=== PATIENT | female | born 1940 | race Caucasian/White ===

== ENCOUNTER → 2016-05-02 | Outpatient (CLI) | payer OTHER, BC ==
[~2016-05-02] MED LIST: ADVIN25050 INH; ALBINS INH; ALBU1AER9 INH; BUDE0.25 INH; CLC100 PO; CMD4 PO; CRDCD300 PO; DIGO0.122 PO; FLUO20CA35 PO; FRRS300 PO; INSDGIPEN SC; METO50TA16 PO; NITR0.2D TD; NVLGIPEN SC; NYSS5 PO; PRD20 PO; SPRIN INH; SYN25 PO
[2016-05-02 16:52] LABS: URINE APPEARANCE CLEAR (CLEAR); URINE BILIRUBIN NEG (NEG); URINE COLOR YELLOW; URINE EPITHELIAL CELL AUTO >30 /lpf (0-5); URINE NITRITE NEG (NEG); URINE SPECIFIC GRAVITY 1.018 (1.000-1.030); UROBILINOGEN NEG (NEG); ZZUR CULT IF INDIC CLEAN CATCH YES
[2016-05-02 16:59] LABS: MANUAL MICROSCOPIC REQUIRED? NO; REVIEW REQ? NO
[2016-05-02 17:24] LABS: URINE PROTIEN/CREAT RATIO 0.3 (0-0.2); URINE TOTAL PROTEIN 37.1 mg/dl (0-11.9)
== END | disposition home or self-care (01) ==
LOC: C.LAB1850 14:52
PROVIDERS: ATTEND Internal Medicine Nephrology
DX: N00.9 Acute nephritic syndrome with unspecified morphologic changes (principal)

== ENCOUNTER 2020-09-06 17:26 | Inpatient (IN) ==
[2020-09-06] MEDS ORDERED: methylPREDNISolone 125 MG/2 ML VIAL IV SCH (19:45)
--- NOTE | 2020-09-06 19:57 | History & Physical Report ---
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 BUN=63, Cr=4.18 from 50 and 2.2, respectively on . K is mildly elevated at 5.5, HCO3=24. UA with 4+ protein and 3+ blood. -Admit to medical -Check urine protein/Cr spot -Solumedrol 1000 mg IV daily x 3 days -Nephrology consultation appreciated -Avoid nephrotoxic agents -Renal dosing where needed -Gentle IVF - LR at 80mL/hr x 1 liter Present on Admission?: Yes (2) CAD (coronary artery disease): Chronic -Continue metoprolol 25mg po BID -Continue Simvastatin 10mg daily -Hold Losartan Present on Admission?: Yes (3) IgA nephropathy: As above -Solumedrol Present on Admission?: Yes (4) Hypertension: Blood pressure elevated -Continue Diltiazem -Continue Metoprolol -Monitor Present on Admission?: Yes (5) COPD (chronic obstructive pulmonary disease): Patient states she does not take any inhalers at home -Continue to monitor -Will resume Breo and Spiriva -Patient follows with Pulmonary Present on Admission?: Yes (6) H/O mechanical aortic valve replacement: Chronic -Continue Coumadin. Goal INR 2.5 - 3.5 F/E/N - LR at 80mL/hr x 1 liter, monitor electrolytes Ppx - On Coumadin Code - Full Dispo -Medical with telemetry Present on Admission?: Yes Admission and Anticipated Discharge Date Admission Date: September 06, 2020 History of Present Illness Chief Complaint: renal impairment, abnormal labs Primary Care Provider: DO Konrad Meansfidel Wells is a pleasant 79yo female with history of CAD s/p CABG x 3V, COPD, HTN, CHF as well as CKD. 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 Patient was referred to [facility] due to abnormal labs. She has no complaints at this time with exception of chronic, stable MATOS as well as right shoulder pain. She also complains of poor sleep, worsening anxiety and occasional nausea after eating. Otherwise, no additional complaints. She is urinating without difficulty- states that she urinates a lot at night, occasionally with difficulty starting urinary stream. She denies dysuria. Has foamy urine. No blood. She has received her Covid-19 vaccinations. Allergies Allergy/AdvReac Type Severity Reaction Status Date / Time Sulfa (Sulfonamide Allergy Unknown Unknown Verified 06/20/20 12:59 Antibiotics) rxn to Bactrim trimethoprim Allergy Unknown Unknown Verified 06/20/20 12:59 rxn to Bactrim Home Medications Medication Instructions Recorded Confirmed Type diltiazem HCl 360 mg 360 mg PO DAILY cap 11/27/18 09/06/20 History capsule,extended release 24 hr ferrous sulfate 325 mg (65 mg 325 mg PO TID tab 11/27/18 06/20/20 History iron) tablet fluticasone furoate 200 1 puffs INHALATION DAILY #1 ea 11/27/18 06/20/20 History mcg-vilanterol 25 mcg/dose inhalation powder levothyroxine 75 mcg tablet 75 mcg PO DAILY #90 tab 11/27/18 09/06/20 History metoprolol tartrate 50 mg tablet 25 mg PO BID tab 11/27/18 09/06/20 History nitroglycerin 0.4 mg sublingual 0.4 mg SL Q5M PRN tab 11/27/18 06/20/20 History tablet warfarin 4 mg tablet 5 mg PO DAILY tab 11/27/18 06/20/20 History furosemide 20 mg tablet 20 mg PO DAILY tab 04/12/19 09/06/20 History albuterol sulfate See Rx Instructions INHALATION Q4H 04/26/19 06/20/20 Rx PRN #360 vial albuterol sulfate 90 mcg/actuation 2 puff INH QID PRN #18 gm 04/26/19 06/20/20 Rx aerosol inhaler losartan 50 mg tablet 50 mg PO BID #180 tab 05/02/20 09/06/20 Rx simvastatin 20 mg tablet 10 mg PO DAILY tab 06/20/20 09/06/20 History warfarin 5 mg PO DAILY 09/06/20 09/06/20 History Past Med/Surg History Medical History (Updated 09/06/20 @ 22:59 by Jenise Duran DO) Acute on chronic clinical systolic heart failure Anemia Biventricular cardiac pacemaker in situ CAD (coronary artery disease) COPD (chronic obstructive pulmonary disease) Hypertension IgA nephropathy Ischemic cardiomyopathy Leukocytoclastic vasculitis Pulmonary hypertension Stage III chronic kidney disease Surgical History (Updated 09/06/20 @ 23:00 by Jenise Duran DO) History of aortic valve repair History of coronary artery bypass graft Family History (Updated 09/06/20 @ 22:46 by Jenise Duran DO) Other Heart disease Social History Smoking Status: Never smoker Hx Alcohol Use: No Hx Substance Use: No Preferred Language: [place] Communication Ability: Effective Beliefs That Will Affect Care: None Current Living Situation: Spouse current occupational status: retired Feels Safe at Home: Yes Safety Concerns: Feels Safe At This Time Assistive Devices: Denture - Upper and Glasses Review of Systems Review of Systems: All systems reviewed & are unremarkable except as noted in HPI & below Physical Exam Physical Exam: General: patient resting comfortably, NAD, non-toxic in appearance, AA&O x 4 Skin: warm, dry, intact, no rashes or lesions HEENT: NC/AT, PERRL, EOMI, anicteric sclera, conjunctiva without injection, external ear normal to inspection and nontender, nares patent, moist mucus membranes, dentition intact, no oropharyngeal lesions, neck supple, trachea midline, no LAD, no thyromegaly, no JVD Heart: +S1/S2, regular, mechanical click present, no m/r/g Lungs: equal air entry bilaterally, no rales/rhonchi/wheezes Abd: +BS, soft, NT/ND, no masses/organomegaly/ascites Ext: warm, 2+ pulses in UE/LE bilaterally, no clubbing/cyanosis or edema Neuro: nonfocal, patient AA&O x 4, speech intact, no facial droop, moving all extremities on command with equal strength 5/5 Results & Data Results & Data ([facility]) Vital Signs (Past 12 Hours) Vital Signs Height Weight Body Mass Index Blood Pressure Blood Pressure Position Temperature Temperature Source 5 ft 2 in 57.5 kg 23.1 177/59 H Sitting 36.5 C Oral 09/06/20 19:57 09/06/20 19:57 09/06/20 19:57 09/06/20 19:57 09/06/20 19:57 09/06/20 19:57 09/06/20 19:57 Respiratory Rate Pulse Oximetry 16 96 09/06/20 19:57 09/06/20 19:57 Laboratory Results Laboratory Results WBC 9.84 K/uL (4.8-10.8) 09/06/20 19:56 RBC 3.79 M/uL (4.2-5.4) L 09/06/20 19:56 Hgb 10.3 g/dL (12.0-16.0) L 09/06/20 19:56 Hct 32.2 % (37-47) L 09/06/20 19:56 MCV 85.0 fL (80-100) 09/06/20 19:56 MCH 27.2 pg (25-34) 09/06/20 19:56 MCHC 32.0 g/dL (32-36) 09/06/20 19:56 RDW Std Deviation 50.4 fL (36.4-46.3) H 09/06/20 19:56 RDW Coeff of Radha 16.1 % (11.5-14.5) H 09/06/20 19:56 Plt Count 313 K/uL (130-400) 09/06/20 19:56 MPV 11.0 fL (7.4-10.4) H 09/06/20 19:56 Immature Gran % (Auto) 0.2 % 09/06/20 19:56 Neut % (Auto) 65.7 % 09/06/20 19:56 Lymph % (Auto) 22.4 % 09/06/20 19:56 Allen % (Auto) 9.6 % 09/06/20 19:56 Eos % (Auto) 1.5 % 09/06/20 19:56 Baso % (Auto) 0.6 % 09/06/20 19:56 Neut # (Auto) 6.47 K/uL (1.4-6.5) 09/06/20 19:56 Lymph # (Auto) 2.20 K/uL (1.2-3.4) 09/06/20 19:56 Allen # (Auto) 0.94 K/uL (0.11-0.59) H 09/06/20 19:56 Eos # (Auto) 0.15 K/uL (0-0.5) 09/06/20 19:56 Baso # (Auto) 0.06 K/uL (0-0.2) 09/06/20 19:56 Immature Gran # (Auto) 0.02 K/uL (0.00-0.02) 09/06/20 19:56 PT 30.4 Seconds (9.0-12.0) H 09/06/20 19:56 INR 3.3 (0.9-1.1) H 09/06/20 19:56 Sodium 136 mmol/L (136-145) 09/06/20 19:56 Potassium 5.5 mmol/L (3.5-5.1) H 09/06/20 19:56 Chloride 106 mmol/L (98-107) 09/06/20 19:56 Carbon Dioxide 24 mmol/L (21-32) 09/06/20 19:56 Anion Gap 6.0 (3-11) 09/06/20 19:56 BUN 63 mg/dl (7-18) H 09/06/20 19:56 Creatinine 4.18 mg/dl (0.6-1.2) H 09/06/20 19:56 Est Cr Clr Drug Dosing 8.6 ml/min 09/06/20 19:56 Est GFR ( Amer) 11.0 ml/min 09/06/20 19:56 Est GFR (Non-Af Amer) 9.5 ml/min 09/06/20 19:56 BUN/Creatinine Ratio 15.0 (10-20) 09/06/20 19:56 Glucose 108 mg/dl (70-99) H 09/06/20 19:56 Calcium 8.5 mg/dl (8.5-10.1) 09/06/20 19:56 Phosphorus 5.4 mg/dl (2.5-4.9) H 09/06/20 19:56 Magnesium 2.3 mg/dl (1.8-2.4) 09/06/20 19:56 Total Bilirubin 0.2 mg/dl (0.2-1) 09/06/20 19:56 Direct Bilirubin < 0.1 mg/dl (0-0.2) 09/06/20 19:56 AST 18 U/L (15-37) 09/06/20 19:56 ALT 17 U/L (12-78) 09/06/20 19:56 Alkaline Phosphatase 89 U/L (45-117) 09/06/20 19:56 Total Creatine Kinase 50 U/L (26-192) 09/06/20 19:56 Total Protein 7.8 gm/dl (6.4-8.2) 09/06/20 19:56 Albumin 2.6 gm/dl (3.4-5.0) L 09/06/20 19:56 Urine Color Dark Yellow 09/06/20 Unknown Urine Appearance Clear (Clear) 09/06/20 Unknown Urine pH 7.0 (4.5-7.5) 09/06/20 Unknown Ur Specific [place] 1.017 (1.000-1.030) 09/06/20 Unknown Urine Protein 4+ (Negative) H 09/06/20 Unknown Urine Glucose (UA) Negative (Negative) 09/06/20 Unknown Urine Ketones Negative (Negative) 09/06/20 Unknown Urine Blood 3+ (Negative) H 09/06/20 Unknown Urine Nitrite Negative (Negative) 09/06/20 Unknown Urine Bilirubin Negative (Negative) 09/06/20 Unknown Urine Urobilinogen Negative (Negative) 09/06/20 Unknown Ur Leukocyte Esterase Trace (Negative) H 09/06/20 Unknown Urine WBC (Auto) 10-30 /hpf (0-5) H 09/06/20 Unknown Urine RBC (Auto) >30 /hpf (0-4) H 09/06/20 Unknown U Hyaline Cast (Auto) 1-5 /lpf (0-5) 09/06/20 Unknown U Epithel Cells (Auto) >30 /lpf (0-5) H 09/06/20 Unknown Urine Bacteria (Auto) Negative (Negative) 09/06/20 Unknown Ur Renal Epithelial Cell 0-5 /lpf (0-5) 09/06/20 Unknown COVID-19 Eval Order Covid19 IDNow On license of [facility] 09/06/20 20:00 SARS-CoV-2, RNA, NAAT NEGATIVE (NEGATIVE) 09/06/20 20:00 PG Care Time/CCT Total # of Minutes Spent Total Time Spent with Patient: Total time spent is greater than 50% in coordination of care (as documented) at patient's floor/unit and/or counseling patient: Coding Level of Care Code 82451 Initial Inpt Care Lvl 3 Diagnoses Stage III chronic kidney disease N18.30 Chronic kidney disease stage 3 subtype: unspecified whether 3a or 3b CAD (coronary artery disease) I25.10 Coronary Disease-Associated Artery/Lesion type: [place] artery [place] vs. transplanted heart: [place] heart Associated angina: without angina IgA nephropathy N02.8 Hypertension I10 Hypertension type: unspecified COPD (chronic obstructive pulmonary disease) J44.9 COPD type: unspecified COPD H/O mechanical aortic valve replacement Z95.2 (1) CAD (coronary artery disease) Coronary Disease-Associated Artery/Lesion type: [place] artery [place] vs. transplanted heart: [place] heart Associated angina: without angina Qualified Code(s): I25.10 - Atherosclerotic heart disease of [place] coronary artery without angina pectoris (2) Hypertension Hypertension type: unspecified Qualified Code(s): I10 - Essential (primary) hypertension (3) COPD (chronic obstructive pulmonary disease) COPD type: unspecified COPD Qualified Code(s): J44.9 - Chronic obstructive pulmonary disease, unspecified (4) Stage III chronic kidney disease Chronic kidney disease stage 3 subtype: unspecified whether 3a or 3b Qualified Code(s): N18.30 - Chronic kidney disease, stage 3 unspecified
[2020-09-06 20:15] LABS: Basophils # (auto) 0.06 K/uL (0-0.2); Basophils % (auto) 0.6 %; Eosinophils # (auto) 0.15 K/uL (0-0.5); Eosinophils % (auto) 1.5 %; Hematocrit (blood only) 32.2 % (37-47); Hemoglobin 10.3 g/dL (12.0-16.0); Immature Granulocytes # (auto) 0.02 K/uL (0.00-0.02); Immature Granulocytes % (auto) 0.2 %; Lymphocytes % (auto) 22.4 %; Mean Corpuscular Hemoglobin 27.2 pg (25-34); Monocytes # (auto) 0.94 K/uL (0.11-0.59); Monocytes % (auto) 9.6 %; Neutrophils # (auto) 6.47 K/uL (1.4-6.5); Neutrophils % (auto) 65.7 %; Platelet Count 313 K/uL (130-400); RDW Coefficient of Variation 16.1 % (11.5-14.5); RDW Standard Deviation 50.4 fL (36.4-46.3); Red Blood Count 3.79 M/uL (4.2-5.4); White Blood Count 9.84 K/uL (4.8-10.8)
[2020-09-06 20:29] LABS: INR 3.3 (0.9-1.1); Prothrombin Time 30.4 Seconds (9.0-12.0)
[2020-09-06 20:38] LABS: Appearance Urine Clear (Clear); Bacteria Urine Automated Negative (Negative); Bilirubin Urine Negative (Negative); Blood Urine 3+ (Negative); Color Urine Dark Yellow; Epithelial Cell Urine Auto >30 /lpf (0-5); Glucose Urine UA Negative (Negative); Ketones Urine Negative (Negative); Leukocyte Esterase Urine Trace (Negative); Nitrite Urine Negative (Negative); Protein Urine 4+ (Negative); RBC Urine Automated >30 /hpf (0-4); Specific Gravity Urine 1.017 (1.000-1.030); Urobilinogen Urine Negative (Negative)
[2020-09-06 20:38] LABS: Alanine Aminotransferase 17 U/L (12-78); Albumin Level 2.6 gm/dl (3.4-5.0); Aspartate Aminotransferase 18 U/L (15-37); Blood Urea Nitrogen 63 mg/dl (7-18); Calcium 8.5 mg/dl (8.5-10.1); Carbon Dioxide 24 mmol/L (21-32); Chloride 106 mmol/L (98-107); Creatinine Clr Calc Pharmacy 8.6 ml/min; Est GFR (Non-African American) 9.5 ml/min; Glucose 108 mg/dl (70-99); Magnesium 2.3 mg/dl (1.8-2.4); Potassium 5.5 mmol/L (3.5-5.1); Sodium 136 mmol/L (136-145)
[2020-09-06 20:42] LABS: Alkaline Phosphatase 89 U/L (45-117); Bilirubin Direct < 0.1 mg/dl (0-0.2); Bilirubin,Total 0.2 mg/dl (0.2-1); Creatine Kinase 50 U/L (26-192); Phosphorus 5.4 mg/dl (2.5-4.9); Total Protein 7.8 gm/dl (6.4-8.2)
[2020-09-06] MEDS ORDERED: LOSARTAN POTASSIUM 50 MG TAB PO SCH (21:00)
[2020-09-06] MEDS: METOPROLOL TARTRATE 25 MG TAB PO SCH (21:07)
[2020-09-06 21:19] LABS: Renal Epithelial Cells Urine 0-5 /lpf (0-5)
[2020-09-06] MEDS: methylPREDNISolone 1,000 MG in DEXTROSE 5% 250 ML IV SCH (22:39)
[2020-09-06] MEDS: hydrOXYzine HCl 25 MG TAB PO PRN (22:43)
[2020-09-06] MEDS ORDERED: LACTATED RINGER'S 1,000 ML IV SCH (23:00)
[2020-09-07 02:54] LABS: Creatinine Urine Random 22.7 mg/dl
[2020-09-07 02:55] LABS: Total Protein Urine Random 380.6 mg/dl (0-11.9)
[2020-09-07] MEDS: LEVOTHYROXINE SODIUM 75 MCG TABLET PO SCH (04:51)
--- NOTE | 2020-09-07 07:41 | Ultrasound Report ---
RENAL ULTRASOUND CLINICAL HISTORY: Glomerulonephritis. COMPARISON STUDY: Renal ultrasound March 22, 2015. TECHNIQUE: Sonography of the kidneys and the urinary bladder was performed. FINDINGS: Right kidney measures 9.7 cm in maximal dimension and the left measures 9.6 cm. There is no hydronephrosis. Both kidneys are echogenic. This was shown on prior ultrasound. There are multiple b ilateral renal cysts, largest is a 2.3 cm left renal cyst which contains a thin septation. No renal c alculi are identified by sonography. Bladder is suboptimally assessed given underdistention. Ureteral jets are not visualized. IMPRESSION: 1. No hydronephrosis. 2. Increased renal echogenicity, as shown on prior ultrasound. 2. Multiple renal cysts. ACT 112: Negative or not required by law. Electronically signed by: Lennox Moore M.D. 09/07/2020 7:40 AM
[2020-09-07 08:06] LABS: BUN Creatinine Ratio 14.3 (10-20); Calcium 8.6 mg/dl (8.5-10.1); Creatinine Clr Calc Pharmacy 9.1 ml/min; Est GFR (African American) 11.7 ml/min; Est GFR (Non-African American) 10.1 ml/min; Potassium 5.3 mmol/L (3.5-5.1)
[2020-09-07] MEDS ORDERED: GLUCOSE 40% GEL 15 GM TUBE PO PRN (08:18)
[2020-09-07] MEDS ORDERED: DEXTROSE 50% 50 ML SYRINGE IV PRN (08:18)
[2020-09-07] MEDS ORDERED: GLUCAGON FOR INJ 1 MG VIAL SQ PRN (08:18)
[2020-09-07] MEDS ORDERED: GLUCOSE 10 TABS/TUBE PO PRN (08:18)
[2020-09-07] MEDS ORDERED: CARBOHYDRATES FOR HYPOGLYCEMIA PO PRN (08:18)
[2020-09-07] MEDS ORDERED: cloNIDine HCL 0.1 MG TAB PO ONE (08:31)
[2020-09-07] MEDS: FERROUS GLUCONATE 324 MG TAB PO SCH (08:33)
[2020-09-07] MEDS: [UNRECOGNIZED DRUG - OTHER] PO SCH (08:33)
[2020-09-07] MEDS: SIMVASTATIN 10 MG TAB PO SCH (08:34)
[2020-09-07] MEDS: FLUTICASONE/VILANTEROL 200/25MCG 14 PUFFS/INHALER INH SCH (08:34)
[2020-09-07] MEDS: UMECLIDINIUM BROMIDE 62.5MCG/BLISTER 7 PUFFS/INHALER INH SCH (08:34)
[2020-09-07] MEDS: METOPROLOL TARTRATE 25 MG TAB PO SCH ×2 (08:34→20:45)
--- NOTE | 2020-09-07 08:52 | Electrocardiogram Report ---
Test Reason : Blood Pressure : / mmHG Vent. Rate : 071 BPM Atrial Rate : 284 BPM P-R Int : 000 ms QRS Dur : 178 ms QT Int : 502 ms P-R-T Axes : 000 248 061 degrees QTc Int : 545 ms Poor data quality, interpretation may be adversely affected Ventricular-paced rhythm Probable atrial flutter as underlying rhythm Abnormal ECG When compared with ECG of 21-MAR-2015 19:12, No significant change was found Confirmed by Hai Ramirez ([id number]) on 09/07/2020 8:52:06 AM Referred By: Russell Manzano Confirmed By:Hai Ramirez
--- NOTE | 2020-09-07 09:10 | Nephrology Consultation ---
Date of Consultation September 07, 2020 Assessment & Plan (1) Acute glomerulonephritis: Solu-medrol 1000 mg daily x 3 days. Monitor metabolic profile daily. Renal US does not demonstrate obstruction. Biopsy deferred at patient request. (2) Nephrotic range proteinuria: Continue losartan 50 mg twice daily. Encourage dietary protein intake. Supplements encouraged for hypoalbuminemia. (3) Stage III chronic kidney disease: Advanced BL CKD. No prior biopsy. CKD IIIb-IV A3. Goals of care reviewed. Mckenna completed TOPS predialysis education in the past. She would start in- centre HD, if needed. Renal diet. Aggressive management of CKD/MBD. Ergocalciferol 74771 units weekly started today. PTH from 09/05 pending. Serum PO4 acceptable. (4) Hypertension: Accelerated, relatively asymptomatic. Monitor orthostatic vitals. Volume status appears acceptable and I think it is reasonable to permit an even to slightly positive fluid balance at this time. PO clonidine provided this AM. Diuretic held. History of Present Illness Reason for Consultation: FAITH, acute GN Requesting Physician: Kassi Del Real MD Attending Physician: Kassi Del Real MD History of Present Illness Mrs. Mckenna Wells is a 79 year-old female with hypertension, COPD, hypothyroidism, coronary artery disease status post CABG with mechanical aortic valve and chronic kidney disease who was admitted to [facility] in March 2016 with rapidly progressive acute kidney injury with glomerulonephritis following treatment for cutaneous vasculitis (biopsy proven leukocytoclastic vasculitis). Direct admission requested yesterday after outpatient laboratory studies demonstrated notable FAITH with evidence of acute GN. 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 Renal ultrasound revealed normal kidneys with several bilateral simple cysts. Serologic workup negative for VERONIKA, ANCA, anti-BM ab, blood cultures and complement levels normal. Renal biopsy deferred at that time at patient's request and given cystic kidney disease. Clinical remission noted with steroid therapy. Creatinine stabilized at 1.5-1.8 mg/dL. Prior 24 hour urine collection yielded 500 mg protein per 24 hours. Microscopic hematuria had resolved. 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 Mckenna does have osteoporosis and had developed lumbar compression fractures in 2019. After discontinuation of steroids, tolerated MMF without evidence of recurrent vasculitis. In June 2018, MMF was weaned off. Mckenna then asked to avoid any additional immune modifying therapy. Mckenna returned for follow up in September and at that time UA was notable for 1-3 RBC and a random PCR of 813 mg/mg. The medication was again bridged while losartan was titrated. Unfortunately, PCR in February was increased at 3200 mg/mg. It is now 1350 mg/mg. Creatinine notably increased at 4.1+ mg/dL. Potassium slightly elevated at 5.2 mmol/L but overall stable. Albumin down to 2.6. Urine studies consistent with recurrent acute GN. No other systemic manifestations of vasculitis. Blood pressure notably accelerated. Mckenna reports some dyspnea with exertion and shortness of breath but otherwise denies any symptoms associated with accelerated hypertension. Volume status overall appears acceptable. Mckenna feels well but endorses notable anxiety. She is very concerned about the possibility of dialysis. I had a long conversation with Mckenna and her yesterday evening and I reviewed goals of care with Mckenna this AM. Mckenna was admitted to [facility] with a small subdural hematoma following a fall in February 2018. She is limited due to arthritis and chronic back pain. Mckenna has been using a wheelchair when out of the house. She lives at home with assistance from her . Allergies Allergy/AdvReac Type Severity Reaction Status Date / Time Sulfa (Sulfonamide Allergy Unknown Unknown Verified 06/20/20 12:59 Antibiotics) rxn to Bactrim trimethoprim Allergy Unknown Unknown Verified 06/20/20 12:59 rxn to Bactrim Home Medications Medication Instructions Recorded Confirmed Type diltiazem HCl 360 mg 360 mg PO DAILY cap 11/27/18 09/06/20 History capsule,extended release 24 hr ferrous sulfate 325 mg (65 mg 325 mg PO TID tab 11/27/18 06/20/20 History iron) tablet fluticasone furoate 200 1 puffs INHALATION DAILY #1 ea 11/27/18 06/20/20 History mcg-vilanterol 25 mcg/dose inhalation powder levothyroxine 75 mcg tablet 75 mcg PO DAILY #90 tab 11/27/18 09/06/20 History metoprolol tartrate 50 mg tablet 25 mg PO BID tab 11/27/18 09/06/20 History nitroglycerin 0.4 mg sublingual 0.4 mg SL Q5M PRN tab 11/27/18 06/20/20 History tablet warfarin 4 mg tablet 5 mg PO DAILY tab 11/27/18 06/20/20 History furosemide 20 mg tablet 20 mg PO DAILY tab 04/12/19 09/06/20 History albuterol sulfate See Rx Instructions INHALATION Q4H 04/26/19 06/20/20 Rx PRN #360 vial albuterol sulfate 90 mcg/actuation 2 puff INH QID PRN #18 gm 04/26/19 06/20/20 Rx aerosol inhaler losartan 50 mg tablet 50 mg PO BID #180 tab 05/02/20 09/06/20 Rx simvastatin 20 mg tablet 10 mg PO DAILY tab 06/20/20 09/06/20 History warfarin 5 mg PO DAILY 09/06/20 09/06/20 History Patient History Medical History Acute on chronic clinical systolic heart failure Anemia Biventricular cardiac pacemaker in situ CAD (coronary artery disease) COPD (chronic obstructive pulmonary disease) Hypertension IgA nephropathy Ischemic cardiomyopathy Leukocytoclastic vasculitis Pulmonary hypertension Stage III chronic kidney disease Surgical History History of aortic valve repair History of coronary artery bypass graft Family History Other Heart disease Social History Smoking Status: Never smoker Hx Alcohol Use: No Hx Substance Use: No Preferred Language: Iranian Communication Ability: Effective Beliefs That Will Affect Care: None Current Living Situation: Spouse current occupational status: retired Feels Safe at Home: Yes Safety Concerns: Feels Safe At This Time Assistive Devices: Denture - Upper and Glasses Review of Systems Review of Systems: All systems reviewed & are unremarkable except as noted in HPI & below Constitutional: + fatigue and + weakness; no weight loss and no weight gain Cardiovascular: + dyspnea on exertion Genitourinary: + urinary frequency Psychiatric: + anxiety Physical Exam Constitutional: well developed, + thin and + frail appearing; no acute distress Eyes: + anicteric sclerae; no corneal abnormality ENMT: Mouth: + dry oral mucous membranes; no oral mucosal abnormality Neck: normal visual inspection and trachea midline Respiratory: normal respiratory effort Auscultation: lungs clear to auscultation bilaterally Cardiovascular: Rate/Rhythm: regular rate Heart Sounds: normal S1, normal S2, + click and + murmur Vessels: no JVD and no renal bruit Extremities: normal capillary refill and + edema Musculoskeletal: Extremities: no cyanosis and no clubbing Skin: + turgor decreased; no lesions Neurologic: Motor/Sensory: no tremor and no asterixis Psychiatric: Orientation: alert and oriented x 3 Results & Data ([facility]) Vital Signs (Past 12 Hours) Vital Signs Temp Pulse Resp BP BP Pulse Ox 09/07/20 07:43 203/73 H 178/64 H 09/07/20 07:27 36.7 C 70 16 192/78 H 90 09/07/20 03:21 36.8 C 67 18 168/62 H 95 09/06/20 23:09 36.8 C 71 18 124/62 94 Laboratory Results Laboratory Results - last 24 hr 09/06/20 09/06/20 09/06/20 19:56 19:56 19:56 WBC 9.84 RBC 3.79 L Hgb 10.3 L Hct 32.2 L MCV 85.0 MCH 27.2 MCHC 32.0 RDW Std Deviation 50.4 H RDW Coeff of Radha 16.1 H Plt Count 313 MPV 11.0 H Immature Gran % (Auto) 0.2 Neut % (Auto) 65.7 Lymph % (Auto) 22.4 [place] % (Auto) 9.6 Eos % (Auto) 1.5 Baso % (Auto) 0.6 Neut # (Auto) 6.47 Lymph # (Auto) 2.20 [place] # (Auto) 0.94 H Eos # (Auto) 0.15 Baso # (Auto) 0.06 Immature Gran # (Auto) 0.02 PT 30.4 H INR 3.3 H Sodium 136 Potassium 5.5 H Chloride 106 Carbon Dioxide 24 Anion Gap 6.0 BUN 63 H Creatinine 4.18 H Est Cr Clr Drug Dosing 8.6 Est GFR ( Amer) 11.0 Est GFR (Non-Af Amer) 9.5 BUN/Creatinine Ratio 15.0 Glucose 108 H Calcium 8.5 Phosphorus 5.4 H Magnesium 2.3 Total Bilirubin 0.2 Direct Bilirubin < 0.1 AST 18 ALT 17 Alkaline Phosphatase 89 Total Creatine Kinase 50 Total Protein 7.8 Albumin 2.6 L Urine Color Urine Appearance Urine pH Ur Specific [place] Urine Protein Urine Glucose (UA) Urine Ketones Urine Blood Urine Nitrite Urine Bilirubin Urine Urobilinogen Ur Leukocyte Esterase Urine WBC (Auto) Urine RBC (Auto) U Hyaline Cast (Auto) U Epithel Cells (Auto) Urine Bacteria (Auto) Ur Renal Epithelial Cell Ur Random Creatinine U Random Total Protein COVID-19 Eval Order SARS-CoV-2, RNA, NAAT 09/06/20 09/06/20 09/06/20 20:00 20:00 Unknown WBC RBC Hgb Hct MCV MCH MCHC RDW Std Deviation RDW Coeff of Radha Plt Count MPV Immature Gran % (Auto) Neut % (Auto) Lymph % (Auto) [place] % (Auto) Eos % (Auto) Baso % (Auto) Neut # (Auto) Lymph # (Auto) [place] # (Auto) Eos # (Auto) Baso # (Auto) Immature Gran # (Auto) PT INR Sodium Potassium Chloride Carbon Dioxide Anion Gap BUN Creatinine Est Cr Clr Drug Dosing Est GFR ( Amer) Est GFR (Non-Af Amer) BUN/Creatinine Ratio Glucose Calcium Phosphorus Magnesium Total Bilirubin Direct Bilirubin AST ALT Alkaline Phosphatase Total Creatine Kinase Total Protein Albumin Urine Color Dark Yellow Urine Appearance Clear Urine pH 7.0 Ur Specific [place] 1.017 Urine Protein 4+ H Urine Glucose (UA) Negative Urine Ketones Negative Urine Blood 3+ H Urine Nitrite Negative Urine Bilirubin Negative Urine Urobilinogen Negative Ur Leukocyte Esterase Trace H Urine WBC (Auto) 10-30 H Urine RBC (Auto) >30 H U Hyaline Cast (Auto) 1-5 U Epithel Cells (Auto) >30 H Urine Bacteria (Auto) Negative Ur Renal Epithelial Cell 0-5 Ur Random Creatinine U Random Total Protein COVID-19 Eval [facility] SARS-CoV-2, RNA, NAAT NEGATIVE 09/07/20 09/07/20 07:20 Unknown WBC RBC Hgb Hct MCV MCH MCHC RDW Std Deviation RDW Coeff of Radha Plt Count MPV Immature Gran % (Auto) Neut % (Auto) Lymph % (Auto) [place] % (Auto) Eos % (Auto) Baso % (Auto) Neut # (Auto) Lymph # (Auto) [place] # (Auto) Eos # (Auto) Baso # (Auto) Immature Gran # (Auto) PT INR Sodium 137 Potassium 5.3 H Chloride 107 Carbon Dioxide 22 Anion Gap 8.0 BUN 57 H Creatinine 3.98 H Est Cr Clr Drug Dosing 9.1 Est GFR ( Amer) 11.7 Est GFR (Non-Af Amer) 10.1 BUN/Creatinine Ratio 14.3 Glucose 161 H Calcium 8.6 Phosphorus Magnesium Total Bilirubin Direct Bilirubin AST ALT Alkaline Phosphatase Total Creatine Kinase Total Protein Albumin Urine Color Urine Appearance Urine pH Ur Specific [place] Urine Protein Urine Glucose (UA) Urine Ketones Urine Blood Urine Nitrite Urine Bilirubin Urine Urobilinogen Ur Leukocyte Esterase Urine WBC (Auto) Urine RBC (Auto) U Hyaline Cast (Auto) U Epithel Cells (Auto) Urine Bacteria (Auto) Ur Renal Epithelial Cell Ur Random Creatinine 22.7 U Random Total Protein 380.6 H COVID-19 Eval Order SARS-CoV-2, RNA, NAAT PG Care Time/CCT Total # of Minutes Spent Total Time Spent with Patient: Total time spent is greater than 50% in coordination of care (as documented) at patient's floor/unit and/or counseling patient: Coding Level of Care Code 59155 Inpt Consult Level 4 Diagnoses Acute glomerulonephritis N00.9 Nephrotic range proteinuria R80.9 Stage III chronic kidney disease N18.30 Chronic kidney disease stage 3 subtype: unspecified whether 3a or 3b Hypertension I10 Hypertension type: unspecified (1) Stage III chronic kidney disease Chronic kidney disease stage 3 subtype: unspecified whether 3a or 3b Qualified Code(s): N18.30 - Chronic kidney disease, stage 3 unspecified (2) Hypertension Hypertension type: unspecified Qualified Code(s): I10 - Essential (primary) hypertension
[2020-09-07] MEDS ORDERED: ERGOCALCIFEROL 50,000 UNITS 1250 MCG CAP PO ONE (09:30)
[2020-09-07] MEDS: INSULIN ASPART 100 UNITS/ML 3 ML PEN SC SCH ×3 (12:43→20:48)
--- NOTE | 2020-09-07 16:19 | Hospitalist Progress Note ---
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 BUN=63, Cr=4.18 from 50 and 2.2, respectively on . K is mildly elevated at 5.5, HCO3=24. UA with 4+ protein and 3+ blood. Renal function slightly improved today down to 3.9, BUN is down, potassium is also down from previous With accelerated hypertension as below With acute glomerulonephritis-treating with IV Solu-Medrol 1000 mg once daily x3 days urine protein/Cr spot ratio is elevated -Nephrology consultation appreciated -Avoid nephrotoxic agents -Renal dosing where needed DC IV fluids Okay to restart losartan as per nephrology Follow BMP (2) Stage III chronic kidney disease: as above (3) Acute glomerulonephritis: As above (4) IgA nephropathy: As above -Solumedrol (5) Hypertension: With accelerated hypertension here -Given clonidine p.o. in the morning of 09/07-no much improved -Continue Diltiazem -Continue Metoprolol -Nephrology recommends restarting losartan 50 mg p.o. twice daily given nephrotic range proteinuria (6) COPD (chronic obstructive pulmonary disease): Patient states she does not take any inhalers at home -Continue to monitor -Continue Breo and Spiriva -Patient follows with Pulmonary (7) H/O mechanical aortic valve replacement: Chronic -Continue Coumadin home dose of 7.55 mg. 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 twice daily (11) Anemia: Mild and likely of chronic kidney disease Continue ferrous gluconate (12) Biventricular cardiac pacemaker in situ: Noted (13) Hyperkalemia: As above, no improving Renal diet (14) Hypothyroidism: TSH normal at 2.52 in 11/2019 Continue home dose of levothyroxine (15) Atrial fibrillation: Noted in cardiology records She is on Coumadin for anticoagulation She is in paced rhythm on telemetry here Continue metoprolol (16) CAD (coronary artery disease): Chronic, status post CABG -Continue metoprolol 25mg po BID -Continue Simvastatin 10mg daily -She is not on aspirin (17) Leg pain, bilateral: With excellent pedal pulses, negative Homans' sign, trace edema left greater than right which is chronic after vein grafting from left leg Not sure if is musculoskeletal related to electrolyte changes, renal failure? Observe (18) DVT prophylaxis: Coumadin Disposition-continued stay Admission and Anticipated Discharge Date Admission Date: September 06, 2020 Subjective Patient feeling better than upon admission yesterday. She is making urine. Denies chest pain. She did not notice any shortness of breath with walking to the bathroom today. She denies any nausea or vomiting. She reports that for most of her life, her right arm blood pressure is always 20 points higher on the systolic blood pressure than her left upper extremity. Telemetry with paced rhythm with rates in the 70s Review of Systems Review of Systems: All systems reviewed & are unremarkable except as noted in HPI & below She also reports feeling pain in both of her legs at rest since being in the hospital Physical Exam Constitutional: WD/WN, vitals as above Eyes: + anicteric sclerae ENMT: external ear and nose normal, oropharynx normal Neck: trachea midline, no thyromegaly Respiratory: normal respiratory effort, lungs clear to auscultation Cardiovascular: Rate/Rhythm: regular rate and regular rhythm Heart Sounds: + murmur (2/6 RONNIE at RUSB) Extremities: + edema (Trace edema left greater than right lower extremity-chronic asymmetry ) Chest (Breasts): Chest: + pacemaker (Left anterior chest wall); + abnormal inspection of chest (Sternum is deformed and protrudes) Gastrointestinal (Abdomen): normal bowel sounds, soft, nontender, no hepatosplenomegaly Musculoskeletal: Extremities: extremities normal to inspection; no cyanosis and no clubbing Skin: no rashes, warm and dry Neurologic: moves all extremities and awake; no focal motor deficits Psychiatric: A+Ox3, euthymic affect Results & Data Results & Data ([facility]) Vital Signs (Past 12 Hours) Vital Signs Temp Pulse Pulse Resp BP BP Pulse Ox 09/07/20 15:35 36.7 C 70 16 122/62 92 09/07/20 11:26 36.7 C 70 16 137/66 91 09/07/20 10:07 150/70 H 150/70 H 09/07/20 09:55 70 09/07/20 07:43 203/73 H 178/64 H 09/07/20 07:27 36.7 C 70 16 192/78 H 90 Laboratory Results 09/06/20 19:56 09/07/20 07:20 ECG Additional Comments: ECG on 09/07 with ventricularly paced rhythm Renal ultrasound with increased echogenicity and cysts PG Care Time/CCT Total # of Minutes Spent Total Time Spent with Patient: Total time spent is greater than 50% in coordination of care (as documented) at patient's floor/unit and/or counseling patient: Coding Level of Care Code 69523 Subseq Hosp Care Lvl 3 Diagnoses FAITH (acute kidney injury) N17.9 Stage III chronic kidney disease N18.30 Chronic kidney disease stage 3 subtype: unspecified whether 3a or 3b Acute glomerulonephritis N00.9 IgA nephropathy N02.8 Hypertension I10 Hypertension type: unspecified COPD (chronic obstructive pulmonary disease) J44.9 COPD type: unspecified COPD H/O mechanical aortic valve replacement Z95.2 Congenital hypoplasia of lung Q33.6 Nephrotic range proteinuria R80.9 Chronic systolic CHF (congestive heart failure) I50.22 Anemia D64.9 Biventricular cardiac pacemaker in situ Z95.0 Hyperkalemia E87.5 Hypothyroidism E03.9 Atrial fibrillation I48.91 CAD (coronary artery disease) I25.10 Associated angina: without angina Coronary Disease-Associated Artery/Lesion type: [place] artery [place] vs. transplanted heart: [place] heart Leg pain, bilateral M79.604; M79.605 DVT prophylaxis Z29.9 (1) Stage III chronic kidney disease Chronic kidney disease stage 3 subtype: unspecified whether 3a or 3b Qualified Code(s): N18.30 - Chronic kidney disease, stage 3 unspecified (2) CAD (coronary artery disease) Associated angina: without angina Coronary Disease-Associated Artery/Lesion type: [place] artery [place] vs. transplanted heart: [place] heart Qualified Code(s): I25.10 - Atherosclerotic heart disease of [place] coronary artery without angina pectoris (3) COPD (chronic obstructive pulmonary disease) COPD type: unspecified COPD Qualified Code(s): J44.9 - Chronic obstructive pulmonary disease, unspecified (4) Hypertension Hypertension type: unspecified Qualified Code(s): I10 - Essential (primary) hypertension
[2020-09-07] MEDS: WARFARIN SOD 5 MG TAB PO SCH (16:54)
[2020-09-07] MEDS: methylPREDNISolone 1,000 MG in DEXTROSE 5% 250 ML IV SCH (20:48)
[2020-09-07] MEDS ORDERED: LOSARTAN POTASSIUM 50 MG TAB PO SCH (21:00)
[2020-09-07] MEDS: hydrOXYzine HCl 25 MG TAB PO PRN (22:35)
[2020-09-07] MEDS: ACETAMINOPHEN 325 MG TAB PO PRN (22:35)
[2020-09-08] MEDS: LEVOTHYROXINE SODIUM 75 MCG TABLET PO SCH (06:16)
[2020-09-08 07:56] LABS: INR 2.1 (0.9-1.1); Prothrombin Time 19.7 Seconds (9.0-12.0)
[2020-09-08 08:07] LABS: Estimated Average Glucose 146 mg/dl; Hemoglobin A1C 6.7 % (4.5-5.6)
[2020-09-08 08:33] LABS: BUN Creatinine Ratio 17.1 (10-20); Calcium 8.3 mg/dl (8.5-10.1); Creatinine Clr Calc Pharmacy 7.5 ml/min; Est GFR (African American) 9.4 ml/min; Est GFR (Non-African American) 8.1 ml/min; Potassium 4.7 mmol/L (3.5-5.1)
[2020-09-08] MEDS: INSULIN ASPART 100 UNITS/ML 3 ML PEN SC SCH ×4 (08:51→20:20)
[2020-09-08] MEDS: FERROUS GLUCONATE 324 MG TAB PO SCH (09:08)
[2020-09-08] MEDS: [UNRECOGNIZED DRUG - OTHER] PO SCH (09:08)
[2020-09-08] MEDS: FLUTICASONE/VILANTEROL 200/25MCG 14 PUFFS/INHALER INH SCH (09:09)
[2020-09-08] MEDS: METOPROLOL TARTRATE 25 MG TAB PO SCH ×2 (09:09→20:18)
[2020-09-08] MEDS: SIMVASTATIN 10 MG TAB PO SCH (09:10)
[2020-09-08] MEDS: UMECLIDINIUM BROMIDE 62.5MCG/BLISTER 7 PUFFS/INHALER INH SCH (09:10)
--- NOTE | 2020-09-08 11:01 | Medical Student Progress Note ---
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 Patient's labs and electrolytes were stable over the first day but her creatinine increased from 3.98 mg/dL to 4.78 mg/dL overnight, raising concerns for another episode of FAITH. 1) Acute Kidney Injury: Patient was originally admitted due to increased levels of serum creatinine. Over the past 24 hours, her creatinine has increased from 3.98 mg/dL to 4.78 mg/dL, consistent with another acute kidney event. - Hold Losartan - Monitor total body fluid volume 2) Acute on Chronic Glomerulonephritis: Patient was formerly diagnosed with RPGN secondary to possible IgA nephropathy. However, although serum markers for other causes of RPGN were initially negative, we can't definitively rule out. - Continue pt on Methylprednisolone 3x/day - Obtain VERONIKA, p-ANCA, c-ANCA, anti-GBM, C3 and C4 levels to rule out other causes of RPGN - Renal biopsy deferred 3) Severe Proteinuria: Patient has been experiencing an acute onset of severe proteinuria concerning for an acute nephrotic process or a mixed nephrotic- nephritic syndrome. - Continue pt on Methylpredinosolone 3x/day - Hold Losartan - Monitor serum albumin levels and consider a protein-rich diet 4) Class III Chronic Kidney Disease: Patient develop CIII CKD secondary to the RPGN. Currently not on dialysis. Might eventually need in the future if condition continues to deteriorate. - PTH is elevated at 251 - Electrolytes are normal - Ergocalciferol weekly started yesterday. - Calcitriol therapy would be initiated today. 5) Hypertension: Patient has elevated BP possibly complicated by her renal disease. No recent exacerbation. - Continue Losartan and Metoprolol. 6) Anemia: Patient's Hgb is currently 10.3 which is close to her normal baseline. - Monitor labs q24 hr - Consider iron supplementation if downtrending 7) Renal Vein Thrombosis: Due to nephrotic range proteinuria, patient is at increased risk for venous thrombosis especially of the renal vein. - Doppler U/S to rule out RVT. Subjective Patient is currently awake, alert and oriented on the hospital floor. She states feeling better since admission. She denies any shortness of breath or chest pain but does acknowledge minor anterior tibial pain to palpation. She states that her urine is not as "frothy" as it was on admission. Patient has no acute concerns Review of Systems Review of Systems: All systems reviewed & are unremarkable except as noted in HPI & below Physical Exam Constitutional: WD/WN, vitals as above Respiratory: normal respiratory effort, lungs clear to auscultation Cardiovascular: Rate/Rhythm: regular rate and regular rhythm Heart Sounds: normal S1 and normal S2 Extremities: + pedal edema (worse on the left leg vs right leg) and + varicosities (prominent on the right foot and ankle) Skin: normal turgor and + lichenification (Right lower extremites lichenification on the anterior and medial surface) Results & Data ([facility]) Vital Signs (Past 12 Hours) Vital Signs Temp Pulse Pulse Resp BP BP Pulse Ox 09/08/20 10:20 22 94 09/08/20 09:05 78 180/71 H 09/08/20 07:59 36.7 C 70 18 162/71 H 94 09/08/20 07:30 75 09/08/20 03:47 36.5 C 70 18 153/61 H 93 09/07/20 23:52 72 09/07/20 23:08 36.6 C 71 17 151/70 H 94
--- NOTE | 2020-09-08 12:01 | Ultrasound Report ---
US duplex renal artery CLINICAL HISTORY: Acute kidney injury. COMPARISON STUDY: Renal ultrasound September 06, 2020. TECHNIQUE: Grayscale, color and duplex Doppler sonography of the abdominal aorta and renal arteries w as performed. FINDINGS: The right kidney measures 9 cm in maximal dimension and the left measures 10.3 cm. There is no hydronephrosis. Both kidneys are echogenic. The bilateral renal arteries are largely obscured on this examination. The study was technically difficult. Therefore, this exam is nondiagnostic for eval uation for renal artery stenosis. The bilateral renal arteries and veins were grossly patent. IMPRESSION: Partially obscured bilateral renal arteries. This exam is nondiagnostic for evaluation f or renal artery stenosis. ACT 112: Negative or not required by law. Electronically signed by: Lennox Moore M.D. 09/08/2020 12:00 PM
--- NOTE | 2020-09-08 13:12 | Nephrology Progress Note ---
Date of Service September 08, 2020 Assessment & Plan (1) Acute glomerulonephritis: Solu-medrol 1000 mg daily x 3 days. Dose 3 today. Then plan to start prednisone 1 mg/kg (60 mg daily). Monitor metabolic profile daily. Renal US does not demonstrate obstruction. Biopsy deferred due to renal cysts and patient request. Repeat serologic evaluation sent this AM. Unfortunately prognosis for renal recovery is guarded. Noted FAITH in past 24 hours. Renal duplex to be obtained. ARB held. Volume status acceptable. (2) Nephrotic range proteinuria: Hold ARB due to worsening kidney function.. Encourage dietary protein intake. Supplements encouraged for hypoalbuminemia. (3) Stage III chronic kidney disease: Advanced BL CKD. No prior biopsy. CKD IIIb-IV A3. Goals of care reviewed. Mckenna completed [facility]S predialysis education in the past. She would start in- centre HD, if needed. I spoke to Mckenna and her today and reviewed potential future indications for SENIOR INFORMATION SECURITY ARCHITECT. Renal diet. Aggressive management of CKD/MBD. Ergocalciferol 13472 units weekly started yesterday. Calcitriol 0.25 daily added today. PTH 250. Serum calcium acceptable. (4) Hypertension: Accelerated, relatively asymptomatic. Monitor orthostatic vitals. Volume status appears acceptable and I think it is reasonable to permit an even to slightly positive fluid balance at this time. PO clonidine provided yesterday. Mckenna's BP has typically responded very well to this PRN. Diuretic held. ARB held. Admission and Anticipated Discharge Date Admission Date: September 06, 2020 Subjective No acute events overnight. Very anxious this AM. Denies any shortness of breath. No fevers or chills. Overall feels well. No urinary complaints or change in urine output. Review of Systems Review of Systems: All systems reviewed & are unremarkable except as noted in HPI & below Physical Exam Constitutional: well developed, + thin and + frail appearing; no acute distress Eyes: + anicteric sclerae; no corneal abnormality ENMT: Mouth: + dry oral mucous membranes; no oral mucosal abnormality Neck: normal visual inspection and trachea midline Respiratory: normal respiratory effort Auscultation: lungs clear to auscultation bilaterally Cardiovascular: Rate/Rhythm: regular rate Heart Sounds: normal S1, normal S2, + click and + murmur Vessels: no JVD and no renal bruit Extremities: normal capillary refill and + edema Musculoskeletal: Extremities: no cyanosis and no clubbing Skin: + turgor decreased; no lesions Neurologic: Motor/Sensory: no tremor and no asterixis Psychiatric: Orientation: alert and oriented x 3 Results & Data ([facility]) Vital Signs (Past 12 Hours) Vital Signs Temp Pulse Pulse Resp BP BP Pulse Ox 09/08/20 11:24 36.7 C 17 149/72 H 95 09/08/20 10:20 22 94 09/08/20 09:05 78 180/71 H 09/08/20 07:59 36.7 C 70 18 162/71 H 94 09/08/20 07:30 75 09/08/20 03:47 36.5 C 70 18 153/61 H 93 Laboratory Results Laboratory Results - last 24 hr 09/07/20 09/07/20 09/08/20 16:47 20:26 07:02 PT INR Sodium Potassium Chloride Carbon Dioxide Anion Gap BUN Creatinine Est Cr Clr Drug Dosing Est GFR ( Amer) Est GFR (Non-Af Amer) BUN/Creatinine Ratio Glucose POC Glucose 149 H 202 H Estimat Average Glucose Hemoglobin A1c Calcium PTH Intact VERONIKA Screen Pending Anti-Proteinase 3 Pending Anti-Myeloperoxidase Pending ANCA Pending Glomerular Base Memb Ab Pending Complement C3 Pending Complement C4 Pending Tot Complement (CH50) Pending 09/08/20 09/08/20 09/08/20 07:09 07:09 07:09 PT INR Sodium 135 L Potassium 4.7 Chloride 105 Carbon Dioxide 20 L Anion Gap 10.0 BUN 82 H Creatinine 4.78 H* D Est Cr Clr Drug Dosing 7.5 Est GFR ( Amer) 9.4 Est GFR (Non-Af Amer) 8.1 BUN/Creatinine Ratio 17.1 Glucose 159 H POC Glucose Estimat Average Glucose 146 Hemoglobin A1c 6.7 H Calcium 8.3 L PTH Intact 251.5 H VERONIKA Screen Anti-Proteinase 3 Anti-Myeloperoxidase ANCA Glomerular Base Memb Ab Complement C3 Complement C4 Tot Complement (CH50) 09/08/20 09/08/20 09/08/20 07:09 08:08 11:10 PT 19.7 H INR 2.1 H Sodium Potassium Chloride Carbon Dioxide Anion Gap BUN Creatinine Est Cr Clr Drug Dosing Est GFR ( Amer) Est GFR (Non-Af Amer) BUN/Creatinine Ratio Glucose POC Glucose 155 H 188 H Estimat Average Glucose Hemoglobin A1c Calcium PTH Intact VERONIKA Screen Anti-Proteinase 3 Anti-Myeloperoxidase ANCA Glomerular Base Memb Ab Complement C3 Complement C4 Tot Complement (CH50) PG Care Time/CCT Total # of Minutes Spent Total Time Spent with Patient: Total time spent is greater than 50% in medical staff credentialing coordinator rdination of care (as documented) at patient's floor/unit and/or counseling patient: Coding Level of Care Code 80774 Subseq Hosp Care Lvl 3 Diagnoses Acute glomerulonephritis N00.9 Nephrotic range proteinuria R80.9 Stage III chronic kidney disease N18.30 Chronic kidney disease stage 3 subtype: unspecified whether 3a or 3b Hypertension I10 Hypertension type: unspecified (1) Stage III chronic kidney disease Chronic kidney disease stage 3 subtype: unspecified whether 3a or 3b Qualified Code(s): N18.30 - Chronic kidney disease, stage 3 unspecified (2) Hypertension Hypertension type: unspecified Qualified Code(s): I10 - Essential (primary) hypertension
[2020-09-08] MEDS: CALCITRIOL 0.25 MCG CAPSULE PO SCH (13:21)
[2020-09-08] MEDS: WARFARIN SOD 5 MG TAB PO SCH (17:51)
[2020-09-08] MEDS ORDERED: ALBUTEROL HFA 8 GM INHALER INH PRN (17:56)
--- NOTE | 2020-09-08 17:56 | Hospitalist Progress Note ---
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 BUN=63, Cr=4.18 from 50 and 2.2, respectively on . K is mildly elevated at 5.5, HCO3=24. UA with 4+ protein and 3+ blood. Renal function initially was slightly improved with creatinine down to 3.9, BUN is down, potassium is also down from previous, however on 09/08, creatinine worsened again up to 4.78 With accelerated hypertension as below which is improved now With acute glomerulonephritis-treating with IV Solu-Medrol 1000 mg once daily x3 days and then convert to prednisone 1 mg/KG daily on 09/09 urine protein/Cr spot ratio is elevated -Nephrology consultation appreciated -Renal ultrasound without obstruction on admission, renal Doppler performed on 09/08 does not show any obvious renal vein or artery thrombosis, but was a difficult study -She is making urine -Avoid nephrotoxic agents -Renal dosing where needed -We will now hold losartan given worsening of acute kidney injury Follow BMP (2) Stage III chronic kidney disease: as above (3) Acute glomerulonephritis: As above, autoimmune studies are pending (4) IgA nephropathy: As above -Solumedrol (5) Hypertension: With accelerated hypertension here, now improving -Given clonidine p.o. in the morning of 09/07- much improved -Continue Diltiazem -Continue Metoprolol -will now hold losartan -Use clonidine as needed IV hydralazine as needed (6) COPD (chronic obstructive pulmonary disease): Has a little bit of wheezing today -Continue to monitor -Continue Breo and Spiriva -Patient follows with Pulmonary -Add albuterol as needed given wheezing (7) H/O mechanical aortic valve replacement: Chronic -Continue Coumadin home dose of 7.5 mg. 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 twice daily (11) Anemia: Mild and likely of chronic kidney disease Continue ferrous gluconate (12) Biventricular cardiac pacemaker in situ: Noted (13) Hyperkalemia: Now resolved Renal low potassium diet (14) Hypothyroidism: TSH normal at 2.52 in 11/2019 Continue home dose of levothyroxine (15) Atrial fibrillation: Noted in cardiology records She is on Coumadin for anticoagulation She is in paced rhythm on telemetry here Continue metoprolol (16) CAD (coronary artery disease): Chronic, status post CABG -Continue metoprolol 25mg po BID -Continue Simvastatin 10mg daily -She is not on aspirin (17) Leg pain, bilateral: With excellent pedal pulses, negative Homans' sign, trace edema left greater than right which is chronic after vein grafting from left leg Not sure if is musculoskeletal related to electrolyte changes, renal failure? Observe-seems to be improved today (18) DVT prophylaxis: Coumadin Disposition-continued stay Admission and Anticipated Discharge Date Admission Date: September 06, 2020 Subjective Patient feels well today. A little bit short of breath and has a cough today. Denies any chest pain, no nausea. Her appetite is improving. No other concerns. I discussed her care with nephrology today. Telemetry with paced rhythm with rate in the 70s Review of Systems Review of Systems: All systems reviewed & are unremarkable except as noted in HPI & below Physical Exam Constitutional: WD/WN, vitals as above Eyes: + anicteric sclerae Neck: trachea midline, no thyromegaly Respiratory: normal respiratory effort Auscultation: + wheezes (Few faint bilateral wheezes); no rales and no rhonchi Cardiovascular: Rate/Rhythm: regular rate and regular rhythm Heart Sounds: + murmur (2/6 RONNIE at RUSB) Extremities: + edema (Trace edema left greater than right lower extremity-chronic asymmetry ) Chest (Breasts): Chest: + pacemaker (Left anterior chest wall); + abnormal inspection of chest (Sternum is deformed and protrudes) Gastrointestinal (Abdomen): normal bowel sounds, soft, nontender, no hepatosplenomegaly Musculoskeletal: Extremities: extremities normal to inspection; no cyanosis and no clubbing Skin: no rashes, warm and dry Neurologic: moves all extremities and awake; no focal motor deficits Psychiatric: A+Ox3, euthymic affect Results & Data Results & Data ([facility]) Vital Signs (Past 12 Hours) Vital Signs Temp Pulse Pulse Pulse Resp BP BP 09/08/20 14:53 36.5 C 70 18 139/56 L 09/08/20 11:24 36.7 C 17 149/72 H 09/08/20 10:20 22 09/08/20 09:05 78 180/71 H 09/08/20 07:59 36.7 C 70 18 162/71 H 09/08/20 07:30 75 Pulse Ox 09/08/20 14:53 92 09/08/20 11:24 95 09/08/20 10:20 94 09/08/20 09:05 09/08/20 07:59 94 09/08/20 07:30 Laboratory Results 09/08/20 09/08/20 09/08/20 Range/Units 16:30 11:10 08:08 PT (9.0-12.0) Seconds INR (0.9-1.1) Sodium (136-145) mmol/L Potassium (3.5-5.1) mmol/L Chloride (98-107) mmol/L Carbon Dioxide (21-32) mmol/L Anion Gap (3-11) BUN (7-18) mg/dl Creatinine (0.6-1.2) mg/dl Est Cr Clr Drug Dosing ml/min Est GFR ( Amer) ml/min Est GFR (Non-Af Amer) ml/min BUN/Creatinine Ratio (10-20) Glucose (70-99) mg/dl POC Glucose 153 H 188 H 155 H (70-99) mg/dl Estimat Average Glucose mg/dl Hemoglobin A1c (4.5-5.6) % Calcium (8.5-10.1) mg/dl PTH Intact (18.4-80.1) pg/ml VERONIKA Screen Anti-Proteinase 3 Anti-Myeloperoxidase ANCA Glomerular Base Memb Ab Complement C3 Complement C4 Tot Complement (CH50) 09/08/20 09/08/20 09/08/20 Range/Units 07:09 07:09 07:09 PT 19.7 H (9.0-12.0) Seconds INR 2.1 H (0.9-1.1) Sodium 135 L (136-145) mmol/L Potassium 4.7 (3.5-5.1) mmol/L Chloride 105 (98-107) mmol/L Carbon Dioxide 20 L (21-32) mmol/L Anion Gap 10.0 (3-11) BUN 82 H (7-18) mg/dl Creatinine 4.78 H* D (0.6-1.2) mg/dl Est Cr Clr Drug Dosing 7.5 ml/min Est GFR ( Amer) 9.4 ml/min Est GFR (Non-Af Amer) 8.1 ml/min BUN/Creatinine Ratio 17.1 (10-20) Glucose 159 H (70-99) mg/dl POC Glucose (70-99) mg/dl Estimat Average Glucose mg/dl Hemoglobin A1c (4.5-5.6) % Calcium 8.3 L (8.5-10.1) mg/dl PTH Intact 251.5 H (18.4-80.1) pg/ml VERONIKA Screen Anti-Proteinase 3 Anti-Myeloperoxidase ANCA Glomerular Base Memb Ab Complement C3 Complement C4 Tot Complement (CH50) 09/08/20 09/08/20 09/07/20 Range/Units 07:09 07:02 20:26 PT (9.0-12.0) Seconds INR (0.9-1.1) Sodium (136-145) mmol/L Potassium (3.5-5.1) mmol/L Chloride (98-107) mmol/L Carbon Dioxide (21-32) mmol/L Anion Gap (3-11) BUN (7-18) mg/dl Creatinine (0.6-1.2) mg/dl Est Cr Clr Drug Dosing ml/min Est GFR ( Amer) ml/min Est GFR (Non-Af Amer) ml/min BUN/Creatinine Ratio (10-20) Glucose (70-99) mg/dl POC Glucose 202 H (70-99) mg/dl Estimat Average Glucose 146 mg/dl Hemoglobin A1c 6.7 H (4.5-5.6) % Calcium (8.5-10.1) mg/dl PTH Intact (18.4-80.1) pg/ml VERONIKA Screen Pending Anti-Proteinase 3 Pending Anti-Myeloperoxidase Pending ANCA Pending Glomerular Base Memb Ab Pending Complement C3 Pending Complement C4 Pending Tot Complement (CH50) Pending Diagnostic Findings Renal Artery Duplex 09/08/20 10:30 US duplex renal artery CLINICAL HISTORY: Acute kidney injury. COMPARISON STUDY: Renal ultrasound September 06, 2020. TECHNIQUE: Grayscale, color and duplex Doppler sonography of the abdominal aorta and renal arteries was performed. FINDINGS: The right kidney measures 9 cm in maximal dimension and the left measures 10.3 cm. There is no hydronephrosis. Both kidneys are echogenic. The bilateral renal arteries are largely obscured on this examination. The study was technically difficult. Therefore, this exam is nondiagnostic for evaluation for renal artery stenosis. The bilateral renal arteries and veins were grossly patent. IMPRESSION: Partially obscured bilateral renal arteries. This exam is nondiagnostic for evaluation for renal artery stenosis. ACT 112: Negative or not required by law. Electronically signed by: Lennox Moore M.D. 09/08/2020 12:00 PM PG Care Time/CCT Total # of Minutes Spent Total Time Spent with Patient: Total time spent is greater than 50% in coordination of care (as documented) at patient's floor/unit and/or counseling patient: Coding Level of Care Code 20139 Subseq Hosp Care Lvl 3 Diagnoses FAITH (acute kidney injury) N17.9 Stage III chronic kidney disease N18.30 Chronic kidney disease stage 3 subtype: unspecified whether 3a or 3b Acute glomerulonephritis N00.9 IgA nephropathy N02.8 Hypertension I10 Hypertension type: unspecified COPD (chronic obstructive pulmonary disease) J44.9 COPD type: unspecified COPD H/O mechanical aortic valve replacement Z95.2 Congenital hypoplasia of lung Q33.6 Nephrotic range proteinuria R80.9 Chronic systolic CHF (congestive heart failure) I50.22 Anemia D64.9 Biventricular cardiac pacemaker in situ Z95.0 Hyperkalemia E87.5 Hypothyroidism E03.9 Atrial fibrillation I48.91 CAD (coronary artery disease) I25.10 Coronary Disease-Associated Artery/Lesion type: [place] artery [place] vs. transplanted heart: [place]ze heart Associated angina: without angina Leg pain, bilateral M79.604; M79.605 DVT prophylaxis Z29.9 (1) Stage III chronic kidney disease Chronic kidney disease stage 3 subtype: unspecified whether 3a or 3b Qualified Code(s): N18.30 - Chronic kidney disease, stage 3 unspecified (2) Hypertension Hypertension type: unspecified Qualified Code(s): I10 - Essential (primary) hypertension (3) COPD (chronic obstructive pulmonary disease) COPD type: unspecified COPD Qualified Code(s): J44.9 - Chronic obstructive pulmonary disease, unspecified (4) CAD (coronary artery disease) Coronary Disease-Associated Artery/Lesion type: [place] artery [place] vs. transplanted heart: [place]ze heart Associated angina: without angina Qualified Code(s): I25.10 - Atherosclerotic heart disease of [place] coronary artery without angina pectoris
[2020-09-08] MEDS: methylPREDNISolone 1,000 MG in DEXTROSE 5% 250 ML IV SCH (20:24)
[2020-09-08] MEDS: hydrOXYzine HCl 25 MG TAB PO PRN (22:52)
[2020-09-08] MEDS: ACETAMINOPHEN 325 MG TAB PO PRN (22:52)
[2020-09-09] MEDS: LEVOTHYROXINE SODIUM 75 MCG TABLET PO SCH (06:23)
[2020-09-09 07:08] LABS: BUN Creatinine Ratio 20.7 (10-20); Calcium 7.5 mg/dl (8.5-10.1); Creatinine Clr Calc Pharmacy 7.1 ml/min; Est GFR (African American) 8.7 ml/min; Est GFR (Non-African American) 7.5 ml/min; Potassium 4.3 mmol/L (3.5-5.1)
[2020-09-09] MEDS: [UNRECOGNIZED DRUG - OTHER] PO SCH (08:28)
[2020-09-09] MEDS: METOPROLOL TARTRATE 25 MG TAB PO SCH ×2 (08:28→20:44)
[2020-09-09] MEDS: FERROUS GLUCONATE 324 MG TAB PO SCH (08:28)
[2020-09-09] MEDS: ATORVASTATIN 40 MG TAB PO SCH (08:28)
[2020-09-09] MEDS: CALCITRIOL 0.25 MCG CAPSULE PO SCH (08:28)
[2020-09-09] MEDS: predniSONE 20 MG TAB PO SCH (08:28)
[2020-09-09] MEDS: INSULIN ASPART 100 UNITS/ML 3 ML PEN SC SCH ×4 (08:29→20:45)
[2020-09-09] MEDS: FLUTICASONE/VILANTEROL 200/25MCG 14 PUFFS/INHALER INH SCH (08:30)
[2020-09-09] MEDS: UMECLIDINIUM BROMIDE 62.5MCG/BLISTER 7 PUFFS/INHALER INH SCH (08:30)
[2020-09-09 10:40] LABS: INR 2.8 (0.9-1.1); Prothrombin Time 26.6 Seconds (9.0-12.0)
--- NOTE | 2020-09-09 11:56 | Nephrology Progress Note ---
Date of Service September 09, 2020 Assessment & Plan (1) Acute glomerulonephritis: * h/o gross hematuria and skin rash - presumed IgA/HSP * Prior serologic evaluation was negative * Biopsy held due to multiple renal cysts * Initial episode responded to steroid therapy and patient had been on maintenan ce MMF * Now with AGN, gross hematuria. Has completed Solumedrol 1 g IV x 3 days * Will transition to Prednisone 60 mg po daily * Discussed w/ patient and today that Mrs. Wells remains within injury phase of AGN. Will continue steroid therapy and monitor PRP. There is no acute indication for TEAM FACILITATOR at this time, however, it may become necessary over the next 72 hours (2) Nephrotic range proteinuria: * ARB held due to FAITH (3) Hypertension: * Diuretic and ARB are being held. BP remains acceptable at this time on combination Diltiazem and Metoprolol Admission and Anticipated Discharge Date Admission Date: September 06, 2020 Subjective Mrs. Wells was seen & examined in her hospital room this morning. She had one episode of gross hematuria this morning and remains very anxious. She denies fever, angina, dyspnea or uremic symptoms Review of Systems Constitutional: + weakness; no fever Eyes: no problem reported Ear, Nose, Mouth, Throat: no problem reported Respiratory: no dyspnea Cardiovascular: no chest pain and no palpitations Gastrointestinal: no abdominal pain, no nausea and no diarrhea/loose stools Genitourinary: + hematuria; no dysuria Musculoskeletal: no back pain Neurologic: no confusion Physical Exam Constitutional: + thin and + frail appearing marked kyphosis Eyes: PERRL, conjunctivae normal, anicteric sclerae ENMT: external ear and nose normal, oropharynx normal Neck: trachea midline, no thyromegaly Respiratory: normal respiratory effort, lungs clear to auscultation Cardiovascular: Rate/Rhythm: regular rate and regular rhythm Extremities: + edema (trace pretibial edema bilaterally) Gastrointestinal (Abdomen): normal bowel sounds, soft, nontender, no hepatosplenomegaly Musculoskeletal: Extremities: no cyanosis Neurologic: awake; not confused Results & Data ([facility]) Vital Signs (Past 12 Hours) Vital Signs Temp Pulse Pulse Resp BP BP Pulse Ox 09/09/20 11:33 36.4 C L 72 16 121/56 L 96 09/09/20 08:27 70 167/67 H 09/09/20 07:12 36.4 C L 70 16 163/66 H 93 06/05/21 07:00 70 09/09/20 04:21 36.5 C 72 18 119/67 91 09/09/20 00:28 70 Laboratory Tests 09/06/20 09/07/20 09/09/20 Unknown Unknown 05:43 Sodium 135 L Potassium 4.3 Chloride 104 Carbon Dioxide 19 L Anion Gap 12.0 H BUN 105 H Creatinine 5.07 H* Glucose 166 H Calcium 7.5 L Urine Color Dark Yellow Urine Appearance Clear Urine pH 7.0 Ur Specific [place] 1.017 Urine Protein 4+ H Urine Glucose (UA) Negative Urine Blood 3+ H Urine Nitrite Negative Urine WBC (Auto) 10-30 H Urine RBC (Auto) >30 H Urine Bacteria (Auto) Negative Ur Renal Epithelial Cell 0-5 U Random Total Protein 380.6 H PG Care Time/CCT Total # of Minutes Spent Total Time Spent with Patient: Total time spent is greater than 50% in coordination of care (as documented) at patient's floor/unit and/or counseling patient: Coding Level of Care Code 51330 Subseq Hosp Care Lvl 3 Diagnoses Acute glomerulonephritis N00.9 Nephrotic range proteinuria R80.9 Hypertension I10 Hypertension type: unspecified (1) Hypertension Hypertension type: unspecified Qualified Code(s): I10 - Essential (primary) hypertension
--- NOTE | 2020-09-09 16:43 | Hospitalist Progress Note ---
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 BUN=63, Cr=4.18 from 50 and 2.2, respectively on . K is mildly elevated at 5.5, HCO3=24. UA with 4+ protein and 3+ blood. Renal function initially was slightly improved with creatinine down to 3.9, potassium is also down from previous, however now creatinine continues to increase up to 5.07 With accelerated hypertension as below which is improved now With acute glomerulonephritis-treating with IV Solu-Medrol 1000 mg once daily x3 days and then converted to prednisone 1 mg/KG daily on 09/09 urine protein/Cr spot ratio is elevated -Nephrology consultation appreciated -Renal ultrasound without obstruction on admission, renal Doppler performed on 09/08 does not show any obvious renal vein or artery thrombosis, but was a difficult study -She is making urine -Avoid nephrotoxic agents -Renal dosing where needed -hold losartan given worsening of acute kidney injury Follow BMP -if not improving by Friday, may need to start HD (2) Stage III chronic kidney disease: as above (3) Acute glomerulonephritis: As above, autoimmune studies are pending (4) IgA nephropathy: As above steroid therapy (5) Hypertension: With accelerated hypertension here, now improving -Given clonidine p.o. in the morning of 09/07- much improved -Continue Diltiazem -Continue Metoprolol - holding losartan -Use clonidine as needed IV hydralazine as needed (6) COPD (chronic obstructive pulmonary disease): Has a little bit of wheezing again today -Continue to monitor -Continue Breo and Spiriva -Patient follows with Pulmonary -continue albuterol as needed for wheezing (7) H/O mechanical aortic valve replacement: Chronic -Continue Coumadin home dose of 7.5 mg. 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 twice daily (11) Anemia: Mild and likely of chronic kidney disease Continue ferrous gluconate (12) Biventricular cardiac pacemaker in situ: Noted (13) Hyperkalemia: Now resolved Renal low potassium diet (14) Hypothyroidism: TSH normal at 2.52 in 11/2019 Continue home dose of levothyroxine (15) Atrial fibrillation: Noted in cardiology records She is on Coumadin for anticoagulation She is in paced rhythm on telemetry here Continue metoprolol (16) CAD (coronary artery disease): Chronic, status post CABG -Continue metoprolol 25mg po BID -Continue Simvastatin 10mg daily -She is not on aspirin (17) Leg pain, bilateral: With excellent pedal pulses, negative Homans' sign, trace edema left greater than right which is chronic after vein grafting from left leg Not sure if is musculoskeletal related to electrolyte changes, renal failure? Observe-seems to be improved now (18) Situational anxiety: make hydroxyzine 25mg po q6h prn anxiety (19) DVT prophylaxis: Coumadin Disposition-continued stay Admission and Anticipated Discharge Date Admission Date: September 06, 2020 Subjective Pt very anxious about her worsening renal function and worries about having to go on dialysis. She had some hematuria this AM but it has now cleared up. She was SOB earlier today and was placed on O2 via NC she reports for a POx of 88% although I do not see that recorded in vitals Tele with paced rhythm, 70s Review of Systems Review of Systems: All systems reviewed & are unremarkable except as noted in HPI & below Physical Exam Constitutional: WD/WN, vitals as above Eyes: + anicteric sclerae Neck: trachea midline, no thyromegaly Respiratory: normal respiratory effort Auscultation: + wheezes (Few faint bilateral wheezes); no rales and no rhonchi Cardiovascular: Rate/Rhythm: regular rate and regular rhythm Heart Sounds: + murmur (2/6 RONNIE at RUSB) Extremities: + edema (Trace edema left greater than right lower extremity-chronic asymmetry ) Chest (Breasts): Chest: + pacemaker (Left anterior chest wall); + abnormal inspection of chest (Sternum is deformed and protrudes) Gastrointestinal (Abdomen): normal bowel sounds, soft, nontender, no hepatosplenomegaly Musculoskeletal: Extremities: extremities normal to inspection; no cyanosis and no clubbing Skin: no rashes, warm and dry Neurologic: moves all extremities and awake; no focal motor deficits Psychiatric: Orientation: alert and oriented x 3 Affect: + anxious affect Results & Data Results & Data ([facility]) Vital Signs (Past 12 Hours) Vital Signs Temp Pulse Pulse Resp BP Pulse Ox 09/09/20 15:15 36.3 C L 91 H 16 124/69 96 09/09/20 15:00 70 09/09/20 11:33 36.4 C L 72 16 121/56 L 96 09/09/20 08:27 70 167/67 H 09/09/20 07:12 36.4 C L 70 16 163/66 H 93 09/09/20 07:00 70 Laboratory Results 09/09/20 09/09/20 09/09/20 Range/Units 16:44 11:55 10:23 PT 26.6 H (9.0-12.0) Seconds INR 2.8 H (0.9-1.1) Sodium (136-145) mmol/L Potassium (3.5-5.1) mmol/L Chloride (98-107) mmol/L Carbon Dioxide (21-32) mmol/L Anion Gap (3-11) BUN (7-18) mg/dl Creatinine (0.6-1.2) mg/dl Est Cr Clr Drug Dosing ml/min Est GFR ( Amer) ml/min Est GFR (Non-Af Amer) ml/min BUN/Creatinine Ratio (10-20) Glucose (70-99) mg/dl POC Glucose 255 H 174 H (70-99) mg/dl Calcium (8.5-10.1) mg/dl 09/09/20 09/09/20 09/08/20 Range/Units 07:29 05:43 20:05 PT (9.0-12.0) Seconds INR (0.9-1.1) Sodium 135 L (136-145) mmol/L Potassium 4.3 (3.5-5.1) mmol/L Chloride 104 (98-107) mmol/L Carbon Dioxide 19 L (21-32) mmol/L Anion Gap 12.0 H (3-11) BUN 105 H (7-18) mg/dl Creatinine 5.07 H* (0.6-1.2) mg/dl Est Cr Clr Drug Dosing 7.1 ml/min Est GFR ( Amer) 8.7 ml/min Est GFR (Non-Af Amer) 7.5 ml/min BUN/Creatinine Ratio 20.7 H (10-20) Glucose 166 H (70-99) mg/dl POC Glucose 167 H 170 H (70-99) mg/dl Calcium 7.5 L (8.5-10.1) mg/dl PG Care Time/CCT Total # of Minutes Spent Total Time Spent with Patient: Total time spent is greater than 50% in coordination of care (as documented) at patient's floor/unit and/or counseling patient: Coding Level of Care Code 99607 Subseq Hosp Care Lvl 3 Diagnoses FAITH (acute kidney injury) N17.9 Stage III chronic kidney disease N18.30 Chronic kidney disease stage 3 subtype: unspecified whether 3a or 3b Acute glomerulonephritis N00.9 IgA nephropathy N02.8 Hypertension I10 Hypertension type: unspecified COPD (chronic obstructive pulmonary disease) J44.9 COPD type: unspecified COPD H/O mechanical aortic valve replacement Z95.2 Congenital hypoplasia of lung Q33.6 Nephrotic range proteinuria R80.9 Chronic systolic CHF (congestive heart failure) I50.22 Anemia D64.9 Biventricular cardiac pacemaker in situ Z95.0 Hyperkalemia E87.5 Hypothyroidism E03.9 Atrial fibrillation I48.91 CAD (coronary artery disease) I25.10 Coronary Disease-Associated Artery/Lesion type: [place] artery [place] vs. transplanted heart: [place] heart Associated angina: without angina Leg pain, bilateral M79.604; M79.605 Situational anxiety F41.8 DVT prophylaxis Z29.9 (1) Stage III chronic kidney disease Chronic kidney disease stage 3 subtype: unspecified whether 3a or 3b Qualified Code(s): N18.30 - Chronic kidney disease, stage 3 unspecified (2) Hypertension Hypertension type: unspecified Qualified Code(s): I10 - Essential (primary) hypertension (3) COPD (chronic obstructive pulmonary disease) COPD type: unspecified COPD Qualified Code(s): J44.9 - Chronic obstructive pulmonary disease, unspecified (4) CAD (coronary artery disease) Coronary Disease-Associated Artery/Lesion type: [place] artery [place] vs. transplanted heart: [place] heart Associated angina: without angina Qualified Code(s): I25.10 - Atherosclerotic heart disease of [place] coronary artery without angina pectoris
[2020-09-09] MEDS: WARFARIN SOD 5 MG TAB PO SCH (16:55)
[2020-09-09] MEDS: hydrOXYzine HCl 25 MG TAB PO PRN ×2 (16:56→23:00)
[2020-09-10] MEDS: LEVOTHYROXINE SODIUM 75 MCG TABLET PO SCH (06:31)
[2020-09-10 06:52] LABS: Hematocrit (blood only) 28.2 % (37-47); Hemoglobin 9.3 g/dL (12.0-16.0); Mean Corpuscular Hemoglobin 26.8 pg (25-34); Mean Corpuscular Volume 81.3 fL (80-100); Mean Platelet Volume 10.7 fL (7.4-10.4); Platelet Count 267 K/uL (130-400); RDW Coefficient of Variation 16.1 % (11.5-14.5); RDW Standard Deviation 48.5 fL (36.4-46.3); Red Blood Count 3.47 M/uL (4.2-5.4); White Blood Count 5.87 K/uL (4.8-10.8)
[2020-09-10 07:11] LABS: INR 4.2 (0.9-1.1); Prothrombin Time 38.2 Seconds (9.0-12.0)
[2020-09-10 07:42] LABS: BUN Creatinine Ratio 27.2 (10-20); Creatinine Clr Calc Pharmacy 7.2 ml/min; Est GFR (African American) 8.9 ml/min; Est GFR (Non-African American) 7.7 ml/min; Potassium 3.9 mmol/L (3.5-5.1)
[2020-09-10] MEDS: FERROUS GLUCONATE 324 MG TAB PO SCH (08:17)
[2020-09-10] MEDS: CALCITRIOL 0.25 MCG CAPSULE PO SCH (08:17)
[2020-09-10] MEDS: ATORVASTATIN 40 MG TAB PO SCH (08:17)
[2020-09-10] MEDS: [UNRECOGNIZED DRUG - OTHER] PO SCH (08:17)
[2020-09-10] MEDS: METOPROLOL TARTRATE 25 MG TAB PO SCH ×2 (08:17→20:22)
[2020-09-10] MEDS: predniSONE 20 MG TAB PO SCH (08:17)
[2020-09-10] MEDS: INSULIN ASPART 100 UNITS/ML 3 ML PEN SC SCH ×4 (08:17→20:46)
[2020-09-10] MEDS: INSULIN HUMAN NPH SC SCH (08:17)
[2020-09-10] MEDS: UMECLIDINIUM BROMIDE 62.5MCG/BLISTER 7 PUFFS/INHALER INH SCH (08:18)
[2020-09-10] MEDS: FLUTICASONE/VILANTEROL 200/25MCG 14 PUFFS/INHALER INH SCH (08:19)
--- NOTE | 2020-09-10 11:48 | Nephrology Progress Note ---
Date of Service September 10, 2020 Assessment & Plan (1) Acute glomerulonephritis: * Cr stable at ~ 5 following steroid therapy * Azotemia due to steroid therapy * Patient has no uremic symptoms or pericardial rub. 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 Has completed Solumedrol 1 g IV x 3 days * Prednisone 60 mg po daily started 09/09/20 * VERONIKA, ANCA, anti-GBM, complement testing - pending * Discussed w/ patient and today: Cr stable overnight and patient remains nonoliguric. No acute indication for KENO ATTENDANT at this time. Continue w/ oral steroid therapy (2) Nephrotic range proteinuria: * ARB held due to FAITH (3) Hypertension: * Diuretic and ARB are being held. BP remains acceptable at this time on combination Diltiazem and Metoprolol Admission and Anticipated Discharge Date Admission Date: September 06, 2020 Subjective Mrs. Wells was seen & examined in her hospital room this morning. She denies further hematuria but remains very anxious. She denies fever, angina, dyspnea or uremic symptoms Review of Systems Constitutional: + weakness; no fever Eyes: no problem reported Ear, Nose, Mouth, Throat: no problem reported Respiratory: no dyspnea Cardiovascular: no chest pain and no palpitations Gastrointestinal: no abdominal pain, no nausea and no diarrhea/loose stools Genitourinary: no dysuria Musculoskeletal: no back pain Neurologic: no confusion Physical Exam Constitutional: + thin and + frail appearing Eyes: PERRL, conjunctivae normal, anicteric sclerae ENMT: external ear and nose normal, oropharynx normal Neck: trachea midline, no thyromegaly Respiratory: normal respiratory effort, lungs clear to auscultation Cardiovascular: Rate/Rhythm: regular rate and regular rhythm Extremities: + edema (trace pretibial edema bilaterally) Gastrointestinal (Abdomen): normal bowel sounds, soft, nontender, no hepatosplenomegaly Musculoskeletal: Extremities: no cyanosis Neurologic: awake; not confused Results & Data ([facility]) Vital Signs (Past 12 Hours) Vital Signs Temp Pulse Pulse Resp BP Pulse Ox 09/10/20 11:30 36.6 C 69 16 151/72 H 94 09/10/20 07:56 36.4 C L 70 16 184/73 H 98 09/10/20 04:14 70 09/10/20 03:10 36.3 C L 70 18 152/62 H 97 09/10/20 00:05 70 156/80 H Laboratory Tests 09/10/20 09/10/20 06:28 06:28 WBC 5.87 Hgb 9.3 L Hct 28.2 L Plt Count 267 Sodium 137 Potassium 3.9 Chloride 105 Carbon Dioxide 21 BUN 135 H Creatinine 4.98 H* Glucose 161 H PG Care Time/CCT Total # of Minutes Spent Total Time Spent with Patient: Total time spent is greater than 50% in coordination of care (as documented) at patient's floor/unit and/or counseling patient: Coding Level of Care Code 31849 Subseq Hosp Care Lvl 3 Diagnoses Acute glomerulonephritis N00.9 Nephrotic range proteinuria R80.9 Hypertension I10 Hypertension type: unspecified (1) Hypertension Hypertension type: unspecified Qualified Code(s): I10 - Essential (primary) hypertension
--- NOTE | 2020-09-10 16:08 | Hospitalist Progress Note ---
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 BUN=63, Cr=4.18 from 50 and 2.2, respectively on . K is mildly elevated at 5.5, HCO3=24. UA with 4+ protein and 3+ blood. 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 With accelerated hypertension as below which is improved now She continues to make plenty of urine With acute glomerulonephritis-treated with IV Solu-Medrol 1000 mg once daily x3 days and then converted to prednisone 1 mg/KG daily on 09/09 urine protein/Cr spot ratio is elevated -Nephrology consultation appreciated -Renal ultrasound without obstruction on admission, renal Doppler performed on 09/08 does not show any obvious renal vein or artery thrombosis, but was a difficult study -Avoid nephrotoxic agents -Renal dosing where needed -hold losartan given worsening of acute kidney injury Follow BMP -if worsening renal function, may need to start HD (2) Stage III chronic kidney disease: as above (3) Acute glomerulonephritis: As above, autoimmune studies are pending (4) IgA nephropathy: As above steroid therapy (5) Hypertension: With accelerated hypertension here, now improving -Given clonidine p.o. in the morning of 09/07- much improved -Continue Diltiazem -Continue Metoprolol - holding losartan -Use clonidine as needed IV hydralazine as needed (6) COPD (chronic obstructive pulmonary disease): Has a little bit of wheezing again today -Continue to monitor -Continue Breo and Spiriva -Patient follows with Pulmonary -continue albuterol as needed for wheezing (7) H/O mechanical aortic valve replacement: Chronic -holding Coumadin home dose of 7.5 mg today for INR elevated at 4.2 Goal INR 2.5 - 3.5 Check INR in the morning-follow closely while on corticosteroids as this may make the INR rise (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 twice daily (11) Anemia: Mild and likely of chronic kidney disease Continue ferrous gluconate (12) Biventricular cardiac pacemaker in situ: Noted (13) Hyperkalemia: Now resolved Renal low potassium diet (14) Hypothyroidism: TSH normal at 2.52 in 11/2019 Continue home dose of levothyroxine (15) Atrial fibrillation: Noted in cardiology records She is on Coumadin for anticoagulation She is in paced rhythm on telemetry here Continue metoprolol (16) CAD (coronary artery disease): Chronic, status post CABG -Continue metoprolol 25mg po BID -Continue Simvastatin 10mg daily -She is not on aspirin (17) Leg pain, bilateral: With excellent pedal pulses, negative Homans' sign, trace edema left greater than right which is chronic after vein grafting from left leg Not sure if is musculoskeletal related to electrolyte changes, renal failure? Observe-seems to be improved now (18) Situational anxiety: make hydroxyzine 25mg po q6h prn anxiety add on lorazepam 0.5mg po prn anxiety (19) DVT prophylaxis: Coumadin Disposition-continued stay Admission and Anticipated Discharge Date Admission Date: September 06, 2020 Subjective Patient feels a little bit better today. The hydroxyzine helps with her anxiety but did not help her sleep last night. She is requesting something else for sleep. She denies any nausea. Her shortness of breath is improved and she is weaned off oxygen, no more wheezing. Denies abdominal pains or hematuria today. She is still making plenty of urine. I discussed her case with nephrology. Telemetry with paced rhythm in the 70s. Review of Systems Review of Systems: All systems reviewed & are unremarkable except as noted in HPI & below Patient reports easy bleeding from her fingerstick today for glucose Physical Exam Constitutional: WD/WN, vitals as above Eyes: + anicteric sclerae ENMT: external ear and nose normal, oropharynx normal Neck: trachea midline, no thyromegaly Respiratory: normal respiratory effort, lungs clear to auscultation Cardiovascular: Rate/Rhythm: regular rate and regular rhythm Heart Sounds: + murmur (2/6 RONNIE at RUSB) Extremities: + edema (Trace edema left greater than right lower extremity-chronic asymmetry ) Chest (Breasts): Chest: + pacemaker (Left anterior chest wall); + abnormal inspection of chest (Sternum is deformed and protrudes) Gastrointestinal (Abdomen): normal bowel sounds, soft, nontender, no hepatosplenomegaly Musculoskeletal: Extremities: extremities normal to inspection; no cyanosis and no clubbing Skin: no rashes, warm and dry Neurologic: moves all extremities and awake; no focal motor deficits Psychiatric: Orientation: alert and oriented x 3 Affect: + anxious affect Results & Data Results & Data ([facility]) Vital Signs (Past 12 Hours) Vital Signs Temp Pulse Pulse Resp BP Pulse Ox 09/10/20 15:11 36.6 C 71 16 159/72 H 93 09/10/20 15:00 70 09/10/20 11:30 36.6 C 69 16 151/72 H 94 09/10/20 07:56 36.4 C L 70 16 184/73 H 98 09/10/20 07:00 70 09/10/20 04:14 70 Laboratory Results 09/10/20 09/10/20 09/10/20 Range/Units 20:31 16:44 11:46 WBC (4.8-10.8) K/uL RBC (4.2-5.4) M/uL Hgb (12.0-16.0) g/dL Hct (37-47) % MCV (80-100) fL MCH (25-34) pg MCHC (32-36) g/dL RDW Std Deviation (36.4-46.3) fL RDW Coeff of Radha (11.5-14.5) % Plt Count (130-400) K/uL MPV (7.4-10.4) fL PT (9.0-12.0) Seconds INR (0.9-1.1) Sodium (136-145) mmol/L Potassium (3.5-5.1) mmol/L Chloride (98-107) mmol/L Carbon Dioxide (21-32) mmol/L Anion Gap (3-11) BUN (7-18) mg/dl Creatinine (0.6-1.2) mg/dl Est Cr Clr Drug Dosing ml/min Est GFR ( Amer) ml/min Est GFR (Non-Af Amer) ml/min BUN/Creatinine Ratio (10-20) Glucose (70-99) mg/dl POC Glucose 191 H 162 H 150 H (70-99) mg/dl Calcium (8.5-10.1) mg/dl 09/10/20 09/10/20 09/10/20 Range/Units 07:37 06:28 06:28 WBC 5.87 (4.8-10.8) K/uL RBC 3.47 L (4.2-5.4) M/uL Hgb 9.3 L (12.0-16.0) g/dL Hct 28.2 L (37-47) % MCV 81.3 (80-100) fL MCH 26.8 (25-34) pg MCHC 33.0 (32-36) g/dL RDW Std Deviation 48.5 H (36.4-46.3) fL RDW Coeff of Radha 16.1 H (11.5-14.5) % Plt Count 267 (130-400) K/uL MPV 10.7 H (7.4-10.4) fL PT (9.0-12.0) Seconds INR (0.9-1.1) Sodium 137 (136-145) mmol/L Potassium 3.9 (3.5-5.1) mmol/L Chloride 105 (98-107) mmol/L Carbon Dioxide 21 (21-32) mmol/L Anion Gap 11.0 (3-11) BUN 135 H (7-18) mg/dl Creatinine 4.98 H* (0.6-1.2) mg/dl Est Cr Clr Drug Dosing 7.2 ml/min Est GFR ( Amer) 8.9 ml/min Est GFR (Non-Af Amer) 7.7 ml/min BUN/Creatinine Ratio 27.2 H (10-20) Glucose 161 H (70-99) mg/dl POC Glucose 161 H (70-99) mg/dl Calcium 8.0 L (8.5-10.1) mg/dl 09/10/20 Range/Units 06:28 WBC (4.8-10.8) K/uL RBC (4.2-5.4) M/uL Hgb (12.0-16.0) g/dL Hct (37-47) % MCV (80-100) fL MCH (25-34) pg MCHC (32-36) g/dL RDW Std Deviation (36.4-46.3) fL RDW Coeff of Radha (11.5-14.5) % Plt Count (130-400) K/uL MPV (7.4-10.4) fL PT 38.2 H (9.0-12.0) Seconds INR 4.2 H (0.9-1.1) Sodium (136-145) mmol/L Potassium (3.5-5.1) mmol/L Chloride (98-107) mmol/L Carbon Dioxide (21-32) mmol/L Anion Gap (3-11) BUN (7-18) mg/dl Creatinine (0.6-1.2) mg/dl Est Cr Clr Drug Dosing ml/min Est GFR ( Amer) ml/min Est GFR (Non-Af Amer) ml/min BUN/Creatinine Ratio (10-20) Glucose (70-99) mg/dl POC Glucose (70-99) mg/dl Calcium (8.5-10.1) mg/dl PG Care Time/CCT Total # of Minutes Spent Total Time Spent with Patient: Total time spent is greater than 50% in coordination of care (as documented) at patient's floor/unit and/or counseling patient: Coding Level of Care Code 64516 Subseq Hosp Care Lvl 3 Diagnoses FAITH (acute kidney injury) N17.9 Stage III chronic kidney disease N18.30 Chronic kidney disease stage 3 subtype: unspecified whether 3a or 3b Acute glomerulonephritis N00.9 IgA nephropathy N02.8 Hypertension I10 Hypertension type: unspecified COPD (chronic obstructive pulmonary disease) J44.9 COPD type: unspecified COPD H/O mechanical aortic valve replacement Z95.2 Congenital hypoplasia of lung Q33.6 Nephrotic range proteinuria R80.9 Chronic systolic CHF (congestive heart failure) I50.22 Anemia D64.9 Biventricular cardiac pacemaker in situ Z95.0 Hyperkalemia E87.5 Hypothyroidism E03.9 Atrial fibrillation I48.91 CAD (coronary artery disease) I25.10 Associated angina: without angina Coronary Disease-Associated Artery/Lesion type: [place] artery [place] vs. transplanted heart: [place] heart Leg pain, bilateral M79.604; M79.605 Situational anxiety F41.8 DVT prophylaxis Z29.9 (1) Stage III chronic kidney disease Chronic kidney disease stage 3 subtype: unspecified whether 3a or 3b Qualified Code(s): N18.30 - Chronic kidney disease, stage 3 unspecified (2) CAD (coronary artery disease) Associated angina: without angina Coronary Disease-Associated Artery/Lesion type: [place] artery [place] vs. transplanted heart: [place] heart Qualified Code(s): I25.10 - Atherosclerotic heart disease of [place] coronary artery without angina pectoris (3) COPD (chronic obstructive pulmonary disease) COPD type: unspecified COPD Qualified Code(s): J44.9 - Chronic obstructive pulmonary disease, unspecified (4) Hypertension Hypertension type: unspecified Qualified Code(s): I10 - Essential (primary) hypertension
[2020-09-10] MEDS: hydrOXYzine HCl 25 MG TAB PO PRN (18:33)
[2020-09-10] MEDS: LORazepam 0.5 MG TAB PO PRN (23:15)
[2020-09-11 01:47] LABS: Appearance Urine Clear (Clear); Bacteria Urine Automated Negative (Negative); Bilirubin Urine Negative (Negative); Blood Urine 3+ (Negative); Color Urine Yellow; Glucose Urine UA Trace (Negative); Ketones Urine Negative (Negative); Leukocyte Esterase Urine Negative (Negative); Nitrite Urine Negative (Negative); Protein Urine 3+ (Negative); RBC Urine Automated >30 /hpf (0-4); Specific Gravity Urine 1.017 (1.000-1.030); Urobilinogen Urine Negative (Negative); pH Urine 5.5 (4.5-7.5)
[2020-09-11] MEDS: LEVOTHYROXINE SODIUM 75 MCG TABLET PO SCH (06:40)
[2020-09-11 08:36] LABS: Hematocrit (blood only) 32.8 % (37-47); Mean Corpuscular Hemoglobin 26.6 pg (25-34); Mean Corpuscular Hgb Conc 33.5 g/dL (32-36); Mean Corpuscular Volume 79.2 fL (80-100); Mean Platelet Volume 11.2 fL (7.4-10.4); Platelet Count 320 K/uL (130-400); RDW Coefficient of Variation 16.1 % (11.5-14.5); RDW Standard Deviation 47.1 fL (36.4-46.3); Red Blood Count 4.14 M/uL (4.2-5.4); White Blood Count 9.89 K/uL (4.8-10.8)
[2020-09-11 08:58] LABS: Prothrombin Time 36.4 Seconds (9.0-12.0)
[2020-09-11] MEDS: ATORVASTATIN 40 MG TAB PO SCH (09:05)
[2020-09-11] MEDS: CALCITRIOL 0.25 MCG CAPSULE PO SCH (09:05)
[2020-09-11] MEDS: [UNRECOGNIZED DRUG - OTHER] PO SCH (09:06)
[2020-09-11] MEDS: FLUTICASONE/VILANTEROL 200/25MCG 14 PUFFS/INHALER INH SCH (09:06)
[2020-09-11] MEDS: INSULIN HUMAN NPH SC SCH (09:06)
[2020-09-11] MEDS: METOPROLOL TARTRATE 25 MG TAB PO SCH ×2 (09:06→21:15)
[2020-09-11] MEDS: FERROUS GLUCONATE 324 MG TAB PO SCH (09:06)
[2020-09-11] MEDS: UMECLIDINIUM BROMIDE 62.5MCG/BLISTER 7 PUFFS/INHALER INH SCH (09:07)
[2020-09-11] MEDS: predniSONE 20 MG TAB PO SCH (09:07)
[2020-09-11] MEDS: INSULIN ASPART 100 UNITS/ML 3 ML PEN SC SCH ×4 (09:08→21:16)
[2020-09-11 09:27] LABS: BUN Creatinine Ratio 30.4 (10-20); Calcium 8.1 mg/dl (8.5-10.1); Creatinine Clr Calc Pharmacy 7.4 ml/min; Est GFR (African American) 9.2 ml/min; Est GFR (Non-African American) 7.9 ml/min; Potassium 3.6 mmol/L (3.5-5.1)
--- NOTE | 2020-09-11 10:21 | Nephrology Progress Note ---
Date of Service September 11, 2020 Assessment & Plan (1) Acute glomerulonephritis: * Cr trending down following steroid therapy * Azotemia due to steroid therapy * Patient has no uremic symptoms or pericardial rub. 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 Has completed Solumedrol 1 g IV x 3 days * Prednisone 60 mg po daily started 09/09/20 * VERONIKA, ANCA, anti-GBM, complement testing - pending * Discussed w/ patient today: Cr stable overnight and patient remains nonoliguric. No acute indication for [employer] at this time. Continue w/ oral steroid therapy (2) Nephrotic range proteinuria: * ARB held due to FAITH (3) Hypertension: * Diuretic and ARB are being held. BP remains acceptable at this time on combination Diltiazem and Metoprolol Admission and Anticipated Discharge Date Admission Date: September 06, 2020 Subjective Mrs. Wells was seen & examined in her hospital room this morning. She reports dysuria but denies further gross hematuria. She denies fever, angina, dyspnea or uremic symptoms Review of Systems Constitutional: + weakness; no fever Eyes: no problem reported Ear, Nose, Mouth, Throat: no problem reported Respiratory: no dyspnea Cardiovascular: no chest pain and no palpitations Gastrointestinal: no abdominal pain, no nausea and no diarrhea/loose stools Genitourinary: no dysuria Musculoskeletal: no back pain Neurologic: no confusion Physical Exam 2 Constitutional: + thin and + frail appearing Eyes: PERRL, conjunctivae normal, anicteric sclerae ENMT: external ear and nose normal, oropharynx normal Neck: trachea midline, no thyromegaly Respiratory: normal respiratory effort, lungs clear to auscultation Cardiovascular: Rate/Rhythm: regular rate and regular rhythm Extremities: + edema (trace pretibial edema bilaterally) Gastrointestinal (Abdomen): normal bowel sounds, soft, nontender, no hepatosplenomegaly Musculoskeletal: Extremities: no cyanosis Neurologic: awake; not confused Results & Data ([facility]) Vital Signs (Past 12 Hours) Vital Signs Temp Pulse Pulse Resp BP Pulse Ox 09/11/20 08:31 70 09/11/20 08:27 36.8 C 70 18 169/75 H 94 09/11/20 05:05 70 09/11/20 04:00 36.5 C 70 18 150/73 H 93 09/10/20 23:00 36.6 C 71 18 146/78 H 92 Laboratory Tests 09/08/20 09/11/20 09/11/20 07:02 08:20 08:20 WBC 9.89 Hgb 11.0 L Hct 32.8 L Plt Count 320 Sodium 139 Potassium 3.6 Chloride 106 Carbon Dioxide 20 L BUN 148 H Creatinine 4.86 H* Glucose 147 H VERONIKA Screen Pending Anti-Proteinase 3 Pending Anti-Myeloperoxidase Pending ANCA Pending Glomerular Base Memb Ab Pending Complement C3 Pending Complement C4 Pending Tot Complement (CH50) Pending PG Care Time/CCT Total # of Minutes Spent Total Time Spent with Patient: Total time spent is greater than 50% in coordination of care (as documented) at patient's floor/unit and/or counseling patient: Coding Level of Care Code 79825 Subseq Hosp Care Lvl 3 Diagnoses Acute glomerulonephritis N00.9 Nephrotic range proteinuria R80.9 Hypertension I10 Hypertension type: unspecified (1) Hypertension Hypertension type: unspecified Qualified Code(s): I10 - Essential (primary) hypertension
[2020-09-11] MEDS: PANTOprazole 40 MG TAB PO SCH (11:07)
[2020-09-11 12:55] LABS: Appearance Urine Clear (Clear); Bacteria Urine Automated Negative (Negative); Bilirubin Urine Negative (Negative); Blood Urine 3+ (Negative); Color Urine Yellow; Glucose Urine UA Trace (Negative); Ketones Urine Negative (Negative); Leukocyte Esterase Urine Negative (Negative); Nitrite Urine Negative (Negative); Protein Urine 3+ (Negative); RBC Urine Automated >30 /hpf (0-4); Specific Gravity Urine 1.018 (1.000-1.030); Urobilinogen Urine Negative (Negative)
[2020-09-11 13:03] LABS: Oxygen Saturation VBG 65.9 %; pH VBG 7.32 (7.36-7.41)
[2020-09-11] MEDS: hydrOXYzine HCl 25 MG TAB PO PRN (14:01)
[2020-09-11] MEDS: ONDANSETRON INJ 2 MG/ML 2 ML VIAL IV PRN (15:59)
[2020-09-11] MEDS: LORazepam 0.5 MG TAB PO PRN (21:20)
--- NOTE | 2020-09-11 21:43 | Hospitalist Progress Note ---
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 BUN=63, Cr=4.18 from 50 and 2.2, respectively on . K is mildly elevated at 5.5, HCO3=24. UA with 4+ protein and 3+ blood. 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 With accelerated hypertension as below which is improved now She continues to make plenty of urine With acute glomerulonephritis-treated with IV Solu-Medrol 1000 mg once daily x3 days and then converted to prednisone 1 mg/KG daily on 09/09 urine protein/Cr spot ratio is elevated -Nephrology consultation appreciated -Renal ultrasound without obstruction on admission, renal Doppler performed on 09/08 does not show any obvious renal vein or artery thrombosis, but was a difficult study -Avoid nephrotoxic agents -Renal dosing where needed -hold losartan given worsening of acute kidney injury Follow BMP -if worsening renal function, may need to start HD .Creatinine has been slowly improving however. (2) Stage III chronic kidney disease: as above (3) Acute glomerulonephritis: As above, autoimmune studies are pending (4) IgA nephropathy: As above steroid therapy (5) Hypertension: With accelerated hypertension here, now improving -Given clonidine p.o. in the morning of 09/07- much improved -Continue Diltiazem -Continue Metoprolol - holding losartan -Use clonidine as needed IV hydralazine as needed (6) COPD (chronic obstructive pulmonary disease): Has a little bit of wheezing again today -Continue to monitor -Continue Breo and Spiriva -Patient follows with Pulmonary -continue albuterol as needed for wheezing (7) H/O mechanical aortic valve replacement: Chronic -holding Coumadin home dose of 7.5 mg today for INR elevated at 4.2 Goal INR 2.5 - 3.5 Check INR in the morning-follow closely while on corticosteroids as this may make the INR rise (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 twice daily (11) Anemia: Mild and likely of chronic kidney disease Continue ferrous gluconate (12) Biventricular cardiac pacemaker in situ: Noted (13) Hyperkalemia: Now resolved Renal low potassium diet (14) Hypothyroidism: TSH normal at 2.52 in 11/2019 Continue home dose of levothyroxine (15) Atrial fibrillation: Noted in cardiology records She is on Coumadin for anticoagulation She is in paced rhythm on telemetry here Continue metoprolol (16) CAD (coronary artery disease): Chronic, status post CABG -Continue metoprolol 25mg po BID -Continue Simvastatin 10mg daily -She is not on aspirin (17) Leg pain, bilateral: With excellent pedal pulses, negative Homans' sign, trace edema left greater than right which is chronic after vein grafting from left leg Not sure if is musculoskeletal related to electrolyte changes, renal failure? Observe-seems to be improved now (18) Situational anxiety: make hydroxyzine 25mg po q6h prn anxiety add on lorazepam 0.5mg po prn anxiety (19) DVT prophylaxis: Coumadin Disposition-continued stay Admission and Anticipated Discharge Date Admission Date: September 06, 2020 Subjective 79 yo female reports no new symptoms today. Review of Systems Review of Systems: All systems reviewed & are unremarkable except as noted in HPI & below Physical Exam Physical Exam: Constitutional: WD/WN, vitals as above Eyes: + anicteric sclerae ENMT: external ear and nose normal, oropharynx normal Neck: trachea midline, no thyromegaly Respiratory: normal respiratory effort, lungs clear to auscultation Cardiovascular: Rate/Rhythm: regular rate and regular rhythm Heart Sounds: + murmur (2/6 RONNIE at RUSB) Extremities: + edema (Trace edema left greater than right lower extremity-chronic asymmetry ) Chest (Breasts): Chest: + pacemaker (Left anterior chest wall); + abnormal inspection of chest (Sternum is deformed and protrudes) Gastrointestinal (Abdomen): normal bowel sounds, soft, nontender, no hepatosplenomegaly Musculoskeletal: Extremities: extremities normal to inspection; no cyanosis and no clubbing Skin: no rashes, warm and dry Neurologic: moves all extremities and awake; no focal motor deficits Psychiatric: Orientation: alert and oriented x 3 Affect: + anxious affect Results & Data Results & Data ([facility]) Vital Signs (Past 12 Hours) Vital Signs Temp Pulse Pulse Resp BP BP Pulse Ox 09/11/20 19:00 36.6 C 70 18 160/72 H 92 09/11/20 15:50 36.4 C L 90 18 166/73 H 90 09/11/20 15:26 70 09/11/20 11:42 36.6 C 70 18 147/74 H 92 PG Care Time/CCT Total # of Minutes Spent Total Time Spent with Patient: Total time spent is greater than 50% in coordination of care (as documented) at patient's floor/unit and/or counseling patient: Coding Level of Care Code 43475 Subseq Hosp Care Lvl 2 Diagnoses FAITH (acute kidney injury) N17.9 Stage III chronic kidney disease N18.30 Chronic kidney disease stage 3 subtype: unspecified whether 3a or 3b Acute glomerulonephritis N00.9 IgA nephropathy N02.8 Hypertension I10 Hypertension type: unspecified COPD (chronic obstructive pulmonary disease) J44.9 COPD type: unspecified COPD H/O mechanical aortic valve replacement Z95.2 Congenital hypoplasia of lung Q33.6 Nephrotic range proteinuria R80.9 Chronic systolic CHF (congestive heart failure) I50.22 Anemia D64.9 Biventricular cardiac pacemaker in situ Z95.0 Hyperkalemia E87.5 Hypothyroidism E03.9 Atrial fibrillation I48.91 CAD (coronary artery disease) I25.10 Associated angina: without angina Coronary Disease-Associated Artery/Lesion type: [place] artery [place] vs. transplanted heart: [place] heart Leg pain, bilateral M79.604; M79.605 Situational anxiety F41.8 DVT prophylaxis Z29.9 Time Spent (min) 25 (1) Stage III chronic kidney disease Chronic kidney disease stage 3 subtype: unspecified whether 3a or 3b Qualified Code(s): N18.30 - Chronic kidney disease, stage 3 unspecified (2) CAD (coronary artery disease) Associated angina: without angina Coronary Disease-Associated Artery/Lesion type: [place] artery [place] vs. transplanted heart: [place] heart Qualified Code(s): I25.10 - Atherosclerotic heart disease of [place] coronary artery without angina pectoris (3) COPD (chronic obstructive pulmonary disease) COPD type: unspecified COPD Qualified Code(s): J44.9 - Chronic obstructive pulmonary disease, unspecified (4) Hypertension Hypertension type: unspecified Qualified Code(s): I10 - Essential (primary) hypertension
[2020-09-12] MEDS: LEVOTHYROXINE SODIUM 75 MCG TABLET PO SCH (08:15)
[2020-09-12 08:22] LABS: INR 3.6 (0.9-1.1); Prothrombin Time 32.9 Seconds (9.0-12.0)
[2020-09-12] MEDS: INSULIN ASPART 100 UNITS/ML 3 ML PEN SC SCH ×4 (08:23→20:38)
[2020-09-12] MEDS: UMECLIDINIUM BROMIDE 62.5MCG/BLISTER 7 PUFFS/INHALER INH SCH (08:33)
[2020-09-12] MEDS: FLUTICASONE/VILANTEROL 200/25MCG 14 PUFFS/INHALER INH SCH (08:33)
[2020-09-12 08:35] LABS: Hematocrit (blood only) 32.3 % (37-47); Hemoglobin 10.7 g/dL (12.0-16.0); Mean Corpuscular Hemoglobin 26.8 pg (25-34); Mean Corpuscular Hgb Conc 33.1 g/dL (32-36); Mean Platelet Volume 11.9 fL (7.4-10.4); Platelet Count 287 K/uL (130-400); RDW Coefficient of Variation 16.2 % (11.5-14.5); RDW Standard Deviation 48.8 fL (36.4-46.3); Red Blood Count 3.99 M/uL (4.2-5.4); White Blood Count 7.92 K/uL (4.8-10.8)
[2020-09-12] MEDS: METOPROLOL TARTRATE 25 MG TAB PO SCH ×2 (09:00→20:37)
[2020-09-12] MEDS: INSULIN HUMAN NPH SC SCH (09:00)
[2020-09-12 09:13] LABS: BUN Creatinine Ratio 37.3 (10-20); Calcium 7.8 mg/dl (8.5-10.1); Creatinine Clr Calc Pharmacy 8.4 ml/min; Est GFR (African American) 10.7 ml/min; Est GFR (Non-African American) 9.2 ml/min; Potassium 3.5 mmol/L (3.5-5.1)
[2020-09-12] MEDS: [UNRECOGNIZED DRUG - OTHER] PO SCH (10:00)
[2020-09-12] MEDS: ATORVASTATIN 40 MG TAB PO SCH (10:00)
[2020-09-12] MEDS: FERROUS GLUCONATE 324 MG TAB PO SCH (10:00)
[2020-09-12] MEDS: CALCITRIOL 0.25 MCG CAPSULE PO SCH (10:00)
[2020-09-12] MEDS: predniSONE 20 MG TAB PO SCH (10:00)
--- NOTE | 2020-09-12 10:36 | Nephrology Progress Note ---
Date of Service September 12, 2020 Assessment & Plan (1) Acute glomerulonephritis: * Cr trending down with steroid therapy * Azotemia due to steroid therapy * Patient has no uremic symptoms or pericardial rub. 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 Has completed Solumedrol 1 g IV x 3 days * Prednisone 60 mg po daily started 09/09/20 * VERONIKA, ANCA, anti-GBM, complement testing - pending * Continue w/ Prednisone ~ 1mg/kg/day x 60 days and then taper 10 mg/month over the next 4 months (2) Nephrotic range proteinuria: * ARB held due to FAITH (3) Hypertension: * Diuretic and ARB are being held. BP remains acceptable at this time on combination Diltiazem and Metoprolol (4) Diarrhea: * Will order C. Difficile toxin assay Admission and Anticipated Discharge Date Admission Date: September 06, 2020 Subjective Mrs. Wells was seen & examined in her hospital room this morning. She reports several liquid BM overnight and one emesis. Review of Systems Constitutional: + weakness; no fever Eyes: no problem reported Ear, Nose, Mouth, Throat: no problem reported Respiratory: no dyspnea Cardiovascular: no chest pain and no palpitations Gastrointestinal: + diarrhea/loose stools; no abdominal pain and no nausea Genitourinary: no dysuria Musculoskeletal: no back pain Neurologic: no confusion Physical Exam Constitutional: + thin and + frail appearing Eyes: PERRL, conjunctivae normal, anicteric sclerae ENMT: external ear and nose normal, oropharynx normal Neck: trachea midline, no thyromegaly Respiratory: normal respiratory effort, lungs clear to auscultation Cardiovascular: Rate/Rhythm: regular rate and regular rhythm Extremities: + edema (trace pretibial edema bilaterally) Gastrointestinal (Abdomen): normal bowel sounds, soft, nontender, no hepatosplenomegaly Musculoskeletal: Extremities: no cyanosis Neurologic: awake; not confused Results & Data ([facility]) Vital Signs (Past 12 Hours) Vital Signs Temp Pulse Pulse Resp BP BP Pulse Ox 09/12/20 07:30 36.6 C 69 18 168/76 H 93 09/12/20 03:30 36.7 C 70 20 158/75 H 94 09/12/20 03:27 70 09/11/20 23:00 36.4 C L 70 18 162/79 H 95 Laboratory Tests 09/06/20 09/06/20 09/08/20 19:56 20:00 07:02 WBC Hgb Hct Plt Count Sodium Potassium Chloride Carbon Dioxide BUN Creatinine Glucose Calcium Albumin 2.6 L Urine Color Urine Appearance Ur Specific [place] Urine Protein Urine Glucose (UA) Urine Blood Urine Nitrite Ur Leukocyte Esterase U Epithel Cells (Auto) Urine Bacteria (Auto) VERONIKA Screen Pending Anti-Proteinase 3 Pending Anti-Myeloperoxidase Pending ANCA Pending Glomerular Base Memb Ab Pending Complement C3 Pending Complement C4 Pending Tot Complement (CH50) Pending SARS-CoV-2, RNA, NAAT NEGATIVE 09/11/20 09/12/20 09/12/20 11:50 07:59 07:59 WBC 7.92 Hgb 10.7 L Hct 32.3 L Plt Count 287 Sodium 141 Potassium 3.5 Chloride 109 H Carbon Dioxide 20 L BUN 160 H Creatinine 4.29 H D Glucose 98 Calcium 7.8 L Albumin Urine Color Yellow Urine Appearance Clear Ur Specific [place] 1.018 Urine Protein 3+ H Urine Glucose (UA) Trace H Urine Blood 3+ H Urine Nitrite Negative Ur Leukocyte Esterase Negative U Epithel Cells (Auto) 10-20 H Urine Bacteria (Auto) Negative VERONIKA Screen Anti-Proteinase 3 Anti-Myeloperoxidase ANCA Glomerular Base Memb Ab Complement C3 Complement C4 Tot Complement (CH50) SARS-CoV-2, RNA, NAAT PG Care Time/CCT Total # of Minutes Spent Total Time Spent with Patient: Total time spent is greater than 50% in coordination of care (as documented) at patient's floor/unit and/or counseling patient: Coding Level of Care Code 94807 Subseq Hosp Care Lvl 3 Diagnoses Acute glomerulonephritis N00.9 Nephrotic range proteinuria R80.9 Hypertension I10 Hypertension type: unspecified Diarrhea R19.7 (1) Hypertension Hypertension type: unspecified Qualified Code(s): I10 - Essential (primary) hypertension
[2020-09-12] MEDS: PANTOprazole 40 MG TAB PO SCH (18:52)
[2020-09-12] MEDS: ONDANSETRON INJ 2 MG/ML 2 ML VIAL IV PRN (19:40)
--- NOTE | 2020-09-12 21:39 | Hospitalist Progress Note ---
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 BUN=63, Cr=4.18 from 50 and 2.2, respectively on . K is mildly elevated at 5.5, HCO3=24. UA with 4+ protein and 3+ blood. 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 electrical engineer has stabilized at 4.98 With accelerated hypertension as below which is improved now She continues to make plenty of urine With acute glomerulonephritis-treated with IV Solu-Medrol 1000 mg once daily x3 days and then converted to prednisone 1 mg/KG daily on 09/09 urine protein/Cr spot ratio is elevated -Nephrology consultation appreciated -Renal ultrasound without obstruction on admission, renal Doppler performed on 09/08 does not show any obvious renal vein or artery thrombosis, but was a difficult study -Avoid nephrotoxic agents -Renal dosing where needed -hold losartan given worsening of acute kidney injury Follow BMP -if worsening renal function, may need to start HD .Creatinine has been slowly improving however. (2) Stage III chronic kidney disease: as above (3) Acute glomerulonephritis: As above, autoimmune studies are pending (4) IgA nephropathy: As above steroid therapy (5) Hypertension: With accelerated hypertension here, now improving -Given clonidine p.o. in the morning of 09/07- much improved -Continue Diltiazem -Continue Metoprolol - holding losartan -Use clonidine as needed IV hydralazine as needed (6) COPD (chronic obstructive pulmonary disease): Has a little bit of wheezing again today -Continue to monitor -Continue Breo and Spiriva -Patient follows with Pulmonary -continue albuterol as needed for wheezing (7) H/O mechanical aortic valve replacement: Chronic -holding Coumadin home dose of 7.5 mg today for INR elevated at 4.2 Goal INR 2.5 - 3.5 Check INR in the morning-follow closely while on corticosteroids as this may make the INR rise (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 twice daily (11) Anemia: Mild and likely of chronic kidney disease Continue ferrous gluconate (12) Biventricular cardiac pacemaker in situ: Noted (13) Hyperkalemia: Now resolved Renal low potassium diet (14) Hypothyroidism: TSH normal at 2.52 in 11/2019 Continue home dose of levothyroxine (15) Atrial fibrillation: Noted in cardiology records She is on Coumadin for anticoagulation She is in paced rhythm on telemetry here Continue metoprolol (16) CAD (coronary artery disease): Chronic, status post CABG -Continue metoprolol 25mg po BID -Continue Simvastatin 10mg daily -She is not on aspirin (17) Leg pain, bilateral: With excellent pedal pulses, negative Homans' sign, trace edema left greater than right which is chronic after vein grafting from left leg Not sure if is musculoskeletal related to electrolyte changes, renal failure? Observe-seems to be improved now (18) Situational anxiety: make hydroxyzine 25mg po q6h prn anxiety add on lorazepam 0.5mg po prn anxiety (19) DVT prophylaxis: Coumadin Disposition-continued stay (20) Diarrhea: Abdomen is disdtended. Concerned of overflow constipation. Will obtain KUB. will check for c diff. will monitor. Vitals are stable Admission and Anticipated Discharge Date Admission Date: September 06, 2020 Subjective Patient reports having diarrhea today. Review of Systems Review of Systems: All systems reviewed & are unremarkable except as noted in HPI & below Physical Exam Physical Exam: Constitutional: WD/WN, vitals as above Eyes: + anicteric sclerae ENMT: external ear and nose normal, oropharynx normal Neck: trachea midline, no thyromegaly Respiratory: normal respiratory effort, lungs clear to auscultation Cardiovascular: Rate/Rhythm: regular rate and regular rhythm Heart Sounds: + murmur (2/6 RONNIE at RUSB) Extremities: + edema (Trace edema left greater than right lower extremity-chronic asymmetry ) Chest (Breasts): Chest: + pacemaker (Left anterior chest wall); + abnormal inspection of chest (Sternum is deformed and protrudes) Gastrointestinal (Abdomen): normal bowel sounds, soft, nontender, no hepatosplenomegaly, distended Musculoskeletal: Extremities: extremities normal to inspection; no cyanosis and no clubbing Skin: no rashes, warm and dry Neurologic: moves all extremities and awake; no focal motor deficits Psychiatric: Orientation: alert and oriented x 3 Affect: + anxious affect Results & Data Results & Data ([facility]) Vital Signs (Past 12 Hours) Vital Signs Temp Pulse Resp BP Pulse Ox 09/12/20 19:00 36.5 C 70 18 178/80 H 95 09/12/20 15:33 36.5 C 70 18 169/76 H 91 PG Care Time/CCT Total # of Minutes Spent Total Time Spent with Patient: Total time spent is greater than 50% in coordination of care (as documented) at patient's floor/unit and/or counseling patient: Coding Level of Care Code 22079 Subseq Hosp Care Lvl 2 Diagnoses FAITH (acute kidney injury) N17.9 Stage III chronic kidney disease N18.30 Chronic kidney disease stage 3 subtype: unspecified whether 3a or 3b Acute glomerulonephritis N00.9 IgA nephropathy N02.8 Hypertension I10 Hypertension type: unspecified COPD (chronic obstructive pulmonary disease) J44.9 COPD type: unspecified COPD H/O mechanical aortic valve replacement Z95.2 Congenital hypoplasia of lung Q33.6 Nephrotic range proteinuria R80.9 Chronic systolic CHF (congestive heart failure) I50.22 Anemia D64.9 Biventricular cardiac pacemaker in situ Z95.0 Hyperkalemia E87.5 Hypothyroidism E03.9 Atrial fibrillation I48.91 CAD (coronary artery disease) I25.10 Associated angina: without angina Coronary Disease-Associated Artery/Lesion type: [place] artery [place] vs. transplanted heart: [place] heart Leg pain, bilateral M79.604; M79.605 Situational anxiety F41.8 DVT prophylaxis Z29.9 Diarrhea R19.7 Time Spent (min) 25 (1) Stage III chronic kidney disease Chronic kidney disease stage 3 subtype: unspecified whether 3a or 3b Qualified Code(s): N18.30 - Chronic kidney disease, stage 3 unspecified (2) CAD (coronary artery disease) Associated angina: without angina Coronary Disease-Associated Artery/Lesion type: [place] artery [place] vs. transplanted heart: [place] heart Qualified Code(s): I25.10 - Atherosclerotic heart disease of [place] coronary artery without angina pectoris (3) COPD (chronic obstructive pulmonary disease) COPD type: unspecified COPD Qualified Code(s): J44.9 - Chronic obstructive pulmonary disease, unspecified (4) Hypertension Hypertension type: unspecified Qualified Code(s): I10 - Essential (primary) hypertension
[2020-09-13] MEDS: LORazepam 0.5 MG TAB PO PRN ×2 (00:06→22:37)
[2020-09-13] MEDS: LOPERAMIDE HCL 2 MG CAP PO PRN ×2 (00:43→20:30)
[2020-09-13] MEDS: hydrALAZINE HCL 20 MG/ML VIAL IV PRN (04:12)
[2020-09-13] MEDS: LEVOTHYROXINE SODIUM 75 MCG TABLET PO SCH (06:03)
[2020-09-13] MEDS: METOPROLOL TARTRATE 25 MG TAB PO SCH ×2 (07:51→20:30)
[2020-09-13] MEDS: predniSONE 20 MG TAB PO SCH (07:52)
[2020-09-13] MEDS: ATORVASTATIN 40 MG TAB PO SCH (07:52)
[2020-09-13] MEDS: FERROUS GLUCONATE 324 MG TAB PO SCH (07:52)
[2020-09-13] MEDS: [UNRECOGNIZED DRUG - OTHER] PO SCH (07:52)
[2020-09-13] MEDS: INSULIN ASPART 100 UNITS/ML 3 ML PEN SC SCH ×4 (07:53→20:27)
[2020-09-13] MEDS: CALCITRIOL 0.25 MCG CAPSULE PO SCH (07:53)
[2020-09-13] MEDS: FLUTICASONE/VILANTEROL 200/25MCG 14 PUFFS/INHALER INH SCH (07:54)
[2020-09-13] MEDS: UMECLIDINIUM BROMIDE 62.5MCG/BLISTER 7 PUFFS/INHALER INH SCH (07:54)
[2020-09-13] MEDS: INSULIN HUMAN NPH SC SCH (07:57)
[2020-09-13] MEDS: ACETAMINOPHEN 325 MG TAB PO PRN (08:11)
[2020-09-13 09:06] LABS: Hemoglobin 12.1 g/dL (12.0-16.0); Mean Corpuscular Hemoglobin 26.7 pg (25-34); Mean Corpuscular Hgb Conc 33.6 g/dL (32-36); Mean Corpuscular Volume 79.3 fL (80-100); Mean Platelet Volume 11.4 fL (7.4-10.4); Platelet Count 283 K/uL (130-400); RDW Coefficient of Variation 16.2 % (11.5-14.5); RDW Standard Deviation 47.4 fL (36.4-46.3); Red Blood Count 4.54 M/uL (4.2-5.4)
[2020-09-13 09:21] LABS: INR 2.3 (0.9-1.1); Prothrombin Time 21.9 Seconds (9.0-12.0)
[2020-09-13 09:40] LABS: BUN Creatinine Ratio 36.5 (10-20); Calcium 8.1 mg/dl (8.5-10.1); Creatinine Clr Calc Pharmacy 9.1 ml/min; Est GFR (African American) 11.7 ml/min; Est GFR (Non-African American) 10.1 ml/min; Potassium 3.1 mmol/L (3.5-5.1)
--- NOTE | 2020-09-13 10:31 | Nephrology Progress Note ---
Date of Service September 13, 2020 Assessment & Plan (1) Acute glomerulonephritis: * Cr trending down with steroid therapy * Azotemia due to steroid therapy - improving * Patient has no uremic symptoms or pericardial rub. 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 Prior serologic evaluation was negative. Biopsy held due to multiple renal cysts. Initial episode ~ 2 years ago responded to steroid therapy and patient had been on maintenance MMF * Now with AGN, gross hematuria. Has completed Solumedrol 1 g IV x 3 days * Prednisone 60 mg po daily started 09/09/20 * VERONIKA, ANCA, anti-GBM, complement testing - pending * Continue w/ Prednisone ~ 1mg/kg/day x 60 days and then taper 10 mg/month over the next 4 months * Trimethoprim held due to drug "allergy". May need to consider Atovaquone (2) Nephrotic range proteinuria: * ARB held due to FAITH (3) Hypertension: * Diuretic and ARB are being held. BP remains acceptable at this time on combination Diltiazem and Metoprolol (4) Diarrhea: * Stool was negative for C. Difficile toxin * Continue supportive care. Encourage oral hydration Admission and Anticipated Discharge Date Admission Date: September 06, 2020 Subjective Mrs. Wells was seen & examined in her hospital room this morning. No gross hematuria or dysuria. She continues to have watery diarrhea Review of Systems Constitutional: + weakness; no fever Eyes: no problem reported Ear, Nose, Mouth, Throat: no problem reported Respiratory: no dyspnea Cardiovascular: no chest pain and no palpitations Gastrointestinal: + diarrhea/loose stools; no abdominal pain and no nausea Genitourinary: no dysuria Musculoskeletal: no back pain Neurologic: no confusion Physical Exam Constitutional: + thin and + frail appearing Eyes: PERRL, conjunctivae normal, anicteric sclerae ENMT: external ear and nose normal, oropharynx normal Neck: trachea midline, no thyromegaly Respiratory: normal respiratory effort, lungs clear to auscultation Cardiovascular: Rate/Rhythm: regular rate and regular rhythm Extremities: + edema (trace LE edema) Gastrointestinal (Abdomen): normal bowel sounds, soft, nontender, no hepatosplenomegaly Musculoskeletal: Extremities: no cyanosis Neurologic: awake; not confused Results & Data ([facility]) Vital Signs (Past 12 Hours) Vital Signs Temp Pulse Resp BP BP Pulse Ox 09/13/20 10:13 36.7 C 70 18 130/70 97 09/13/20 07:20 36.8 C 70 18 172/67 H 95 09/13/20 04:49 70 176/66 H 95 09/13/20 04:09 36.9 C 09/13/20 04:06 194/76 H 09/12/20 23:00 36.7 C 71 18 170/70 H 95 Laboratory Tests 09/08/20 09/09/20 09/10/20 07:02 05:43 06:28 Sodium Potassium Chloride Carbon Dioxide BUN Creatinine 5.07 H* 4.98 H* Stl C. diff Tox B Gene VERONIKA Screen Pending Anti-Proteinase 3 Pending Anti-Myeloperoxidase Pending ANCA Pending Glomerular Base Memb Ab Pending Complement C3 Pending Complement C4 Pending Tot Complement (CH50) Pending 09/11/20 09/12/20 09/12/20 08:20 07:59 19:25 Sodium Potassium Chloride Carbon Dioxide BUN 160 H Creatinine 4.86 H* 4.29 H D Stl C. diff Tox B Gene Negative Cdiff Gene VERONIKA Screen Anti-Proteinase 3 Anti-Myeloperoxidase ANCA Glomerular Base Memb Ab Complement C3 Complement C4 Tot Complement (CH50) 09/13/20 08:42 Sodium 140 Potassium 3.1 L Chloride 109 H Carbon Dioxide 20 L BUN 145 H Creatinine 3.97 H D Stl C. diff Tox B Gene VERONIKA Screen Anti-Proteinase 3 Anti-Myeloperoxidase ANCA Glomerular Base Memb Ab Complement C3 Complement C4 Tot Complement (CH50) PG Care Time/CCT Total # of Minutes Spent Total Time Spent with Patient: Total time spent is greater than 50% in coordina tion of care (as documented) at patient's floor/unit and/or counseling patient: Coding Level of Care Code 43368 Subseq Hosp Care Lvl 3 Diagnoses Acute glomerulonephritis N00.9 Nephrotic range proteinuria R80.9 Hypertension I10 Hypertension type: unspecified Diarrhea R19.7 (1) Hypertension Hypertension type: unspecified Qualified Code(s): I10 - Essential (primary) hypertension
--- NOTE | 2020-09-13 12:03 | XRay Report ---
KUB HISTORY: abdominal distention COMPARISON: None. FINDINGS: Borderline dilated gas-filled loops of large and small bowel seen throughout the abdomen. T here is gas within the rectum. Therefore, these findings favor a mild ileus. Vascular calcifications are noted. Pacemaker wires are partially visualized. Suspect a small right pleural effusion. This is only partially visualized on this study. No renal calculi. No ureteral calculi. No pneumoperitoneum or pneumatosis. IMPRESSION: 1. Borderline dilated gas-filled loops of large and small bowel seen throughout the abdomen. This fav ors a mild ileus. 2. Small right pleural effusion. ACT 112: Negative or not required by law. Electronically signed by: Jose Skinner M.D. 09/13/2020 12:02 PM
[2020-09-13] MEDS: POTASSIUM CHLORIDE CRTAB 20 MEQ TABCR PO SCH ×2 (14:00→20:31)
[2020-09-13 15:06] LABS: ANCA Screen Negative (Negative); Anti Nuclear Antibody Screen NEGATIVE (NEGATIVE); Anti-Glom Basement Antibody <1.0 AI (<1.0); Complement C3 108 mg/dL (83-193); Complement Total(CH50) >60 U/mL (31-60); Myeloperoxidase Ab <1.0 AI (<1.0); Proteinase-3 AB <1.0 AI (<1.0)
--- NOTE | 2020-09-13 23:00 | Hospitalist Progress Note ---
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 BUN=63, Cr=4.18 from 50 and 2.2, respectively on . K is mildly elevated at 5.5, HCO3=24. UA with 4+ protein and 3+ blood. 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, RPGN, but has never had renal biopsy Renal function initially was slightly improved with creatinine down to 3.9, potassium is also down from previous, however now creatinine increased up to 5.07 Today trap puller has stabilized at 4.98 With accelerated hypertension as below which is improved now She continues to make plenty of urine With acute glomerulonephritis-treated with IV Solu-Medrol 1000 mg once daily x3 days and then converted to prednisone 1 mg/KG daily on 09/09 urine protein/Cr spot ratio is elevated -Nephrology consultation appreciated -Renal ultrasound without obstruction on admission, renal Doppler performed on 09/08 does not show any obvious renal vein or artery thrombosis, but was a difficult study -Avoid nephrotoxic agents -Renal dosing where needed -hold losartan given worsening of acute kidney injury Follow BMP -if worsening renal function, may need to start HD .Creatinine has been slowly improving however. Now below 4. However given diarrhea will keep patient in hospital. (2) Stage III chronic kidney disease: as above (3) Acute glomerulonephritis: As above, autoimmune studies are pending (4) IgA nephropathy: As above steroid therapy (5) Hypertension: With accelerated hypertension here, now improving -Given clonidine p.o. in the morning of 09/07- much improved -Continue Diltiazem -Continue Metoprolol - holding losartan -Use clonidine as needed IV hydralazine as needed (6) COPD (chronic obstructive pulmonary disease): Has a little bit of wheezing again today -Continue to monitor -Continue Breo and Spiriva -Patient follows with Pulmonary -continue albuterol as needed for wheezing (7) H/O mechanical aortic valve replacement: Chronic -holding Coumadin home dose of 7.5 mg today for INR elevated at 4.2 Goal INR 2.5 - 3.5 Check INR in the morning-follow closely while on corticosteroids as this may make the INR rise (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 twice daily (11) Anemia: Mild and likely of chronic kidney disease Continue ferrous gluconate (12) Biventricular cardiac pacemaker in situ: Noted (13) Hyperkalemia: Now resolved Renal low potassium diet (14) Hypothyroidism: TSH normal at 2.52 in 11/2019 Continue home dose of levothyroxine (15) Atrial fibrillation: Noted in cardiology records She is on Coumadin for anticoagulation She is in paced rhythm on telemetry here Continue metoprolol (16) CAD (coronary artery disease): Chronic, status post CABG -Continue metoprolol 25mg po BID -Continue Simvastatin 10mg daily -She is not on aspirin (17) Leg pain, bilateral: With excellent pedal pulses, negative Homans' sign, trace edema left greater than right which is chronic after vein grafting from left leg Not sure if is musculoskeletal related to electrolyte changes, renal failure? Observe-seems to be improved now (18) Situational anxiety: make hydroxyzine 25mg po q6h prn anxiety add on lorazepam 0.5mg po prn anxiety (19) DVT prophylaxis: Coumadin Disposition-continued stay (20) Diarrhea: C diff is negative. KUB only shows mild ileus Perhaps this is viral. will continue to monitor. Patient reports her stools have improved. But remain lose. Admission and Anticipated Discharge Date Admission Date: September 06, 2020 Subjective 79 yo female reports having diarrhea, but her stools have improved. Review of Systems Review of Systems: All systems reviewed & are unremarkable except as noted in HPI & below Physical Exam Physical Exam: Constitutional: WD/WN, vitals as above Eyes: + anicteric sclerae ENMT: external ear and nose normal, oropharynx normal Neck: trachea midline, no thyromegaly Respiratory: normal respiratory effort, lungs clear to auscultation Cardiovascular: Rate/Rhythm: regular rate and regular rhythm Heart Sounds: + murmur (2/6 RONNIE at RUSB) Extremities: + edema (Trace edema left greater than right lower extremity-chronic asymmetry ) Chest (Breasts): Chest: + pacemaker (Left anterior chest wall); + abnormal inspection of chest (Sternum is deformed and protrudes) Gastrointestinal (Abdomen): normal bowel sounds, soft, nontender, no hepatosplenomegaly, less distended Musculoskeletal: Extremities: extremities normal to inspection; no cyanosis and no clubbing Skin: no rashes, warm and dry Neurologic: moves all extremities and awake; no focal motor deficits Psychiatric: Orientation: alert and oriented x 3 Affect: + anxious affect Results & Data Results & Data ([facility]) Vital Signs (Past 12 Hours) Vital Signs Temp Pulse Resp BP Pulse Ox 09/13/20 22:34 36.5 C 70 18 165/74 H 98 09/13/20 19:33 36.9 C 70 16 136/61 97 09/13/20 14:41 36.6 C 70 18 124/69 92 09/13/20 11:14 36.8 C 71 18 115/62 97 PG Care Time/CCT Total # of Minutes Spent Total Time Spent with Patient: Total time spent is greater than 50% in coordination of care (as documented) at patient's floor/unit and/or counseling patient: Coding Level of Care Code 62839 Subseq Hosp Care Lvl 2 Diagnoses FAITH (acute kidney injury) N17.9 Stage III chronic kidney disease N18.30 Chronic kidney disease stage 3 subtype: unspecified whether 3a or 3b Acute glomerulonephritis N00.9 IgA nephropathy N02.8 Hypertension I10 Hypertension type: unspecified COPD (chronic obstructive pulmonary disease) J44.9 COPD type: unspecified COPD H/O mechanical aortic valve replacement Z95.2 Congenital hypoplasia of lung Q33.6 Nephrotic range proteinuria R80.9 Chronic systolic CHF (congestive heart failure) I50.22 Anemia D64.9 Biventricular cardiac pacemaker in situ Z95.0 Hyperkalemia E87.5 Hypothyroidism E03.9 Atrial fibrillation I48.91 CAD (coronary artery disease) I25.10 Associated angina: without angina Coronary Disease-Associated Artery/Lesion type: [place] artery [place] vs. transplanted heart: [place] heart Leg pain, bilateral M79.604; M79.605 Situational anxiety F41.8 DVT prophylaxis Z29.9 Diarrhea R19.7 Time Spent (min) 25 (1) Stage III chronic kidney disease Chronic kidney disease stage 3 subtype: unspecified whether 3a or 3b Qualified Code(s): N18.30 - Chronic kidney disease, stage 3 unspecified (2) CAD (coronary artery disease) Associated angina: without angina Coronary Disease-Associated Artery/Lesion type: [place] artery [place] vs. transplanted heart: [place] heart Qualified Code(s): I25.10 - Atherosclerotic heart disease of [place] coronary artery without angina pectoris (3) COPD (chronic obstructive pulmonary disease) COPD type: unspecified COPD Qualified Code(s): J44.9 - Chronic obstructive pulmonary disease, unspecified (4) Hypertension Hypertension type: unspecified Qualified Code(s): I10 - Essential (primary) hypertension
[2020-09-14] MEDS: LEVOTHYROXINE SODIUM 75 MCG TABLET PO SCH (06:19)
[2020-09-14 07:49] LABS: Hemoglobin 10.4 g/dL (12.0-16.0); Mean Corpuscular Hemoglobin 26.9 pg (25-34); Mean Corpuscular Hgb Conc 33.5 g/dL (32-36); Mean Corpuscular Volume 80.3 fL (80-100); Mean Platelet Volume 11.5 fL (7.4-10.4); Platelet Count 258 K/uL (130-400); RDW Coefficient of Variation 16.4 % (11.5-14.5); RDW Standard Deviation 48.5 fL (36.4-46.3); Red Blood Count 3.86 M/uL (4.2-5.4)
[2020-09-14] MEDS: INSULIN ASPART 100 UNITS/ML 3 ML PEN SC SCH ×4 (08:30→21:10)
[2020-09-14] MEDS: UMECLIDINIUM BROMIDE 62.5MCG/BLISTER 7 PUFFS/INHALER INH SCH (08:30)
[2020-09-14] MEDS: FLUTICASONE/VILANTEROL 200/25MCG 14 PUFFS/INHALER INH SCH (08:30)
[2020-09-14] MEDS: PANTOprazole 40 MG TAB PO SCH (08:30)
[2020-09-14 08:31] LABS: BUN Creatinine Ratio 34.5 (10-20); Calcium 7.4 mg/dl (8.5-10.1); Creatinine Clr Calc Pharmacy 9.3 ml/min; Est GFR (African American) 12.1 ml/min; Est GFR (Non-African American) 10.5 ml/min; Potassium 4.2 mmol/L (3.5-5.1)
[2020-09-14] MEDS: [UNRECOGNIZED DRUG - OTHER] PO SCH (08:31)
[2020-09-14] MEDS: FERROUS GLUCONATE 324 MG TAB PO SCH (08:31)
[2020-09-14] MEDS: POTASSIUM CHLORIDE CRTAB 20 MEQ TABCR PO SCH (08:31)
[2020-09-14] MEDS: METOPROLOL TARTRATE 25 MG TAB PO SCH ×2 (08:31→21:09)
[2020-09-14] MEDS: ATORVASTATIN 40 MG TAB PO SCH (08:31)
[2020-09-14] MEDS: predniSONE 20 MG TAB PO SCH (08:31)
[2020-09-14] MEDS: CALCITRIOL 0.25 MCG CAPSULE PO SCH (08:32)
[2020-09-14] MEDS: INSULIN HUMAN NPH SC SCH (08:33)
--- NOTE | 2020-09-14 10:16 | Nephrology Progress Note ---
Date of Service September 14, 2020 Assessment & Plan (1) Acute glomerulonephritis: * Cr trending down with steroid therapy * Azotemia due to steroid therapy - improving * Patient has no uremic symptoms or pericardial rub. 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 Prior serologic evaluation was negative. Biopsy held due to multiple renal cysts. Initial episode ~ 2 years ago responded to steroid therapy and patient had been on maintenance MMF * Now with AGN, gross hematuria. Has completed Solumedrol 1 g IV x 3 days * Prednisone 60 mg po daily started 09/09/20 * 09/08/20 VERONIKA, ANCA, anti-GBM, complement testing - negative * Continue w/ Prednisone ~ 1mg/kg/day x 60 days and then taper 10 mg/month over the next 4 months * Trimethoprim held due to drug "allergy". May need to consider Atovaquone or Dapsone once diarrhea resolves * Protonix started for ulcer prophylaxis while on steroid therapy (2) Nephrotic range proteinuria: * ARB held due to FAITH (3) Hypertension: * Diuretic and ARB are being held. BP remains acceptable at this time on combination Diltiazem and Metoprolol (4) Diarrhea: * Stool was negative for C. Difficile toxin * Continue supportive care. Encourage oral hydration Admission and Anticipated Discharge Date Admission Date: September 06, 2020 Subjective Mrs. Wells was seen & examined in her hospital room this morning. No gross hematuria or dysuria. She continues to have watery diarrhea Review of Systems Constitutional: + weakness; no fever Eyes: no problem reported Ear, Nose, Mouth, Throat: no problem reported Respiratory: no dyspnea Cardiovascular: no chest pain and no palpitations Gastrointestinal: + diarrhea/loose stools; no abdominal pain and no nausea Genitourinary: no dysuria Musculoskeletal: no back pain Neurologic: no confusion Physical Exam Constitutional: + thin and + frail appearing Eyes: PERRL, conjunctivae normal, anicteric sclerae ENMT: external ear and nose normal, oropharynx normal Neck: trachea midline, no thyromegaly Respiratory: normal respiratory effort, lungs clear to auscultation Cardiovascular: Rate/Rhythm: regular rate and regular rhythm Extremities: no edema Gastrointestinal (Abdomen): normal bowel sounds, soft, nontender, no hepatosplenomegaly Musculoskeletal: Extremities: no cyanosis Neurologic: awake; not confused Results & Data ([facility]) Vital Signs (Past 12 Hours) Vital Signs Temp Pulse Pulse Pulse Resp BP BP 09/14/20 08:00 36.5 C 69 18 153/71 H 09/14/20 04:13 36.5 C 70 18 156/73 H 09/13/20 22:34 36.5 C 70 18 165/74 H 09/13/20 22:20 70 Pulse Ox 09/14/20 08:00 96 09/14/20 04:13 94 09/13/20 22:34 98 09/13/20 22:20 Laboratory Tests 09/08/20 09/14/20 09/14/20 07:02 07:20 07:20 WBC 9.10 Hgb 10.4 L Hct 31.0 L Plt Count 258 Sodium 138 Potassium 4.2 D Chloride 110 H Carbon Dioxide 20 L BUN 133 H Creatinine 3.86 H Glucose 103 H Calcium 7.4 L VERONIKA Screen NEGATIVE Anti-Proteinase 3 <1.0 Anti-Myeloperoxidase <1.0 ANCA Negative Glomerular Base Memb Ab <1.0 Complement C3 108 Complement C4 34 Tot Complement (CH50) >60 H PG Care Time/CCT Total # of Minutes Spent Total Time Spent with Patient: Total time spent is greater than 50% in coordination of care (as documented) at patient's floor/unit and/or counseling patient: Coding Level of Care Code 10281 Subseq Hosp Care Lvl 3 Diagnoses Acute glomerulonephritis N00.9 Nephrotic range proteinuria R80.9 Hypertension I10 Hypertension type: unspecified Diarrhea R19.7 (1) Hypertension Hypertension type: unspecified Qualified Code(s): I10 - Essential (primary) hypertension
[2020-09-14] MEDS: ONDANSETRON INJ 2 MG/ML 2 ML VIAL IV PRN (15:33)
[2020-09-14] MEDS ORDERED: CLOBETASOL PROPIONATE 0.05% OINT 15 GM TUBE EXT PRN (18:42)
[2020-09-14] MEDS: LORazepam 0.5 MG TAB PO PRN (21:10)
--- NOTE | 2020-09-14 22:59 | Hospitalist Progress Note ---
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 BUN=63, Cr=4.18 from 50 and 2.2, respectively on . K is mildly elevated at 5.5, HCO3=24. UA with 4+ protein and 3+ blood. 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, RPGN, but has never had renal biopsy Renal function initially was slightly improved with creatinine down to 3.9, potassium is also down from previous, however now creatinine increased up to 5.07 With accelerated hypertension as below which is improved now She continues to make plenty of urine With acute glomerulonephritis-treated with IV Solu-Medrol 1000 mg once daily x3 days and then converted to prednisone 1 mg/KG daily on 09/09 urine protein/Cr spot ratio is elevated -Nephrology consultation appreciated -Renal ultrasound without obstruction on admission, renal Doppler performed on 09/08 does not show any obvious renal vein or artery thrombosis, but was a difficult study -Avoid nephrotoxic agents -Renal dosing where needed -hold losartan given worsening of acute kidney injury Follow BMP -randolph need for HD at this moment. .Creatinine has been slowly improving however. Now creatinine is 3.68 However given diarrhea will keep patient in hospital. (2) Diarrhea: C diff is negative. KUB only shows mild ileus Perhaps this is viral. will continue to monitor. Patient reports her stools have improved. But remain loose. will discharge once diarrhea has subsided. (3) Stage III chronic kidney disease: as above (4) Acute glomerulonephritis: As above, autoimmune studies are pending (5) IgA nephropathy: As above steroid therapy (6) Hypertension: With accelerated hypertension here, now improving -Given clonidine p.o. in the morning of 09/07- much improved -Continue Diltiazem -Continue Metoprolol - holding losartan -Use clonidine as needed IV hydralazine as needed (7) COPD (chronic obstructive pulmonary disease): Has a little bit of wheezing again today -Continue to monitor -Continue Breo and Spiriva -Patient follows with Pulmonary -continue albuterol as needed for wheezing (8) H/O mechanical aortic valve replacement: Chronic -holding Coumadin home dose of 7.5 mgfor INR elevated at 4.2 Goal INR 2.5 - 3.5 INR is now slightly below range, will resume coumadin in AM. 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 twice daily (12) Anemia: Mild and likely of chronic kidney disease Continue ferrous gluconate (13) Biventricular cardiac pacemaker in situ: Noted (14) Hyperkalemia: Now resolved Renal low potassium diet (15) Hypothyroidism: TSH normal at 2.52 in 11/2019 Continue home dose of levothyroxine (16) Atrial fibrillation: Noted in cardiology records She is on Coumadin for anticoagulation She is in paced rhythm on telemetry here Continue metoprolol (17) CAD (coronary artery disease): Chronic, status post CABG -Continue metoprolol 25mg po BID -Continue Simvastatin 10mg daily -She is not on aspirin (18) Leg pain, bilateral: With excellent pedal pulses, negative Homans' sign, trace edema left greater than right which is chronic after vein grafting from left leg Not sure if is musculoskeletal related to electrolyte changes, renal failure? Observe-seems to be improved now (19) Situational anxiety: make hydroxyzine 25mg po q6h prn anxiety add on lorazepam 0.5mg po prn anxiety (20) DVT prophylaxis: Coumadin Disposition-continued stay Admission and Anticipated Discharge Date Admission Date: September 06, 2020 Subjective Patient reports her stools are improving. Consistency has improved. Review of Systems Review of Systems: All systems reviewed & are unremarkable except as noted in HPI & below Physical Exam Physical Exam: Constitutional: WD/WN, vitals as above Eyes: + anicteric sclerae ENMT: external ear and nose normal, oropharynx normal Neck: trachea midline, no thyromegaly Respiratory: normal respiratory effort, lungs clear to auscultation Cardiovascular: Rate/Rhythm: regular rate and regular rhythm Heart Sounds: + murmur (2/6 RONNIE at RUSB) Extremities: + edema (Trace edema left greater than right lower extremity-chronic asymmetry ) Chest (Breasts): Chest: + pacemaker (Left anterior chest wall); + abnormal inspection of chest (Sternum is deformed and protrudes) Gastrointestinal (Abdomen): normal bowel sounds, soft, nontender, no hepatosplenomegaly, less distended Musculoskeletal: Extremities: extremities normal to inspection; no cyanosis and no clubbing Skin: no rashes, warm and dry Neurologic: moves all extremities and awake; no focal motor deficits Psychiatric: Orientation: alert and oriented x 3 Affect: + anxious affect Results & Data Results & Data ([facility]) Vital Signs (Past 12 Hours) Vital Signs Temp Pulse Resp BP BP Pulse Ox 09/14/20 19:34 36.5 C 70 18 147/88 H 98 09/14/20 16:16 36.4 C L 71 18 109/55 L 96 09/14/20 15:12 37.2 C 68 18 157/85 H 93 09/14/20 11:12 36.5 C 68 18 132/70 96 PG Care Time/CCT Total # of Minutes Spent Total Time Spent with Patient: Total time spent is greater than 50% in coordination of care (as documented) at patient's floor/unit and/or counseling patient: Coding Level of Care Code 62787 Subseq Hosp Care Lvl 2 Diagnoses FAITH (acute kidney injury) N17.9 Diarrhea R19.7 Stage III chronic kidney disease N18.30 Chronic kidney disease stage 3 subtype: unspecified whether 3a or 3b Acute glomerulonephritis N00.9 IgA nephropathy N02.8 Hypertension I10 Hypertension type: unspecified COPD (chronic obstructive pulmonary disease) J44.9 COPD type: unspecified COPD H/O mechanical aortic valve replacement Z95.2 Congenital hypoplasia of lung Q33.6 Nephrotic range proteinuria R80.9 Chronic systolic CHF (congestive heart failure) I50.22 Anemia D64.9 Biventricular cardiac pacemaker in situ Z95.0 Hyperkalemia E87.5 Hypothyroidism E03.9 Atrial fibrillation I48.91 CAD (coronary artery disease) I25.10 Associated angina: without angina Coronary Disease-Associated Artery/Lesion type: [place] artery [place] vs. transplanted heart: [place] heart Leg pain, bilateral M79.604; M79.605 Situational anxiety F41.8 DVT prophylaxis Z29.9 Time Spent (min) 25 (1) Stage III chronic kidney disease Chronic kidney disease stage 3 subtype: unspecified whether 3a or 3b Qualified Code(s): N18.30 - Chronic kidney disease, stage 3 unspecified (2) CAD (coronary artery disease) Associated angina: without angina Coronary Disease-Associated Artery/Lesion type: [place] artery [place] vs. transplanted heart: [place] heart Qualified Code(s): I25.10 - Atherosclerotic heart disease of [place] coronary artery without angina pectoris (3) COPD (chronic obstructive pulmonary disease) COPD type: unspecified COPD Qualified Code(s): J44.9 - Chronic obstructive pulmonary disease, unspecified (4) Hypertension Hypertension type: unspecified Qualified Code(s): I10 - Essential (primary) hypertension
[2020-09-15] MEDS: ACETAMINOPHEN 325 MG TAB PO PRN (00:48)
[2020-09-15] MEDS: LEVOTHYROXINE SODIUM 75 MCG TABLET PO SCH (06:17)
[2020-09-15 07:56] LABS: Hematocrit (blood only) 30.7 % (37-47); Hemoglobin 10.2 g/dL (12.0-16.0); Mean Corpuscular Hemoglobin 26.2 pg (25-34); Mean Corpuscular Hgb Conc 33.2 g/dL (32-36); Mean Corpuscular Volume 78.9 fL (80-100); Mean Platelet Volume 11.6 fL (7.4-10.4); Platelet Count 247 K/uL (130-400); RDW Coefficient of Variation 16.4 % (11.5-14.5); RDW Standard Deviation 47.4 fL (36.4-46.3); Red Blood Count 3.89 M/uL (4.2-5.4); White Blood Count 13.22 K/uL (4.8-10.8)
[2020-09-15 07:58] LABS: INR 1.4 (0.9-1.1); Prothrombin Time 14.2 Seconds (9.0-12.0)
[2020-09-15 08:07] LABS: BUN Creatinine Ratio 34.4 (10-20); Creatinine Clr Calc Pharmacy 9.2 ml/min; Est GFR (African American) 11.8 ml/min; Est GFR (Non-African American) 10.2 ml/min; Potassium 4.7 mmol/L (3.5-5.1)
[2020-09-15] MEDS: INSULIN ASPART 100 UNITS/ML 3 ML PEN SC SCH ×4 (08:07→21:07)
[2020-09-15] MEDS: ATORVASTATIN 40 MG TAB PO SCH (08:07)
[2020-09-15] MEDS: FLUTICASONE/VILANTEROL 200/25MCG 14 PUFFS/INHALER INH SCH (08:08)
[2020-09-15] MEDS: CALCITRIOL 0.25 MCG CAPSULE PO SCH (08:08)
[2020-09-15] MEDS: [UNRECOGNIZED DRUG - OTHER] PO SCH (08:08)
[2020-09-15] MEDS: INSULIN HUMAN NPH SC SCH (08:09)
[2020-09-15] MEDS: FERROUS GLUCONATE 324 MG TAB PO SCH (08:09)
[2020-09-15] MEDS: METOPROLOL TARTRATE 25 MG TAB PO SCH ×2 (08:11→21:09)
[2020-09-15] MEDS: UMECLIDINIUM BROMIDE 62.5MCG/BLISTER 7 PUFFS/INHALER INH SCH (08:12)
[2020-09-15] MEDS: WARFARIN SOD 7.5 MG TAB PO SCH ×2 (08:12→16:48)
[2020-09-15] MEDS: PANTOprazole 40 MG TAB PO SCH (08:12)
[2020-09-15] MEDS: predniSONE 20 MG TAB PO SCH (08:12)
[2020-09-15] MEDS ORDERED: WARFARIN SOD 5 MG TAB PO SCH (09:00)
--- NOTE | 2020-09-15 10:21 | Nephrology Progress Note ---
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 Prior serologic evaluation was negative. Biopsy held due to multiple renal cysts. Initial episode ~ 2 years ago responded to steroid therapy and maintenance MMF. MMF stopped ~ 1 year ago. Patient presented this hospitalization w/ gross hematuria and AGN. * Solumedrol 1 g IV x 3 days completed. Prednisone 60 mg po daily started 09/09/20 * Cr trending down with steroid therapy * Azotemia due to steroid therapy - improving * Patient has no uremic symptoms or pericardial rub. She remains nonoliguric * 09/08/20 VERONIKA, ANCA, anti-GBM, complement testing - negative * Continue w/ Prednisone ~ 1mg/kg/day x 60 days and then taper 10 mg/month over the next 4 months * Trimethoprim held due to drug "allergy". May need to consider Atovaquone or Dapsone once diarrhea resolves * Protonix started for ulcer prophylaxis while on steroid therapy (2) Nephrotic range proteinuria: * ARB held due to FAITH (3) Hypertension: * Diuretic and ARB are being held. BP remains acceptable at this time on combination Diltiazem and Metoprolol (4) Diarrhea: * Stool was negative for C. Difficile toxin * Continue supportive care. Encourage oral hydration * Patient appears volume contracted. Will provide 1 L 0.9NS today Admission and Anticipated Discharge Date Admission Date: September 06, 2020 Subjective Mrs. Wells was seen & examined in her hospital room this morning. No gross hematuria or dysuria. She continues reports abdominal discomfort and nausea. Her stool is now semiformed Review of Systems Constitutional: + weakness; no fever Eyes: no problem reported Ear, Nose, Mouth, Throat: no problem reported Respiratory: no dyspnea Cardiovascular: no chest pain and no palpitations Gastrointestinal: + diarrhea/loose stools; no abdominal pain and no nausea Genitourinary: no dysuria Musculoskeletal: no back pain Neurologic: no confusion Physical Exam Constitutional: + thin and + frail appearing Eyes: PERRL, conjunctivae normal, anicteric sclerae ENMT: external ear and nose normal, oropharynx normal Neck: trachea midline, no thyromegaly Respiratory: normal respiratory effort, lungs clear to auscultation Cardiovascular: Rate/Rhythm: regular rate and regular rhythm Extremities: no edema Gastrointestinal (Abdomen): normal bowel sounds, soft, nontender, no hepatosplenomegaly Musculoskeletal: Extremities: no cyanosis Neurologic: awake; not confused Results & Data ([facility]) Vital Signs (Past 12 Hours) Vital Signs Temp Pulse Pulse Resp BP BP Pulse Ox 09/15/20 07:30 36.6 C 70 18 138/68 96 09/15/20 07:19 70 09/15/20 04:27 36.5 C 72 20 176/78 H 95 09/14/20 23:59 36.8 C 70 18 168/82 H 95 09/14/20 22:20 70 Laboratory Tests 09/15/20 09/15/20 07:33 07:33 WBC 13.22 H Hgb 10.2 L Hct 30.7 L Plt Count 247 Sodium 137 Potassium 4.7 Chloride 110 H Carbon Dioxide 17 L BUN 136 H Creatinine 3.94 H Glucose 115 H Laboratory Tests 09/09/20 09/11/20 09/13/20 05:43 08:20 08:42 Creatinine 5.07 H* 4.86 H* 3.97 H D 09/15/20 07:33 Creatinine 3.94 H PG Care Time/CCT Total # of Minutes Spent Total Time Spent with Patient: Total time spent is greater than 50% in coordination of care (as documented) at patient's floor/unit and/or counseling patient: Coding Level of Care Code 36219 Subseq Hosp Care Lvl 3 Diagnoses Acute glomerulonephritis N00.9 Nephrotic range proteinuria R80.9 Hypertension I10 Hypertension type: unspecified Diarrhea R19.7 (1) Hypertension Hypertension type: unspecified Qualified Code(s): I10 - Essential (primary) hypertension
[2020-09-15] MEDS ORDERED: SODIUM CHLORIDE 0.9% 1000ML 1,000 ML IV SCH (10:30)
[2020-09-15] MEDS: ONDANSETRON INJ 2 MG/ML 2 ML VIAL IV PRN ×2 (11:12→18:43)
--- NOTE | 2020-09-15 16:29 | Hospitalist Progress Note ---
Date of Service September 15, 2020 Assessment & Plan (1) Acute glomerulonephritis: Hx of IgA nephropathy. Was on mycophenolate mofetil in the past, but stopped at least 1 year ago. - Now with acute glomerulonephritis-treated with IV Solu-Medrol 1000 mg once daily x3 days and then converted to prednisone 1 mg/KG daily on 09/09. - Per nephrology. (2) Diarrhea: C diff was negative. - Imodium PRN (3) Hypertension: BP today is 110/60. - Continue diltiazem & metoprolol - Hydralazine PRN (4) Chronic systolic CHF (congestive heart failure): With LVEF 45-50%, with septal wall motion abnormality as per cardiology records. With a history of aortic valve replacement and CABG at the time of her AVR. - No evidence of volume overload at this time except mild edema in the legs which is chronic due to vein graft from the left leg - Hold diuretics - Hold losartan - Continue metoprolol tartrate 25 mg p.o. twice daily (5) COPD (chronic obstructive pulmonary disease): Appears to be at baseline. Patient follows with pulmonary. - Continue Breo and Spiriva - Albuterol PRN (6) H/O mechanical aortic valve replacement: - Resumed warfarin on 09/15. 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 (8) Anemia: Mild and likely of chronic kidney disease. - Continue ferrous gluconate (9) Biventricular cardiac pacemaker in situ: Noted. (10) Hypothyroidism: TSH normal at 2.52 in 11/2019. - Continue home dose of levothyroxine (11) Atrial fibrillation: Noted in cardiology records. She is on Coumadin for anticoagulation. She is in paced rhythm on telemetry here. - Continue metoprolol (12) CAD (coronary artery disease): Chronic, status post CABG. - Continue metoprolol 25mg PO BID - Continue atorvastatin (changed from simvastatin for interaction with diltiazem) - She is not on aspirin. (13) Situational anxiety: - Continue both hydroxyzine and lorazepam PRN (14) DVT prophylaxis: Coumadin Admission and Anticipated Discharge Date Admission Date: September 06, 2020 Subjective Feels very concerned today. She does not want to have to do dialysis and is worried that she will need to. She was very tearful today about that possibility. I talked about how we are working to avoid that. Physical Exam Constitutional: WD/WN, vitals as above + acute distress Eyes: EOM intact bilaterally; no conjunctival abnormality ENMT: external ear and nose normal, oropharynx normal Neck: trachea midline, no thyromegaly normal visual inspection Respiratory: normal respiratory effort, lungs clear to auscultation no respiratory distress Cardiovascular: RRR, no murmur, no edema Gastrointestinal (Abdomen): Inspection/Auscultation: abdomen normal to inspection; abdomen not distended Musculoskeletal: no cyanosis or clubbing, extremities motor strength 5/5 Skin: no rashes, warm and dry Neurologic: moves all extremities and awake Psychiatric: Orientation: alert, oriented to person and cooperative Results & Data Results & Data ([facility]) Vital Signs (Past 12 Hours) Vital Signs Temp Pulse Pulse Resp BP BP Pulse Ox 09/15/20 16:14 36.8 C 70 18 110/60 94 09/15/20 15:02 70 09/15/20 11:23 36.5 C 70 18 128/66 95 09/15/20 07:30 36.6 C 70 18 138/68 96 09/15/20 07:19 70 09/15/20 04:27 36.5 C 72 20 176/78 H 95 PG Care Time/CCT Total # of Minutes Spent Total Time Spent with Patient: Total time spent is greater than 50% in coordination of care (as documented) at patient's floor/unit and/or counseling patient: Coding Level of Care Code 18498 Subseq Hosp Care Lvl 2 Diagnoses Acute glomerulonephritis N00.9 Diarrhea R19.7 Hypertension I10 Hypertension type: unspecified Chronic systolic CHF (congestive heart failure) I50.22 COPD (chronic obstructive pulmonary disease) J44.9 COPD type: unspecified COPD H/O mechanical aortic valve replacement Z95.2 Congenital hypoplasia of lung Q33.6 Anemia D64.9 Biventricular cardiac pacemaker in situ Z95.0 Hypothyroidism E03.9 Atrial fibrillation I48.91 CAD (coronary artery disease) I25.10 Coronary Disease-Associated Artery/Lesion type: [place] artery [place] vs. transplanted heart: [place] heart Associated angina: without angina Situational anxiety F41.8 DVT prophylaxis Z29.9 (1) Hypertension Hypertension type: unspecified Qualified Code(s): I10 - Essential (primary) hypertension (2) COPD (chronic obstructive pulmonary disease) COPD type: unspecified COPD Qualified Code(s): J44.9 - Chronic obstructive pulmonary disease, unspecified (3) CAD (coronary artery disease) Coronary Disease-Associated Artery/Lesion type: [place] artery [place] vs. transplanted heart: [place] heart Associated angina: without angina Qualified Code(s): I25.10 - Atherosclerotic heart disease of [place] coronary artery without angina pectoris
[2020-09-15] MEDS: LORazepam 0.5 MG TAB PO PRN (23:21)
[2020-09-16] MEDS: LEVOTHYROXINE SODIUM 75 MCG TABLET PO SCH (06:33)
[2020-09-16 06:46] LABS: Hematocrit (blood only) 29.1 % (37-47); Hemoglobin 9.8 g/dL (12.0-16.0); Mean Corpuscular Hemoglobin 26.5 pg (25-34); Mean Corpuscular Hgb Conc 33.7 g/dL (32-36); Mean Corpuscular Volume 78.6 fL (80-100); Mean Platelet Volume 11.6 fL (7.4-10.4); Platelet Count 232 K/uL (130-400); RDW Coefficient of Variation 16.6 % (11.5-14.5); RDW Standard Deviation 48.2 fL (36.4-46.3); White Blood Count 9.84 K/uL (4.8-10.8)
[2020-09-16 06:51] LABS: INR 1.9 (0.9-1.1); Prothrombin Time 18.7 Seconds (9.0-12.0)
[2020-09-16 07:03] LABS: BUN Creatinine Ratio 33.9 (10-20); Calcium 7.9 mg/dl (8.5-10.1); Creatinine Clr Calc Pharmacy 9.9 ml/min; Est GFR (African American) 12.9 ml/min; Est GFR (Non-African American) 11.2 ml/min
[2020-09-16] MEDS: CALCITRIOL 0.25 MCG CAPSULE PO SCH (08:18)
[2020-09-16] MEDS: ATORVASTATIN 40 MG TAB PO SCH (08:18)
[2020-09-16] MEDS: INSULIN ASPART 100 UNITS/ML 3 ML PEN SC SCH ×4 (08:19→20:39)
[2020-09-16] MEDS: [UNRECOGNIZED DRUG - OTHER] PO SCH (08:19)
[2020-09-16] MEDS: FERROUS GLUCONATE 324 MG TAB PO SCH (08:19)
[2020-09-16] MEDS: FLUTICASONE/VILANTEROL 200/25MCG 14 PUFFS/INHALER INH SCH (08:20)
[2020-09-16] MEDS: INSULIN HUMAN NPH SC SCH (08:20)
[2020-09-16] MEDS: PANTOprazole 40 MG TAB PO SCH (08:21)
[2020-09-16] MEDS: METOPROLOL TARTRATE 25 MG TAB PO SCH ×2 (08:21→20:38)
[2020-09-16] MEDS: predniSONE 20 MG TAB PO SCH (08:22)
[2020-09-16] MEDS: UMECLIDINIUM BROMIDE 62.5MCG/BLISTER 7 PUFFS/INHALER INH SCH (08:22)
[2020-09-16] MEDS: ONDANSETRON INJ 2 MG/ML 2 ML VIAL IV PRN (09:00)
--- NOTE | 2020-09-16 10:58 | Nephrology Progress Note ---
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 Serologic w/u was negative for VERONIKA, ANCA, anti-BM ab, blood cultures and complement. Renal biopsy deferred at that time at patient's request and given cystic kidney disease. Clinical remission noted with steroid therapy. Creatinine stabilized at 1.5-1.8 mg/dL. 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 Mckenna does have osteoporosis and had developed lumbar compression fractures in 2018. After discontinuation of steroids, tolerated MMF without evidence of recurrent vasculitis. In June 2018, MMF was weaned off. Mckenna then asked to avoid any additional immune modifying therapy. Then she was again found to have high-grade proteinuria in February 2020. With presumed relapse of IgA nephropathy, she was treated with methylprednisone and IV and now switched to prednisone 60 mg daily. Renal function started to improve, creatinine down to 3.5 this morning. She has been extremely anxious with the thought of needing dialysis in future. Wonder whether some of the anxiety related to high dose of steroid. -- explained that her kidney function started to improve with the steroid and at this time there is no indication for dialysis. We should closely monitor her i ntake and output although there is no clear sign of volume overload at this time. -- Continue prednisone 60 mg for now and continue to monitor renal function. -- In future she will probably need to be on CellCept again as she tolerated before and kidney function stayed relatively stable Will follow. (2) Acute glomerulonephritis: (3) Nephrotic range proteinuria: (4) Stage 3b chronic kidney disease: Admission and Anticipated Discharge Date Admission Date: September 06, 2020 Raul Andres was seen and evaluated in his room this morning. Spoke with his father over telephone and gave of date. Overall he has been feeling better, denies shortness of breath or chest pain. Has been having decent urine output. Renal function continues to improve creatinine down to 1.8. Volume status acceptable, blood pressure mildly elevated. Review of Systems Review of Systems: All systems reviewed & are unremarkable except as noted in Subjective Physical Exam Constitutional: + ill appearing; no acute distress Respiratory: normal respiratory effort, lungs clear to auscultation Cardiovascular: RRR, no murmur, no edema Neurologic: moves all extremities and awake; not confused Psychiatric: Orientation: alert and oriented x 3 Affect: + anxious affect Results & Data ([facility]) Vital Signs (Past 12 Hours) Vital Signs Temp Pulse Pulse Resp BP BP Pulse Ox 09/16/20 07:38 70 09/16/20 07:26 36.3 C L 70 18 166/52 H 97 09/16/20 04:29 36.6 C 72 16 155/72 H 95 09/16/20 03:44 70 09/15/20 23:35 36.6 C 71 18 155/67 H 98 PG Care Time/CCT Total # of Minutes Spent Total Time Spent with Patient: Total time spent is greater than 50% in coordination of care (as documented) at patient's floor/unit and/or counseling patient: Coding Level of Care Code 18471 Subseq Hosp Care Lvl 3 Diagnoses FAITH (acute kidney injury) N17.9 Acute glomerulonephritis N00.9 Nephrotic range proteinuria R80.9 Stage 3b chronic kidney disease N18.32
--- NOTE | 2020-09-16 14:17 | Hospitalist Progress Note ---
Date of Service September 16, 2020 Assessment & Plan (1) Acute glomerulonephritis: Hx of IgA nephropathy. Was on mycophenolate mofetil in the past, but stopped at least 1 year ago. - Now with acute glomerulonephritis-treated with IV Solu-Medrol 1000 mg once daily x3 days and then converted to prednisone 1 mg/KG daily on 09/09. - Per nephrology. - Presently on prednisone 60 mg PO daily and will need to be on this for 2 months, then slowly taper. Cr improving today. (2) Diarrhea: C diff was negative on 09/12/2020. Repeating today due to return of diarrhea. - Imodium PRN (3) Hypertension: BP today is 140/65. - Continue diltiazem & metoprolol - Hydralazine PRN (4) Chronic systolic CHF (congestive heart failure): With LVEF 45-50%, with septal wall motion abnormality as per cardiology records. With a history of aortic valve replacement and CABG at the time of her AVR. - No evidence of volume overload at this time except mild edema in the legs which is chronic due to vein graft from the left leg - Hold diuretics - Hold losartan - Continue metoprolol tartrate 25 mg p.o. twice daily (5) COPD (chronic obstructive pulmonary disease): Appears to be at baseline. Patient follows with pulmonary. - Continue Breo and Spiriva - Albuterol PRN (6) H/O mechanical aortic valve replacement: - Resumed warfarin on 09/15. 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 (8) Anemia: Mild and likely of chronic kidney disease. - Continue ferrous gluconate (9) Biventricular cardiac pacemaker in situ: Noted. (10) Hypothyroidism: TSH normal at 2.52 in 11/2019. - Continue home dose of levothyroxine (11) Atrial fibrillation: Noted in cardiology records. She is on Coumadin for anticoagulation. She is in paced rhythm on telemetry here. - Continue metoprolol (12) CAD (coronary artery disease): Chronic, status post CABG. - Continue metoprolol 25mg PO BID - Continue atorvastatin (changed from simvastatin for interaction with diltiazem) - She is not on aspirin. (13) Situational anxiety: - Continue both hydroxyzine and lorazepam PRN (14) DVT prophylaxis: Coumadin Admission and Anticipated Discharge Date Admission Date: September 06, 2020 Subjective Still very tearful today. She is having diarrhea today. Not much of an appetite. Reports no fevers/chills, chest pain, shortness of breath, abdominal pain, nausea, or vomiting. Physical Exam 2 Constitutional: WD/WN, vitals as above + acute distress Eyes: EOM intact bilaterally; no conjunctival abnormality ENMT: external ear and nose normal, oropharynx normal Neck: trachea midline, no thyromegaly normal visual inspection Respiratory: normal respiratory effort, lungs clear to auscultation no respiratory distress Cardiovascular: RRR, no murmur, no edema Gastrointestinal (Abdomen): Inspection/Auscultation: abdomen normal to inspection; abdomen not distended Musculoskeletal: no cyanosis or clubbing, extremities motor strength 5/5 Skin: no rashes, warm and dry Neurologic: moves all extremities and awake Psychiatric: Orientation: alert, oriented to person and cooperative Results & Data Results & Data ([facility]) Vital Signs (Past 12 Hours) Vital Signs Temp Pulse Pulse Resp BP BP Pulse Ox 09/16/20 11:11 36.5 C 70 18 139/64 95 09/16/20 07:38 70 09/16/20 07:26 36.3 C L 70 18 166/52 H 97 09/16/20 04:29 36.6 C 72 16 155/72 H 95 09/16/20 03:44 70 PG Care Time/CCT Total # of Minutes Spent Total Time Spent with Patient: Total time spent is greater than 50% in coordination of care (as documented) at patient's floor/unit and/or counseling patient: Coding Level of Care Code 91848 Subseq Hosp Care Lvl 2 Diagnoses Acute glomerulonephritis N00.9 Diarrhea R19.7 Hypertension I10 Hypertension type: unspecified Chronic systolic CHF (congestive heart failure) I50.22 COPD (chronic obstructive pulmonary disease) J44.9 COPD type: unspecified COPD H/O mechanical aortic valve replacement Z95.2 Congenital hypoplasia of lung Q33.6 Anemia D64.9 Biventricular cardiac pacemaker in situ Z95.0 Hypothyroidism E03.9 Atrial fibrillation I48.91 CAD (coronary artery disease) I25.10 Coronary Disease-Associated Artery/Lesion type: [place] artery [place] vs. transplanted heart: [place] heart Associated angina: without angina Situational anxiety F41.8 DVT prophylaxis Z29.9 (1) Hypertension Hypertension type: unspecified Qualified Code(s): I10 - Essential (primary) hypertension (2) COPD (chronic obstructive pulmonary disease) COPD type: unspecified COPD Qualified Code(s): J44.9 - Chronic obstructive p ulmonary disease, unspecified (3) CAD (coronary artery disease) Coronary Disease-Associated Artery/Lesion type: [place] artery [place] vs. transplanted heart: [place] heart Associated angina: without angina Qualified Code(s): I25.10 - Atherosclerotic heart disease of [place] coronary artery without angina pectoris
[2020-09-16] MEDS: WARFARIN SOD 7.5 MG TAB PO SCH (17:04)
[2020-09-16] MEDS: LORazepam 0.5 MG TAB PO PRN (22:16)
[2020-09-17] MEDS: LEVOTHYROXINE SODIUM 75 MCG TABLET PO SCH (06:10)
[2020-09-17 07:03] LABS: Hematocrit (blood only) 30.3 % (37-47); Hemoglobin 10.3 g/dL (12.0-16.0); Mean Corpuscular Hemoglobin 26.8 pg (25-34); Mean Corpuscular Volume 78.7 fL (80-100); Mean Platelet Volume 12.1 fL (7.4-10.4); Platelet Count 246 K/uL (130-400); RDW Coefficient of Variation 16.8 % (11.5-14.5); RDW Standard Deviation 47.9 fL (36.4-46.3); Red Blood Count 3.85 M/uL (4.2-5.4); White Blood Count 11.62 K/uL (4.8-10.8)
[2020-09-17 07:20] LABS: Albumin Level 2.1 gm/dl (3.4-5.0); Calcium 7.9 mg/dl (8.5-10.1); Creatinine Clr Calc Pharmacy 10.1 ml/min; Est GFR (African American) 13.3 ml/min; Est GFR (Non-African American) 11.5 ml/min; Potassium 4.8 mmol/L (3.5-5.1)
[2020-09-17 07:25] LABS: Ferritin 281.8 ng/ml (8-388); Phosphorus 4.7 mg/dl (2.5-4.9)
[2020-09-17] MEDS: ATORVASTATIN 40 MG TAB PO SCH (09:03)
[2020-09-17] MEDS: predniSONE 20 MG TAB PO SCH (09:05)
[2020-09-17] MEDS: [UNRECOGNIZED DRUG - OTHER] PO SCH (09:07)
[2020-09-17] MEDS: FERROUS GLUCONATE 324 MG TAB PO SCH (09:09)
[2020-09-17] MEDS: CALCITRIOL 0.25 MCG CAPSULE PO SCH (09:09)
[2020-09-17] MEDS: PANTOprazole 40 MG TAB PO SCH (09:10)
[2020-09-17] MEDS: METOPROLOL TARTRATE 25 MG TAB PO SCH ×2 (09:10→21:23)
[2020-09-17] MEDS: FLUTICASONE/VILANTEROL 200/25MCG 14 PUFFS/INHALER INH SCH (09:11)
[2020-09-17] MEDS: UMECLIDINIUM BROMIDE 62.5MCG/BLISTER 7 PUFFS/INHALER INH SCH (09:15)
[2020-09-17] MEDS: INSULIN ASPART 100 UNITS/ML 3 ML PEN SC SCH ×4 (09:21→21:18)
[2020-09-17] MEDS: INSULIN HUMAN NPH SC SCH (09:28)
[2020-09-17] MEDS ORDERED: EPOETIN ALFA 20,000 UNITS/ML VIAL SQ STA (11:53)
--- NOTE | 2020-09-17 11:53 | Nephrology Progress Note ---
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 Serologic w/u was negative for VERONIKA, ANCA, anti-BM ab, blood cultures and complement. Renal biopsy deferred at that time at patient's request and given cystic kidney disease. Clinical remission noted with steroid therapy. Creatinine stabilized at 1.5-1.8 mg/dL. 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 Mckenna does have osteoporosis and had developed lumbar compression fractures in 2018. After discontinuation of steroids, tolerated MMF without evidence of recurrent vasculitis. In June 2018, MMF was weaned off. Mckenna then asked to avoid any additional immune modifying therapy. Then she was again found to have high-grade proteinuria in February 2020. With presumed relapse of IgA nephropathy, she was treated with methylprednisone and IV and now switched to prednisone 60 mg daily. Renal function started to improve, creatinine down to 3.5 this morning. She has been extremely anxious with the thought of needing dialysis in future. Wonder whether some of the anxiety related to high dose of steroid. -- Continue Protonix 40 milligram daily, start on calcium and vitamin-D, dapsone 100 milligram daily for wound infection prophylaxis while on high dose steroid ( allergic to Sulfa) -- explained that her kidney function started to improve with the steroid and at this time there is no indication for dialysis. We should closely monitor her intake and output although there is no clear sign of volume overload at this time. -- Continue prednisone 60 mg for now and continue to monitor renal function. -- Epogen 32475 units subcu x1 dose ( has adequate iron store) -- In future she will probably need to be on CellCept again as she tolerated before and kidney function stayed relatively stable Will follow. Admission and Anticipated Discharge Date Admission Date: September 06, 2020 Raul Foote overall has been doing well except significant anxiety. Diarrhea resolved. Blood pressure well controlled. Creatinine continues trending down rather slowly. hemoglobin stable. Review of Systems Review of Systems: All systems reviewed & are unremarkable except as noted in Subjective Physical Exam Constitutional: + ill appearing; no acute distress Respiratory: normal respiratory effort, lungs clear to auscultation Cardiovascular: RRR, no murmur, no edema Neurologic: moves all extremities and awake; not confused Psychiatric: Orientation: alert and oriented x 3 Affect: + anxious affect Results & Data ([facility]) Vital Signs (Past 12 Hours) Vital Signs Temp Pulse Pulse Pulse Resp BP BP 09/17/20 11:22 36.8 C 69 18 120/60 09/17/20 08:57 69 140/70 09/17/20 08:00 36.6 C 73 18 100/60 09/17/20 07:36 70 09/17/20 04:49 36.6 C 70 20 171/72 H 09/17/20 00:59 70 09/17/20 00:09 36.7 C 70 16 153/71 H Pulse Ox 09/17/20 11:22 100 09/17/20 08:57 09/17/20 08:00 99 09/17/20 07:36 09/17/20 04:49 98 09/17/20 00:59 09/17/20 00:09 98 PG Care Time/CCT Total # of Minutes Spent Total Time Spent with Patient: Total time spent is greater than 50% in coordination of care (as documented) at patient's floor/unit and/or counseling patient: Coding Level of Care Code 22813 Subseq Hosp Care Lvl 3 Diagnoses FAITH (acute kidney injury) N17.9
[2020-09-17] MEDS: ONDANSETRON INJ 2 MG/ML 2 ML VIAL IV PRN (12:54)
[2020-09-17] MEDS: CALCIUM 600MG + VIT D 400 IU TAB PO SCH ×2 (13:00→21:15)
[2020-09-17] MEDS: DAPSONE 25 MG TAB PO SCH (13:00)
[2020-09-17] MEDS: WARFARIN SOD 7.5 MG TAB PO SCH (17:24)
--- NOTE | 2020-09-17 17:45 | Hospitalist Progress Note ---
Date of Service September 17, 2020 Assessment & Plan (1) Acute glomerulonephritis: Hx of IgA nephropathy. Was on mycophenolate mofetil in the past, but stopped at least 1 year ago. - Now with acute glomerulonephritis-treated with IV Solu-Medrol 1000 mg once daily x3 days and then converted to prednisone 1 mg/KG daily on 09/09. - Per nephrology. - Presently on prednisone 60 mg PO daily and will need to be on this for 2 months, then slowly taper. Cr improving today to 3.58. (2) Diarrhea: C. diff was negative on 09/12/2020. More episodes of 09/16, but improving today. - Imodium PRN (3) Hypertension: BP today is 140/65. - Continue diltiazem & metoprolol - Hydralazine PRN (4) Chronic systolic CHF (congestive heart failure): With LVEF 45-50%, with septal wall motion abnormality as per cardiology records. With a history of aortic valve replacement and CABG at the time of her AVR. - No evidence of volume overload at this time except mild edema in the legs which is chronic due to vein graft from the left leg - Hold diuretics - Hold losartan - Continue metoprolol tartrate 25 mg p.o. twice daily (5) COPD (chronic obstructive pulmonary disease): Appears to be at baseline. Patient follows with pulmonary. - Continue Breo and Spiriva - Albuterol PRN (6) H/O mechanical aortic valve replacement: - Resumed warfarin on 09/15. 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 (8) Anemia: Mild and likely of chronic kidney disease. - Continue ferrous gluconate (9) Biventricular cardiac pacemaker in situ: Noted. (10) Hypothyroidism: TSH normal at 2.52 in 11/2019. - Continue home dose of levothyroxine (11) Atrial fibrillation: Noted in cardiology records. She is on Coumadin for anticoagulation. She is in paced rhythm on telemetry here. - Continue metoprolol (12) CAD (coronary artery disease): Chronic, status post CABG. - Continue metoprolol 25mg PO BID - Continue atorvastatin (changed from simvastatin for interaction with diltiazem) - She is not on aspirin. (13) Situational anxiety: - Continue both hydroxyzine and lorazepam PRN (14) DVT prophylaxis: Coumadin Admission and Anticipated Discharge Date Admission Date: September 06, 2020 Subjective Stable today. Still anxious. Physical Exam Constitutional: WD/WN, vitals as above + acute distress Eyes: EOM intact bilaterally; no conjunctival abnormality ENMT: external ear and nose normal, oropharynx normal Neck: trachea midline, no thyromegaly normal visual inspection Respiratory: normal respiratory effort, lungs clear to auscultation no respiratory distress Cardiovascular: RRR, no murmur, no edema Gastrointestinal (Abdomen): Inspection/Auscultation: abdomen normal to inspection; abdomen not distended Musculoskeletal: no cyanosis or clubbing, extremities motor strength 5/5 Skin: no rashes, warm and dry Neurologic: moves all extremities and awake Psychiatric: Orientation: alert, oriented to person and cooperative Affect: + anxious affect Results & Data Results & Data ([facility]) Vital Signs (Past 12 Hours) Vital Signs Temp Pulse Pulse Pulse Resp BP BP 09/17/20 15:44 70 09/17/20 14:56 36.4 C L 69 16 132/69 09/17/20 11:22 36.8 C 69 18 120/60 09/17/20 08:57 69 140/70 09/17/20 08:00 36.6 C 73 18 100/60 09/17/20 07:36 70 Pulse Ox 09/17/20 15:44 09/17/20 14:56 96 09/17/20 11:22 100 09/17/20 08:57 09/17/20 08:00 99 09/17/20 07:36 PG Care Time/CCT Total # of Minutes Spent Total Time Spent with Patient: Total time spent is greater than 50% in coordination of care (as documented) at patient's floor/unit and/or counseling patient: Coding Level of Care Code 37914 Subseq Hosp Care Lvl 2 Diagnoses Acute glomerulonephritis N00.9 Diarrhea R19.7 Hypertension I10 Hypertension type: unspecified Chronic systolic CHF (congestive heart failure) I50.22 COPD (chronic obstructive pulmonary disease) J44.9 COPD type: unspecified COPD H/O mechanical aortic valve replacement Z95.2 Congenital hypoplasia of lung Q33.6 Anemia D64.9 Biventricular cardiac pacemaker in situ Z95.0 Hypothyroidism E03.9 Atrial fibrillation I48.91 CAD (coronary artery disease) I25.10 Coronary Disease-Associated Artery/Lesion type: [place] artery [place] vs. transplanted heart: [place] heart Associated angina: without angina Situational anxiety F41.8 DVT prophylaxis Z29.9 (1) Hypertension Hypertension type: unspecified Qualified Code(s): I10 - Essential (primary) hypertension (2) COPD (chronic obstructive pulmonary disease) COPD type: unspecified COPD Qualified Code(s): J44.9 - Chronic obstructive pulmonary disease, unspecified (3) CAD (coronary artery disease) Coronary Disease-Associated Artery/Lesion type: [place] artery [place] vs. transplanted heart: [place] Associated angina: without angina Qualified Code(s): I25.10 - Atherosclerotic heart disease of [place] coronary artery without angina pectoris
[2020-09-17] MEDS: LORazepam 0.5 MG TAB PO PRN (21:13)
[2020-09-18] MEDS: ACETAMINOPHEN 325 MG TAB PO PRN (01:48)
[2020-09-18] MEDS: hydrOXYzine HCl 25 MG TAB PO PRN (03:15)
[2020-09-18] MEDS: LEVOTHYROXINE SODIUM 75 MCG TABLET PO SCH (06:31)
[2020-09-18 07:51] LABS: Hematocrit (blood only) 33.6 % (37-47); Hemoglobin 11.5 g/dL (12.0-16.0); Mean Corpuscular Hemoglobin 26.8 pg (25-34); Mean Corpuscular Hgb Conc 34.2 g/dL (32-36); Mean Corpuscular Volume 78.3 fL (80-100); Mean Platelet Volume 12.3 fL (7.4-10.4); Platelet Count 272 K/uL (130-400); RDW Coefficient of Variation 16.7 % (11.5-14.5); RDW Standard Deviation 47.5 fL (36.4-46.3); Red Blood Count 4.29 M/uL (4.2-5.4); White Blood Count 13.25 K/uL (4.8-10.8)
[2020-09-18 08:14] LABS: Prothrombin Time 60.3 Seconds (9.0-12.0)
[2020-09-18 08:18] LABS: Albumin Level 2.5 gm/dl (3.4-5.0); BUN Creatinine Ratio 31.1 (10-20); Calcium 8.4 mg/dl (8.5-10.1); Creatinine Clr Calc Pharmacy 8.8 ml/min; Est GFR (African American) 11.3 ml/min; Est GFR (Non-African American) 9.8 ml/min; Magnesium 1.6 mg/dl (1.8-2.4); Potassium 4.9 mmol/L (3.5-5.1)
[2020-09-18 08:19] LABS: Phosphorus 4.4 mg/dl (2.5-4.9)
[2020-09-18 08:37] LABS: INR 6.9 (0.9-1.1)
[2020-09-18] MEDS: INSULIN HUMAN NPH SC SCH (08:57)
[2020-09-18] MEDS: FLUTICASONE/VILANTEROL 200/25MCG 14 PUFFS/INHALER INH SCH (08:58)
[2020-09-18] MEDS: UMECLIDINIUM BROMIDE 62.5MCG/BLISTER 7 PUFFS/INHALER INH SCH (08:58)
[2020-09-18] MEDS: INSULIN ASPART 100 UNITS/ML 3 ML PEN SC SCH ×4 (08:58→20:55)
[2020-09-18] MEDS: CALCITRIOL 0.25 MCG CAPSULE PO SCH (09:06)
[2020-09-18] MEDS: CALCIUM 600MG + VIT D 400 IU TAB PO SCH ×2 (09:07→20:53)
[2020-09-18] MEDS: predniSONE 20 MG TAB PO SCH (09:07)
[2020-09-18] MEDS: PANTOprazole 40 MG TAB PO SCH (09:07)
[2020-09-18] MEDS: ATORVASTATIN 40 MG TAB PO SCH (09:07)
[2020-09-18] MEDS ORDERED: PHYTONADIONE 5 MG TAB PO STA (09:08)
[2020-09-18] MEDS: DAPSONE 25 MG TAB PO SCH (09:38)
[2020-09-18] MEDS: FERROUS GLUCONATE 324 MG TAB PO SCH (09:39)
[2020-09-18] MEDS: [UNRECOGNIZED DRUG - OTHER] PO SCH (09:39)
[2020-09-18] MEDS: METOPROLOL TARTRATE 25 MG TAB PO SCH ×2 (09:44→20:53)
[2020-09-18] MEDS: MAGNESIUM SULFATE / D5W 1 GM/100 ML BAG IV SCH ×2 (09:44→11:20)
[2020-09-18] MEDS: SODIUM CHLORIDE 0.9% 500 ML IV SCH ×2 (12:35→18:51)
--- NOTE | 2020-09-18 15:24 | Nephrology Progress Note ---
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 Serologic w/u was negative for VERONIKA, ANCA, anti-BM ab, blood cultures and complement. Renal biopsy deferred at that time at patient's request and given cystic kidney disease. Clinical remission noted with steroid therapy. Creatinine stabilized at 1.5-1.8 mg/dL. 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 Mckenna does have osteoporosis and had developed lumbar compression fractures in 2018. After discontinuation of steroids, tolerated MMF without evidence of recurrent vasculitis. In June 2018, MMF was weaned off. Mckenna then asked to avoid any additional immune modifying therapy. Then she was again found to have high-grade proteinuria in February 2020. With presumed relapse of IgA nephropathy, she was treated with methylprednisone and IV and now switched to prednisone 60 mg daily. Renal function again worsened slight, creatinine 4.1 this morning , ? volume depletion with poor po intake, diarrhea. She has been extremely anxious with the thought of needing dialysis in future. Wonder whether some of the anxiety related to high dose of steroid. -- start NS at 80 ml/h -- Continue Protonix 40 milligram daily, calcium and vitamin-D, dapsone 100 milligram daily -- Continue prednisone 60 mg for now and continue to monitor renal function. -- Epogen 28559 units subcu x1 dose ( has adequate iron store) -- In future she will probably need to be on CellCept again as she tolerated before and kidney function stayed relatively stable --discussed with her over telephone (Bill: [phone]) and gave update. Will follow. Admission and Anticipated Discharge Date Admission Date: September 06, 2020 Raul Foote has been doing well but continues to have significant anxiety. Diarrhea resolved. Blood pressure well controlled. Creatinine again worsened to 4.1, hemoglobin stable. Review of Systems Review of Systems: All systems reviewed & are unremarkable except as noted in Subjective Physical Exam Constitutional: + ill appearing; no acute distress Respiratory: normal respiratory effort, lungs clear to auscultation Cardiovascular: RRR, no murmur, no edema Neurologic: moves all extremities and awake; not confused Psychiatric: Orientation: alert and oriented x 3 Affect: + anxious affect Results & Data ([facility]) Vital Signs (Past 12 Hours) Vital Signs Temp Pulse Pulse Resp BP Pulse Ox 09/18/20 11:22 36.6 C 70 16 158/66 H 92 09/18/20 08:20 70 09/18/20 07:58 36.5 C 69 16 178/66 H 94 PG Care Time/CCT Total # of Minutes Spent Total Time Spent with Patient: Total time spent is greater than 50% in coordination of care (as documented) at patient's floor/unit and/or counseling patient: Coding Level of Care Code 16556 Subseq Hosp Care Lvl 3 Diagnoses FAITH (acute kidney injury) N17.9
--- NOTE | 2020-09-18 16:55 | Hospitalist Progress Note ---
Date of Service September 18, 2020 Assessment & Plan (1) Acute glomerulonephritis: Hx of IgA nephropathy. Was on mycophenolate mofetil in the past, but stopped at least 1 year ago. - Now with acute glomerulonephritis-treated with IV Solu-Medrol 1000 mg once daily x3 days and then converted to prednisone 1 mg/KG daily on 09/09. - Per nephrology. - Presently on prednisone 60 mg PO daily and will need to be on this for 2 months, then slowly taper. Cr worse today at 4.1. - Restarted IV fluids today as she has had poor PO intake. - Started on dapsone per nephrology given long-term need for steroids. - On insulin given high blood sugars with steroids. (2) Diarrhea: C. diff was negative on 09/12/2020. More episodes of 09/16, but resolved by 09/18. - Imodium PRN (3) Hypertension: BP today is 130/65. - Continue diltiazem & metoprolol - Hydralazine PRN (4) Chronic systolic CHF (congestive heart failure): With LVEF 45-50%, with septal wall motion abnormality as per cardiology records. With a history of aortic valve replacement and CABG at the time of her AVR. - No evidence of volume overload at this time except mild edema in the legs which is chronic due to vein graft from the left leg - Hold diuretics - Hold losartan - Continue metoprolol tartrate 25 mg p.o. twice daily (5) COPD (chronic obstructive pulmonary disease): Appears to be at baseline. Patient follows with pulmonary. - Continue Breo and Spiriva - Albuterol PRN (6) H/O mechanical aortic valve replacement: - Resumed warfarin on 09/15. - Monitor INR -> INR all the up to 6.9 on 09/18. Held warfarin and gave small dose of vitamin K. She will clearly need lower dose of warfarin ongoing. Watch INR, then likely restart at 2-3 mg tomorrow. 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 (8) Anemia: Mild and likely of chronic kidney disease. - Continue ferrous gluconate - Hgb stable/improved on 09/18 at 11.5. (9) Biventricular cardiac pacemaker in situ: Noted. (10) Hypothyroidism: TSH normal at 2.52 in 11/2019. - Continue home dose of levothyroxine - Recheck TSH. (11) Atrial fibrillation: Noted in cardiology records. She is on Coumadin for anticoagulation. She is in paced rhythm on telemetry here. - Continue metoprolol (12) CAD (coronary artery disease): Chronic, status post CABG. - Continue metoprolol 25mg PO BID - Continue atorvastatin (changed from simvastatin for interaction with diltiazem) - She is not on aspirin. (13) Situational anxiety: - Continue both hydroxyzine and lorazepam PRN (14) DVT prophylaxis: Coumadin Admission and Anticipated Discharge Date Admission Date: September 06, 2020 Subjective Seen at bedside with who seems to be a calming presence. She is calmer today and has less anxiety. Not much appetite. Otherwise, no major changes today. Reports no fevers/chills, chest pain, shortness of breath, abdominal pain, nausea, or vomiting. Physical Exam Constitutional: WD/WN, vitals as above no acute distress Eyes: EOM intact bilaterally; no conjunctival abnormality ENMT: external ear and nose normal, oropharynx normal Neck: trachea midline, no thyromegaly normal visual inspection Respiratory: normal respiratory effort, lungs clear to auscultation no respiratory distress Cardiovascular: RRR, no murmur, no edema Gastrointestinal (Abdomen): Inspection/Auscultation: abdomen normal to inspection; abdomen not distended Musculoskeletal: no cyanosis or clubbing, extremities motor strength 5/5 Skin: no rashes, warm and dry Neurologic: moves all extremities and awake Psychiatric: Orientation: alert, oriented to person and cooperative Affect: no anxious affect Results & Data Results & Data ([facility]) Vital Signs (Past 12 Hours) Vital Signs Temp Pulse Pulse Resp BP Pulse Ox 09/18/20 16:03 36.7 C 70 16 132/63 90 09/18/20 11:22 36.6 C 70 16 158/66 H 92 09/18/20 08:20 70 09/18/20 07:58 36.5 C 69 16 178/66 H 94 PG Care Time/CCT Total # of Minutes Spent Total Time Spent with Patient: Total time spent is greater than 50% in coordination of care (as documented) at patient's floor/unit and/or counseling patient: Coding Level of Care Code 45057 Subseq Hosp Care Lvl 3 Diagnoses Acute glomerulonephritis N00.9 Diarrhea R19.7 Hypertension I10 Hypertension type: unspecified Chronic systolic CHF (congestive heart failure) I50.22 COPD (chronic obstructive pulmonary disease) J44.9 COPD type: unspecified COPD H/O mechanical aortic valve replacement Z95.2 Congenital hypoplasia of lung Q33.6 Anemia D64.9 Biventricular cardiac pacemaker in situ Z95.0 Hypothyroidism E03.9 Atrial fibrillation I48.91 CAD (coronary artery disease) I25.10 Coronary Disease-Associated Artery/Lesion type: [place] artery [place] vs. transplanted heart: [place] heart Associated angina: without angina Situational anxiety F41.8 DVT prophylaxis Z29.9 (1) Hypertension Hypertension type: unspecified Qualified Code(s): I10 - Essential (primary) hypertension (2) COPD (chronic obstructive pulmonary disease) COPD type: unspecified COPD Qualified Code(s): J44.9 - Chronic obstructive pulmonary disease, unspecified (3) CAD (coronary artery disease) Coronary Disease-Associated Artery/Lesion type: [place] artery [place] vs. transplanted heart: [place] heart Associated angina: without angina Qualified Code(s): I25.10 - Atherosclerotic heart disease of [place] coronary artery without angina pectoris
[2020-09-18] MEDS: LORazepam 0.5 MG TAB PO PRN (20:53)
[2020-09-18] MEDS: SODIUM CHLORIDE 0.9% 1000ML 1,000 ML IV SCH (23:55)
[2020-09-19] MEDS: LEVOTHYROXINE SODIUM 75 MCG TABLET PO SCH (06:34)
[2020-09-19] MEDS: [UNRECOGNIZED DRUG - OTHER] PO SCH (08:09)
[2020-09-19] MEDS: PANTOprazole 40 MG TAB PO SCH (08:10)
[2020-09-19] MEDS: CALCITRIOL 0.25 MCG CAPSULE PO SCH (08:10)
[2020-09-19] MEDS: FERROUS GLUCONATE 324 MG TAB PO SCH (08:10)
[2020-09-19] MEDS: predniSONE 20 MG TAB PO SCH (08:10)
[2020-09-19] MEDS: DAPSONE 25 MG TAB PO SCH (08:11)
[2020-09-19] MEDS: ATORVASTATIN 40 MG TAB PO SCH (08:11)
[2020-09-19] MEDS: CALCIUM 600MG + VIT D 400 IU TAB PO SCH ×2 (08:11→20:21)
[2020-09-19] MEDS: METOPROLOL TARTRATE 25 MG TAB PO SCH (08:11)
[2020-09-19] MEDS: FLUTICASONE/VILANTEROL 200/25MCG 14 PUFFS/INHALER INH SCH (08:13)
[2020-09-19] MEDS: UMECLIDINIUM BROMIDE 62.5MCG/BLISTER 7 PUFFS/INHALER INH SCH (08:13)
[2020-09-19] MEDS: hydrALAZINE HCL 20 MG/ML VIAL IV PRN (08:19)
[2020-09-19 08:43] LABS: Hematocrit (blood only) 33.1 % (37-47); Hemoglobin 11.1 g/dL (12.0-16.0); Mean Corpuscular Hemoglobin 26.8 pg (25-34); Mean Corpuscular Hgb Conc 33.5 g/dL (32-36); Nucleated RBC # (auto) 0.05 K/uL (0-0); Nucleated RBC % (auto) 0.3 %; Platelet Count 281 K/uL (130-400); RDW Coefficient of Variation 16.9 % (11.5-14.5); RDW Standard Deviation 49.8 fL (36.4-46.3); Red Blood Count 4.14 M/uL (4.2-5.4); White Blood Count 19.96 K/uL (4.8-10.8)
[2020-09-19 08:51] LABS: INR 2.2 (0.9-1.1); Prothrombin Time 21.4 Seconds (9.0-12.0)
[2020-09-19 09:02] LABS: Estimated Average Glucose 148 mg/dl; Hemoglobin A1C 6.8 % (4.5-5.6)
[2020-09-19 09:06] LABS: Albumin Level 2.5 gm/dl (3.4-5.0); BUN Creatinine Ratio 28.8 (10-20); Calcium 8.4 mg/dl (8.5-10.1); Creatinine Clr Calc Pharmacy 8.8 ml/min; Est GFR (African American) 11.2 ml/min; Est GFR (Non-African American) 9.7 ml/min; Magnesium 2.2 mg/dl (1.8-2.4); Potassium 4.7 mmol/L (3.5-5.1)
[2020-09-19 09:17] LABS: Albumin Globulin Ratio 0.7 (0.9-2); Bilirubin,Total 0.4 mg/dl (0.2-1); Globulin 3.6 gm/dl (2.5-4.0); Phosphorus 4.1 mg/dl (2.5-4.9); Thyroid Stimulating Hormone 0.42 uIu/ml (0.300-4.500); Total Protein 6.1 gm/dl (6.4-8.2)
[2020-09-19] MEDS: INSULIN ASPART 100 UNITS/ML 3 ML PEN SC SCH ×4 (09:22→21:48)
[2020-09-19] MEDS: INSULIN HUMAN NPH SC SCH (09:40)
[2020-09-19] MEDS: ONDANSETRON INJ 2 MG/ML 2 ML VIAL IV PRN (09:41)
--- NOTE | 2020-09-19 10:41 | Nephrology Progress Note ---
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 Serologic w/u was negative for VERONIKA, ANCA, anti-BM ab, blood cultures and complement. Renal biopsy deferred at that time at patient's request and given cystic kidney disease. Clinical remission noted with steroid therapy. Creatinine stabilized at 1.5-1.8 mg/dL. 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 Mckenna does have osteoporosis and had developed lumbar compression fractures in 2018. After discontinuation of steroids, tolerated MMF without evidence of recurrent vasculitis. In June 2018, MMF was weaned off. Mckenna then asked to avoid any additional immune modifying therapy. Then she was again found to have high-grade proteinuria in February 2020. With presumed relapse of IgA nephropathy, she was treated with methylprednisone and IV and now switched to prednisone 60 mg daily. Renal function again worsened slight, creatinine 4.1 this morning , ? volume depletion with poor po intake, diarrhea. She has been extremely anxious with the thought of needing dialysis in future. Wonder whether some of the anxiety related to high dose of steroid. Renal function staying relatively stable without any further improvement. -- continue on NS at 80 ml/h -- Continue Protonix 40 milligram daily, calcium and vitamin-D, dapsone 100 milligram daily -- Continue prednisone 60 mg for now and continue to monitor renal function. -- Epogen 75340 units subcu x1 dose ( has adequate iron store) given on 09/18/2020 -- In future she will probably need to be on CellCept again as she tolerated before and kidney function stayed relatively stable -- discussed yesterday with her over telephone (Bill: [phone]) and gave update. Will follow. Admission and Anticipated Discharge Date Admission Date: September 06, 2020 Subjective Dary clinically staying about the same and denies any specific symptoms however continues to have significant anxiety. Diarrhea resolved. Blood pressure well controlled. Renal function staying relatively stable without any major changes. Volume status acceptable. Voiding normally.. Review of Systems Review of Systems: All systems reviewed & are unremarkable except as noted in Subjective Physical Exam Constitutional: + ill appearing; no acute distress Respiratory: normal respiratory effort, lungs clear to auscultation Cardiovascular: RRR, no murmur, no edema Neurologic: moves all extremities and awake; not confused Psychiatric: Orientation: alert and oriented x 3 Affect: + anxious affect Results & Data ([facility]) Vital Signs (Past 12 Hours) Vital Signs Temp Pulse Resp BP Pulse Ox 09/19/20 09:48 123/66 09/19/20 07:43 36.4 C L 70 16 187/75 H 94 09/19/20 01:30 36.4 C L 70 18 161/80 H 95 09/18/20 23:14 36.6 C 70 17 130/64 91 PG Care Time/CCT Total # of Minutes Spent Total Time Spent with Patient: Total time spent is greater than 50% in coordination of care (as documented) at patient's floor/unit and/or counseling patient: Coding Level of Care Code 42449 Subseq Hosp Care Lvl 3 Diagnoses FAITH (acute kidney injury) N17.9
[2020-09-19] MEDS: SODIUM BICARBONATE 650 MG TAB PO SCH ×2 (10:52→20:21)
[2020-09-19 11:35] LABS: Appearance Urine Clear (Clear); Bacteria Urine Automated Negative (Negative); Bilirubin Urine Negative (Negative); Blood Urine 1+ (Negative); Color Urine Yellow; Glucose Urine UA Negative (Negative); Ketones Urine Negative (Negative); Leukocyte Esterase Urine Negative (Negative); Nitrite Urine Negative (Negative); Protein Urine 3+ (Negative); Specific Gravity Urine 1.016 (1.000-1.030); Urobilinogen Urine Negative (Negative)
[2020-09-19] MEDS: SODIUM CHLORIDE 0.9% 1000ML 1,000 ML IV SCH (14:04)
--- NOTE | 2020-09-19 15:25 | XRay Report ---
XR chest 2V PA/lateral CLINICAL HISTORY: Increased WBC COMPARISON STUDY: March 26, 2015 FINDINGS: No pneumothorax. Small right pleural effusion is seen. Patchy reticular opacities are seen bilaterally, most prominent at bilateral apices and right lateral lung. Bilateral lungs are hyperinflated and show flattening of right and left hemidiaphragms. Cardiac silhouette is moderately enlarged. Bilateral radha are prominent Pulmonary vasculature is indistinct.. Osseous structures: Osteopenia. Multilevel degenerative changes of the spine. Compression fracture d eformity at the mid thoracic level and exaggerated thoracic kyphosis. Midline sternotomy wires are again seen. Stable position of left-sided triple lead AICD with battery pack partially obscuring left lung parenchyma. IMPRESSION: 1. COPD pattern. Reticular opacity/scarring at the peripheral aspect of the right lung and within bi lateral apices. 2. Small right pleural effusion. 3. CHF pattern. Moderate cardiomegaly. 4. Compression fracture deformity within mid thoracic spine. ACT 112: Negative or not required by law. The above report was generated using voice recognition software. It may contain grammatical, syntax o r spelling errors. Electronically signed by: Marla Pepe DO 09/19/2020 3:23 PM
[2020-09-19] MEDS: hydrOXYzine HCl 25 MG TAB PO PRN ×2 (15:58→21:58)
--- NOTE | 2020-09-19 17:03 | Hospitalist Progress Note ---
Date of Service September 19, 2020 Assessment & Plan (1) Acute glomerulonephritis: Hx of IgA nephropathy. Was on mycophenolate mofetil in the past, but stopped at least 1 year ago. - Now with acute glomerulonephritis-treated with IV Solu-Medrol 1,000 mg once daily x3 days and then converted to prednisone 1 mg/KG daily on 09/09. - Per nephrology. - Presently on prednisone 60 mg PO daily and will need to be on this for 2 months, then slowly taper. Cr stable today at 4.1. - Restarted IV fluids today as she has had poor PO intake. - Started on dapsone per nephrology given long-term need for steroids. - On insulin given high blood sugars with steroids. (2) Leukocytosis: WBCs up on 09/19. Possibly steroids. UA clear. Blood cultures drawn. - CXR shows reticular opacities -> Mostly likely pulmonary edema. - Will get procalcitonin with AM labs. Defer abx at this time. (3) Diarrhea: C. diff was negative on 09/12/2020. More episodes of 09/16, but resolved by 09/18. - Imodium PRN (4) Hypertension: BP today is 130/65. - Continue diltiazem & metoprolol - Hydralazine PRN (5) Chronic systolic CHF (congestive heart failure): With LVEF 45-50%, with septal wall motion abnormality as per cardiology records. With a history of aortic valve replacement and CABG at the time of her AVR. - Hold diuretics - Hold losartan - Continue metoprolol tartrate 25 mg p.o. twice daily - Given CXR findings, will need to monitor IV fluids carefully (6) COPD (chronic obstructive pulmonary disease): Appears to be at baseline. Patient follows with pulmonary. - Continue Breo and Spiriva - Albuterol PRN (7) H/O mechanical aortic valve replacement: - Resumed warfarin on 09/15. - Monitor INR -> INR all the up to 6.9 on 09/18. Held warfarin and gave small dose of vitamin K. - Resume warfarin at 2 mg PO daily. Likely 7.[address] too high right now with steroids and low PO intake. 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 (9) Anemia: Mild and likely of chronic kidney disease. - Continue ferrous gluconate - Hgb stable/improved on 09/19 at 11.1. (10) Biventricular cardiac pacemaker in situ: Noted. (11) Hypothyroidism: TSH normal at 2.52 in 11/2019. Repeat this admission was 0.42. - Continue home dose of levothyroxine (12) Atrial fibrillation: Noted in cardiology records. She is on Coumadin for anticoagulation. She is in paced rhythm on telemetry here. - Continue metoprolol (13) CAD (coronary artery disease): Chronic, status post CABG. - Continue metoprolol 25mg PO BID - Continue atorvastatin (changed from simvastatin for interaction with diltia zem) - She is not on aspirin. (14) Situational anxiety: Very anxious much of the time. - Ativan PO HS - Continue hydroxyzine PRN (15) DVT prophylaxis: Coumadin Admission and Anticipated Discharge Date Admission Date: September 06, 2020 Subjective Still has nerves today. Quite anxious. Reports no fevers/chills, chest pain, shortness of breath, abdominal pain, nausea, or vomiting. Physical Exam Constitutional: WD/WN, vitals as above no acute distress Eyes: EOM intact bilaterally; no conjunctival abnormality ENMT: external ear and nose normal, oropharynx normal Neck: trachea midline, no thyromegaly normal visual inspection Respiratory: normal respiratory effort, lungs clear to auscultation no respiratory distress Cardiovascular: RRR, no murmur, no edema Gastrointestinal (Abdomen): Inspection/Auscultation: abdomen normal to inspection; abdomen not distended Musculoskeletal: no cyanosis or clubbing, extremities motor strength 5/5 Skin: no rashes, warm and dry Neurologic: moves all extremities and awake Psychiatric: Orientation: alert, oriented to person and cooperative Affect: + anxious affect Results & Data Results & Data ([facility]) Vital Signs (Past 12 Hours) Vital Signs Temp Pulse Resp BP Pulse Ox 09/19/20 15:24 36.6 C 70 18 150/63 H 90 09/19/20 09:48 123/66 09/19/20 07:43 36.4 C L 70 16 187/75 H 94 PG Care Time/CCT Total # of Minutes Spent Total Time Spent with Patient: Total time spent is greater than 50% in coordination of care (as documented) at patient's floor/unit and/or counseling patient: Coding Level of Care Code 48308 Subseq Hosp Care Lvl 3 Diagnoses Acute glomerulonephritis N00.9 Leukocytosis D72.829 Diarrhea R19.7 Hypertension I10 Hypertension type: unspecified Chronic systolic CHF (congestive heart failure) I50.22 COPD (chronic obstructive pulmonary disease) J44.9 COPD type: unspecified COPD H/O mechanical aortic valve replacement Z95.2 Congenital hypoplasia of lung Q33.6 Anemia D64.9 Biventricular cardiac pacemaker in situ Z95.0 Hypothyroidism E03.9 Atrial fibrillation I48.91 CAD (coronary artery disease) I25.10 Coronary Disease-Associated Artery/Lesion type: [place] artery [place] vs. transplanted heart: [place] heart Associated angina: without angina Situational anxiety F41.8 DVT prophylaxis Z29.9 (1) Hypertension Hypertension type: unspecified Qualified Code(s): I10 - Essential (primary) hypertension (2) COPD (chronic obstructive pulmonary disease) COPD type: unspecified COPD Qualified Code(s): J44.9 - Chronic obstructive pulmonary disease, unspecified (3) CAD (coronary artery disease) Coronary Disease-Associated Artery/Lesion type: [place] artery [place] vs. transplanted heart: [place] heart Associated angina: without angina Qualified Code(s): I25.10 - Atherosclerotic heart disease of [place] coronary artery without angina pectoris
[2020-09-19] MEDS: METOPROLOL TARTRATE 50 MG TAB PO SCH (20:21)
[2020-09-19] MEDS: LORazepam 0.5 MG TAB PO SCH (20:21)
[2020-09-19] MEDS: WARFARIN SOD 2 MG TAB PO SCH (20:21)
[2020-09-19] MEDS: ACETAMINOPHEN 325 MG TAB PO PRN (23:37)
[2020-09-20] MEDS: SODIUM CHLORIDE 0.9% 1000ML 1,000 ML IV SCH ×2 (02:03→14:17)
[2020-09-20] MEDS: LEVOTHYROXINE SODIUM 75 MCG TABLET PO SCH (05:52)
[2020-09-20 06:17] LABS: Hematocrit (blood only) 34.1 % (37-47); Hemoglobin 11.4 g/dL (12.0-16.0); Mean Corpuscular Hemoglobin 26.7 pg (25-34); Mean Corpuscular Hgb Conc 33.4 g/dL (32-36); Mean Corpuscular Volume 79.9 fL (80-100); Nucleated RBC # (auto) 0.27 K/uL (0-0); Nucleated RBC % (auto) 1.3 %; Platelet Count 260 K/uL (130-400); RDW Standard Deviation 48.7 fL (36.4-46.3); Red Blood Count 4.27 M/uL (4.2-5.4); White Blood Count 21.16 K/uL (4.8-10.8)
[2020-09-20 06:39] LABS: Albumin Level 2.6 gm/dl (3.4-5.0); BUN Creatinine Ratio 30.9 (10-20); Calcium 8.1 mg/dl (8.5-10.1); Creatinine Clr Calc Pharmacy 8.8 ml/min; Est GFR (African American) 11.2 ml/min; Est GFR (Non-African American) 9.7 ml/min
[2020-09-20 06:40] LABS: Phosphorus 4.3 mg/dl (2.5-4.9)
[2020-09-20] MEDS: DAPSONE 25 MG TAB PO SCH (08:43)
[2020-09-20] MEDS: [UNRECOGNIZED DRUG - OTHER] PO SCH (08:44)
[2020-09-20] MEDS: METOPROLOL TARTRATE 50 MG TAB PO SCH ×2 (08:44→20:31)
[2020-09-20] MEDS: SODIUM BICARBONATE 650 MG TAB PO SCH ×2 (08:44→20:31)
[2020-09-20] MEDS: ATORVASTATIN 40 MG TAB PO SCH (08:44)
[2020-09-20] MEDS: FERROUS GLUCONATE 324 MG TAB PO SCH (08:45)
[2020-09-20] MEDS: CALCITRIOL 0.25 MCG CAPSULE PO SCH (08:45)
[2020-09-20] MEDS: predniSONE 20 MG TAB PO SCH (08:45)
[2020-09-20] MEDS: PANTOprazole 40 MG TAB PO SCH (08:45)
[2020-09-20] MEDS: FLUTICASONE/VILANTEROL 200/25MCG 14 PUFFS/INHALER INH SCH (08:46)
[2020-09-20] MEDS: CALCIUM 600MG + VIT D 400 IU TAB PO SCH ×2 (08:46→20:31)
[2020-09-20] MEDS: UMECLIDINIUM BROMIDE 62.5MCG/BLISTER 7 PUFFS/INHALER INH SCH (08:47)
[2020-09-20] MEDS: INSULIN ASPART 100 UNITS/ML 3 ML PEN SC SCH ×4 (09:29→20:32)
[2020-09-20] MEDS: INSULIN HUMAN NPH SC SCH (09:29)
--- NOTE | 2020-09-20 10:34 | Nephrology Progress Note ---
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 Serologic w/u was negative for VERONIKA, ANCA, anti-BM ab, blood cultures and complement. Renal biopsy deferred at that time at patient's request and given cystic kidney disease. Clinical remission noted with steroid therapy. Creatinine stabilized at 1.5-1.8 mg/dL. 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 Mckenna does have osteoporosis and had developed lumbar compression fractures in 2018. After discontinuation of steroids, tolerated MMF without evidence of recurrent vasculitis. In June 2018, MMF was weaned off. Mckenna then asked to avoid any additional immune modifying therapy. Then she was again found to have high-grade proteinuria in February 2020. With presumed relapse of IgA nephropathy, she was treated with methylprednisone and IV and now switched to prednisone 60 mg daily. Renal function again worsened slight, creatinine staying around 4.0 to 4.1. She has been extremely anxious with the thought of needing dialysis in future. Renal function staying relatively stable without any further improvement. -- continue on NS at 80 ml/h -- Continue Protonix 40 milligram daily, calcium and vitamin-D, dapsone 100 milligram daily -- Continue prednisone 60 mg for now and continue to monitor renal function. -- Epogen [id number] units subcu x1 dose ( has adequate iron store) given on 09/18/2020 -- In future she will probably need to be on CellCept again as she tolerated before and kidney function stayed relatively stable -- continue to monitor renal function daily, overall concerning for possible need for [employer] in near future or even during this admission if no significant improvement in next 24 to 48 h, but no indication at this time. Will follow. Admission and Anticipated Discharge Date Admission Date: September 06, 2020 Subjective Dary clinically doing well, no specific symptoms or concerns except anxiety. Diarrhea resolved. Blood pressure variable. Renal function staying relatively stable without any major changes but again no improvement either. Volume status acceptable. Voiding normally.. Review of Systems Review of Systems: All systems reviewed & are unremarkable except as noted in Subjective Physical Exam Constitutional: no acute distress Respiratory: normal respiratory effort, lungs clear to auscultation Cardiovascular: RRR, no murmur, no edema Neurologic: moves all extremities and awake; not confused Psychiatric: Orientation: alert and oriented x 3 Affect: + anxious affect Results & Data ([facility]) Vital Signs (Past 12 Hours) Vital Signs Temp Pulse Resp BP BP Pulse Ox 09/20/20 08:52 187/72 H 09/20/20 07:39 36 C L 71 18 199/82 H 92 09/19/20 22:42 36.5 C 70 16 164/71 H 93 PG Care Time/CCT Total # of Minutes Spent Total Time Spent with Patient: Total time spent is greater than 50% in coordination of care (as documented) at patient's floor/unit and/or counseling patient: Coding Level of Care Code 60262 Subseq Hosp Care Lvl 3 Diagnoses FAITH (acute kidney injury) N17.9
[2020-09-20] MEDS: WARFARIN SOD 2 MG TAB PO SCH (15:50)
[2020-09-20] MEDS: LORazepam 0.5 MG TAB PO SCH (20:31)
--- NOTE | 2020-09-20 22:16 | Hospitalist Progress Note ---
Date of Service September 20, 2020 Assessment & Plan (1) Acute glomerulonephritis: Hx of IgA nephropathy. Was on mycophenolate mofetil in the past, but stopped at least 1 year ago. - Now with acute glomerulonephritis-treated with IV Solu-Medrol 1,000 mg once daily x3 days and then converted to prednisone 1 mg/KG daily on 09/09. - Per nephrology. - Presently on prednisone 60 mg PO daily and will need to be on this for 2 months, then slowly taper. Cr gradually improving. - Continue IV fluids today as she has had poor PO intake. - Started on dapsone per nephrology given long-term need for steroids. - On insulin given high blood sugars with steroids. (2) Leukocytosis: WBCs up on 09/19. Possibly steroids. UA clear. Blood cultures drawn. - CXR shows reticular opacities -> Mostly likely pulmonary edema. - Procal is negative. Defer abx at this time. (3) Diarrhea: C. diff was negative on 09/12/2020. More episodes of 09/16, but resolved by 09/18. - Imodium PRN (4) Hypertension: BP today is 130/65. - Continue diltiazem & metoprolol - Hydralazine PRN (5) Chronic systolic CHF (congestive heart failure): With LVEF 45-50%, with septal wall motion abnormality as per cardiology records. With a history of aortic valve replacement and CABG at the time of her AVR. - Hold diuretics - Hold losartan - Continue metoprolol tartrate 25 mg p.o. twice daily - Given CXR findings, will need to monitor IV fluids carefully (6) COPD (chronic obstructive pulmonary disease): Appears to be at baseline. Patient follows with pulmonary. - Continue Breo and Spiriva - Albuterol PRN (7) H/O mechanical aortic valve replacement: - Resumed warfarin on 09/15. - Monitor INR -> INR all the up to 6.9 on 09/18. Held warfarin and gave small dose of vitamin K. - Resume warfarin at 2 mg PO daily. Likely 7.[address] too high right now wi th steroids and low PO intake. 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 (9) Anemia: Mild and likely of chronic kidney disease. - Continue ferrous gluconate - Hgb stable/improved on 09/19 at 11.1. (10) Biventricular cardiac pacemaker in situ: Noted. (11) Hypothyroidism: TSH normal at 2.52 in 11/2019. Repeat this admission was 0.42. - Continue home dose of levothyroxine (12) Atrial fibrillation: Noted in cardiology records. She is on Coumadin for anticoagulation. She is in paced rhythm on telemetry here. - Continue metoprolol (13) CAD (coronary artery disease): Chronic, status post CABG. - Continue metoprolol 25mg PO BID - Continue atorvastatin (changed from simvastatin for interaction with diltiazem) - She is not on aspirin. (14) Situational anxiety: Very anxious much of the time. - Ativan PO HS - Continue hydroxyzine PRN (15) DVT prophylaxis: Coumadin Admission and Anticipated Discharge Date Admission Date: September 06, 2020 Subjective 79 yo male reports no new symptoms. She is no longer having diarrhea. Review of Systems Review of Systems: All systems reviewed & are unremarkable except as noted in HPI & below Physical Exam Physical Exam: Constitutional: WD/WN, vitals as above no acute distress Eyes: EOM intact bilaterally; no conjunctival abnormality ENMT: external ear and nose normal, oropharynx normal Neck: trachea midline, no thyromegaly normal visual inspection Respiratory: normal respiratory effort, lungs clear to auscultation no respiratory distress Cardiovascular: RRR, no murmur, no edema Gastrointestinal (Abdomen): Inspection/Auscultation: abdomen normal to inspection; abdomen not distended Musculoskeletal: no cyanosis or clubbing, extremities motor strength 5/5 Skin: no rashes, warm and dry Neurologic: moves all extremities and awake Psychiatric: Orientation: alert, oriented to person and cooperative Affect: + anxious affect Results & Data Results & Data ([facility]) Vital Signs (Past 12 Hours) Vital Signs Temp Pulse Pulse Resp BP BP Pulse Ox 09/20/20 20:30 72 152/65 H 09/20/20 15:28 36.4 C L 71 20 150/73 H 93 09/20/20 10:30 71 129/67 PG Care Time/CCT Total # of Minutes Spent Total Time Spent with Patient: Total time spent is greater than 50% in coordination of care (as documented) at patient's floor/unit and/or counseling patient: Coding Level of Care Code 42589 Subseq Hosp Care Lvl 3 Diagnoses Acute glomerulonephritis N00.9 Leukocytosis D72.829 Diarrhea R19.7 Hypertension I10 Hypertension type: unspecified Chronic systolic CHF (congestive heart failure) I50.22 COPD (chronic obstructive pulmonary disease) J44.9 COPD type: unspecified COPD H/O mechanical aortic valve replacement Z95.2 Congenital hypoplasia of lung Q33.6 Anemia D64.9 Biventricular cardiac pacemaker in situ Z95.0 Hypothyroidism E03.9 Atrial fibrillation I48.91 CAD (coronary artery disease) I25.10 Associated angina: without angina Coronary Disease-Associated Artery/Lesion type: [place] artery [place] vs. transplanted heart: [place] heart Situational anxiety F41.8 DVT prophylaxis Z29.9 Time Spent (min) 35 Comment chart review (1) CAD (coronary artery disease) Associated angina: without angina Coronary Disease-Associated Artery/Lesion type: [place] artery [place] vs. transplanted heart: [place] heart Qualified Code(s): I25.10 - Atherosclerotic heart disease of [place] coronary artery without angina pectoris (2) COPD (chronic obstructive pulmonary disease) COPD type: unspecified COPD Qualified Code(s): J44.9 - Chronic obstructive pulmonary disease, unspecified (3) Hypertension Hypertension type: unspecified Qualified Code(s): I10 - Essential (primary) hypertension
[2020-09-21] MEDS: SODIUM CHLORIDE 0.9% 1000ML 1,000 ML IV SCH ×2 (01:06→13:04)
[2020-09-21] MEDS: LEVOTHYROXINE SODIUM 75 MCG TABLET PO SCH (05:13)
[2020-09-21 07:31] LABS: Albumin Level 1.9 gm/dl (3.4-5.0); BUN Creatinine Ratio 29.6 (10-20); Calcium 7.7 mg/dl (8.5-10.1); Creatinine Clr Calc Pharmacy 9.8 ml/min; Est GFR (African American) 12.8 ml/min
[2020-09-21 07:32] LABS: Phosphorus 4.1 mg/dl (2.5-4.9)
[2020-09-21] MEDS: hydrALAZINE HCL 20 MG/ML VIAL IV PRN (07:51)
[2020-09-21] MEDS: INSULIN ASPART 100 UNITS/ML 3 ML PEN SC SCH ×4 (08:53→21:13)
[2020-09-21] MEDS: FLUTICASONE/VILANTEROL 200/25MCG 14 PUFFS/INHALER INH SCH (09:32)
[2020-09-21] MEDS: UMECLIDINIUM BROMIDE 62.5MCG/BLISTER 7 PUFFS/INHALER INH SCH (09:32)
[2020-09-21] MEDS: DAPSONE 25 MG TAB PO SCH (09:33)
[2020-09-21] MEDS: CALCITRIOL 0.25 MCG CAPSULE PO SCH (09:33)
[2020-09-21] MEDS: [UNRECOGNIZED DRUG - OTHER] PO SCH (09:33)
[2020-09-21] MEDS: FERROUS GLUCONATE 324 MG TAB PO SCH (09:33)
[2020-09-21] MEDS: predniSONE 20 MG TAB PO SCH (09:34)
[2020-09-21] MEDS: SODIUM BICARBONATE 650 MG TAB PO SCH ×2 (09:34→21:12)
[2020-09-21] MEDS: ATORVASTATIN 40 MG TAB PO SCH (09:34)
[2020-09-21] MEDS: PANTOprazole 40 MG TAB PO SCH (09:34)
[2020-09-21] MEDS: METOPROLOL TARTRATE 50 MG TAB PO SCH ×2 (09:34→21:12)
[2020-09-21] MEDS: hydrALAZINE HCL 25 MG TAB PO SCH ×3 (09:35→21:13)
[2020-09-21] MEDS: CALCIUM 600MG + VIT D 400 IU TAB PO SCH ×2 (09:35→21:13)
[2020-09-21] MEDS: INSULIN HUMAN NPH SC SCH (09:40)
[2020-09-21] MEDS: ONDANSETRON INJ 2 MG/ML 2 ML VIAL IV PRN (10:03)
--- NOTE | 2020-09-21 10:34 | Nephrology Progress Note ---
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 Serologic w/u was negative for VERONIKA, ANCA, anti-BM ab, blood cultures and complement. Renal biopsy deferred at that time at patient's request and given cystic kidney disease. Clinical remission noted with steroid therapy. Creatinine stabilized at 1.5-1.8 mg/dL. 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 Mckenna does have osteoporosis and had developed lumbar compression fractures in 2018. After discontinuation of steroids, tolerated MMF without evidence of recurrent vasculitis. In June 2018, MMF was weaned off. Mckenna then asked to avoid any additional immune modifying therapy. Then she was again found to have high-grade proteinuria in February 2020. With presumed relapse of IgA nephropathy, she was treated with methylprednisone and IV and now switched to prednisone 60 mg daily. Epogen 39683 units subcu x1 dose ( has adequate iron store) given on 09/18/2020 She has been extremely anxious with the thought of needing dialysis in future. Renal function slightly improved, tolerating IV fluid, no sign of volume overload. Voiding normally. -- continue on NS at 80 ml/h -- Continue Protonix 40 milligram daily, calcium and vitamin-D, dapsone 100 milligram daily -- Continue prednisone 60 mg for now and continue to monitor renal function. -- Epogen [id number] units subcu x1 dose ( has adequate iron store) given on 09/18/2020 -- In future she will probably need to be on CellCept again as she tolerated before and kidney function stayed relatively stable Will follow. Admission and Anticipated Discharge Date Admission Date: September 06, 2020 Subjective Dary continues to feel well. Renal function slightly improved. Voiding normally. Blood pressure remained elevated. Review of Systems Review of Systems: All systems reviewed & are unremarkable except as noted in Subjective Physical Exam Constitutional: + ill appearing; no acute distress Respiratory: normal respiratory effort, lungs clear to auscultation Cardiovascular: RRR, no murmur, no edema Neurologic: moves all extremities and awake; not confused Psychiatric: Orientation: alert and oriented x 3 Affect: + anxious affect Results & Data ([facility]) Vital Signs (Past 12 Hours) Vital Signs Temp Pulse Resp BP Pulse Ox 09/21/20 07:30 36.9 C 69 18 191/79 H 93 09/20/20 23:05 36.5 C 70 18 147/69 H 93 PG Care Time/CCT Total # of Minutes Spent Total Time Spent with Patient: Total time spent is greater than 50% in coordination of care (as documented) at patient's floor/unit and/or counseling patient: Coding Level of Care Code 32943 Subseq Hosp Care Lvl 3 Diagnoses FAITH (acute kidney injury) N17.9
[2020-09-21 12:10] LABS: Potassium 3.2 mmol/L (3.5-5.1)
[2020-09-21] MEDS: WARFARIN SOD 2 MG TAB PO SCH (17:34)
[2020-09-21] MEDS ORDERED: POTASSIUM CHLORIDE CRTAB 20 MEQ TABCR PO SCH (21:00)
[2020-09-21] MEDS: LORazepam 0.5 MG TAB PO SCH (21:15)
--- NOTE | 2020-09-21 22:31 | Hospitalist Progress Note ---
Date of Service September 21, 2020 Assessment & Plan (1) Acute glomerulonephritis: Hx of IgA nephropathy. Was on mycophenolate mofetil in the past, but stopped at least 1 year ago. - Now with acute glomerulonephritis-treated with IV Solu-Medrol 1,000 mg once daily x3 days and then converted to prednisone 1 mg/KG daily on 09/09. - Per nephrology. - Presently on prednisone 60 mg PO daily and will need to be on this for 2 months, then slowly taper. Cr gradually improving. - Continue IV fluids today as she has had poor PO intake. - Started on dapsone per nephrology given long-term need for steroids. - On insulin given high blood sugars with steroids. -Coniue meds as per nephrology. Will check orthostatic pressures due to dizziness. (2) Leukocytosis: WBCs up on 09/19. Possibly steroids. UA clear. Blood cultures drawn. - CXR shows reticular opacities -> Mostly likely pulmonary edema. - Procal is negative. Defer abx at this time. (3) Diarrhea: C. diff was negative on 09/12/2020. More episodes of 09/16, but resolved by 09/18. - Imodium PRN (4) Hypertension: BP today is 130/65. - Continue diltiazem & metoprolol - Hydralazine PRN (5) Chronic systolic CHF (congestive heart failure): With LVEF 45-50%, with septal wall motion abnormality as per cardiology records. With a history of aortic valve replacement and CABG at the time of her AVR. - Hold diuretics - Hold losartan - Continue metoprolol tartrate 25 mg p.o. twice daily - Given CXR findings, will need to monitor IV fluids carefully (6) COPD (chronic obstructive pulmonary disease): Appears to be at baseline. Patient follows with pulmonary. - Continue Breo and Spiriva - Albuterol PRN (7) H/O mechanical aortic valve replacement: - Resumed warfarin on 09/15. - Monitor INR -> INR all the up to 6.9 on 09/18. Held warfarin and gave small dose of vitamin K. - Resume warfarin at 2 mg PO daily. Likely 7.5 [address] is way too high right now with steroids and low PO intake. 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 (9) Anemia: Mild and likely of chronic kidney disease. - Continue ferrous gluconate - Hgb stable/improved on 09/19 at 11.1. (10) Biventricular cardiac pacemaker in situ: Noted. (11) Hypothyroidism: TSH normal at 2.52 in 11/2019. Repeat this admission was 0.42. - Continue home dose of levothyroxine (12) Atrial fibrillation: Noted in cardiology records. She is on Coumadin for anticoagulation. She is in paced rhythm on telemetry here. - Continue metoprolol (13) CAD (coronary artery disease): Chronic, status post CABG. - Continue metoprolol 25mg PO BID - Continue atorvastatin (changed from simvastatin for interaction with diltiazem) - She is not on aspirin. (14) Situational anxiety: Very anxious much of the time. - Ativan PO HS - Continue hydroxyzine PRN (15) DVT prophylaxis: Coumadin Admission and Anticipated Discharge Date Admission Date: September 06, 2020 Subjective 79 yo female reports feeling well. However she did have episodes of being dizzy today. Review of Systems Review of Systems: All systems reviewed & are unremarkable except as noted in HPI & below Physical Exam Physical Exam: Constitutional: WD/WN, vitals as above no acute distress Eyes: EOM intact bilaterally; no conjunctival abnormality ENMT: external ear and nose normal, oropharynx normal Neck: trachea midline, no thyromegaly normal visual inspection Respiratory: normal respiratory effort, lungs clear to auscultation no respiratory distress Cardiovascular: RRR, no murmur, no edema Gastrointestinal (Abdomen): Inspection/Auscultation: abdomen normal to inspection; abdomen not distended Musculoskeletal: no cyanosis or clubbing, extremities motor strength 5/5 Skin: no rashes, warm and dry Neurologic: moves all extremities and awake Psychiatric: Orientation: alert, oriented to person and cooperative Affect: + anxious affect Results & Data Results & Data ([facility]) Vital Signs (Past 12 Hours) Vital Signs Temp Pulse Resp BP Pulse Ox 09/21/20 16:00 36.4 C L 70 18 142/64 H 90 09/21/20 14:09 36.4 C L 18 92 PG Care Time/CCT Total # of Minutes Spent Total Time Spent with Patient: Total time spent is greater than 50% in coordination of care (as documented) at patient's floor/unit and/or counseling patient: Coding Level of Care Code 04520 Subseq Hosp Care Lvl 2 Diagnoses Acute glomerulonephritis N00.9 Leukocytosis D72.829 Diarrhea R19.7 Hypertension I10 Hypertension type: unspecified Chronic systolic CHF (congestive heart failure) I50.22 COPD (chronic obstructive pulmonary disease) J44.9 COPD type: unspecified COPD H/O mechanical aortic valve replacement Z95.2 Congenital hypoplasia of lung Q33.6 Anemia D64.9 Biventricular cardiac pacemaker in situ Z95.0 Hypothyroidism E03.9 Atrial fibrillation I48.91 CAD (coronary artery disease) I25.10 Associated angina: without angina Coronary Disease-Associated Artery/Lesion type: [place] artery [place] vs. transplanted heart: [place] heart Situational anxiety F41.8 DVT prophylaxis Z29.9 Time Spent (min) 25 (1) CAD (coronary artery disease) Associated angina: without angina Coronary Disease-Associated Artery/Lesion type: [place] artery [place] vs. transplanted heart: [place] heart Qualified Co de(s): I25.10 - Atherosclerotic heart disease of [place] coronary artery without angina pectoris (2) COPD (chronic obstructive pulmonary disease) COPD type: unspecified COPD Qualified Code(s): J44.9 - Chronic obstructive pulmonary disease, unspecified (3) Hypertension Hypertension type: unspecified Qualified Code(s): I10 - Essential (primary) hypertension
[2020-09-22] MEDS: SODIUM CHLORIDE 0.9% 1000ML 1,000 ML IV SCH (00:15)
[2020-09-22] MEDS: LEVOTHYROXINE SODIUM 75 MCG TABLET PO SCH (05:48)
[2020-09-22 07:25] LABS: Albumin Level 2.1 gm/dl (3.4-5.0); BUN Creatinine Ratio 26.6 (10-20); Calcium 7.8 mg/dl (8.5-10.1); Creatinine Clr Calc Pharmacy 9.9 ml/min; Est GFR (Non-African American) 11.2 ml/min; Phosphorus 3.9 mg/dl (2.5-4.9); Potassium 5.5 mmol/L (3.5-5.1)
[2020-09-22] MEDS: hydrOXYzine HCl 25 MG TAB PO PRN ×2 (08:35→21:25)
[2020-09-22] MEDS: FERROUS GLUCONATE 324 MG TAB PO SCH (08:36)
[2020-09-22] MEDS: PANTOprazole 40 MG TAB PO SCH (08:36)
[2020-09-22] MEDS: predniSONE 20 MG TAB PO SCH (08:36)
[2020-09-22] MEDS: METOPROLOL TARTRATE 50 MG TAB PO SCH ×2 (08:37→21:22)
[2020-09-22] MEDS: CALCITRIOL 0.25 MCG CAPSULE PO SCH (08:37)
[2020-09-22] MEDS: ATORVASTATIN 40 MG TAB PO SCH (08:37)
[2020-09-22] MEDS: CALCIUM 600MG + VIT D 400 IU TAB PO SCH ×2 (08:38→21:23)
[2020-09-22] MEDS: SODIUM BICARBONATE 650 MG TAB PO SCH ×2 (08:38→21:22)
[2020-09-22] MEDS: hydrALAZINE HCL 25 MG TAB PO SCH ×3 (08:38→21:23)
[2020-09-22] MEDS: DAPSONE 25 MG TAB PO SCH (08:39)
[2020-09-22] MEDS: [UNRECOGNIZED DRUG - OTHER] PO SCH (08:39)
[2020-09-22] MEDS: UMECLIDINIUM BROMIDE 62.5MCG/BLISTER 7 PUFFS/INHALER INH SCH (08:40)
[2020-09-22] MEDS: FLUTICASONE/VILANTEROL 200/25MCG 14 PUFFS/INHALER INH SCH (08:40)
[2020-09-22] MEDS: INSULIN ASPART 100 UNITS/ML 3 ML PEN SC SCH ×4 (09:11→21:26)
[2020-09-22] MEDS: INSULIN HUMAN NPH SC SCH (09:12)
[2020-09-22 10:36] LABS: INR 2.9 (0.9-1.1); Prothrombin Time 27.4 Seconds (9.0-12.0)
--- NOTE | 2020-09-22 11:41 | Nephrology Progress Note ---
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 Serologic w/u was negative for VERONIKA, ANCA, anti-BM ab, blood cultures and complement. Renal biopsy deferred at that time at patient's request and given cystic kidney disease. Clinical remission noted with steroid therapy. Creatinine stabilized at 1.5-1.8 mg/dL. 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 Mckenna does have osteoporosis and had developed lumbar compression fractures in 2018. After discontinuation of steroids, tolerated MMF without evidence of recurrent vasculitis. In June 2018, MMF was weaned off. Mckenna then asked to avoid any additional immune modifying therapy. Then she was again found to have high-grade proteinuria in February 2020. With presumed relapse of IgA nephropathy, she was treated with methylprednisone and IV and now switched to prednisone 60 mg daily. Epogen [id number] units subcu x1 dose ( has adequate iron store) given on 09/18/2020 She has been extremely anxious with the thought of needing dialysis in future. Renal function continues to improve very slowly, tolerating IV fluid, no sign of volume overload. Voiding normally. -- encourage p.o. intake and continue on NS at 80 ml/h -- on Protonix 40 milligram daily, calcium and vitamin-D, dapsone 100 milligram daily -- Continue prednisone 60 mg for now and continue to monitor renal function. -- Epogen [id number] units subcu x1 dose ( has adequate iron store) given on 09/18/2020 -- In future she will probably need to be on CellCept again as she tolerated before and kidney function stayed relatively stable Will follow. Admission and Anticipated Discharge Date Admission Date: September 06, 2020 Subjective Mckenna feels well, p.o. intake normal, no other acute issues except ongoing anxiety. Renal function continues to improve rather slowly. Blood pressure stable. Voiding normally. Review of Systems Review of Systems: All systems reviewed & are unremarkable except as noted in Subjective Physical Exam Constitutional: no acute distress Respiratory: normal respiratory effort, lungs clear to auscultation Cardiovascular: RRR, no murmur, no edema Neurologic: moves all extremities and awake; not confused Psychiatric: Orientation: alert and oriented x 3 Affect: + anxious affect Results & Data ([facility]) Vital Signs (Past 12 Hours) Vital Signs Temp Pulse Resp BP Pulse Ox 09/22/20 07:30 37 C 70 18 137/79 94 PG Care Time/CCT Total # of Minutes Spent Total Time Spent with Patient: Total time spent is greater than 50% in coordination of care (as documented) at patient's floor/unit and/or counseling patient: Coding Level of Care Code 53941 Subseq Hosp Care Lvl 3 Diagnoses FAITH (acute kidney injury) N17.9
[2020-09-22] MEDS: WARFARIN SOD 2 MG TAB PO SCH (16:00)
[2020-09-22] MEDS: LORazepam 0.5 MG TAB PO SCH (21:25)
--- NOTE | 2020-09-22 22:12 | Hospitalist Progress Note ---
Date of Service September 22, 2020 Assessment & Plan (1) Acute glomerulonephritis: Hx of IgA nephropathy. Was on mycophenolate mofetil in the past, but stopped at least 1 year ago. - Now with acute glomerulonephritis-treated with IV Solu-Medrol 1,000 mg once daily x3 days and then converted to prednisone 1 mg/KG daily on 09/09. - Per nephrology. - Presently on prednisone 60 mg PO daily and will need to be on this for 2 months, then slowly taper. Cr gradually improving. - Continue IV fluids today as she has had poor PO intake. - Started on dapsone per nephrology given long-term need for steroids. - On insulin given high blood sugars with steroids. -Contiue meds as per nephrology. Patient has not felt dizzy today. will continue to monitor. Appreciate input from nephro. (2) Leukocytosis: WBCs up on 09/19. Possibly steroids. UA clear. Blood cultures drawn. - CXR shows reticular opacities -> Mostly likely pulmonary edema. - Procal is negative. Defer abx at this time. (3) Diarrhea: C. diff was negative on 09/12/2020. More episodes of 09/16, but resolved by 09/18. - Imodium PRN (4) Hypertension: BP today is 130/65. - Continue diltiazem & metoprolol - Hydralazine PRN (5) Chronic systolic CHF (congestive heart failure): With LVEF 45-50%, with septal wall motion abnormality as per cardiology records. With a history of aortic valve replacement and CABG at the time of her AVR. - Hold diuretics - Hold losartan - Continue metoprolol tartrate 25 mg p.o. twice daily - Given CXR findings, will need to monitor IV fluids carefully (6) COPD (chronic obstructive pulmonary disease): Appears to be at baseline. Patient follows with pulmonary. - Continue Breo and Spiriva - Albuterol PRN (7) H/O mechanical aortic valve replacement: - Resumed warfarin on 09/15. - Monitor INR -> INR all the up to 6.9 on 09/18. Held warfarin and gave small dose of vitamin K. - Resume warfarin at 2 mg PO daily. Likely 7.[address] is [address] too high right now with steroids and low PO intake. 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 (9) Anemia: Mild and likely of chronic kidney disease. - Continue ferrous gluconate - Hgb stable/improved on 09/19 at 11.1. (10) Biventricular cardiac pacemaker in situ: Noted. (11) Hypothyroidism: TSH normal at 2.52 in 11/2019. Repeat this admission was 0.42. - Continue home dose of levothyroxine (12) Atrial fibrillation: Noted in cardiology records. She is on Coumadin for anticoagulation. She is in paced rhythm on telemetry here. - Continue metoprolol (13) CAD (coronary artery disease): Chronic, status post CABG. - Continue metoprolol 25mg PO BID - Continue atorvastatin (changed from simvastatin for interaction with diltiazem) - She is not on aspirin. (14) Situational anxiety: Very anxious much of the time. - Ativan PO HS - Continue hydroxyzine PRN (15) DVT prophylaxis: Coumadin Admission and Anticipated Discharge Date Admission Date: September 06, 2020 Subjective Patient reports feeling well. She has no new complaints. Review of Systems Review of Systems: All systems reviewed & are unremarkable except as noted in HPI & below Physical Exam Physical Exam: Constitutional: WD/WN, vitals as above no acute distress Eyes: EOM intact bilaterally; no conjunctival abnormality ENMT: external ear and nose normal, oropharynx normal Neck: trachea midline, no thyromegaly normal visual inspection Respiratory: normal respiratory effort, lungs clear to auscultation no respiratory distress Cardiovascular: RRR, no murmur, no edema Gastrointestinal (Abdomen): Inspection/Auscultation: abdomen normal to inspection; abdomen not distended Musculoskeletal: no cyanosis or clubbing, extremities motor strength 5/5 Skin: no rashes, warm and dry Neurologic: moves all extremities and awake Psychiatric: Orientation: alert, oriented to person and cooperative Affect: + anxious affect Results & Data Results & Data ([facility]) Vital Signs (Past 12 Hours) Vital Signs Temp Pulse Resp BP Pulse Ox 09/22/20 22:00 36.8 C 70 15 150/66 H 90 09/22/20 16:00 36.4 C L 70 20 140/75 90 PG Care Time/CCT Total # of Minutes Spent Total Time Spent with Patient: Total time spent is greater than 50% in coordination of care (as documented) at patient's floor/unit and/or counseling patient: Coding Level of Care Code 37005 Subseq Hosp Care Lvl 2 Diagnoses Acute glomerulonephritis N00.9 Leukocytosis D72.829 Diarrhea R19.7 Hypertension I10 Hypertension type: unspecified Chronic systolic CHF (congestive heart failure) I50.22 COPD (chronic obstructive pulmonary disease) J44.9 COPD type: unspecified COPD H/O mechanical aortic valve replacement Z95.2 Congenital hypoplasia of lung Q33.6 Anemia D64.9 Biventricular cardiac pacemaker in situ Z95.0 Hypothyroidism E03.9 Atrial fibrillation I48.91 CAD (coronary artery disease) I25.10 Associated angina: without angina Coronary Disease-Associated Artery/Lesion type: [place] artery [place] vs. transplanted heart: [place] heart Situational anxiety F41.8 DVT prophylaxis Z29.9 Time Spent (min) 25 (1) CAD (coronary artery disease) Associated angina: without angina Coronary Disease-Associated Artery/Lesion type: [place] artery [place] vs. transplanted heart: [place] heart Qualified Code(s): I25.10 - Atherosclerotic heart disease of [place] coronary artery without angina pectoris (2) COPD (chronic obstructive pulmonary disease) COPD type: unspecified COPD Qualified Code(s): J44.9 - Chronic obstructive pulmonary disease, unspecified (3) Hypertension Hypertension type: unspecified Qualified Code(s): I10 - Essential (primary) hypertension
[2020-09-23] MEDS: LEVOTHYROXINE SODIUM 75 MCG TABLET PO SCH (05:58)
[2020-09-23 07:20] LABS: INR 3.1 (0.9-1.1); Prothrombin Time 28.4 Seconds (9.0-12.0)
[2020-09-23 07:36] LABS: Albumin Level 2.1 gm/dl (3.4-5.0); BUN Creatinine Ratio 31.8 (10-20); Creatinine Clr Calc Pharmacy 10.1 ml/min; Est GFR (African American) 13.3 ml/min; Est GFR (Non-African American) 11.5 ml/min; Phosphorus 4.2 mg/dl (2.5-4.9); Potassium 4.8 mmol/L (3.5-5.1)
[2020-09-23] MEDS: METOPROLOL TARTRATE 50 MG TAB PO SCH ×2 (07:37→20:50)
[2020-09-23] MEDS: [UNRECOGNIZED DRUG - OTHER] PO SCH (07:38)
[2020-09-23] MEDS: hydrALAZINE HCL 25 MG TAB PO SCH ×3 (07:38→20:51)
[2020-09-23] MEDS: ATORVASTATIN 40 MG TAB PO SCH (07:39)
[2020-09-23] MEDS: CALCIUM 600MG + VIT D 400 IU TAB PO SCH ×2 (07:39→20:51)
[2020-09-23] MEDS: DAPSONE 25 MG TAB PO SCH (07:39)
[2020-09-23] MEDS: PANTOprazole 40 MG TAB PO SCH (07:39)
[2020-09-23] MEDS: FERROUS GLUCONATE 324 MG TAB PO SCH (07:40)
[2020-09-23] MEDS: CALCITRIOL 0.25 MCG CAPSULE PO SCH (07:40)
[2020-09-23] MEDS: SODIUM BICARBONATE 650 MG TAB PO SCH ×2 (07:41→20:50)
[2020-09-23] MEDS: predniSONE 20 MG TAB PO SCH (07:41)
[2020-09-23] MEDS: INSULIN ASPART 100 UNITS/ML 3 ML PEN SC SCH ×4 (08:12→20:58)
[2020-09-23] MEDS: UMECLIDINIUM BROMIDE 62.5MCG/BLISTER 7 PUFFS/INHALER INH SCH (08:16)
[2020-09-23] MEDS: FLUTICASONE/VILANTEROL 200/25MCG 14 PUFFS/INHALER INH SCH (08:16)
[2020-09-23] MEDS: INSULIN HUMAN NPH SC SCH (09:15)
[2020-09-23] MEDS: SODIUM CHLORIDE 0.9% 1000ML 1,000 ML IV SCH ×2 (09:58→16:36)
--- NOTE | 2020-09-23 11:36 | Nephrology Progress Note ---
Date of Service September 23, 2020 Assessment & Plan (1) FAITH (acute kidney injury): Kidney function relatively stable. Remains non-oliguric. Hold IVF today. Continue prednisone 60 mg daily. Will start weaning October. Dapsone and PPI for prophylaxis. Mckenna will require close outpatient follow up. If kidney function stable tomorrow and Mckenna is doing well otherwise, I could follow her in outpatient in the clinic at this point. I encouraged her to ambulate today and assess oxygen need. No additional changes at this time. (2) Stage 3b chronic kidney disease: Baseline creatinine had been ~1.8 mg/dL. Completed TOPS predialysis education through [employer] in the past. Expressed interested in in-centre HD if needed. Remains on oral NaHCO3 replacement for NAGMA. IV NSS discontinued this AM. (3) Nephrotic range proteinuria: Remains hypoalbuminemic. Improvement in UPCR noted. Volume status acceptable. Encourage oral protein intake. Losartan held due to kidney dysfunction. (4) Acute glomerulonephritis: Kidney function stable. Serologic evaluation negative. Biopsy unlikely to exchange teller at this time. (5) Anemia: Epogen 47094 units SQ x 1 on 09/18/2020. Iron profile acceptable. (6) Hypertension: Fluctuating but overall acceptable. Volume status reasonable. IVF discontinued. Tolerating a combination of diltiazem, hydralazine, and metoprolol reasonably well. Admission and Anticipated Discharge Date Admission Date: September 06, 2020 Subjective No acute events overnight. Mckenna feels well this morning. She continues to feel very anxious and is looking forward to going home. Some dyspnea noted this morning. O2 provided with improvement. Activity tolerance fair. Appetite fair. Review of Systems Constitutional: no fever, no chills and no anorexia Eyes: no problem reported Ear, Nose, Mouth, Throat: no problem reported Respiratory: + dyspnea on exertion; no cough Cardiovascular: + edema; no chest pain and no palpitations Gastrointestinal: no abdominal pain, no constipation and no diarrhea/loose stools Genitourinary: no problem reported Musculoskeletal: no problem reported Integumentary: no problem reported Neurologic: no problem reported Psychiatric: + anxiety Physical Exam Constitutional: well developed, + thin and + frail appearing; no acute distress Eyes: + anicteric sclerae; no corneal abnormality ENMT: Mouth: + dry oral mucous membranes; no oral mucosal abnormality Neck: normal visual inspection and trachea midline Respiratory: normal respiratory effort Auscultation: lungs clear to auscultation bilaterally Cardiovascular: Rate/Rhythm: regular rate Heart Sounds: normal S1, normal S2, + click and + murmur Vessels: no JVD and no renal bruit Extremities: normal capillary refill and + edema Musculoskeletal: Extremities: no cyanosis and no clubbing Skin: + turgor decreased; no lesions Neurologic: Motor/Sensory: no tremor and no asterixis Psychiatric: Orientation: alert and oriented x 3 Results & Data ([facility]) Vital Signs (Past 12 Hours) Vital Signs Temp Pulse Resp BP Pulse Ox 09/23/20 09:56 158/66 H 09/23/20 07:28 36.4 C L 70 18 180/82 H 94 Laboratory Results Laboratory Results - last 24 hr 09/22/20 09/22/20 09/22/20 12:25 17:22 20:40 PT INR Sodium Potassium Chloride Carbon Dioxide Anion Gap BUN Creatinine Est Cr Clr Drug Dosing Est GFR ( Amer) Est GFR (Non-Af Amer) BUN/Creatinine Ratio Glucose POC Glucose 139 H 211 H 192 H Calcium Phosphorus Albumin 09/23/20 09/23/20 09/23/20 06:48 06:48 07:59 PT 28.4 H INR 3.1 H Sodium 143 Potassium 4.8 Chloride 116 H Carbon Dioxide 20 L Anion Gap 7.0 BUN 114 H Creatinine 3.58 H Est Cr Clr Drug Dosing 10.1 Est GFR ( Amer) 13.3 Est GFR (Non-Af Amer) 11.5 BUN/Creatinine Ratio 31.8 H Glucose 87 POC Glucose 92 Calcium 8.0 L Phosphorus 4.2 Albumin 2.1 L PG Care Time/CCT Total # of Minutes Spent Total Time Spent with Patient: Total time spent is greater than 50% in coordination of care (as documented) at patient's floor/unit and/or counseling patient: Coding Level of Care Code 02290 Subseq Hosp Care Lvl 3 Diagnoses FAITH (acute kidney injury) N17.9 Stage 3b chronic kidney disease N18.32 Nephrotic range proteinuria R80.9 Acute glomerulonephritis N00.9 Anemia D64.9 Hypertension I10 Hypertension type: unspecified (1) Hypertension Hypertension type: unspecified Qualified Code(s): I10 - Essential (primary) hypertension
[2020-09-23] MEDS ORDERED: FUROSEMIDE 40 MG in SYRINGE 0 ML IV ONE (14:00)
--- NOTE | 2020-09-23 15:14 | XRay Report ---
XR chest 2V PA/lateral CLINICAL HISTORY: sob COMPARISON STUDY: September 19, 2020 FINDINGS: No pneumothorax. Interval worsening/redistribution of bilateral pleural effusion, now appear moderate. Patchy reticula r opacities in peripheral distribution are slightly worsened since prior. Atelectasis or infiltrates are seen at bilateral bases. Cardiac silhouette remains moderately enlarged. Vasculature is obscured.. Osseous structures: Osteopenia. Stable position of left-sided AICD with battery pack partially obscuring left lung parenchyma. Midline sternotomy wires are again seen. IMPRESSION: 1. Cardiomegaly. Interval worsening of bilateral pleural effusion associated with atelectasis/infilt rates and bilateral bases. 2. Previously seen hyperinflation appear less conspicuous on current exam. Peripheral reticular opac ities appear worsened since prior study. ACT 112: Negative or not required by law. The above report was generated using voice recognition software. It may contain grammatical, syntax o r spelling errors. Electronically signed by: Marla Pepe DO 09/23/2020 3:13 PM
[2020-09-23] MEDS: WARFARIN SOD 2 MG TAB PO SCH (15:46)
[2020-09-23] MEDS: LORazepam 0.5 MG TAB PO SCH (21:41)
--- NOTE | 2020-09-23 22:56 | Hospitalist Progress Note ---
Date of Service September 23, 2020 Assessment & Plan (1) Acute glomerulonephritis: Hx of IgA nephropathy. Was on mycophenolate mofetil in the past, but stopped at least 1 year ago. - Now with acute glomerulonephritis-treated with IV Solu-Medrol 1,000 mg once daily x3 days and then converted to prednisone 1 mg/KG daily on 09/09. - Per nephrology. - Presently on prednisone 60 mg PO daily and will need to be on this for 2 months, then slowly taper. Cr gradually improving. - Continue IV fluids today as she has had poor PO intake. - Started on dapsone per nephrology given long-term need for steroids. - On insulin given high blood sugars with steroids. -Contiue meds as per nephrology. Patient has not felt dizzy today. will continue to monitor. Appreciate input from nephro. Patient is now more SOB, will order 40 mg of furosemide and will monitor. (2) Leukocytosis: WBCs up on 09/19. Possibly steroids. UA clear. Blood cultures drawn. - CXR shows reticular opacities -> Mostly likely pulmonary edema. - Procal is negative. Defer abx at this time. (3) Diarrhea: C. diff was negative on 09/12/2020. More episodes of 09/16, but resolved by 09/18. - Imodium PRN (4) Hypertension: BP today is 130/65. - Continue diltiazem & metoprolol - Hydralazine PRN (5) Chronic systolic CHF (congestive heart failure): With LVEF 45-50%, with septal wall motion abnormality as per cardiology records. With a history of aortic valve replacement and CABG at the time of her AVR. - Hold diuretics - Hold losartan - Continue metoprolol tartrate 25 mg p.o. twice daily (6) COPD (chronic obstructive pulmonary disease): Appears to be at baseline. Patient follows with pulmonary. - Continue Breo and Spiriva - Albuterol PRN (7) H/O mechanical aortic valve replacement: - Resumed warfarin on 09/15. - Monitor INR -> INR all the up to 6.9 on 09/18. Held warfarin and gave small dose of vitamin K. - Resume warfarin at 2 mg PO daily. Likely 7.5 mg is way too high right now with steroids and low PO intake. 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 (9) Anemia: Mild and likely of chronic kidney disease. - Continue ferrous gluconate - Hgb stable/improved on 09/19 at 11.1. (10) Biventricular cardiac pacemaker in situ: Noted. (11) Hypothyroidism: TSH normal at 2.52 in 11/2019. Repeat this admission was 0.42. - Continue home dose of levothyroxine (12) Atrial fibrillation: Noted in cardiology records. She is on Coumadin for anticoagulation. She is in paced rhythm on telemetry here. - Continue metoprolol (13) CAD (coronary artery disease): Chronic, status post CABG. - Continue metoprolol 25mg PO BID - Continue atorvastatin (changed from simvastatin for interaction with diltiazem) - She is not on aspirin. (14) Situational anxiety: Very anxious much of the time. - Ativan PO HS - Continue hydroxyzine PRN (15) DVT prophylaxis: Coumadin Admission and Anticipated Discharge Date Admission Date: September 06, 2020 Subjective Patient reports feeling more SOB today. Review of Systems Review of Systems: All systems reviewed & are unremarkable except as noted in HPI & below Physical Exam Physical Exam: Constitutional: WD/WN, vitals as above no acute distress Eyes: EOM intact bilaterally; no conjunctival abnormality ENMT: external ear and nose normal, oropharynx normal Neck: trachea midline, no thyromegaly normal visual inspection Respiratory: normal respiratory effort, lungs clear to auscultation no respiratory distress Cardiovascular: RRR, no murmur, no edema Gastrointestinal (Abdomen): Inspection/Auscultation: abdomen normal to inspection; abdomen not distended Musculoskeletal: no cyanosis or clubbing, extremities motor strength 5/5 Skin: no rashes, warm and dry Neurologic: moves all extremities and awake Psychiatric: Orientation: alert, oriented to person and cooperative Affect: + anxious affect Results & Data Results & Data ([facility]) Vital Signs (Past 12 Hours) Vital Signs Temp Pulse Resp BP Pulse Ox 09/23/20 22:07 36.3 C L 70 18 164/70 H 90 09/23/20 16:40 36.4 C L 70 18 151/67 H 92 PG Care Time/CCT Total # of Minutes Spent Total Time Spent with Patient: Total time spent is greater than 50% in coordination of care (as documented) at patient's floor/unit and/or counseling patient: Coding Level of Care Code 42048 Subseq Hosp Care Lvl 2 Diagnoses Acute glomerulonephritis N00.9 Leukocytosis D72.829 Diarrhea R19.7 Hypertension I10 Hypertension type: unspecified Chronic systolic CHF (congestive heart failure) I50.22 COPD (chronic obstructive pulmonary disease) J44.9 COPD type: unspecified COPD H/O mechanical aortic valve replacement Z95.2 Congenital hypoplasia of lung Q33.6 Anemia D64.9 Biventricular cardiac pacemaker in situ Z95.0 Hypothyroidism E03.9 Atrial fibrillation I48.91 CAD (coronary artery disease) I25.10 Associated angina: without angina Coronary Disease-Associated Artery/Lesion type: [place] artery [place] vs. transplanted heart: [place] heart Situational anxiety F41.8 DVT prophylaxis Z29.9 Time Spent (min) 25 (1) CAD (coronary artery disease) Associated angina: without angina Coronary Disease-Associated Artery/Lesion type: [place] artery [place] vs. transplanted heart: [place] heart Qualified Code(s): I25.10 - Atherosclerotic heart disease of [place] coronary artery without angina pectoris (2) COPD (chronic obstructive pulmonary disease) COPD type: unspecified COPD Qualified Code(s): J44.9 - Chronic obstructive pulmonary disease, unspecified (3) Hypertension Hypertension type: unspecified Qualified Code(s): I10 - Essential (primary) hypertension
[2020-09-24] MEDS: LEVOTHYROXINE SODIUM 75 MCG TABLET PO SCH (05:33)
[2020-09-24 07:08] LABS: INR 3.5 (0.9-1.1); Prothrombin Time 32.3 Seconds (9.0-12.0)
[2020-09-24 07:21] LABS: BUN Creatinine Ratio 29.9 (10-20); Calcium 7.9 mg/dl (8.5-10.1); Creatinine Clr Calc Pharmacy 10.9 ml/min; Est GFR (African American) 12.8 ml/min; Potassium 4.8 mmol/L (3.5-5.1)
[2020-09-24] MEDS: hydrALAZINE HCL 25 MG TAB PO SCH ×3 (07:38→21:39)
[2020-09-24] MEDS: SODIUM BICARBONATE 650 MG TAB PO SCH ×2 (07:39→21:40)
[2020-09-24] MEDS: CALCIUM 600MG + VIT D 400 IU TAB PO SCH ×2 (07:39→21:39)
[2020-09-24] MEDS: FERROUS GLUCONATE 324 MG TAB PO SCH (07:39)
[2020-09-24] MEDS: PANTOprazole 40 MG TAB PO SCH (07:40)
[2020-09-24] MEDS: ATORVASTATIN 40 MG TAB PO SCH (07:40)
[2020-09-24] MEDS: [UNRECOGNIZED DRUG - OTHER] PO SCH (07:40)
[2020-09-24] MEDS: DAPSONE 25 MG TAB PO SCH (07:41)
[2020-09-24] MEDS: CALCITRIOL 0.25 MCG CAPSULE PO SCH (07:41)
[2020-09-24] MEDS: FLUTICASONE/VILANTEROL 200/25MCG 14 PUFFS/INHALER INH SCH (07:42)
[2020-09-24] MEDS: METOPROLOL TARTRATE 50 MG TAB PO SCH ×2 (07:42→21:39)
[2020-09-24] MEDS: predniSONE 20 MG TAB PO SCH (07:42)
[2020-09-24] MEDS: UMECLIDINIUM BROMIDE 62.5MCG/BLISTER 7 PUFFS/INHALER INH SCH (07:43)
[2020-09-24 08:31] LABS: Eosinophils # (auto) 0.01 K/uL (0-0.5); Eosinophils % (auto) 0.1 %; Immature Granulocytes # (auto) 0.08 K/uL (0.00-0.02); Immature Granulocytes % (auto) 0.4 %; Lymphocytes # (auto) 1.31 K/uL (1.2-3.4); Mean Corpuscular Hemoglobin 27.1 pg (25-34); Mean Corpuscular Hgb Conc 32.3 g/dL (32-36); Mean Platelet Volume 10.9 fL (7.4-10.4); Monocytes # (auto) 0.96 K/uL (0.11-0.59); Monocytes % (auto) 5.2 %; Neutrophils # (auto) 16.26 K/uL (1.4-6.5); Neutrophils % (auto) 87.3 %; Platelet Count 205 K/uL (130-400); RDW Coefficient of Variation 19.7 % (11.5-14.5); RDW Standard Deviation 54.2 fL (36.4-46.3); Red Blood Count 3.69 M/uL (4.2-5.4); White Blood Count 18.62 K/uL (4.8-10.8)
[2020-09-24] MEDS: INSULIN ASPART 100 UNITS/ML 3 ML PEN SC SCH ×4 (09:13→21:37)
[2020-09-24] MEDS: INSULIN HUMAN NPH SC SCH (09:14)
[2020-09-24] MEDS ORDERED: FUROSEMIDE 40 MG in SYRINGE 0 ML IV ONE (11:45)
--- NOTE | 2020-09-24 12:47 | Nephrology Progress Note ---
Date of Service September 24, 2020 Assessment & Plan (1) FAITH (acute kidney injury): Kidney function relatively stable. Remains non-oliguric. Diuresed ~1 L in past 24 hours. Continue to encourage net negative fluid balance. Continue prednisone 60 mg daily. Will start weaning October. Dapsone and PPI for prophylaxis. Discharged deferred today due to pulmonary edema and need for diuresis. Potential future indications for dialysis discussed in detail. No current emergent indication. (2) Stage 3b chronic kidney disease: Baseline creatinine had been ~1.8 mg/dL. Completed TOPS predialysis education through [employer] in the past. Expressed interested in in-centre HD if needed. Remains on oral NaHCO3 replacement for NAGMA. IV NSS discontinued this AM. (3) Nephrotic range proteinuria: Remains hypoalbuminemic. Improvement in UPCR noted. Volume status acceptable. Encourage oral protein intake. Losartan held due to kidney dysfunction. (4) Acute glomerulonephritis: Kidney function stable. Serologic evaluation negative. 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 (5) Anemia: Epogen 57673 units SQ x 1 on 09/18/2020. Iron profile acceptable. (6) Hypertension: Fluctuating but overall acceptable. Volume status reasonable. IVF discontinued. Tolerating a combination of diltiazem, hydralazine, and metoprolol reasonably well. Admission and Anticipated Discharge Date Admission Date: September 06, 2020 Subjective No acute events overnight. Dyspnea persists. Activity tolerance limited. I spoke to Mckenna's bill today. Plan of care was also discussed with Dr. Barba. Review of Systems Review of Systems: All systems reviewed & are unremarkable except as noted in HPI & below Physical Exam Constitutional: well developed, + thin and + frail appearing; no acute distress Eyes: + anicteric sclerae; no corneal abnormality ENMT: Mouth: + dry oral mucous membranes; no oral mucosal abnormality Neck: normal visual inspection and trachea midline Respiratory: normal respiratory effort Auscultation: lungs clear to auscultation bilaterally Cardiovascular: Rate/Rhythm: regular rate Heart Sounds: normal S1, normal S2, + click and + murmur Vessels: no JVD and no renal bruit Extremities: normal capillary refill and + edema Musculoskeletal: Extremities: no cyanosis and no clubbing Skin: + turgor decreased; no lesions Neurologic: Motor/Sensory: no tremor and no asterixis Psychiatric: Orientation: alert and oriented x 3 Results & Data ([facility]) Vital Signs (Past 12 Hours) Vital Signs Temp Pulse Resp BP Pulse Ox 09/24/20 09:17 71 147/75 H 09/24/20 06:37 36.5 C 71 14 187/72 H 93 Laboratory Results Laboratory Results - last 24 hr 09/23/20 09/23/20 09/24/20 17:17 20:49 06:27 WBC RBC Hgb Hct MCV MCH MCHC RDW Std Deviation RDW Coeff of Radha Plt Count MPV Immature Gran % (Auto) Neut % (Auto) Lymph % (Auto) Williams % (Auto) Eos % (Auto) Baso % (Auto) Neut # (Auto) Lymph # (Auto) Williams # (Auto) Eos # (Auto) Baso # (Auto) Immature Gran # (Auto) PT 32.3 H INR 3.5 H Sodium Potassium Chloride Carbon Dioxide Anion Gap BUN Creatinine Est Cr Clr Drug Dosing Est GFR ( Amer) Est GFR (Non-Af Amer) BUN/Creatinine Ratio Glucose POC Glucose 201 H 226 H Calcium NT-Pro-B Natriuret Pep 09/24/20 09/24/20 09/24/20 06:27 06:27 06:28 WBC 18.62 H RBC 3.69 L Hgb 10.0 L Hct 31.0 L MCV 84.0 MCH 27.1 MCHC 32.3 RDW Std Deviation 54.2 H RDW Coeff of Radha 19.7 H Plt Count 205 MPV 10.9 H Immature Gran % (Auto) 0.4 Neut % (Auto) 87.3 Lymph % (Auto) 7.0 Williams % (Auto) 5.2 Eos % (Auto) 0.1 Baso % (Auto) 0.0 Neut # (Auto) 16.26 H Lymph # (Auto) 1.31 Williams # (Auto) 0.96 H Eos # (Auto) 0.01 Baso # (Auto) 0.00 Immature Gran # (Auto) 0.08 H PT INR Sodium 143 Potassium 4.8 Chloride 114 H Carbon Dioxide 23 Anion Gap 6.0 BUN 110 H Creatinine 3.69 H Est Cr Clr Drug Dosing 10.9 Est GFR ( Amer) 12.8 Est GFR (Non-Af Amer) 11.0 BUN/Creatinine Ratio 29.9 H Glucose 87 POC Glucose Calcium 7.9 L NT-Pro-B Natriuret Pep 9852 H 09/24/20 09/24/20 08:12 12:19 WBC RBC Hgb Hct MCV MCH MCHC RDW Std Deviation RDW Coeff of Radha Plt Count MPV Immature Gran % (Auto) Neut % (Auto) Lymph % (Auto) Williams % (Auto) Eos % (Auto) Baso % (Auto) Neut # (Auto) Lymph # (Auto) Williams # (Auto) Eos # (Auto) Baso # (Auto) Immature Gran # (Auto) PT INR Sodium Potassium Chloride Carbon Dioxide Anion Gap BUN Creatinine Est Cr Clr Drug Dosing Est GFR ( Amer) Est GFR (Non-Af Amer) BUN/Creatinine Ratio Glucose POC Glucose 101 H 141 H Calcium NT-Pro-B Natriuret Pep Diagnostic Findings CXR 09/23 reviewed. PG Care Time/CCT Total # of Minutes Spent Total Time Spent with Patient: Total time spent is greater than 50% in coordination of care (as documented) at patient's floor/unit and/or counseling patient: Coding Level of Care Code 28880 Subseq Hosp Care Lvl 3 Diagnoses FAITH (acute kidney injury) N17.9 Stage 3b chronic kidney disease N18.32 Nephrotic range proteinuria R80.9 Acute glomerulonephritis N00.9 Anemia D64.9 Hypertension I10 Hypertension type: unspecified (1) Hypertension Hypertension type: unspecified Qualified Code(s): I10 - Essential (primary) hypertension
[2020-09-24] MEDS: WARFARIN SOD 2 MG TAB PO SCH (15:06)
[2020-09-24] MEDS: LORazepam 0.5 MG TAB PO SCH (21:39)
--- NOTE | 2020-09-24 23:46 | Hospitalist Progress Note ---
Date of Service September 24, 2020 Assessment & Plan (1) Acute glomerulonephritis: Hx of IgA nephropathy. Was on mycophenolate mofetil in the past, but stopped at least 1 year ago. - Now with acute glomerulonephritis-treated with IV Solu-Medrol 1,000 mg once daily x3 days and then converted to prednisone 1 mg/KG daily on 09/09. - Per nephrology. - Presently on prednisone 60 mg PO daily and will need to be on this for 2 months, then slowly taper. Cr gradually improving. - Continue IV fluids today as she has had poor PO intake. - Started on dapsone per nephrology given long-term need for steroids. - On insulin given high blood sugars with steroids. -Contiue meds as per nephrology. Earlier during the week, patient felt dizzy while taking a warm shower, and also felt orthostatic later that day. This has not occured though over past 48 hours. However she has gradually required more syupplemented oxygen. Her fluid balance is over 8 liter positive. will contine to give lasix iV. This will be her second dose of IV lasix daily. \Patient however feels less SOB. will continue to monitor. rosana order IV lasix daily for now and defer further management to hospitalist taking over tomorrow. Appreciate input from nephro. Patient is now more SOB, will order 40 mg of furosemide and will monitor. (2) Leukocytosis: WBCs up on 09/19. Possibly steroids. UA clear. Blood cultures drawn. - CXR shows reticular opacities -> Mostly likely pulmonary edema. - Procal is negative. Defer abx at this time. (3) Diarrhea: C. diff was negative on 09/12/2020. More episodes of 09/16, but resolved by 09/18. - Imodium PRN (4) Hypertension: BP today is 130/65. - Continue diltiazem & metoprolol - Hydralazine PRN (5) Chronic systolic CHF (congestive heart failure): With LVEF 45-50%, with septal wall motion abnormality as per cardiology records. With a history of aortic valve replacement and CABG at the time of her AVR. - Hold diuretics - Hold losartan - Continue metoprolol tartrate 25 mg p.o. twice daily (6) COPD (chronic obstructive pulmonary disease): Appears to be at baseline. Patient follows with pulmonary. - Continue Breo and Spiriva - Albuterol PRN (7) H/O mechanical aortic valve replacement: - Resumed warfarin on 09/15. - Monitor INR -> INR all the up to 6.9 on 09/18. Held warfarin and gave small dose of vitamin K. - Resume warfarin at 2 mg PO daily. Likely 7.[address] too high right now with steroids and low PO intake. 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 (9) Anemia: Mild and likely of chronic kidney disease. - Continue ferrous gluconate - Hgb stable/improved on 09/19 at 11.1. (10) Biventricular cardiac pacemaker in situ: Noted. (11) Hypothyroidism: TSH normal at 2.52 in 11/2019. Repeat this admission was 0.42. - Continue home dose of levothyroxine (12) Atrial fibrillation: Noted in cardiology records. She is on Coumadin for anticoagulation. She is in paced rhythm on telemetry here. - Continue metoprolol (13) CAD (coronary artery disease): Chronic, status post CABG. - Continue metoprolol 25mg PO BID - Continue atorvastatin (changed from simvastatin for interaction with diltia zem) - She is not on aspirin. (14) Situational anxiety: Very anxious much of the time. - Ativan PO HS - Continue hydroxyzine PRN (15) DVT prophylaxis: Coumadin Admission and Anticipated Discharge Date Admission Date: September 06, 2020 Subjective Patient reports feeling well. She feels comfortable on 5 liters nasal cannula. Review of Systems Review of Systems: All systems reviewed & are unremarkable except as noted in HPI & below Physical Exam Physical Exam: Constitutional: WD/WN, vitals as above no acute distress Eyes: EOM intact bilaterally; no conjunctival abnormality ENMT: external ear and nose normal, oropharynx normal Neck: trachea midline, no thyromegaly normal visual inspection Respiratory: normal respiratory effort, bibasilar rales, no respiratory distress Cardiovascular: RRR, no murmur, no edema Gastrointestinal (Abdomen): Inspection/Auscultation: abdomen normal to inspection; abdomen not distended Musculoskeletal: no cyanosis or clubbing, extremities motor strength 5/5 Skin: no rashes, warm and dry Neurologic: moves all extremities and awake Psychiatric: Orientation: alert, oriented to person and cooperative Affect: + anxious affect Results & Data Results & Data ([facility]) Vital Signs (Past 12 Hours) Vital Signs Temp Pulse Resp BP BP Pulse Ox 09/24/20 21:32 36.6 C 70 18 165/65 H 92 09/24/20 16:15 36.4 C L 70 18 155/65 H 91 PG Care Time/CCT Total # of Minutes Spent Total Time Spent with Patient: Total time spent is greater than 50% in coordination of care (as documented) at patient's floor/unit and/or counseling patient: Coding Level of Care Code 42080 Subseq Hosp Care Lvl 2 Diagnoses Acute glomerulonephritis N00.9 Leukocytosis D72.829 Diarrhea R19.7 Hypertension I10 Hypertension type: unspecified Chronic systolic CHF (congestive heart failure) I50.22 COPD (chronic obstructive pulmonary disease) J44.9 COPD type: unspecified COPD H/O mechanical aortic valve replacement Z95.2 Congenital hypoplasia of lung Q33.6 Anemia D64.9 Biventricular cardiac pacemaker in situ Z95.0 Hypothyroidism E03.9 Atrial fibrillation I48.91 CAD (coronary artery disease) I25.10 Associated angina: without angina Coronary Disease-Associated Artery/Lesion type: [place] artery [place] vs. transplanted heart: [place] heart Situational anxiety F41.8 DVT prophylaxis Z29.9 Time Spent (min) 25 (1) CAD (coronary artery disease) Associated angina: without angina Coronary Disease-Associated Artery/Lesion type: [place] artery [place] vs. transplanted heart: [place] heart Qualified Code(s): I25.10 - Atherosclerotic heart disease of [place] coronary artery without angina pectoris (2) COPD (chronic obstructive pulmonary disease) COPD type: unspecified COPD Qualified Code(s): J44.9 - Chronic obstructive pulmonary disease, unspecified (3) Hypertension Hypertension type: unspecified Qualified Code(s): I10 - Essential (primary) hypertension
[2020-09-25] MEDS: hydrOXYzine HCl 25 MG TAB PO PRN (00:45)
[2020-09-25] MEDS: LEVOTHYROXINE SODIUM 75 MCG TABLET PO SCH (06:04)
[2020-09-25 06:54] LABS: Hematocrit (blood only) 30.5 % (37-47); Hemoglobin 9.6 g/dL (12.0-16.0); Mean Corpuscular Hemoglobin 26.5 pg (25-34); Mean Corpuscular Hgb Conc 31.5 g/dL (32-36); Mean Corpuscular Volume 84.3 fL (80-100); Mean Platelet Volume 10.9 fL (7.4-10.4); Nucleated RBC # (auto) 0.03 K/uL (0-0); Nucleated RBC % (auto) 0.2 %; Platelet Count 201 K/uL (130-400); RDW Coefficient of Variation 19.8 % (11.5-14.5); RDW Standard Deviation 54.8 fL (36.4-46.3); Red Blood Count 3.62 M/uL (4.2-5.4); White Blood Count 17.89 K/uL (4.8-10.8)
[2020-09-25 07:24] LABS: BUN Creatinine Ratio 29.9 (10-20); Calcium 7.9 mg/dl (8.5-10.1); Creatinine Clr Calc Pharmacy 10.9 ml/min; Est GFR (African American) 12.7 ml/min; Potassium 4.8 mmol/L (3.5-5.1)
[2020-09-25 07:26] LABS: INR 3.3 (0.9-1.1); Prothrombin Time 30.1 Seconds (9.0-12.0)
[2020-09-25] MEDS: METOPROLOL TARTRATE 50 MG TAB PO SCH ×2 (07:57→20:28)
[2020-09-25] MEDS: SODIUM BICARBONATE 650 MG TAB PO SCH ×2 (07:57→20:28)
[2020-09-25] MEDS: CALCITRIOL 0.25 MCG CAPSULE PO SCH (07:58)
[2020-09-25] MEDS: ATORVASTATIN 40 MG TAB PO SCH (07:58)
[2020-09-25] MEDS: CALCIUM 600MG + VIT D 400 IU TAB PO SCH ×2 (07:58→20:28)
[2020-09-25] MEDS: hydrALAZINE HCL 25 MG TAB PO SCH ×3 (07:58→20:28)
[2020-09-25] MEDS: PANTOprazole 40 MG TAB PO SCH (07:59)
[2020-09-25] MEDS: DAPSONE 25 MG TAB PO SCH (07:59)
[2020-09-25] MEDS: predniSONE 20 MG TAB PO SCH (07:59)
[2020-09-25] MEDS: [UNRECOGNIZED DRUG - OTHER] PO SCH (07:59)
[2020-09-25] MEDS: FERROUS GLUCONATE 324 MG TAB PO SCH (07:59)
[2020-09-25] MEDS: FUROSEMIDE 40 MG in SYRINGE 0 ML IV SCH (08:00)
[2020-09-25] MEDS: UMECLIDINIUM BROMIDE 62.5MCG/BLISTER 7 PUFFS/INHALER INH SCH (08:00)
[2020-09-25] MEDS: FLUTICASONE/VILANTEROL 200/25MCG 14 PUFFS/INHALER INH SCH (08:00)
[2020-09-25] MEDS: INSULIN ASPART 100 UNITS/ML 3 ML PEN SC SCH ×4 (08:56→20:31)
[2020-09-25] MEDS: INSULIN HUMAN NPH SC SCH (08:57)
--- NOTE | 2020-09-25 09:57 | Nephrology Progress Note ---
Date of Service September 25, 2020 Assessment & Plan (1) FAITH (acute kidney injury): Kidney function relatively stable. Remains non-oliguric. Diuresed ~2 L in past 24 hours. Continue to encourage net negative fluid balance. Additional 40 mg IV furosemide provided this AM. Goals is approximately 1 L negative in next 24 hours. Continue prednisone 60 mg daily. Will start weaning October. Dapsone and PPI for prophylaxis. Discharged deferred today due to pulmonary edema and need for diuresis. Potential future indications for dialysis discussed in detail. No current emergent indication. (2) Stage 3b chronic kidney disease: Baseline creatinine had been ~1.8 mg/dL. Creatinine now ~3.7 mg/dL since 09/21. Completed TOPS predialysis education through [facility] in the past. Expressed interested in in-centre HD if needed. Remains on oral NaHCO3 rep lacement for NAGMA. (3) Nephrotic range proteinuria: Remains hypoalbuminemic. Improvement in UPCR noted. Volume status acceptable. Encourage oral protein intake. Losartan held due to kidney dysfunction. (4) Acute glomerulonephritis: Kidney function stable. Serologic evaluation negative. Biopsy unlikely to change advisor at this time. (5) Anemia: Epogen 78029 units SQ x 1 on 09/18/2020. Iron profile acceptable. (6) Hypertension: Fluctuating but overall acceptable. Volume status reasonable. IVF discontinued. Tolerating a combination of diltiazem, hydralazine, and metoprolol reasonably well. Clonidine avoided due to her orthostatic episode several days ago. Admission and Anticipated Discharge Date Admission Date: September 06, 2020 Subjective Dyspnea improving. Overall Mckenna feels well this AM. No acute events overnight. No lightheadedness or dizziness. Appetite is good. Review of Systems Review of Systems: All systems reviewed & are unremarkable except as noted in HPI & below Physical Exam Constitutional: well developed, + thin and + frail appearing; no acute distress Eyes: + anicteric sclerae; no corneal abnormality ENMT: Mouth: + dry oral mucous membranes; no oral mucosal abnormality Neck: normal visual inspection and trachea midline Respiratory: normal respiratory effort Auscultation: lungs clear to auscultation bilaterally Cardiovascular: Rate/Rhythm: regular rate Heart Sounds: normal S1, normal S2 and + murmur Vessels: no JVD and no renal bruit Extremities: normal capillary refill and + edema Musculoskeletal: Extremities: no cyanosis and no clubbing Skin: + turgor decreased; no lesions Neurologic: Motor/Sensory: no tremor and no asterixis Psychiatric: Orientation: alert and oriented x 3 Results & Data ([facility]) Vital Signs (Past 12 Hours) Vital Signs Temp Pulse Resp BP Pulse Ox 09/25/20 07:25 36.4 C L 71 20 175/80 H 92 Laboratory Results Laboratory Results - last 24 hr 09/24/20 09/24/20 09/24/20 12:19 17:21 20:35 WBC RBC Hgb Hct MCV MCH MCHC RDW Std Deviation RDW Coeff of Radha Plt Count MPV Absolute Nucleated RBC Nucleated RBC % (auto) PT INR Sodium Potassium Chloride Carbon Dioxide Anion Gap BUN Creatinine Est Cr Clr Drug Dosing Est GFR ( Amer) Est GFR (Non-Af Amer) BUN/Creatinine Ratio Glucose POC Glucose 141 H 209 H 162 H Calcium 09/25/20 09/25/20 09/25/20 06:45 06:45 06:45 WBC 17.89 H RBC 3.62 L Hgb 9.6 L Hct 30.5 L MCV 84.3 MCH 26.5 MCHC 31.5 L RDW Std Deviation 54.8 H RDW Coeff of Radha 19.8 H Plt Count 201 MPV 10.9 H Absolute Nucleated RBC 0.03 H Nucleated RBC % (auto) 0.2 PT 30.1 H INR 3.3 H Sodium 144 Potassium 4.8 Chloride 113 H Carbon Dioxide 24 Anion Gap 8.0 BUN 111 H Creatinine 3.71 H Est Cr Clr Drug Dosing 10.9 Est GFR ( Amer) 12.7 Est GFR (Non-Af Amer) 11.0 BUN/Creatinine Ratio 29.9 H Glucose 110 H POC Glucose Calcium 7.9 L 09/25/20 08:05 WBC RBC Hgb Hct MCV MCH MCHC RDW Std Deviation RDW Coeff of Radha Plt Count MPV Absolute Nucleated RBC Nucleated RBC % (auto) PT INR Sodium Potassium Chloride Carbon Dioxide Anion Gap BUN Creatinine Est Cr Clr Drug Dosing Est GFR ( Amer) Est GFR (Non-Af Amer) BUN/Creatinine Ratio Glucose POC Glucose 102 H Calcium PG Care Time/CCT Total # of Minutes Spent Total Time Spent with Patient: Total time spent is greater than 50% in coordination of care (as documented) at patient's floor/unit and/or counseling patient: Coding Level of Care Code 57677 Subseq Hosp Care Lvl 3 Diagnoses FAITH (acute kidney injury) N17.9 Stage 3b chronic kidney disease N18.32 Nephrotic range proteinuria R80.9 Acute glomerulonephritis N00.9 Anemia D64.9 Hypertension I10 Hypertension type: unspecified (1) Hypertension Hypertension type: unspecified Qualified Code(s): I10 - Essential (primary) hypertension
--- NOTE | 2020-09-25 13:15 | Hospitalist Progress Note ---
Date of Service September 25, 2020 Assessment & Plan (1) Acute glomerulonephritis: Hx of IgA nephropathy. Was on mycophenolate mofetil in the past, but stopped at least 1 year ago. - Now with acute glomerulonephritis-treated with IV Solu-Medrol 1,000 mg once daily x3 days and then converted to prednisone 1 mg/KG daily on 09/09. - Per nephrology. - Presently on prednisone 60 mg PO daily and will need to be on this for 2 months, then slowly taper. Cr stable today at 4.1. - Restarted IV fluids today as she has had poor PO intake. - Started on dapsone per nephrology given long-term need for steroids. - On insulin given high blood sugars with steroids. - With some volume overload. Fluids stopped; started furosemide on 09/24. (2) Leukocytosis: WBCs up on 09/19. Possibly steroids. UA clear. Blood cultures drawn. Procalcitonin negative on 09/20. - CXR shows reticular opacities -> Mostly likely pulmonary edema. - Monitor (3) Hypertension: BP today is 125/65. - Continue diltiazem & metoprolol - Continue hydralazine (4) Chronic systolic CHF (congestive heart failure): With LVEF 45-50%, with septal wall motion abnormality as per cardiology records. With a history of aortic valve replacement and CABG at the time of her AVR. - Hold losartan - Continue metoprolol tartrate 25 mg p.o. twice daily - Lasix as above (5) COPD (chronic obstructive pulmonary disease): Appears to be at baseline. Patient follows with pulmonary. - Continue Breo and Spiriva - Albuterol PRN (6) H/O mechanical aortic valve replacement: - Resumed warfarin on 09/15. - Monitor INR -> INR all the up to 6.9 on 09/18. Held warfarin and gave small dose of vitamin K. - Resumed warfarin at 2 mg PO daily. INR is 3.3 today. Will lower to 1 mg 3 days/wk. 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 (8) Anemia: Mild and likely of chronic kidney disease. - Continue ferrous gluconate - Hgb lower on 09/25 at 9.6. (9) Biventricular cardiac pacemaker in situ: Noted. (10) Hypothyroidism: TSH normal at 2.52 in 11/2019. Repeat this admission was 0.42. - Continue home dose of levothyroxine (11) Atrial fibrillation: Noted in cardiology records. She is on Coumadin for anticoagulation. She is in paced rhythm on telemetry here. - Continue metoprolol (12) CAD (coronary artery disease): Chronic, status post CABG. - Continue metoprolol 25mg PO BID - Continue atorvastatin (changed from simvastatin for interaction with diltiazem) - She is not on aspirin. (13) Situational anxiety: Very anxious much of the time. - Ativan PO HS - Continue hydroxyzine PRN (14) DVT prophylaxis: Coumadin Admission and Anticipated Discharge Date Admission Date: September 06, 2020 Subjective Reports some constipation today. Reports no fevers/chills, chest pain, shortness of breath, abdominal pain, nausea, or vomiting. Physical Exam Constitutional: WD/WN, vitals as above no acute distress Eyes: EOM intact bilaterally; no conjunctival abnormality ENMT: external ear and nose normal, oropharynx normal Neck: trachea midline, no thyromegaly normal visual inspection Respiratory: normal respiratory effort, lungs clear to auscultation no respiratory distress Cardiovascular: RRR, no murmur, no edema Gastrointestinal (Abdomen): Inspection/Auscultation: abdomen normal to inspection; abdomen not distended Musculoskeletal: no cyanosis or clubbing, extremities motor strength 5/5 Skin: no rashes, warm and dry Neurologic: moves all extremities and awake Psychiatric: Orientation: alert, oriented to person and cooperative Affect: no anxious affect Results & Data Results & Data ([facility]) Vital Signs (Past 12 Hours) Vital Signs Temp Pulse Resp BP Pulse Ox 09/25/20 10:36 124/66 09/25/20 07:25 36.4 C L 71 20 175/80 H 92 PG Care Time/CCT Total # of Minutes Spent Total Time Spent with Patient: Total time spent is greater than 50% in coordination of care (as documented) at patient's floor/unit and/or counseling patient: Coding Level of Care Code 77732 Subseq Hosp Care Lvl 3 Diagnoses Acute glomerulonephritis N00.9 Leukocytosis D72.829 Hypertension I10 Hypertension type: unspecified Chronic systolic CHF (congestive heart failure) I50.22 COPD (chronic obstructive pulmonary disease) J44.9 COPD type: unspecified COPD H/O mechanical aortic valve replacement Z95.2 Congenital hypoplasia of lung Q33.6 Anemia D64.9 Biventricular cardiac pacemaker in situ Z95.0 Hypothyroidism E03.9 Atrial fibrillation I48.91 CAD (coronary artery disease) I25.10 Coronary Disease-Associated Artery/Lesion type: [place] artery [place] vs. transplanted heart: [place] heart Associated angina: without angina Situational anxiety F41.8 DVT prophylaxis Z29.9 (1) Hypertension Hypertension type: unspecified Qualified Code(s): I10 - Essential (primary) hypertension (2) COPD (chronic obstructive pulmonary disease) COPD type: unspecified COPD Qualified Code(s): J44.9 - Chronic obstructive pulmonary disease, unspecified (3) CAD (coronary artery disease) Coronary Disease-Associated Artery/Lesion type: [place] artery [place] vs. transplanted heart: [place] heart Associated angina: without angina Qualified Code(s): I25.10 - Atherosclerotic heart disease of [place] coronary artery without angina pectoris
[2020-09-25] MEDS: WARFARIN SOD 1 MG TAB PO SCH (16:39)
[2020-09-25] MEDS: LORazepam 0.5 MG TAB PO SCH (20:28)
[2020-09-26] MEDS: hydrOXYzine HCl 25 MG TAB PO PRN ×2 (01:33→21:03)
[2020-09-26] MEDS: LEVOTHYROXINE SODIUM 75 MCG TABLET PO SCH (05:34)
[2020-09-26 06:39] LABS: Hematocrit (blood only) 28.8 % (37-47); Mean Corpuscular Hemoglobin 26.8 pg (25-34); Mean Corpuscular Hgb Conc 31.3 g/dL (32-36); Mean Corpuscular Volume 85.7 fL (80-100); Mean Platelet Volume 10.9 fL (7.4-10.4); Nucleated RBC # (auto) 0.05 K/uL (0-0); Nucleated RBC % (auto) 0.3 %; Platelet Count 189 K/uL (130-400); RDW Coefficient of Variation 20.2 % (11.5-14.5); RDW Standard Deviation 58.1 fL (36.4-46.3); Red Blood Count 3.36 M/uL (4.2-5.4); White Blood Count 15.27 K/uL (4.8-10.8)
[2020-09-26 06:53] LABS: INR 3.3 (0.9-1.1); Prothrombin Time 30.2 Seconds (9.0-12.0)
[2020-09-26 07:16] LABS: BUN Creatinine Ratio 30.9 (10-20); Calcium 7.8 mg/dl (8.5-10.1); Creatinine Clr Calc Pharmacy 11.1 ml/min; Est GFR (African American) 13.1 ml/min; Est GFR (Non-African American) 11.3 ml/min; Magnesium 1.6 mg/dl (1.8-2.4); Phosphorus 4.9 mg/dl (2.5-4.9); Potassium 4.4 mmol/L (3.5-5.1)
[2020-09-26] MEDS: MAGNESIUM SULFATE / D5W 1 GM/100 ML BAG IV SCH ×2 (08:39→10:30)
[2020-09-26] MEDS: INSULIN ASPART 100 UNITS/ML 3 ML PEN SC SCH ×4 (08:41→21:08)
[2020-09-26] MEDS: FUROSEMIDE 40 MG in SYRINGE 0 ML IV SCH (08:42)
[2020-09-26] MEDS: METOPROLOL TARTRATE 50 MG TAB PO SCH ×2 (08:42→21:04)
[2020-09-26] MEDS: CALCIUM 600MG + VIT D 400 IU TAB PO SCH ×2 (08:42→21:04)
[2020-09-26] MEDS: UMECLIDINIUM BROMIDE 62.5MCG/BLISTER 7 PUFFS/INHALER INH SCH (08:43)
[2020-09-26] MEDS: FLUTICASONE/VILANTEROL 200/25MCG 14 PUFFS/INHALER INH SCH (08:43)
[2020-09-26] MEDS: hydrALAZINE HCL 25 MG TAB PO SCH ×3 (08:43→21:04)
[2020-09-26] MEDS: SODIUM BICARBONATE 650 MG TAB PO SCH ×2 (08:45→21:04)
[2020-09-26] MEDS: DAPSONE 25 MG TAB PO SCH (08:45)
[2020-09-26] MEDS: [UNRECOGNIZED DRUG - OTHER] PO SCH (08:46)
[2020-09-26] MEDS: FERROUS GLUCONATE 324 MG TAB PO SCH (08:46)
[2020-09-26] MEDS: predniSONE 20 MG TAB PO SCH (08:47)
[2020-09-26] MEDS: PANTOprazole 40 MG TAB PO SCH (08:47)
[2020-09-26] MEDS: ATORVASTATIN 40 MG TAB PO SCH (08:47)
[2020-09-26] MEDS: CALCITRIOL 0.25 MCG CAPSULE PO SCH (08:47)
[2020-09-26] MEDS: INSULIN HUMAN NPH SC SCH (08:51)
--- NOTE | 2020-09-26 10:30 | Nephrology Progress Note ---
Date of Service September 26, 2020 Assessment & Plan (1) FAITH (acute kidney injury): Kidney function relatively stable. Remains non-oliguric. Diuresed ~1 L in past 24 hours. At this time, I would continue furosemide 40 mg PO daily. Continue to encourage net negative fluid balance. Continue prednisone 60 mg daily. Will start weaning October. Dapsone and PPI for prophylaxis. Potential future indications for dialysis discussed in detail. No current emergent indication. (2) Stage 3b chronic kidney disease: Baseline creatinine had been ~1.8 mg/dL. Creatinine now ~3.7 mg/dL since 09/21. Completed i4.msS predialysis education through [facility] in the past. Expressed interested in in-centre HD if needed. Remains on oral NaHCO3 replacement for NAGMA. (3) Nephrotic range proteinuria: Remains hypoalbuminemic. Improvement in UPCR noted. Volume status acceptable. Encourage oral protein intake. Losartan held due to kidney dysfunction. (4) Acute glomerulonephritis: Kidney function stable. Serologic evaluation negative. Biopsy unlikely to treasury management sales consultant at this time. (5) Anemia: Epogen 84203 units SQ x 1 on 09/18/2020. Iron profile acceptable. (6) Hypertension: Fluctuating but overall acceptable. Volume status reasonable. IVF discontinued. Tolerating a combination of diltiazem, hydralazine, and metoprolol reasonably well. Clonidine avoided due to her orthostatic episode several days ago. Admission and Anticipated Discharge Date Admission Date: September 06, 2020 Subjective No acute events overnight. Continues to feel well. Bedside nurse reports notable dyspnea with minimal exertion. Mckenna states that her breathing has improved and she feels reasonably well. Review of Systems Review of Systems: All systems reviewed & are unremarkable except as noted in HPI & below Physical Exam Constitutional: well developed, + thin and + frail appearing; no acute distress Eyes: + anicteric sclerae; no corneal abnormality ENMT: Mouth: + dry oral mucous membranes; no oral mucosal abnormality Neck: normal visual inspection and trachea midline Respiratory: normal respiratory effort Auscultation: lungs clear to auscultation bilaterally Cardiovascular: Rate/Rhythm: regular rate Heart Sounds: normal S1, normal S2 and + murmur Vessels: no JVD and no renal bruit Extremities: normal capillary refill and + edema Musculoskeletal: Extremities: no cyanosis and no clubbing Skin: + turgor decreased; no lesions Neurologic: Motor/Sensory: no tremor and no asterixis Psychiatric: Orientation: alert and oriented x 3 Results & Data ([facility]) Vital Signs (Past 12 Hours) Vital Signs Temp Pulse Resp BP Pulse Ox 09/26/20 06:31 36.5 C 69 18 173/75 H 92 09/25/20 22:39 36.5 C 70 16 174/76 H 93 Laboratory Results Laboratory Results - last 24 hr 09/25/20 09/25/20 09/25/20 11:50 16:58 20:30 WBC RBC Hgb Hct MCV MCH MCHC RDW Std Deviation RDW Coeff of Radha Plt Count MPV Absolute Nucleated RBC Nucleated RBC % (auto) PT INR Sodium Potassium Chloride Carbon Dioxide Anion Gap BUN Creatinine Est Cr Clr Drug Dosing Est GFR ( Amer) Est GFR (Non-Af Amer) BUN/Creatinine Ratio Glucose POC Glucose 120 H 231 H 174 H Calcium Phosphorus Magnesium Albumin 09/26/20 09/26/20 09/26/20 05:58 05:58 05:58 WBC 15.27 H RBC 3.36 L Hgb 9.0 L Hct 28.8 L MCV 85.7 MCH 26.8 MCHC 31.3 L RDW Std Deviation 58.1 H RDW Coeff of Radha 20.2 H Plt Count 189 MPV 10.9 H Absolute Nucleated RBC 0.05 H Nucleated RBC % (auto) 0.3 PT 30.2 H INR 3.3 H Sodium 144 Potassium 4.4 Chloride 111 H Carbon Dioxide 26 Anion Gap 7.0 BUN 112 H Creatinine 3.61 H Est Cr Clr Drug Dosing 11.1 Est GFR ( Amer) 13.1 Est GFR (Non-Af Amer) 11.3 BUN/Creatinine Ratio 30.9 H Glucose 100 H POC Glucose Calcium 7.8 L Phosphorus 4.9 Magnesium 1.6 L Albumin 2.0 L 09/26/20 08:07 WBC RBC Hgb Hct MCV MCH MCHC RDW Std Deviation RDW Coeff of Radha Plt Count MPV Absolute Nucleated RBC Nucleated RBC % (auto) PT INR Sodium Potassium Chloride Carbon Dioxide Anion Gap BUN Creatinine Est Cr Clr Drug Dosing Est GFR ( Amer) Est GFR (Non-Af Amer) BUN/Creatinine Ratio Glucose POC Glucose 101 H Calcium Phosphorus Magnesium Albumin PG Care Time/CCT Total # of Minutes Spent Total Time Spent with Patient: Total time spent is greater than 50% in coordination of care (as documented) at patient's floor/unit and/or counseling patient: Coding Level of Care Code 33908 Subseq Hosp Care Lvl 3 Diagnoses FAITH (acute kidney injury) N17.9 Stage 3b chronic kidney disease N18.32 Nephrotic range proteinuria R80.9 Acute glomerulonephritis N00.9 Anemia D64.9 Hypertension I10 Hypertension type: unspecified (1) Hypertension Hypertension type: unspecified Qualified Code(s): I10 - Essential (primary) hypertension
--- NOTE | 2020-09-26 13:32 | Hospitalist Progress Note ---
Date of Service September 26, 2020 Assessment & Plan (1) Acute glomerulonephritis: Hx of IgA nephropathy. Was on mycophenolate mofetil in the past, but stopped at least 1 year ago. - Now with acute glomerulonephritis-treated with IV Solu-Medrol 1,000 mg once daily x3 days and then converted to prednisone 1 mg/KG daily on 09/09. - Per nephrology. - Started on dapsone per nephrology given long-term need for steroids. - On insulin given high blood sugars with steroids. - With some volume overload. Fluids stopped; started furosemide on 09/24. Improving today. Less shortness of breath. (2) Hypertension: BP today is 175/65. - Continue diltiazem & metoprolol - Continue hydralazine 25 mg PO TID (3) Chronic systolic CHF (congestive heart failure): With LVEF 45-50%, with septal wall motion abnormality as per cardiology records. With a history of aortic valve replacement and CABG at the time of her AVR. - Hold losartan - Continue metoprolol tartrate 25 mg p.o. twice daily - Lasix as above (4) COPD (chronic obstructive pulmonary disease): Appears to be at baseline. Patient follows with pulmonary. - Continue Breo and Spiriva - Albuterol PRN (5) H/O mechanical aortic valve replacement: - Resumed warfarin on 09/15. - Monitor INR -> INR all the up to 6.9 on 09/18. Held warfarin and gave small dose of vitamin K. - Resumed warfarin at 2 mg PO daily. INR is 3.3 today. Will lower to 1 mg 3 days/wk. 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 (7) Anemia: Mild and likely of chronic kidney disease. - Continue ferrous gluconate - Hgb lower on 09/26 at 9.0. (8) Biventricular cardiac pacemaker in situ: Noted. (9) Hypothyroidism: TSH normal at 2.52 in 11/2019. Repeat this admission was 0.42. - Continue home dose of levothyroxine (10) Atrial fibrillation: Noted in cardiology records. She is on Coumadin for anticoagulation. She is in paced rhythm on telemetry here. - Continue metoprolol (11) CAD (coronary artery disease): Chronic, status post CABG. - Continue metoprolol 25mg PO BID - Continue atorvastatin (changed from simvastatin for interaction with diltiazem) - She is not on aspirin. (12) Situational anxiety: Very anxious much of the time. - Ativan PO HS - Continue hydroxyzine PRN (13) DVT prophylaxis: Coumadin Admission and Anticipated Discharge Date Admission Date: September 06, 2020 Subjective Feeling better slowly. Appetite improving. Reports no fevers/chills, chest pain, shortness of breath, abdominal pain, nausea, or vomiting. Physical Exam Constitutional: WD/WN, vitals as above no acute distress Eyes: EOM intact bilaterally; no conjunctival abnormality ENMT: external ear and nose normal, oropharynx normal Neck: trachea midline, no thyromegaly normal visual inspection Respiratory: normal respiratory effort, lungs clear to auscultation no respiratory distress Cardiovascular: Rate/Rhythm: regular rate and regular rhythm Extremities: + edema (Mild) Gastrointestinal (Abdomen): Inspection/Auscultation: abdomen normal to inspection; abdomen not distended Musculoskeletal: no cyanosis or clubbing, extremities motor strength 5/5 Skin: no rashes, warm and dry Neurologic: moves all extremities and awake Psychiatric: Orientation: alert, oriented to person and cooperative Affect: no anxious affect Results & Data Results & Data ([facility]) Vital Signs (Past 12 Hours) Vital Signs Temp Pulse Resp BP Pulse Ox 09/26/20 06:31 36.5 C 69 18 173/75 H 92 PG Care Time/CCT Total # of Minutes Spent Total Time Spent with Patient: Total time spent is greater than 50% in coordination of care (as documented) at patient's floor/unit and/or counseling patient: Coding Level of Care Code 77858 Subseq Hosp Care Lvl 2 Diagnoses Acute glomerulonephritis N00.9 Hypertension I10 Hypertension type: unspecified Chronic systolic CHF (congestive heart failure) I50.22 COPD (chronic obstructive pulmonary disease) J44.9 COPD type: unspecified COPD H/O mechanical aortic valve replacement Z95.2 Congenital hypoplasia of lung Q33.6 Anemia D64.9 Biventricular cardiac pacemaker in situ Z95.0 Hypothyroidism E03.9 Atrial fibrillation I48.91 CAD (coronary artery disease) I25.10 Coronary Disease-Associated Artery/Lesion type: [place] artery [place] vs. transplanted heart: redding heart Associated angina: without angina Situational anxiety F41.8 DVT prophylaxis Z29.9 (1) Hypertension Hypertension type: unspecified Qualified Code(s): I10 - Essential (primary) hypertension (2) COPD (chronic obstructive pulmonary disease) COPD type: unspecified COPD Qualified Code(s): J44.9 - Chronic obstructive pulmonary disease, unspecified (3) CAD (coronary artery disease) Coronary Disease-Associated Artery/Lesion type: [place] artery [place] vs. transplanted heart: redding heart Associated angina: without angina Qualified Code(s): I25.10 - Atherosclerotic heart disease of redding coronary artery without angina pectoris
[2020-09-26] MEDS: WARFARIN SOD 1 MG TAB PO SCH (17:04)
[2020-09-26] MEDS: LORazepam 0.5 MG TAB PO SCH (21:03)
[2020-09-27] MEDS ORDERED: bisacodyL 5 MG TABEC PO ONE (02:00)
[2020-09-27] MEDS: LEVOTHYROXINE SODIUM 75 MCG TABLET PO SCH (05:38)
[2020-09-27 06:34] LABS: Hematocrit (blood only) 29.4 % (37-47); Hemoglobin 9.1 g/dL (12.0-16.0); Mean Corpuscular Hemoglobin 26.8 pg (25-34); Mean Corpuscular Volume 86.7 fL (80-100); Mean Platelet Volume 11.6 fL (7.4-10.4); Nucleated RBC # (auto) 0.07 K/uL (0-0); Nucleated RBC % (auto) 0.6 %; Platelet Count 173 K/uL (130-400); RDW Coefficient of Variation 20.4 % (11.5-14.5); RDW Standard Deviation 61.8 fL (36.4-46.3); Red Blood Count 3.39 M/uL (4.2-5.4); White Blood Count 12.13 K/uL (4.8-10.8)
[2020-09-27 06:36] LABS: INR 2.4 (0.9-1.1)
[2020-09-27 07:13] LABS: Albumin Level 2.1 gm/dl (3.4-5.0); BUN Creatinine Ratio 32.7 (10-20); Calcium 7.9 mg/dl (8.5-10.1); Creatinine Clr Calc Pharmacy 11.7 ml/min; Est GFR (Non-African American) 12.1 ml/min; Potassium 4.3 mmol/L (3.5-5.1)
[2020-09-27 07:15] LABS: Albumin Globulin Ratio 0.7 (0.9-2); Bilirubin,Total 0.6 mg/dl (0.2-1); Total Protein 5.1 gm/dl (6.4-8.2)
[2020-09-27] MEDS: INSULIN ASPART 100 UNITS/ML 3 ML PEN SC SCH ×2 (08:13→12:27)
[2020-09-27] MEDS: FUROSEMIDE 40 MG in SYRINGE 0 ML IV SCH (08:14)
[2020-09-27] MEDS: hydrALAZINE HCL 25 MG TAB PO SCH ×2 (08:14→14:15)
[2020-09-27] MEDS: SODIUM BICARBONATE 650 MG TAB PO SCH (08:14)
[2020-09-27] MEDS: METOPROLOL TARTRATE 50 MG TAB PO SCH (08:14)
[2020-09-27] MEDS: ATORVASTATIN 40 MG TAB PO SCH (08:15)
[2020-09-27] MEDS: FERROUS GLUCONATE 324 MG TAB PO SCH (08:15)
[2020-09-27] MEDS: [UNRECOGNIZED DRUG - OTHER] PO SCH (08:16)
[2020-09-27] MEDS: DAPSONE 25 MG TAB PO SCH (08:16)
[2020-09-27] MEDS: CALCIUM 600MG + VIT D 400 IU TAB PO SCH (08:16)
[2020-09-27] MEDS: UMECLIDINIUM BROMIDE 62.5MCG/BLISTER 7 PUFFS/INHALER INH SCH (08:16)
[2020-09-27] MEDS: PANTOprazole 40 MG TAB PO SCH (08:16)
[2020-09-27] MEDS: CALCITRIOL 0.25 MCG CAPSULE PO SCH (08:16)
[2020-09-27] MEDS: FLUTICASONE/VILANTEROL 200/25MCG 14 PUFFS/INHALER INH SCH (08:17)
[2020-09-27] MEDS: predniSONE 20 MG TAB PO SCH (08:17)
[2020-09-27] MEDS: INSULIN HUMAN NPH SC SCH (08:21)
[2020-09-27] MEDS ORDERED: FUROSEMIDE 40 MG TAB PO SCH (09:00)
[2020-09-27] MEDS ORDERED: EPOETIN ALFA 40,000 UNITS/ML VIAL SQ ONE (09:15)
--- NOTE | 2020-09-27 11:05 | Nephrology Progress Note ---
Date of Service September 27, 2020 Assessment & Plan (1) FAITH (acute kidney injury): Kidney function relatively stable. Urine output remains adequate. Metabolic profile otherwise acceptable. Denies significant uremic symptoms. At this time, I would continue furosemide 40 mg PO daily. Continue to encourage net negative fluid balance. Discharge with close outpatient follow up should be acceptable at this time from a nephrology standpoint. I discussed the plan of care with Dr. Gregory this AM. Continue prednisone 60 mg daily. Follow up with me in the nephrology clinic next Friday in [place]. Dapsone and PPI for prophylaxis. Potential future indications for dialysis discussed in detail. No current emergent indication. Please have a renal profile and CBC checked on Friday as outpatient. (2) Stage 3b chronic kidney disease: Baseline creatinine had been ~1.8 mg/dL. Creatinine now ~3.7 mg/dL since 09/21. Completed TOPS predialysis education through [facility] in the past. Expressed interested in in-centre HD if needed. Remains on oral NaHCO3 replacement for NAGMA. (3) Nephrotic range proteinuria: Remains hypoalbuminemic. Improvement in UPCR noted. Volume status acceptable. Encourage oral protein intake. Losartan held due to kidney dysfunction. (4) Acute glomerulonephritis: Kidney function stable. Serologic evaluation negative. Biopsy unlikely to exchange consultant at this time. (5) Anemia: Epogen 93428 units SQ x 1 on 09/18/2020. Iron profile acceptable. Will provide an additional dose of Epogen today. (6) Hypertension: Fluctuating but overall acceptable. Volume status reasonable. Remains in an appropriately negative daily fluid balance with furosemide. Clonidine avoided due to her orthostatic episode several days ago. Admission and Anticipated Discharge Date Admission Date: September 06, 2020 Subjective No acute events overnight. Mckenna feels well this morning and is hopeful to go home. Appetite is good. Breathing has improved. She continues to have MATOS but notes that her functional status is improving. Review of Systems Review of Systems: All systems reviewed & are unremarkable except as noted in HPI & below Physical Exam Constitutional: well developed, + thin and + frail appearing; no acute distress Eyes: + anicteric sclerae; no corneal abnormality ENMT: Mouth: + dry oral mucous membranes; no oral mucosal abnormality Neck: normal visual inspection and trachea midline Respiratory: normal respiratory effort Auscultation: lungs clear to auscultation bilaterally Cardiovascular: Rate/Rhythm: regular rate Heart Sounds: normal S1, normal S2 and + murmur Vessels: no JVD Extremities: normal capillary refill; no edema Musculoskeletal: Extremities: no cyanosis and no clubbing Skin: + turgor decreased; no lesions Neurologic: Motor/Sensory: no tremor and no asterixis Psychiatric: Orientation: alert and oriented x 3 Results & Data ([facility]) Vital Signs (Past 12 Hours) Vital Signs Temp Pulse Resp BP Pulse Ox 09/27/20 07:21 36.5 C 70 16 173/76 H 91 Laboratory Results Laboratory Results - last 24 hr 09/26/20 09/26/20 09/26/20 12:01 17:09 20:53 WBC RBC Hgb Hct MCV MCH MCHC RDW Std Deviation RDW Coeff of Radha Plt Count MPV Absolute Nucleated RBC Nucleated RBC % (auto) PT INR Sodium Potassium Chloride Carbon Dioxide Anion Gap BUN Creatinine Est Cr Clr Drug Dosing Est GFR ( Amer) Est GFR (Non-Af Amer) BUN/Creatinine Ratio Glucose POC Glucose 129 H 255 H 205 H Calcium Magnesium Total Bilirubin AST ALT Alkaline Phosphatase Total Protein Albumin Globulin Albumin/Globulin Ratio 09/27/20 09/27/20 09/27/20 05:50 05:50 05:50 WBC 12.13 H RBC 3.39 L Hgb 9.1 L Hct 29.4 L MCV 86.7 MCH 26.8 MCHC 31.0 L RDW Std Deviation 61.8 H RDW Coeff of Radha 20.4 H Plt Count 173 MPV 11.6 H Absolute Nucleated RBC 0.07 H Nucleated RBC % (auto) 0.6 PT 23.0 H INR 2.4 H Sodium 140 Potassium 4.3 Chloride 108 H Carbon Dioxide 26 Anion Gap 6.0 BUN 112 H Creatinine 3.43 H Est Cr Clr Drug Dosing 11.7 Est GFR ( Amer) 14.0 Est GFR (Non-Af Amer) 12.1 BUN/Creatinine Ratio 32.7 H Glucose 108 H POC Glucose Calcium 7.9 L Magnesium 2.0 Total Bilirubin 0.6 AST 20 ALT 25 Alkaline Phosphatase 60 Total Protein 5.1 L Albumin 2.1 L Globulin 3.0 Albumin/Globulin Ratio 0.7 L 09/27/20 08:10 WBC RBC Hgb Hct MCV MCH MCHC RDW Std Deviation RDW Coeff of Radha Plt Count MPV Absolute Nucleated RBC Nucleated RBC % (auto) PT INR Sodium Potassium Chloride Carbon Dioxide Anion Gap BUN Creatinine Est Cr Clr Drug Dosing Est GFR ( Amer) Est GFR (Non-Af Amer) BUN/Creatinine Ratio Glucose POC Glucose 113 H Calcium Magnesium Total Bilirubin AST ALT Alkaline Phosphatase Total Protein Albumin Globulin Albumin/Globulin Ratio PG Care Time/CCT Total # of Minutes Spent Total Time Spent with Patient: Total time spent is greater than 50% in coordination of care (as documented) at patient's floor/unit and/or counseling patient: Coding Level of Care Code 24574 Subseq Hosp Care Lvl 3 Diagnoses FAITH (acute kidney injury) N17.9 Stage 3b chronic kidney disease N18.32 Nephrotic range proteinuria R80.9 Acute glomerulonephritis N00.9 Anemia D64.9 Hypertension I10 Hypertension type: unspecified (1) Hypertension Hypertension type: unspecified Qualified Code(s): I10 - Essential (primary) hypertension
[2020-09-27] MEDS ORDERED: WARFARIN SOD 1 MG TAB PO SCH (16:00)
--- NOTE | 2020-09-27 16:39 | Discharge Summary ---
Date of Service September 27, 2020 Admission HPI Per Admitting Provider Mckenna Wells is a pleasant 79yo female with history of CAD s/p CABG x 3V, COPD, HTN, CHF as well as CKD. 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 Patient was referred to [facility] due to abnormal labs. She has no complaints at this time with exception of chronic, stable MATOS as well as right shoulder pain. She also complains of poor sleep, worsening anxiety and occasional nausea after eating. Otherwise, no additional complaints. She is urinating without difficulty- states that she urinates a lot at night, occasionally with difficulty starting urinary stream. She denies dysuria. Has foamy urine. No blood. She has received her Covid-19 vaccinations. Principal Diagnosis IgA glomerulonephritis Discharge Exam Constitutional WD/WN, vitals as above no acute distress Eyes EOM intact bilaterally; no conjunctival abnormality ENMT external ear and nose normal, oropharynx normal Neck trachea midline, no thyromegaly normal visual inspection Respiratory normal respiratory effort, lungs clear to auscultation no respiratory distress Cardiovascular RRR, no murmur, no edema Rate/Rhythm: regular rate and regular rhythm Extremities: + edema (Mild) Gastrointestinal (Abdomen) Inspection/Auscultation: abdomen normal to inspection; abdomen not distended Musculoskeletal no cyanosis or clubbing, extremities motor strength 5/5 Skin no rashes, warm and dry Neurologic moves all extremities and awake Psychiatric Orientation: alert, oriented to person and cooperative Affect: no anxious affect Discharge Data Allergies Allergy/AdvReac Type Severity Reaction Status Date / Time Sulfa (Sulfonamide Allergy Unknown Unknown Verified 06/20/20 12:59 Antibiotics) rxn to Bactrim trimethoprim Allergy Unknown Unknown Verified 06/20/20 12:59 rxn to Bactrim Consultations 09/06/20 19:39 Consult Nephrology Routine Ordered Studies 09/06/20 19:53 US renal/blad retro comp Routine 09/08/20 10:30 US duplex renal artery Routine Diabetes Follow up Diabetes Follow-up Needed for Newly Diagnosed Diabetes Hospital Course (1) Acute glomerulonephritis: Hx of IgA nephropathy. Was on mycophenolate mofetil in the past, but stopped at least 1 year ago. - Now with acute glomerulonephritis-treated with IV Solu-Medrol 1,000 mg once daily x3 days and then converted to prednisone 1 mg/KG daily on 09/09. - Per nephrology. - Started on dapsone per nephrology given long-term need for steroids. - On insulin given high blood sugars with steroids. - Cr slowly improving. Discharged on prednisone 60 mg PO daily and dapsone. Will follow up with Dr. Schaffer next Friday. - Discharged on Lasix 40 mg PO daily to continue gradual diuresis. BMP per nephrology next Friday. (2) Hypertension: BP today is 175/65. - Continue diltiazem & metoprolol - Continue hydralazine 25 mg PO TID (3) Chronic systolic CHF (congestive heart failure): With LVEF 45-50%, with septal wall motion abnormality as per cardiology records. With a history of aortic valve replacement and CABG at the time of her AVR. - Hold losartan - Continue metoprolol tartrate 25 mg p.o. twice daily - Lasix as above (4) COPD (chronic obstructive pulmonary disease): Appears to be at baseline. Patient follows with pulmonary. - Continue Breo and Spiriva - Albuterol PRN (5) H/O mechanical aortic valve replacement: - Resumed warfarin on 09/15. - Monitor INR -> INR all the up to 6.9 on 09/18. Held warfarin and gave small dose of vitamin K. - Resumed warfarin at 2 mg PO daily. INR was 2.4 on discharge. - Given prednisone and lower PO intake, warfarin need was lower. Discharged on warfarin 2 mg PO 4x/wk and 1 mg PO 3x/wk. Will need INR check early next week as well. 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 (7) Anemia: Mild and likely of chronic kidney disease. - Continue ferrous gluconate - Hgb stable on 09/27 at 9.1. (8) Biventricular cardiac pacemaker in situ: Noted. (9) Hypothyroidism: TSH normal at 2.52 in 11/2019. Repeat this admission was 0.42. - Continue home dose of levothyroxine (10) Atrial fibrillation: Noted in cardiology records. She is on Coumadin for anticoagulation. She is in paced rhythm on telemetry here. - Continue metoprolol (11) CAD (coronary artery disease): Chronic, status post CABG. - Continue metoprolol 25mg PO BID - Continue atorvastatin (changed from simvastatin for interaction with dilt iazem) - She is not on aspirin. (12) Situational anxiety: Very anxious much of the time. - Ativan PO HS - Continue hydroxyzine PRN (13) DVT prophylaxis: Coumadin I certify that this patient is under my care and that I, or a physicians certified registered dental assistant working with me, had a face to-face encounter that meets the home health [id number] encounter requirements with this patient. The encounter with the patient was in whole, or in part, for the following medical condition, which is the primary reason for home health care (list medical condition): detention I certify that, based on my findings, the following services are medically necessary home health services: My clinical findings support the need for the above services because: Blood Sugar Monitoring Medication Compliance and Monitoring Effective of New Medications Medication Compliance Oxygen Safety and Management Skilled Nsg Assessment Skilled Nsg Instruction New Medications Skilled Nsg Assess Pt Illness, Disease and Sx Monitoring Vital Signs Further, I certify that my clinical findings support that this patient is homebound (i.e. absences from home require considerable and taxing effort and are for medical reasons or anglican services or infrequently or of short duration when for other reasons) because: Poor Endurance; SOB Minimal Exertion Certification for Home Health Services: Based on the above findings, I certify that this patient is confined to the home and needs intermittent fdc care, physical therapy and/or speech therapy or continues to need occupational therapy. The patient is under my care, and I have initiated the establishment of the plan of care. This patient will be followed by a physician who will periodically review the plan of care. Total Time Total Time Spent Total Time Spent (In Minutes): 35 Discharge Plan Discharge Items Patient Disposition: Home - Home Health Services Reason For Visit: WORSENING RENAL FUNCTION Discharge Diagnosis: Kidney trouble due to the autoimmune disease Activity: Resume your previous activity Non-emergency contact: Primary Care Provider and Manager Play Call non-emergency contact if: your symptoms worsen Follow-up/Referrals: Angel Schaffer DO [Physician] - 10/03/20 9:40 am Gelacio Jasso DO [Primary Care Provider] - (Please call your primary care provider and schedule a follow up appt. The office number is [phone]. Our staff had made several attempts this afternoon with no sucess in reaching the office staff.) Diet: Carb Consistent or DM2 and Dialysis Renal Addtl Attending Provider Instructions: Ms. Wells, You were admitted to the hospital for worsening kidney function that was because of an autoimmune issue. We have had you on steroids during your time here and your kidneys are gradually improving. Please take the steroids every day. This will help keep your body from further hurting your kidneys. Dr. Schaffer will work with you to taper this over the next months. Because steroids can make your blood sugar run higher, we are sending you out on a once-a-day insulin which will help keep it in check. Please take the insulin (NPH) at the same time you take your steroid. We have made a few medication changes: 1) Your warfarin is lower because the steroids cause it to be more effective. T jd one tablet (1 mg) on Friday, Friday, and Friday. Take 2 tablets (2 mg) every other day. 2) Stop simvastatin and take the atorvastatin instead. 3) Stop losartan as it can worsen your kidney function. Instead use the hydralazine to help keep your blood pressure in check. Pending Studies at Discharge: No Stand-Alone Forms: [facility], Smoking Cessation Medications and DC Order Prescriptions: New dapsone 100 mg tablet 100 mg PO DAILY Qty: 30 RF: 0 warfarin [Jantoven] 1 mg Tablet 1 mg PO DAILY Qty: 60 RF: 0 atorvastatin 40 mg Tablet 40 mg PO QAM Qty: 30 RF: 0 hydralazine 25 mg Tablet 25 mg PO TID Qty: 90 RF: 0 sodium bicarbonate 650 mg Tablet 650 mg PO BID Qty: 60 RF: 0 pantoprazole 40 mg Tablet,Delayed Release (Dr/Ec) 40 mg PO QAM Qty: 30 RF: 0 Novolin N NPH U-100 Insulin 100 unit/mL Suspension 10 unit SC QAM Qty: 10 RF: 0 prednisone 20 mg Tablet 60 mg PO DAILY Qty: 90 RF: 0 calcitriol 0.25 mcg Capsule 0.25 mcg PO QAM Qty: 30 RF: 0 furosemide 40 mg tablet 40 mg PO DAILY Qty: 30 RF: 0 Continued albuterol sulfate 2.5 mg /3 mL (0.083 %) solution for nebulization See Rx Instructions inhalation Q4H PRN (Reason: shortness of breath or wheezing) Qty: 360 RF: 3 albuterol sulfate [Ventolin HFA] 90 mcg/actuation HFA aerosol inhaler 2 puff INH QID PRN (Reason: shortness of breath or wheezing) Qty: 18 RF: 5 fluticasone furoate-vilanterol 200-25 mcg/dose blister with device 1 puffs inhalation DAILY Qty: 1 RF: 0 diltiazem HCl 360 mg capsule,extended release 24hr 360 mg PO DAILY RF: 0 levothyroxine 75 mcg tablet 75 mcg PO DAILY Qty: 90 RF: 0 metoprolol tartrate 50 mg tablet 25 mg PO BID RF: 0 nitroglycerin 0.4 mg tablet, sublingual 0.4 mg SL Q5M PRNRF: 0 tiotropium bromide [Spiriva Respimat] 2.5 mcg/actuation mist RF: 0 fluticasone furoate-vilanterol [Breo Ellipta] 100-25 mcg/dose blister with device RF: 0 tiotropium bromide [Spiriva Respimat] 2.5 mcg/actuation mist RF: 0 Changed ferrous sulfate 325 mg (65 mg iron) tablet 325 mg PO DAILY Qty: 0 RF: 0 Discontinued losartan 50 mg tablet 50 mg PO BID Qty: 180 RF: 3 warfarin 4 mg tablet 5 mg PO DAILY RF: 0 simvastatin 20 mg tablet 10 mg PO DAILY RF: 0 warfarin 5 mg 5 mg PO DAILY RF: 0 Discharge Orders: Discharge Order (Routine); Ordered 09/27/20 Ordered By: Quinton Carlson/Other Patient Handouts: A1C Admission Data Admit Date/Time: 09/06/20 18:30 Attending Provider: Quinton Gregory Admit Provider: Jenise Duran Primary Care Provider: Gelacio Jasso Other Providers: Angel Schaffer ; Benji,Home Health Other Interventions: Discharge Summary Assessment (RN) Last Done: 09/27/20 12:59 Coding Level of Care Code D/C Day Management >30 mins Diagnoses Acute glomerulonephritis N00.9 Hypertension I10 Hypertension type: unspecified Chronic systolic CHF (congestive heart failure) I50.22 COPD (chronic obstructive pulmonary disease) J44.9 COPD type: unspecified COPD H/O mechanical aortic valve replacement Z95.2 Congenital hypoplasia of lung Q33.6 Anemia D64.9 Biventricular cardiac pacemaker in situ Z95.0 Hypothyroidism E03.9 Atrial fibrillation I48.91 CAD (coronary artery disease) I25.10 Coronary Disease-Associated Artery/Lesion type: [place] artery [place] vs. transplanted heart: [place] heart Associated angina: without angina Situational anxiety F41.8 DVT prophylaxis Z29.9
[2020-09-28] MEDS ORDERED: WARFARIN SOD 2 MG TAB PO SCH (16:00)
== END 2020-09-27 15:45 | disposition home health service (06) | DRG 682 ==
LOC: 2W 18:30 → SUATTDRO 18:30 → 3N 09-19 01:56
DX: D63.1 Anemia in chronic kidney disease; Z79.01 Long term (current) use of anticoagulants; I12.9 Hypertensive chronic kidney disease with stage 1 through stage 4 chronic kidney disease, or unspecified chronic kidney disease; Z82.49 Family history of ischemic heart disease and other diseases of the circulatory system; R19.7 Diarrhea, unspecified; M79.605 Pain in left leg; F41.8 Other specified anxiety disorders; D72.829 Elevated white blood cell count, unspecified; E87.5 Hyperkalemia; N18.32 Chronic kidney disease, stage 3b; J44.9 Chronic obstructive pulmonary disease, unspecified; N17.9 Acute kidney failure, unspecified; Q33.6 Congenital hypoplasia and dysplasia of lung; R80.9 Proteinuria, unspecified; Q61.02 Congenital multiple renal cysts; I25.10 Atherosclerotic heart disease of native coronary artery without angina pectoris; Z95.2 Presence of prosthetic heart valve; I50.22 Chronic systolic (congestive) heart failure; M79.604 Pain in right leg

== ENCOUNTER 2020-11-12 20:49 | Inpatient (IN) ==
[2020-11-12 21:33] LABS: Basophils # (auto) 0.01 K/uL (0-0.2); Basophils % (auto) 0.1 %; Hematocrit (blood only) 28.2 % (37-47); Hemoglobin 8.5 g/dL (12.0-16.0); Immature Granulocytes # (auto) 0.02 K/uL (0.00-0.02); Immature Granulocytes % (auto) 0.3 %; Lymphocytes # (auto) 1.48 K/uL (1.2-3.4); Lymphocytes % (auto) 21.3 %; Mean Corpuscular Hemoglobin 29.2 pg (25-34); Mean Corpuscular Hgb Conc 30.1 g/dL (32-36); Mean Corpuscular Volume 96.9 fL (80-100); Monocytes # (auto) 0.63 K/uL (0.11-0.59); Monocytes % (auto) 9.1 %; Neutrophils # (auto) 4.82 K/uL (1.4-6.5); Neutrophils % (auto) 69.2 %; Platelet Count 180 K/uL (130-400); RDW Coefficient of Variation 17.5 % (11.5-14.5); RDW Standard Deviation 62.1 fL (36.4-46.3); Red Blood Count 2.91 M/uL (4.2-5.4); White Blood Count 6.96 K/uL (4.8-10.8)
[2020-11-12 21:50] LABS: Albumin Level 2.2 gm/dl (3.4-5.0); BUN Creatinine Ratio 28.4 (10-20); Calcium 7.7 mg/dl (8.5-10.1); Creatinine Clr Calc Pharmacy 11.9 ml/min; Est GFR (African American) 13.8 ml/min; Est GFR (Non-African American) 11.9 ml/min; Magnesium 1.7 mg/dl (1.8-2.4); Potassium 4.5 mmol/L (3.5-5.1)
[2020-11-12 21:51] LABS: INR 5.2 (0.9-1.1); Partial Thromboplastin Ratio 1.7; Partial Thromboplastin Time 44.4 Seconds (21.0-31.0); Prothrombin Time 46.1 Seconds (9.0-12.0)
--- NOTE | 2020-11-12 21:52 | Emergency Department Note ---
Impression & Plan Acute renal failure, Chest pain, Hypoxia, Anemia ED Provider Note NAME: LIEN WORKMAN AGE: 80 SEX: F : 1940 ARRIVES VIA: Ambulance INFORMANT: Patient, ED PROVIDER(S): Christ Thomas DO CHIEF COMPLAINT: Chest pain HPI: The patient is an 80-year-old female who presented to the emergency department via ambulance. The patient presented to [facility] emergency department today with chest pain. She was found to be in worsening renal failure. She was being transferred to our facility for inpatient dialysis. On route she developed chest pain and was diverted to the emergency department because of a "change in her status". The patient did receive aspirin and nitroglycerin prior to arrival. Reportedly her oxygen was low but on supplemental oxygen it is improved. The patient herself states she has been experiencing edema over her entire body over the course of the last few days. She was found to be in need of dialysis. ROS: See above HPI for pertinent positives & negatives. A total of 10 systems reviewed and were otherwise negative. PAST MEDICAL HISTORY: See Below PAST SURGICAL HISTORY: See Below FAMILY HISTORY: See Below SOCIAL HISTORY: See Below HOME MEDICATIONS: See Below ALLERGIES: See Below VITALS: See Below PHYSICAL EXAMINATION: GENERAL: The patient is awake and alert. EYES: The conjunctivae are clear. The pupils are round and reactive. EARS, NOSE, MOUTH AND THROAT: The nose is without any evidence of any deformity. NECK: The neck is nontender and supple. RESPIRATORY: Shallow respirations were noted. There were rales noted throughout. CARDIOVASCULAR: Regular rate and rhythm noted there no murmurs rubs or gallops normal S1 normal S2. GASTROINTESTINAL: The abdomen is soft. Abdomen is nontender. MUSCULOSKELETAL/EXTREMITIES: There is no evidence of gross deformity full range of motion is noted in the hips and shoulders. SKIN: Extensive edema was noted over both upper and lower extremities. Skin was warm and dry. NEUROLOGIC: Patient is awake alert and oriented x3. MEDICAL DECISION MAKING: The patient is an 80-year-old female who presented to the emergency department for an evaluation of chest pain. The patient was seen at [facility] emergency department earlier and was transferred to our facility because of possible need of dialysis. On route the patient developed chest pain again and was diverted to our emergency department. I discussed the patient's laboratory and radiographic studies with her. Her work-up seems to be similar to what was found at [facility]. Ultimately the patient was discussed again with the [facility] who initially accepted the patient. The patient was to be taken to her room for further evaluation. Triage Nursing notes reviewed. Prior medical records reviewed Vital Signs: reviewed and remarkable for hypertension. Differential diagnosis: Cardiac ischemia, aortic dissection, pulmonary embolism, pneumothorax, pneumonia, pericarditis, myocarditis, esophageal rupture, GERD, cholecystitis, pancreatitis, musculoskeletal, as well as other pathologies. ER treatment provided: See below Diagnostics interpreted by me: ECG: EKG was obtained in the emergency department. My interpretation is ventricular paced rhythm at 79 bpm. There is no ectopy. There is no acute ST segment abnormalities noted. This was compared to a tracing from September 072020. No significant changes were noted. Cardiac Monitoring: An order was placed for continuous cardiac monitoring. The monitor shows a rate of 70 bpm with paced rhythm. Laboratory studies: As stated above and show below. Imaging studies: See below Consultation(s): I discussed this case with Dr. Osman [facility] They have agreed to evaluate the patient in the emergency department for further management and disposition. Past Med/Surg History Medical History Acute on chronic clinical systolic heart failure Anemia Atrial fibrillation Biventricular cardiac pacemaker in situ CAD (coronary artery disease) Chronic systolic CHF (congestive heart failure) COPD (chronic obstructive pulmonary disease) Hypertension Hypothyroidism IgA nephropathy Ischemic cardiomyopathy Leukocytoclastic vasculitis Pulmonary hypertension Stage 3b chronic kidney disease Stage III chronic kidney disease Surgical History History of aortic valve repair History of coronary artery bypass graft Family History Other Heart disease Social History Smoking Status: Never smoker Second Hand Exposure: No; Do You Dip or Chew Tobacco: No; Tobacco Cessation Education Requested by Patient: No Hx Alcohol Use: No Hx Substance Use: No Preferred Language: Maltese Communication Ability: Effective Quilter Fixer Required: No Beliefs That Will Affect Care: None marital status: Current Living Situation: Spouse current occupational status: retired How many Children do You have: 2 Other Information That Helps Us Care for You: No Feels Safe at Home: Yes Safety Concerns: Feels Safe At This Time Assistive Devices: Glasses Allergies Allergies Allergy/AdvReac Type Severity Reaction Status Date / Time Sulfa (Sulfonamide Allergy Unknown Unknown Verified 11/12/20 21:03 Antibiotics) rxn to Bactrim trimethoprim Allergy Unknown Unknown Verified 11/12/20 21:03 rxn to Bactrim Home Meds Home Medications Medication Instructions Recorded Confirmed diltiazem HCl 360 mg 360 mg PO DAILY cap 11/27/18 11/12/20 capsule,extended release 24 hr levothyroxine 75 mcg tablet 75 mcg PO DAILY #90 tab 11/27/18 11/12/20 metoprolol tartrate 50 mg tablet 25 mg PO BID tab 11/27/18 11/12/20 nitroglycerin 0.4 mg sublingual 0.4 mg SL Q5M PRN tab 11/27/18 11/12/20 tablet warfarin 1 mg tablet (Jantoven) 1 mg PO UD 11/12/20 11/12/20 Previous Rx's Medication Instructions Recorded albuterol sulfate See Rx Instructions INHALATION Q4H 04/26/19 PRN #360 vial albuterol sulfate 90 mcg/actuation 2 puff INH QID PRN #18 gm 04/26/19 aerosol inhaler (Ventolin HFA) ferrous sulfate 325 mg (65 mg 325 mg PO DAILY #0 tab 09/27/20 iron) tablet insulin NPH isoph U-100 human 100 10 unit SC QAM #10 ml 09/27/20 unit/mL subcutaneous suspension (Novolin N NPH U-100 Insulin isophane) pantoprazole 40 mg tablet,delayed 40 mg PO QAM #30 tab 09/27/20 release sertraline 25 mg tablet (Zoloft) 25 mg PO DAILY #90 tab 10/03/20 darbepoetin ramon in polysorbat 60 60 mcg IV .COMPLEX #4 ml 10/20/20 mcg/mL in polysorbate injection (Aranesp) atorvastatin 40 mg tablet 40 mg PO QAM #90 tab 11/01/20 calcitriol 0.25 mcg capsule 0.25 mcg PO QAM #90 cap 11/01/20 hydralazine 25 mg tablet 25 mg PO TID 90 Days #270 tab 11/01/20 ergocalciferol (vitamin D2) 1,250 1,250 mcg PO .weekly #14 cap 11/08/20 mcg (50,000 unit) capsule furosemide 40 mg tablet 40 mg PO BID #180 tab 11/08/20 lorazepam 0.5 mg tablet (Ativan) 0.5 mg PO Q8H PRN #60 tab 11/08/20 prednisone 20 mg tablet 10 mg PO DAILY #90 tab 11/08/20 Results & Data (ED) Vital Signs Vital Signs - 24 hr 11/12/20 20:45 11/12/20 21:14 11/12/20 22:30 Temperature 36.7 C Temperature Source Oral Pulse Rate 79 70 Pulse Rate [Apical] 70 Respiratory Rate 25 H 20 Respiratory Effort / Characteristics Non-Labored Spontaneous Non-Labored Spontaneous Respiratory Depth Normal Normal Blood Pressure 144/55 H Blood Pressure [Right Arm] 122/52 L Blood Pressure Mean 84 Blood Pressure Mean [Right Arm] 75 Blood Pressure Position Lying Pulse Oximetry 87 L 95 97 Oxygen Delivery Method Nasal Cannula Nasal Cannula Nasal Cannula Oxygen Flow Rate 3 4 4 Sepsis Recent Fever Within 48 Hours No Sepsis New/Unexplained Change in Mental Status N/A Sepsis Action Taken by Nursing No Action Required Oxygen Flow Rate - Titration 4 Pulse Oximetry Post Tiitration 92 Home Medications Current Medication List: was personally reviewed by me Laboratory Data Attestation: I reviewed the patient's lab results. Result diagrams: 11/12/20 21:15 11/12/20 21:15 Lab Results 11/12/20 11/12/20 11/12/20 Range/Units 21:15 21:15 21:15 WBC 6.96 (4.8-10.8) K/uL RBC 2.91 L (4.2-5.4) M/uL Hgb 8.5 L (12.0-16.0) g/dL Hct 28.2 L (37-47) % MCV 96.9 (80-100) fL MCH 29.2 (25-34) pg MCHC 30.1 L (32-36) g/dL RDW Std Deviation 62.1 H (36.4-46.3) fL RDW Coeff of Radha 17.5 H (11.5-14.5) % Plt Count 180 (130-400) K/uL MPV 12.0 H (7.4-10.4) fL Immature Gran % (Auto) 0.3 % Neut % (Auto) 69.2 % Lymph % (Auto) 21.3 % [place] % (Auto) 9.1 % Eos % (Auto) 0.0 % Baso % (Auto) 0.1 % Neut # (Auto) 4.82 (1.4-6.5) K/uL Lymph # (Auto) 1.48 (1.2-3.4) K/uL [place] # (Auto) 0.63 H (0.11-0.59) K/uL Eos # (Auto) 0.00 (0-0.5) K/uL Baso # (Auto) 0.01 (0-0.2) K/uL Immature Gran # (Auto) 0.02 (0.00-0.02) K/uL PT 46.1 H (9.0-12.0) Seconds INR 5.2 H (0.9-1.1) APTT 44.4 H (21.0-31.0) Seconds PTT Ratio 1.7 Sodium 134 L (136-145) mmol/L Potassium 4.5 (3.5-5.1) mmol/L Chloride 98 (98-107) mmol/L Carbon Dioxide 27 (21-32) mmol/L Anion Gap 9.0 (3-11) BUN 98 H (7-18) mg/dl Creatinine 3.44 H (0.6-1.2) mg/dl Est Cr Clr Drug Dosing 11.9 ml/min Est GFR ( Amer) 13.8 ml/min Est GFR (Non-Af Amer) 11.9 ml/min BUN/Creatinine Ratio 28.4 H (10-20) Glucose 95 (70-99) mg/dl Calcium 7.7 L (8.5-10.1) mg/dl Phosphorus 4.8 (2.5-4.9) mg/dl Magnesium 1.7 L (1.8-2.4) mg/dl Total Bilirubin 0.6 (0.2-1) mg/dl AST 28 (15-37) U/L ALT 37 (12-78) U/L Alkaline Phosphatase 81 (45-117) U/L Troponin I 0.035 (0-0.045) ng/ml Total Protein 4.7 L (6.4-8.2) gm/dl Albumin 2.2 L (3.4-5.0) gm/dl Globulin 2.5 (2.5-4.0) gm/dl Albumin/Globulin Ratio 0.9 (0.9-2) Lipase 138 (73-393) U/L Administered Medications Acetaminophen (Acetaminophen 325 Mg Tab) 650 mg PO Q4H PRN PRN Reason: Pain or Fever Stop: 12/13/20 00:19 Last Admin: 11/13/20 00:31 Dose: 650 mg Documented by: [id number] Lorazepam (Lorazepam 0.5 Mg Tab) 0.5 mg PO Q8H PRN PRN Reason: anxiety Stop: 12/13/20 00:19 Last Admin: 11/13/20 00:31 Dose: 0.5 mg Documented by: [id number] Discontinued Medications Magnesium Sulfate/Dextrose (Magnesium Sulfate / D5w) 1 gm in 100 mls @ 100 mls/hr IV NOW STA Stop: 11/12/20 23:28 Last Infusion: 11/12/20 23:36 Dose: 0 mls/hr Documented by: [id number] Admin: 11/12/20 22:33 Dose: 100 mls/hr Documented by: [id number] Discharge Plan Visit Data Chief Complaint: Chest Pain Stated Complaint: CHEST PAIN ED Provider: Christ Thomas Discharge Problem: Acute renal failure, Chest pain, Hypoxia, Anemia Patient Disposition: Admitted As Inpatient Condition: Good Discharge Instructions Interventions: ED Discharge Assessment Last Done: 11/12/20 23:49
[2020-11-12 21:55] LABS: Albumin Globulin Ratio 0.9 (0.9-2); Bilirubin,Total 0.6 mg/dl (0.2-1); Globulin 2.5 gm/dl (2.5-4.0); Phosphorus 4.8 mg/dl (2.5-4.9); Total Protein 4.7 gm/dl (6.4-8.2); Troponin I 0.035 ng/ml (0-0.045)
[2020-11-12] MEDS ORDERED: MAGNESIUM SULFATE / D5W 1 GM/100 ML BAG IV STA (22:29)
--- NOTE | 2020-11-12 23:01 | History & Physical Report ---
Date of Service November 12, 2020 Assessment & Plan (1) Chest pain: Plan: Chest pain/CAD/hypertension/chronic CHF/atrial fibrillation/ischemic cardiomyopathy- The patient will be admitted to telemetry for serial cardiac enzymes, serial EKG's, cardiac rhythm monitoring and a 2-D echocardiogram with Dopplers. Continue diltiazem, furosemide, hydralazine, metoprolol tartrate, nitroglycerin sublingual's. Hold warfarin due to INR of 5.2 (2) Atrial fibrillation: Plan: See above (3) CAD (coronary artery disease): Plan: See above (4) Ischemic cardiomyopathy: Plan: See above (5) Hypertension: Plan: See above (6) Acute on chronic systolic CHF (congestive heart failure): Plan: Give Lasix 40 mg IV x1 now, and then continue on 40 mg p.o. twice daily (7) Hypoxia: Plan: Likely secondary to worsening CHF (8) Stage 3b chronic kidney disease: Plan: Stage IIIb chronic kidney disease/IgA nephropathy/recent acute glomerulonephritis- Admitted to [facility] from 09/06-09/27/2020. Consult her strategic planner Dr. Schaffer (9) IgA nephropathy: Plan: See above (10) Acute glomerulonephritis: Plan: See above (11) Hypothyroidism: Plan: Continue levothyroxine 75 mcg daily History of Present Illness Chief Complaint: The patient presents to the emergency department due to the development of chest discomfort and hypoxia in route to [facility] from [facility] emergency department, for which she was being transferred for further work-up of chest discomfort and general malaise Primary Care Provider: Gelacio Jasso DO The patient is an 80-year-old female with a past medical history including stage IIIb chronic kidney disease, situational anxiety, atrial fibrillation, hypothyroidism, chronic systolic CHF, biventricular cardiac pacemaker, nephrotic range proteinuria, IgA glomerulonephritis, mechanical aortic valve replacement, COPD, CAD, IgA nephropathy, pulmonary hypertension, hypertension and congenital hypoplasia of lung. Arrangements have been made for the patient to be transferred from [facility] emergency department to [facility] for admission for further assessment of her chest discomfort and general malaise. She most recently been admitted to [facility] from September 06-September 27 for IgA glomerulonephritis. Work-up in the emergency department here showed the following abnormal laboratories: Hemoglobin 8.5, hematocrit 28.2, INR 5.2, magnesium 1.7, albumin 2.2, creatinine 3.44, BUN 98, troponin 0.035. Allergies Allergy/AdvReac Type Severity Reaction Status Date / Time Sulfa (Sulfonamide Allergy Unknown Unknown Verified 11/12/20 21:03 Antibiotics) rxn to Bactrim trimethoprim Allergy Unknown Unknown Verified 11/12/20 21:03 rxn to Bactrim Home Medications Medication Instructions Recorded Confirmed Type diltiazem HCl 360 mg 360 mg PO DAILY cap 11/27/18 11/12/20 History capsule,extended release 24 hr levothyroxine 75 mcg tablet 75 mcg PO DAILY #90 tab 11/27/18 11/12/20 History metoprolol tartrate 50 mg tablet 25 mg PO BID tab 11/27/18 11/12/20 History nitroglycerin 0.4 mg sublingual 0.4 mg SL Q5M PRN tab 11/27/18 11/12/20 History tablet albuterol sulfate See Rx Instructions INHALATION Q4H 04/26/19 11/12/20 Rx PRN #360 vial albuterol sulfate 90 mcg/actuation 2 puff INH QID PRN #18 gm 04/26/19 11/12/20 Rx aerosol inhaler (Ventolin HFA) ferrous sulfate 325 mg (65 mg 325 mg PO DAILY #0 tab 09/27/20 11/12/20 Rx iron) tablet insulin NPH isoph U-100 human 100 10 unit SC QAM #10 ml 09/27/20 11/12/20 Rx unit/mL subcutaneous suspension (Novolin N NPH U-100 Insulin isophane) pantoprazole 40 mg tablet,delayed 40 mg PO QAM #30 tab 09/27/20 11/12/20 Rx release sertraline 25 mg tablet (Zoloft) 25 mg PO DAILY #90 tab 10/03/20 11/12/20 Rx darbepoetin ramon in polysorbat 60 60 mcg IV .COMPLEX #4 ml 10/20/20 11/12/20 Rx mcg/mL in polysorbate injection (Aranesp) atorvastatin 40 mg tablet 40 mg PO QAM #90 tab 11/01/20 11/12/20 Rx calcitriol 0.25 mcg capsule 0.25 mcg PO QAM #90 cap 11/01/20 11/12/20 Rx hydralazine 25 mg tablet 25 mg PO TID 90 Days #270 tab 11/01/20 11/12/20 Rx ergocalciferol (vitamin D2) 1,250 1,250 mcg PO .weekly #14 cap 11/08/20 11/12/20 Rx mcg (50,000 unit) capsule furosemide 40 mg tablet 40 mg PO BID #180 tab 11/08/20 11/12/20 Rx lorazepam 0.5 mg tablet (Ativan) 0.5 mg PO Q8H PRN #60 tab 11/08/20 11/12/20 Rx prednisone 20 mg tablet 10 mg PO DAILY #90 tab 11/08/20 11/12/20 Rx warfarin 1 mg tablet (Jantoven) 1 mg PO UD 11/12/20 11/12/20 History Past Med/Surg History Medical History (Updated 11/13/20 @ 04:49 by Russell Manzano MD) Acute on chronic clinical systolic heart failure Anemia Atrial fibrillation Biventricular cardiac pacemaker in situ CAD (coronary artery disease) Chronic systolic CHF (congestive heart failure) COPD (chronic obstructive pulmonary disease) Hypertension Hypothyroidism IgA nephropathy Ischemic cardiomyopathy Leukocytoclastic vasculitis Pulmonary hypertension Stage 3b chronic kidney disease Stage III chronic kidney disease Surgical History History of aortic valve repair History of coronary artery bypass graft Family History Other Heart disease Social History Smoking Status: Never smoker Second Hand Exposure: No; Do You Dip or Chew Tobacco: No; Tobacco Cessation Education Requested by Patient: No Hx Alcohol Use: No Hx Substance Use: No Preferred Language: Honduran Communication Ability: Effective Radio Sportscaster Required: No Beliefs That Will Affect Care: None marital status: Current Living Situation: Spouse current occupational status: retired How many Children do You have: 2 Other Information That Helps Us Care for You: No Feels Safe at Home: Yes Safety Concerns: Feels Safe At This Time Assistive Devices: Glasses Review of Systems Review of Systems: The patient denies chest pain, palpitations, cough, lower extremity swelling, sore throat, fevers, chills, sweats, nausea, vomiting, diarrhea , constipation, abdominal pain, pelvic pain, blood in urine or stool, dysuria, urinary frequency or urgency, lightheadedness, dizziness, headache, loss of consciousness, rash, focal weakness, numbness or tingling in arms or legs, neck pain, or night sweats. The review of systems is otherwise negative other than for that already noted above, and at least 10 systems have been reviewed. Physical Exam Physical Exam: The patient is awake, mildly lethargic, thin, normocephalic and atraumatic, lying in bed and in no acute distress. HEENT--PERRL, EOMI, mucous membranes and oropharynx dry. Neck--supple. No JVD. No bruits. Thyroid normal, trachea midline, no adenopathy. Heart--normal S1 and S2. No murmurs, rubs or gallops. Lungs--decreased breath sounds throughout. No respiratory distress, no accessory muscle use. Abdomen--normal bowel sounds and soft. Nontender. Nondistended. Extremities--no cyanosis or clubbing. No edema. Dermatologic--normal skin turgor, normal color, no abnormal lymph nodes, no rash. Neurologic--cranial nerves II through XII grossly intact. Rheumatologic--limited exam due to fatigue Psychiatric--normal affect. Results & Data Results & Data ([facility]) Vital Signs (Past 12 Hours) Vital Signs Temp Pulse Pulse Resp BP BP Pulse Ox 11/12/20 22:30 70 20 122/52 L 97 11/12/20 21:14 70 95 11/12/20 20:45 98.1 F 79 25 H 144/55 H 87 L Laboratory Results Laboratory Results WBC 6.96 K/uL (4.8-10.8) 11/12/20 21:15 RBC 2.91 M/uL (4.2-5.4) L 11/12/20 21:15 Hgb 8.5 g/dL (12.0-16.0) L 11/12/20 21:15 Hct 28.2 % (37-47) L 11/12/20 21:15 MCV 96.9 fL (80-100) 11/12/20 21:15 MCH 29.2 pg (25-34) 11/12/20 21:15 MCHC 30.1 g/dL (32-36) L 11/12/20 21:15 RDW Std Deviation 62.1 fL (36.4-46.3) H 11/12/20 21:15 RDW Coeff of Radha 17.5 % (11.5-14.5) H 11/12/20 21:15 Plt Count 180 K/uL (130-400) 11/12/20 21:15 MPV 12.0 fL (7.4-10.4) H 11/12/20 21:15 Immature Gran % (Auto) 0.3 % 11/12/20 21:15 Neut % (Auto) 69.2 % 11/12/20 21:15 Lymph % (Auto) 21.3 % 11/12/20 21:15 [place] % (Auto) 9.1 % 11/12/20 21:15 Eos % (Auto) 0.0 % 11/12/20 21:15 Baso % (Auto) 0.1 % 11/12/20 21:15 Neut # (Auto) 4.82 K/uL (1.4-6.5) 11/12/20 21:15 Lymph # (Auto) 1.48 K/uL (1.2-3.4) 11/12/20 21:15 [place] # (Auto) 0.63 K/uL (0.11-0.59) H 11/12/20 21:15 Eos # (Auto) 0.00 K/uL (0-0.5) 11/12/20 21:15 Baso # (Auto) 0.01 K/uL (0-0.2) 11/12/20 21:15 Immature Gran # (Auto) 0.02 K/uL (0.00-0.02) 11/12/20 21:15 PT 46.1 Seconds (9.0-12.0) H 11/12/20 21:15 INR 5.2 (0.9-1.1) H 11/12/20 21:15 APTT 44.4 Seconds (21.0-31.0) H 11/12/20 21:15 PTT Ratio 1.7 11/12/20 21:15 Sodium 134 mmol/L (136-145) L 11/12/20 21:15 Potassium 4.5 mmol/L (3.5-5.1) 11/12/20 21:15 Chloride 98 mmol/L (98-107) 11/12/20 21:15 Carbon Dioxide 27 mmol/L (21-32) 11/12/20 21:15 Anion Gap 9.0 (3-11) 11/12/20 21:15 BUN 98 mg/dl (7-18) H 11/12/20 21:15 Creatinine 3.44 mg/dl (0.6-1.2) H 11/12/20 21:15 Est Cr Clr Drug Dosing 11.9 ml/min 11/12/20 21:15 Est GFR ( Amer) 13.8 ml/min 11/12/20 21:15 Est GFR (Non-Af Amer) 11.9 ml/min 11/12/20 21:15 BUN/Creatinine Ratio 28.4 (10-20) H 11/12/20 21:15 Glucose 95 mg/dl (70-99) 11/12/20 21:15 Calcium 7.7 mg/dl (8.5-10.1) L 11/12/20 21:15 Phosphorus 4.8 mg/dl (2.5-4.9) 11/12/20 21:15 Magnesium 1.7 mg/dl (1.8-2.4) L 11/12/20 21:15 Total Bilirubin 0.6 mg/dl (0.2-1) 11/12/20 21:15 AST 28 U/L (15-37) 11/12/20 21:15 ALT 37 U/L (12-78) 11/12/20 21:15 Alkaline Phosphatase 81 U/L (45-117) 11/12/20 21:15 Troponin I 0.035 ng/ml (0-0.045) 11/12/20 21:15 Total Protein 4.7 gm/dl (6.4-8.2) L 11/12/20 21:15 Albumin 2.2 gm/dl (3.4-5.0) L 11/12/20 21:15 Globulin 2.5 gm/dl (2.5-4.0) 11/12/20 21:15 Albumin/Globulin Ratio 0.9 (0.9-2) 11/12/20 21:15 Lipase 138 U/L (73-393) 11/12/20 21:15 Code Status & VTE Plan Code Status Full code VTE Prophylaxis Plan VTE Prophylaxis will be ordered: Yes PG Care Time/CCT Total # of Minutes Spent Total Time Spent with Patient: Total time spent is greater than 50% in coordination of care (as documented) at patient's floor/unit and/or counseling patient: Coding Level of Care Code 84004 Initial Inpt Care Lvl 3 Diagnoses Chest pain R07.9 Chest pain type: unspecified Stage 3b chronic kidney disease N18.32 Hypoxia R09.02 Atrial fibrillation I48.91 Hypothyroidism E03.9 IgA nephropathy N02.8 Acute glomerulonephritis N00.9 Hypertension I10 Hypertension type: unspecified CAD (coronary artery disease) I25.10 Coronary Disease-Associated Artery/Lesion type: [place] artery [place] vs. transplanted heart: [place] heart Associated angina: without angina Ischemic cardiomyopathy I25.5 Acute on chronic systolic CHF (congestive heart failure) I50.23 (1) Chest pain Chest pain type: unspecified Qualified Code(s): R07.9 - Chest pain, unspecified (2) Hypertension Hypertension type: unspecified Qualified Code(s): I10 - Essential (primary) hypertension (3) CAD (coronary artery disease) Coronary Disease-Associated Artery/Lesion type: [place] artery [place] vs. transplanted heart: [place] heart Associated angina: without angina Qualified Code(s): I25.10 - Atherosclerotic heart disease of [place] coronary artery without angina pectoris
[2020-11-13] MEDS ORDERED: CARBOHYDRATES FOR HYPOGLYCEMIA PO PRN (00:20)
[2020-11-13] MEDS ORDERED: DEXTROSE 50% 50 ML SYRINGE IV PRN (00:20)
[2020-11-13] MEDS ORDERED: NITROGLYCERIN SL 0.4 MG/TAB TAB SL PRN ×2 (00:20)
[2020-11-13] MEDS ORDERED: GLUCOSE 40% GEL 15 GM TUBE PO PRN (00:20)
[2020-11-13] MEDS ORDERED: GLUCOSE 10 TABS/TUBE PO PRN (00:20)
[2020-11-13] MEDS ORDERED: GLUCAGON FOR INJ 1 MG VIAL SQ PRN (00:20)
[2020-11-13] MEDS ORDERED: ALBUTEROL 0.083% NEBU SOLN 3 ML VIAL INH PRN (00:20)
[2020-11-13] MEDS: LORazepam 0.5 MG TAB PO PRN ×3 (00:31→21:18)
[2020-11-13] MEDS: ACETAMINOPHEN 325 MG TAB PO PRN ×4 (00:31→21:18)
[2020-11-13] MEDS: METOPROLOL TARTRATE 25 MG TAB PO SCH ×3 (01:29→21:09)
[2020-11-13] MEDS ORDERED: HYDROCORTISONE SOD SUCCINATE 100 MG/2 ML VIAL IV SCH (02:00)
[2020-11-13] MEDS: HYDROCORTISONE SOD 100 MG in SYRINGE 0 ML IV SCH ×4 (02:24→23:12)
[2020-11-13] MEDS ORDERED: FUROSEMIDE 40 MG in SYRINGE 0 ML IV ONE (05:00)
[2020-11-13 05:45] LABS: Basophils # (auto) 0.01 K/uL (0-0.2); Basophils % (auto) 0.2 %; Hematocrit (blood only) 27.3 % (37-47); Hemoglobin 8.2 g/dL (12.0-16.0); Immature Granulocytes # (auto) 0.01 K/uL (0.00-0.02); Immature Granulocytes % (auto) 0.2 %; Lymphocytes # (auto) 0.69 K/uL (1.2-3.4); Lymphocytes % (auto) 11.2 %; Mean Corpuscular Hemoglobin 29.1 pg (25-34); Mean Corpuscular Volume 96.8 fL (80-100); Mean Platelet Volume 10.7 fL (7.4-10.4); Monocytes # (auto) 0.16 K/uL (0.11-0.59); Monocytes % (auto) 2.6 %; Neutrophils # (auto) 5.29 K/uL (1.4-6.5); Neutrophils % (auto) 85.8 %; Nucleated RBC # (auto) 0.02 K/uL (0-0); Nucleated RBC % (auto) 0.3 %; Platelet Count 149 K/uL (130-400); RDW Coefficient of Variation 17.2 % (11.5-14.5); RDW Standard Deviation 61.5 fL (36.4-46.3); Red Blood Count 2.82 M/uL (4.2-5.4); White Blood Count 6.16 K/uL (4.8-10.8)
[2020-11-13 06:07] LABS: Partial Thromboplastin Ratio 1.7; Partial Thromboplastin Time 44.8 Seconds (21.0-31.0); Prothrombin Time 44.6 Seconds (9.0-12.0)
[2020-11-13 06:14] LABS: Albumin Level 2.1 gm/dl (3.4-5.0); BUN Creatinine Ratio 29.4 (10-20); Calcium 7.3 mg/dl (8.5-10.1); Creatinine Clr Calc Pharmacy 11.5 ml/min; Est GFR (African American) 14.1 ml/min; Est GFR (Non-African American) 12.2 ml/min; Magnesium 2.6 mg/dl (1.8-2.4); Potassium 4.4 mmol/L (3.5-5.1)
[2020-11-13] MEDS: LEVOTHYROXINE SODIUM 75 MCG TABLET PO SCH (06:15)
[2020-11-13 06:24] LABS: Albumin Globulin Ratio 0.8 (0.9-2); Bilirubin,Total 0.5 mg/dl (0.2-1); Globulin 2.5 gm/dl (2.5-4.0); Total Protein 4.6 gm/dl (6.4-8.2); Troponin I 0.047 ng/ml (0-0.045)
[2020-11-13] MEDS: ONDANSETRON INJ 2 MG/ML 2 ML VIAL IV PRN (07:47)
[2020-11-13] MEDS: CALCITRIOL 0.25 MCG CAPSULE PO SCH (07:52)
[2020-11-13] MEDS: ATORVASTATIN 40 MG TAB PO SCH (07:52)
--- NOTE | 2020-11-13 07:52 | XRay Report ---
XR chest 1V portable CLINICAL HISTORY: Chest Pain COMPARISON STUDY: September 23, 2020 FINDINGS: No pneumothorax. Right pleural effusion is worsened since prior study. Left hemidiaphragm is not well visualized due t o overlying battery pack of the triple lead AICD. Patchy airspace opacities are seen throughout bilateral lungs, lung volumes are slightly decreased. Cardiac silhouette is mildly enlarged and stable since prior. Aorta is calcified. Pulmonary vasculature is obscured.. Osseous structures: Osteopenia. Vertebral bodies are not well seen. Midline sternotomy wires are again seen. IMPRESSION: 1. Interval worsening of the right pleural effusion. Limited evaluation of the left hemidiaphragm. 2. Cardiomegaly. Multifocal bilateral pulmonary opacities could represent pneumonia or/and pulmonary edema. ACT 112: Negative or not required by law. The above report was generated using voice recognition software. It may contain grammatical, syntax o r spelling errors. Electronically signed by: Marla Pepe DO 11/13/2020 7:50 AM
[2020-11-13] MEDS: SERTRALINE HCL 50 MG TABLET PO SCH (07:53)
[2020-11-13] MEDS: FERROUS SULFATE 325 MG TAB PO SCH (07:53)
[2020-11-13] MEDS: INSULIN ASPART 100 UNITS/ML 3 ML PEN SC SCH ×4 (08:01→21:10)
[2020-11-13] MEDS: INSULIN HUMAN NPH SC SCH (08:02)
[2020-11-13] MEDS ORDERED: PANTOprazole 40 MG TAB PO SCH (09:00)
[2020-11-13] MEDS ORDERED: FUROSEMIDE 40 MG TAB PO SCH ×2 (09:00→17:00)
[2020-11-13] MEDS ORDERED: hydrALAZINE HCL 25 MG TAB PO SCH (09:00)
--- NOTE | 2020-11-13 10:11 | Nephrology Consultation ---
Date of Consultation November 13, 2020 Assessment & Plan (1) Chronic kidney disease, stage V: * Stage V CKD - baseline Cr 3.4 w/ EGFR 12 cc/min * IgA nephropathy - h/o leukocytoclastic vasculitis, serologic evaluation negative, renal biopsy not performed due to multiple bilateral renal cysts * Progressive proteinuria. Steroid therapy has been complicated by gastritis, steroid induced DM and lumbar compression fracture * 09/25 Renal US: 9.7 cm kidneys with multiple bilateral renal cysts, no hyd ronephrosis * 09/25 Renal artery doppler: technically difficult study. Nondiagnostic for JULIAN * Will order urinalysis, UPCR, 24 hour Clcr and total protein * Primary service has started stress dose steroids IV * Poor dialysis candidate: 09/24/20 Nephrology note indicates h/o fall w/ subdural hematoma (2018), requires raised toilet due to proximal muscle weakness, requires chronic O2 due to advanced COPD, low serum albumin with 3rd spacing volume. Will monitor progress during hospitalization. Patient may benefit from palliative care consultation to discuss goal of care. HD likely will not appreciably prolong her life or provide quality of life due to her frail condition. She may benefit more from medical therapy and palliative/hospice care (2) Abdominal pain: * Clincally suspect steroid induced gastritis * LFT's and lipase wnl at time of admission * Will increase Protonix to 40 mg po BID * Consider consultation w/ GI (3) Anemia: * Will order iron studies * Will provide SQ Procrit today (4) Ischemic cardiomyopathy: * Agree with trending cardiac enzymes * Will order transthoracic echocardiogram * Patient has hypoalbuminemia and dependent edema * Will change Furosemide to Bumex 1 mg po BID due to better enteric absorption. Monitor I&O's, kidney function (5) Congenital hypoplasia of lung: (6) COPD (chronic obstructive pulmonary disease): History of Present Illness Reason for Consultation: CKD Attending Physician: Kassi Del Real MD History of Present Illness Mrs. Wells is an 80 year old white female who is seen at the request of Dr. Manzano for evaluation of CKD. Patient is extremely anxious and unable to provide any medical history. Medical records in the EMR were reviewed today and are summarized as follows: Mrs. 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 Serologic studies were negative. Renal biopsy deferred due to multiple bilateral renal cysts. Patient did have a leukocytoclastic vasculitis and presumptive diagnosis of IgA nephropathy was made. Mrs. Wells was treated empirically with steroid therapy. Unfortunately this was complicated by steroid induced DM and osteoporotic lumbar compression fracture. She was transitioned to MMF therapy. Mrs. Wells remained on MMF until 06/23 when she was tapered off. She wished to avoid further immunosuppressive therapy. Mrs. Wells did well until 09/25 when she was noted to have increase in Cr from 1.8 to 3.6, urinalysis w/ microscopic hematuria and progressive proteinuria. Mrs. Wells was hospitalized 09/07/20 - 09/27/20. Induction with Solumedrol was provided and prednisone therapy was resumed. At the time of discharge Mrs. Wells's Cr was stable at 3.4 and she was on prednisone 60 mg daily. Mrs. Wells tolerated prednisone poorly. She was rapidly tapered with plans to resume MMF therapy. This weekend Mrs. Wells presented to [facility] w/ complaints of abdominal discomfort. Initially she was discharged home but returned to the ED later that evening with ongoing discomfort. She was then transferred to [facility] for ongoing medical management and consideration for HD. En route Mrs. Wells developed CP and dyspnea. ED evaluation revealed paced rhythm and normal troponin. Serial cardiac enzymes have been ordered. PMH: acute GN (probable IgA nephropathy), labile HTN, ASCVD s/p CABG, AVR, bi ventricular pacemaker, hypothyroidism, COPD, anxiety disorder, h/o mechanical fall with subdural hematoma 2017 Allergies Allergy/AdvReac Type Severity Reaction Status Date / Time Sulfa (Sulfonamide Allergy Unknown Unknown Verified 11/12/20 21:03 Antibiotics) rxn to Bactrim trimethoprim Allergy Unknown Unknown Verified 11/12/20 21:03 rxn to Bactrim Home Medications Medication Instructions Recorded Confirmed Type diltiazem HCl 360 mg 360 mg PO DAILY cap 11/27/18 11/12/20 History capsule,extended release 24 hr levothyroxine 75 mcg tablet 75 mcg PO DAILY #90 tab 11/27/18 11/12/20 History metoprolol tartrate 50 mg tablet 25 mg PO BID tab 11/27/18 11/12/20 History nitroglycerin 0.4 mg sublingual 0.4 mg SL Q5M PRN tab 11/27/18 11/12/20 History tablet albuterol sulfate See Rx Instructions INHALATION Q4H 04/26/19 11/12/20 Rx PRN #360 vial albuterol sulfate 90 mcg/actuation 2 puff INH QID PRN #18 gm 04/26/19 11/12/20 Rx aerosol inhaler (Ventolin HFA) ferrous sulfate 325 mg (65 mg 325 mg PO DAILY #0 tab 09/27/20 11/12/20 Rx iron) tablet insulin NPH isoph U-100 human 100 10 unit SC QAM #10 ml 09/27/20 11/12/20 Rx unit/mL subcutaneous suspension (Novolin N NPH U-100 Insulin isophane) pantoprazole 40 mg tablet,delayed 40 mg PO QAM #30 tab 09/27/20 11/12/20 Rx release sertraline 25 mg tablet (Zoloft) 25 mg PO DAILY #90 tab 10/03/20 11/12/20 Rx darbepoetin ramon in polysorbat 60 60 mcg IV .COMPLEX #4 ml 10/20/20 11/12/20 Rx mcg/mL in polysorbate injection (Aranesp) atorvastatin 40 mg tablet 40 mg PO QAM #90 tab 11/01/20 11/12/20 Rx calcitriol 0.25 mcg capsule 0.25 mcg PO QAM #90 cap 11/01/20 11/12/20 Rx hydralazine 25 mg tablet 25 mg PO TID 90 Days #270 tab 11/01/20 11/12/20 Rx ergocalciferol (vitamin D2) 1,250 1,250 mcg PO .weekly #14 cap 11/08/20 11/12/20 Rx mcg (50,000 unit) capsule furosemide 40 mg tablet 40 mg PO BID #180 tab 11/08/20 11/12/20 Rx lorazepam 0.5 mg tablet (Ativan) 0.5 mg PO Q8H PRN #60 tab 11/08/20 11/12/20 Rx prednisone 20 mg tablet 10 mg PO DAILY #90 tab 11/08/20 11/12/20 Rx warfarin 1 mg tablet (Jantoven) 1 mg PO UD 11/12/20 11/12/20 History Patient History Medical History Acute on chronic clinical systolic heart failure Anemia Atrial fibrillation Biventricular cardiac pacemaker in situ CAD (coronary artery disease) Chronic systolic CHF (congestive heart failure) COPD (chronic obstructive pulmonary disease) Hypertension Hypothyroidism IgA nephropathy Ischemic cardiomyopathy Leukocytoclastic vasculitis Pulmonary hypertension Stage 3b chronic kidney disease Stage III chronic kidney disease Surgical History History of aortic valve repair History of coronary artery bypass graft Family History Other Heart disease Social History Smoking Status: Never smoker Second Hand Exposure: No; Do You Dip or Chew Tobacco: No; Tobacco Cessation Education Requested by Patient: No Hx Alcohol Use: No Hx Substance Use: No Preferred Language: Thai Communication Ability: Effective Steam Flattener Required: No Beliefs That Will Affect Care: None marital status: Current Living Situation: Spouse current occupational status: retired How many Children do You have: 2 Other Information That Helps Us Care for You: No Feels Safe at Home: Yes Safety Concerns: Feels Safe At This Time Assistive Devices: Glasses Review of Systems Constitutional: + weakness; no fever Eyes: no worsening vision and no problem reported Ear, Nose, Mouth, Throat: no problem reported Respiratory: + dyspnea; no cough Cardiovascular: + chest pain and + edema; no palpitations Gastrointestinal: + abdominal pain and + nausea; no vomiting and no diarrhea/loose stools Genitourinary: no dysuria and no hematuria Musculoskeletal: no back pain Integumentary: no rash Neurologic: no falls, no dizziness and no confusion Physical Exam Constitutional: + thin and + frail appearing (anxious) Eyes: PERRL, conjunctivae normal, anicteric sclerae ENMT: external ear and nose normal, oropharynx normal Neck: trachea midline, no thyromegaly Respiratory: normal respiratory effort and able to speak in complete sentences; no respiratory distress and does not use accessory muscles Cardiovascular: Rate/Rhythm: regular rate and regular rhythm Extremities: + edema (3+ dependent edema) Gastrointestinal (Abdomen): Inspection/Auscultation: normal bowel sounds Percussion/Palpation: + abdomen tender (mildly tender LUQ) and abdomen soft; no guarding Skin: + turgor decreased 3+ dependent edema Neurologic: awake; not confused Results & Data ([facility]) Vital Signs (Past 12 Hours) Vital Signs Temp Pulse Pulse Pulse Resp BP BP 11/13/20 07:55 71 178/83 H 11/13/20 07:00 36.6 C 70 20 91/48 L 11/13/20 06:20 70 11/13/20 04:15 71 11/13/20 03:42 70 16 91/57 L 11/13/20 00:35 36.4 C L 70 18 163/73 H 11/13/20 00:20 36.4 C L 70 14 163/73 H 11/12/20 22:30 70 20 122/52 L Pulse Ox 11/13/20 07:55 11/13/20 07:00 98 11/13/20 06:20 11/13/20 04:15 11/13/20 03:42 95 11/13/20 00:35 92 11/13/20 00:20 92 11/12/20 22:30 97 Laboratory Results Laboratory Tests 11/13/20 11/13/20 05:32 05:32 WBC 6.16 Hgb 8.2 L Hct 27.3 L Plt Count 149 Sodium 133 L Potassium 4.4 Chloride 98 Carbon Dioxide 27 BUN 100 H Creatinine 3.39 H Glucose 91 Calcium 7.3 L Magnesium 2.6 H Total Bilirubin 0.5 AST 31 ALT 37 Alkaline Phosphatase 78 Albumin 2.1 L PG Care Time/CCT Total # of Minutes Spent Total Time Spent with Patient: Total time spent is greater than 50% in coordination of care (as documented) at patient's floor/unit and/or counseling patient: Coding Level of Care Code 00568 Inpt Consult Level 5 Diagnoses Chronic kidney disease, stage V N18.5 Anemia D64.9 Anemia type: unspecified type Ischemic cardiomyopathy I25.5 Congenital hypoplasia of lung Q33.6 COPD (chronic obstructive pulmonary disease) J44.9 COPD type: unspecified COPD Abdominal pain R10.9 (1) Anemia Anemia type: unspecified type Qualified Code(s): D64.9 - Anemia, unspecified (2) COPD (chronic obstructive pulmonary disease) COPD type: unspecified COPD Qualified Code(s): J44.9 - Chronic obstructive pulmonary disease, unspecified
[2020-11-13 10:38] LABS: Estimated Average Glucose 68 mg/dl; Hemoglobin A1C < 4.0 % (4.5-5.6)
[2020-11-13 11:17] LABS: Iron 25 mcg/dl (35-150); Transferrin 150 mg/dl (200-360); Transferrin Percent Saturation 12 % (15-50)
--- NOTE | 2020-11-13 11:22 | Hospitalist Progress Note ---
Date of Service November 13, 2020 Assessment & Plan (1) Acute cholecystitis: Plan: Presents with epigastric abdominal pain that is constant x2 months. LFTs and lipase negative. Thought initially to be steroid induced gastritis versus peptic ulcer disease, but too frail to undergo anesthesia for EGD CT abdomen/pelvis performed without contrast shows most likely acute cholecystitis on 11/13 -Check RUQ ultrasound -Start IV Zosyn -Make n.p.o. -Avoid IV fluids due to volume overload from renal failure -Pain control with oxycodone, Tylenol -Follow LFTs in the morning -Consult general surgery -If too frail to undergo cholecystectomy, other options would be cholecystostomy tube which would require transfer to facility with interventional radiology, versus more conservative management with antibiotics with going home with palliative or hospice medicine. -Discussed all potential options with patient and her family members at the bedside and they will consider this I will and await to discuss with general surgery (2) Acute on chronic systolic CHF (congestive heart failure): Plan: With worsening pulmonary edema and significant anasarca Received Lasix 40 mg IV x1 upon admission Nephrology changed from Lasix to Bumex 1 mg p.o. twice daily for better control absorption Follow strict I's and O's, daily weights Very difficult to manage volume status given renal failure but too frail for dialysis She is making urine Hypoalbuminemia and proteinuria contributing to anasarca, make diuresis difficult -Check echocardiogram-with moderate to severe mitral regurgitation, elevated right-sided pressures, with transaortic velocity elevated/abnormal gradient for prosthetic aortic valve, preserved EF (3) Chronic kidney disease, stage V: Plan: Acute kidney failure in the setting of CKD stage V, in the setting of IgA nephropathy on chronic steroids since 09/06/2020 Creatinine up from baseline 2.9-3.4 on admission Nonoliguric Slightly improved today Follow BMP -Avoid nephrotoxins -renally dose meds when appropriate -follow BMP Appreciate nephrology consultation-he feels that hemodialysis will most likely shorten her life rather than prolong it and feels that palliative consultation would be helpful to discuss goals of care -Renal diet -Continue steroids in the form of IV hydrocortisone (4) Atrial fibrillation: Plan: Permanent, rate controlled With pacemaker in place Holding Coumadin for supratherapeutic INR of 5.0 Reduce diltiazem to 120 mg once daily given hypotension Continue metoprolol 25 mg p.o. twice daily (5) Elevated troponin: Plan: Troponin mildly elevated and trended back downward ECG is ventricular paced rhythm, atrial flutter Echocardiogram without wall motion abnormalities No chest pain, but likely this is myocardial demand ischemia in the setting of acute cholecystitis and renal failure (6) CAD (coronary artery disease): Plan: With a history of three-vessel CABG Continue atorvastatin, metoprolol Anticoagulated with Coumadin (7) Ischemic cardiomyopathy: Plan: EF is now normalized but has been low in the past As above (8) Hypertension: Plan: With hypotension earlier Hold hydralazine Reduce diltiazem to 120 mg once daily Continue home metoprolol (9) Hypoxia: Plan: Likely secondary to worsening CHF and renal failure Supplemental O2 to keep pulse ox greater than 92% Diurese with Bumex (10) IgA nephropathy: Plan: See above (11) Hypothyroidism: Plan: Continue levothyroxine 75 mcg daily TSH normal in 09/2020 (12) Anemia: Plan: Hemoglobin low at 8.2, normocytic Stable from previous No bleeding or reports of melena or hematochezia Likely anemia of chronic renal disease Continue ferrous sulfate Receives Epogen with nephrology Follow CBC (13) Anxiety: Plan: Continue lorazepam as needed (14) DVT prophylaxis: Plan: Coumadin Disposition-continued stay on medical floor telemetry Palliative medicine consultation appreciated for goals of care discussion Admission and Anticipated Discharge Date Admission Date: November 12, 2020 Subjective Patient continues to have epigastric abdominal pain that feels like someone is squeezing her. Denies chest pain. Has shortness of breath at rest. Feels very anxious and is requesting lorazepam. She denies nausea but later in the day did vomit after trying to drink. Denies black tarry stools or blood in the stools. She has been having the same constant epigastric pain for about 2 months. It is not improved after adding sucralfate today and was also placed on Protonix. I was called urgently to the bedside this morning for blood pressures with systolics in the 70s. This improved with placing the patient in Trendelenburg. I discontinued her hydralazine and reduced her diltiazem dose. I discussed her care multiple times throughout the day-on 3 occasions with the patient, nursing staff, her , and 2 daughters at the bedside. I also discussed her care with nephrology as well as palliative medicine. I spent 90 minutes in prolonged service time today discussing results, prognosis, diagnoses, and treatment options. Telemetry with paced rhythm with rates in the 70s. Review of Systems Review of Systems: All systems reviewed & are unremarkable except as noted in HPI & below Physical Exam Constitutional: WD/WN, vitals as above Eyes: PERRL, conjunctivae normal, anicteric sclerae ENMT: external ear and nose normal, oropharynx normal Neck: trachea midline, no thyromegaly Respiratory: normal respiratory effort, lungs clear to auscultation Cardiovascular: Rate/Rhythm: regular rate and regular rhythm Extremities: + edema (3+ pitting edema in all extremities throughout) Chest (Breasts): Chest: normal inspection of chest Gastrointestinal (Abdomen): Inspection/Auscultation: abdomen normal to inspection and normal bowel sounds Percussion/Palpation: + abdomen tender (In epigastric region without guarding or rebound tenderness) and abdomen soft Musculoskeletal: Extremities: extremities normal to inspection; no cyanosis and no clubbing Skin: no rashes, warm and dry Neurologic: moves all extremities and awake; no focal motor deficits Psychiatric: Orientation: alert and oriented x 3 Affect: + anxious affect Mood: + anxious mood Results & Data Results & Data ([facility]) Vital Signs (Past 12 Hours) Vital Signs Temp Pulse Pulse Pulse Resp BP BP 11/13/20 07:55 71 178/83 H 11/13/20 07:00 36.6 C 70 20 91/48 L 11/13/20 06:20 70 11/13/20 04:15 71 11/13/20 03:42 70 16 91/57 L 11/13/20 00:35 36.4 C L 70 18 163/73 H 11/13/20 00:20 36.4 C L 70 14 163/73 H Pulse Ox 11/13/20 07:55 11/13/20 07:00 98 11/13/20 06:20 11/13/20 04:15 11/13/20 03:42 95 11/13/20 00:35 92 11/13/20 00:20 92 Laboratory Results 11/13/20 11/13/20 11/13/20 Range/Units 16:28 12:26 11:28 WBC (4.8-10.8) K/uL RBC (4.2-5.4) M/uL Hgb (12.0-16.0) g/dL Hct (37-47) % MCV (80-100) fL MCH (25-34) pg MCHC (32-36) g/dL RDW Std Deviation (36.4-46.3) fL RDW Coeff of Radha (11.5-14.5) % Plt Count (130-400) K/uL MPV (7.4-10.4) fL Immature Gran % (Auto) % Neut % (Auto) % Lymph % (Auto) % Grady % (Auto) % Eos % (Auto) % Baso % (Auto) % Neut # (Auto) (1.4-6.5) K/uL Lymph # (Auto) (1.2-3.4) K/uL [place]ady # (Auto) (0.11-0.59) K/uL Eos # (Auto) (0-0.5) K/uL Baso # (Auto) (0-0.2) K/uL Immature Gran # (Auto) (0.00-0.02) K/uL Absolute Nucleated RBC (0-0) K/uL Nucleated RBC % (auto) % PT (9.0-12.0) Seconds INR (0.9-1.1) APTT (21.0-31.0) Seconds PTT Ratio Sodium (136-145) mmol/L Potassium (3.5-5.1) mmol/L Chloride (98-107) mmol/L Carbon Dioxide (21-32) mmol/L Anion Gap (3-11) BUN (7-18) mg/dl Creatinine (0.6-1.2) mg/dl Est Cr Clr Drug Dosing ml/min Est GFR ( Amer) ml/min Est GFR (Non-Af Amer) ml/min BUN/Creatinine Ratio (10-20) Glucose (70-99) mg/dl POC Glucose 148 H 137 H (70-99) mg/dl Estimat Average Glucose mg/dl Hemoglobin A1c (4.5-5.6) % Calcium (8.5-10.1) mg/dl Phosphorus (2.5-4.9) mg/dl Magnesium (1.8-2.4) mg/dl Iron (35-150) mcg/dl Transferrin (200-360) mg/dl Transferrin % Sat (15-50) % Total Bilirubin (0.2-1) mg/dl AST (15-37) U/L ALT (12-78) U/L Alkaline Phosphatase (45-117) U/L Troponin I 0.032 (0-0.045) ng/ml Total Protein (6.4-8.2) gm/dl Albumin (3.4-5.0) gm/dl Globulin (2.5-4.0) gm/dl Albumin/Globulin Ratio (0.9-2) Lipase (73-393) U/L Urine Color Urine Appearance (Clear) Urine pH (4.5-7.5) Ur Specific [place] (1.000-1.030) Urine Protein (Negative) Urine Glucose (UA) (Negative) Urine Ketones (Negative) Urine Blood (Negative) Urine Nitrite (Negative) Urine Bilirubin (Negative) Urine Urobilinogen (Negative) Ur Leukocyte Esterase (Negative) Urine RBC (0-4) /hpf Urine WBC (0-5) /hpf Ur Epithelial Cells (0-5) /lpf Ur Renal Epithelial Cell (0-5) /lpf Urine Bacteria (Negative) Ur Random Creatinine mg/dl U Random Total Protein (0-11.9) mg/dl Protein/Creatinin Ratio (0-0.2) 11/13/20 11/13/20 11/13/20 Range/Units 11:24 11:24 07:34 WBC (4.8-10.8) K/uL RBC (4.2-5.4) M/uL Hgb (12.0-16.0) g/dL Hct (37-47) % MCV (80-100) fL MCH (25-34) pg MCHC (32-36) g/dL RDW Std Deviation (36.4-46.3) fL RDW Coeff of Radha (11.5-14.5) % Plt Count (130-400) K/uL MPV (7.4-10.4) fL Immature Gran % (Auto) % Neut % (Auto) % Lymph % (Auto) % Grady % (Auto) % Eos % (Auto) % Baso % (Auto) % Neut # (Auto) (1.4-6.5) K/uL Lymph # (Auto) (1.2-3.4) K/uL [place]ady # (Auto) (0.11-0.59) K/uL Eos # (Auto) (0-0.5) K/uL Baso # (Auto) (0-0.2) K/uL Immature Gran # (Auto) (0.00-0.02) K/uL Absolute Nucleated RBC (0-0) K/uL Nucleated RBC % (auto) % PT (9.0-12.0) Seconds INR (0.9-1.1) APTT (21.0-31.0) Seconds PTT Ratio Sodium (136-145) mmol/L Potassium (3.5-5.1) mmol/L Chloride (98-107) mmol/L Carbon Dioxide (21-32) mmol/L Anion Gap (3-11) BUN (7-18) mg/dl Creatinine (0.6-1.2) mg/dl Est Cr Clr Drug Dosing ml/min Est GFR ( Amer) ml/min Est GFR (Non-Af Amer) ml/min BUN/Creatinine Ratio (10-20) Glucose (70-99) mg/dl POC Glucose 110 H (70-99) mg/dl Estimat Average Glucose mg/dl Hemoglobin A1c (4.5-5.6) % Calcium (8.5-10.1) mg/dl Phosphorus (2.5-4.9) mg/dl Magnesium (1.8-2.4) mg/dl Iron (35-150) mcg/dl Transferrin (200-360) mg/dl Transferrin % Sat (15-50) % Total Bilirubin (0.2-1) mg/dl AST (15-37) U/L ALT (12-78) U/L Alkaline Phosphatase (45-117) U/L Troponin I (0-0.045) ng/ml Total Protein (6.4-8.2) gm/dl Albumin (3.4-5.0) gm/dl Globulin (2.5-4.0) gm/dl Albumin/Globulin Ratio (0.9-2) Lipase (73-393) U/L Urine Color Yellow Urine Appearance Clear (Clear) Urine pH 5.0 (4.5-7.5) Ur Specific [place] 1.015 (1.000-1.030) Urine Protein 3+ H (Negative) Urine Glucose (UA) Negative (Negative) Urine Ketones Negative (Negative) Urine Blood Negative (Negative) Urine Nitrite Negative (Negative) Urine Bilirubin Negative (Negative) Urine Urobilinogen Negative (Negative) Ur Leukocyte Esterase Negative (Negative) Urine RBC 0-4 (0-4) /hpf Urine WBC 0-5 (0-5) /hpf Ur Epithelial Cells 20-30 H (0-5) /lpf Ur Renal Epithelial Cell 0-5 (0-5) /lpf Urine Bacteria 1+ H (Negative) Ur Random Creatinine 72.7 mg/dl U Random Total Protein 183.3 H (0-11.9) mg/dl Protein/Creatinin Ratio 2.5 H (0-0.2) 11/13/20 11/13/20 11/13/20 Range/Units 05:32 05:32 05:32 WBC (4.8-10.8) K/uL RBC (4.2-5.4) M/uL Hgb (12.0-16.0) g/dL Hct (37-47) % MCV (80-100) fL MCH (25-34) pg MCHC (32-36) g/dL RDW Std Deviation (36.4-46.3) fL RDW Coeff of Radha (11.5-14.5) % Plt Count (130-400) K/uL MPV (7.4-10.4) fL Immature Gran % (Auto) % Neut % (Auto) % Lymph % (Auto) % [place] % (Auto) % Eos % (Auto) % Baso % (Auto) % Neut # (Auto) (1.4-6.5) K/uL Lymph # (Auto) (1.2-3.4) K/uL [place] # (Auto) (0.11-0.59) K/uL Eos # (Auto) (0-0.5) K/uL Baso # (Auto) (0-0.2) K/uL Immature Gran # (Auto) (0.00-0.02) K/uL Absolute Nucleated RBC (0-0) K/uL Nucleated RBC % (auto) % PT 44.6 H (9.0-12.0) Seconds INR 5.0 H (0.9-1.1) APTT 44.8 H (21.0-31.0) Seconds PTT Ratio 1.7 Sodium (136-145) mmol/L Potassium (3.5-5.1) mmol/L Chloride (98-107) mmol/L Carbon Dioxide (21-32) mmol/L Anion Gap (3-11) BUN (7-18) mg/dl Creatinine (0.6-1.2) mg/dl Est Cr Clr Drug Dosing ml/min Est GFR ( Amer) ml/min Est GFR (Non-Af Amer) ml/min BUN/Creatinine Ratio (10-20) Glucose (70-99) mg/dl POC Glucose (70-99) mg/dl Estimat Average Glucose 68 mg/dl Hemoglobin A1c < 4.0 L (4.5-5.6) % Calcium (8.5-10.1) mg/dl Phosphorus (2.5-4.9) mg/dl Magnesium (1.8-2.4) mg/dl Iron 25 L (35-150) mcg/dl Transferrin 150 L (200-360) mg/dl Transferrin % Sat 12 L (15-50) % Total Bilirubin (0.2-1) mg/dl AST (15-37) U/L ALT (12-78) U/L Alkaline Phosphatase (45-117) U/L Troponin I (0-0.045) ng/ml Total Protein (6.4-8.2) gm/dl Albumin (3.4-5.0) gm/dl Globulin (2.5-4.0) gm/dl Albumin/Globulin Ratio (0.9-2) Lipase (73-393) U/L Urine Color Urine Appearance (Clear) Urine pH (4.5-7.5) Ur Specific [place] (1.000-1.030) Urine Protein (Negative) Urine Glucose (UA) (Negative) Urine Ketones (Negative) Urine Blood (Negative) Urine Nitrite (Negative) Urine Bilirubin (Negative) Urine Urobilinogen (Negative) Ur Leukocyte Esterase (Negative) Urine RBC (0-4) /hpf Urine WBC (0-5) /hpf Ur Epithelial Cells (0-5) /lpf Ur Renal Epithelial Cell (0-5) /lpf Urine Bacteria (Negative) Ur Random Creatinine mg/dl U Random Total Protein (0-11.9) mg/dl Protein/Creatinin Ratio (0-0.2) 11/13/20 11/13/20 11/12/20 Range/Units 05:32 05:32 21:15 WBC 6.16 (4.8-10.8) K/uL RBC 2.82 L (4.2-5.4) M/uL Hgb 8.2 L (12.0-16.0) g/dL Hct 27.3 L (37-47) % MCV 96.8 (80-100) fL MCH 29.1 (25-34) pg MCHC 30.0 L (32-36) g/dL RDW Std Deviation 61.5 H (36.4-46.3) fL RDW Coeff of Radha 17.2 H (11.5-14.5) % Plt Count 149 (130-400) K/uL MPV 10.7 H (7.4-10.4) fL Immature Gran % (Auto) 0.2 % Neut % (Auto) 85.8 % Lymph % (Auto) 11.2 % [place]ady % (Auto) 2.6 % Eos % (Auto) 0.0 % Baso % (Auto) 0.2 % Neut # (Auto) 5.29 (1.4-6.5) K/uL Lymph # (Auto) 0.69 L (1.2-3.4) K/uL Grady # (Auto) 0.16 (0.11-0.59) K/uL Eos # (Auto) 0.00 (0-0.5) K/uL Baso # (Auto) 0.01 (0-0.2) K/uL Immature Gran # (Auto) 0.01 (0.00-0.02) K/uL Absolute Nucleated RBC 0.02 H (0-0) K/uL Nucleated RBC % (auto) 0.3 % PT (9.0-12.0) Seconds INR (0.9-1.1) APTT (21.0-31.0) Seconds PTT Ratio Sodium 133 L 134 L (136-145) mmol/L Potassium 4.4 4.5 (3.5-5.1) mmol/L Chloride 98 98 (98-107) mmol/L Carbon Dioxide 27 27 (21-32) mmol/L Anion Gap 8.0 9.0 (3-11) BUN 100 H 98 H (7-18) mg/dl Creatinine 3.39 H 3.44 H (0.6-1.2) mg/dl Est Cr Clr Drug Dosing 11.5 11.9 ml/min Est GFR ( Amer) 14.1 13.8 ml/min Est GFR (Non-Af Amer) 12.2 11.9 ml/min BUN/Creatinine Ratio 29.4 H 28.4 H (10-20) Glucose 91 95 (70-99) mg/dl POC Glucose (70-99) mg/dl Estimat Average Glucose mg/dl Hemoglobin A1c (4.5-5.6) % Calcium 7.3 L 7.7 L (8.5-10.1) mg/dl Phosphorus 4.8 (2.5-4.9) mg/dl Magnesium 2.6 H 1.7 L (1.8-2.4) mg/dl Iron (35-150) mcg/dl Transferrin (200-360) mg/dl Transferrin % Sat (15-50) % Total Bilirubin 0.5 0.6 (0.2-1) mg/dl AST 31 28 (15-37) U/L ALT 37 37 (12-78) U/L Alkaline Phosphatase 78 81 (45-117) U/L Troponin I 0.047 H* 0.035 (0-0.045) ng/ml Total Protein 4.6 L 4.7 L (6.4-8.2) gm/dl Albumin 2.1 L 2.2 L (3.4-5.0) gm/dl Globulin 2.5 2.5 (2.5-4.0) gm/dl Albumin/Globulin Ratio 0.8 L 0.9 (0.9-2) Lipase 138 (73-393) U/L Urine Color Urine Appearance (Clear) Urine pH (4.5-7.5) Ur Specific [place] (1.000-1.030) Urine Protein (Negative) Urine Glucose (UA) (Negative) Urine Ketones (Negative) Urine Blood (Negative) Urine Nitrite (Negative) Urine Bilirubin (Negative) Urine Urobilinogen (Negative) Ur Leukocyte Esterase (Negative) Urine RBC (0-4) /hpf Urine WBC (0-5) /hpf Ur Epithelial Cells (0-5) /lpf Ur Renal Epithelial Cell (0-5) /lpf Urine Bacteria (Negative) Ur Random Creatinine mg/dl U Random Total Protein (0-11.9) mg/dl Protein/Creatinin Ratio (0-0.2) 11/12/20 11/12/20 Range/Units 21:15 21:15 WBC 6.96 (4.8-10.8) K/uL RBC 2.91 L (4.2-5.4) M/uL Hgb 8.5 L (12.0-16.0) g/dL Hct 28.2 L (37-47) % MCV 96.9 (80-100) fL MCH 29.2 (25-34) pg MCHC 30.1 L (32-36) g/dL RDW Std Deviation 62.1 H (36.4-46.3) fL RDW Coeff of Radha 17.5 H (11.5-14.5) % Plt Count 180 (130-400) K/uL MPV 12.0 H (7.4-10.4) fL Immature Gran % (Auto) 0.3 % Neut % (Auto) 69.2 % Lymph % (Auto) 21.3 % Grady % (Auto) 9.1 % Eos % (Auto) 0.0 % Baso % (Auto) 0.1 % Neut # (Auto) 4.82 (1.4-6.5) K/uL Lymph # (Auto) 1.48 (1.2-3.4) K/uL Grady # (Auto) 0.63 H (0.11-0.59) K/uL Eos # (Auto) 0.00 (0-0.5) K/uL Baso # (Auto) 0.01 (0-0.2) K/uL Immature Gran # (Auto) 0.02 (0.00-0.02) K/uL Absolute Nucleated RBC (0-0) K/uL Nucleated RBC % (auto) % PT 46.1 H (9.0-12.0) Seconds INR 5.2 H (0.9-1.1) APTT 44.4 H (21.0-31.0) Seconds PTT Ratio 1.7 Sodium (136-145) mmol/L Potassium (3.5-5.1) mmol/L Chloride (98-107) mmol/L Carbon Dioxide (21-32) mmol/L Anion Gap (3-11) BUN (7-18) mg/dl Creatinine (0.6-1.2) mg/dl Est Cr Clr Drug Dosing ml/min Est GFR ( Amer) ml/min Est GFR (Non-Af Amer) ml/min BUN/Creatinine Ratio (10-20) Glucose (70-99) mg/dl POC Glucose (70-99) mg/dl Estimat Average Glucose mg/dl Hemoglobin A1c (4.5-5.6) % Calcium (8.5-10.1) mg/dl Phosphorus (2.5-4.9) mg/dl Magnesium (1.8-2.4) mg/dl Iron (35-150) mcg/dl Transferrin (200-360) mg/dl Transferrin % Sat (15-50) % Total Bilirubin (0.2-1) mg/dl AST (15-37) U/L ALT (12-78) U/L Alkaline Phosphatase (45-117) U/L Troponin I (0-0.045) ng/ml Total Protein (6.4-8.2) gm/dl Albumin (3.4-5.0) gm/dl Globulin (2.5-4.0) gm/dl Albumin/Globulin Ratio (0.9-2) Lipase (73-393) U/L Urine Color Urine Appearance (Clear) Urine pH (4.5-7.5) Ur Specific [place] (1.000-1.030) Urine Protein (Negative) Urine Glucose (UA) (Negative) Urine Ketones (Negative) Urine Blood (Negative) Urine Nitrite (Negative) Urine Bilirubin (Negative) Urine Urobilinogen (Negative) Ur Leukocyte Esterase (Negative) Urine RBC (0-4) /hpf Urine WBC (0-5) /hpf Ur Epithelial Cells (0-5) /lpf Ur Renal Epithelial Cell (0-5) /lpf Urine Bacteria (Negative) Ur Random Creatinine mg/dl U Random Total Protein (0-11.9) mg/dl Protein/Creatinin Ratio (0-0.2) PG Care Time/CCT Total # of Minutes Spent Total Time Spent with Patient: Total time spent is greater than 50% in coordination of care (as documented) at patient's floor/unit and/or counseling patient: Prolonged Care Time Prolonged Care Time: Yes Total Prolonged Care Time: 90 I spent 90 minutes prolonged service time on this patient Coding Level of Care Code 80052 Subseq Hosp Care Lvl 3 (25 - SIGNIFICANT, SEPARATELY IDENTIFIABLE ) Diagnoses Atrial fibrillation I48.91 CAD (coronary artery disease) I25.10 Associated angina: without angina Coronary Disease-Associated Artery/Lesion type: [place] artery [place] vs. transplanted heart: council heart Ischemic cardiomyopathy I25.5 Hypertension I10 Hypertension type: unspecified Acute on chronic systolic CHF (congestive heart failure) I50.23 Hypoxia R09.02 IgA nephropathy N02.8 Hypothyroidism E03.9 Acute cholecystitis K81.0 Anemia D64.9 Anemia type: unspecified type Anxiety F41.9 DVT prophylaxis Z29.9 Chronic kidney disease, stage V N18.5 Elevated troponin R77.8 Additional Codes Prolonged Care Time - Prolonged Care Time: Yes ([id number]) (1) CAD (coronary artery disease) Associated angina: without angina Coronary Disease-Associated Artery/Lesion type: [place] artery [place] vs. transplanted heart: [place] heart Qualified Code(s): I25.10 - Atherosclerotic heart disease of council coronary artery without angina pectoris (2) Anemia Anemia type: unspecified type Qualified Code(s): D64.9 - Anemia, unspecified (3) Hypertension Hypertension type: unspecified Qualified Code(s): I10 - Essential (primary) hypertension
[2020-11-13] MEDS ORDERED: EPOETIN ALFA 10,000 UNITS/ML VIAL SQ ONE (11:30)
[2020-11-13 11:59] LABS: Creatinine Urine Random 72.7 mg/dl; Protein Creatinine Ratio Urine 2.5 (0-0.2); Total Protein Urine Random 183.3 mg/dl (0-11.9)
[2020-11-13 12:02] LABS: Appearance Urine Clear (Clear); Bilirubin Urine Negative (Negative); Blood Urine Negative (Negative); Color Urine Yellow; Glucose Urine UA Negative (Negative); Ketones Urine Negative (Negative); Leukocyte Esterase Urine Negative (Negative); Nitrite Urine Negative (Negative); Protein Urine 3+ (Negative); Specific Gravity Urine 1.015 (1.000-1.030); Urobilinogen Urine Negative (Negative)
[2020-11-13 12:20] LABS: Bacteria Urine 1+ (Negative); Epithelial Cell Urine 20-30 /lpf (0-5); RBC Urine 0-4 /hpf (0-4); Renal Epithelial Cells Urine 0-5 /lpf (0-5); WBC Urine 0-5 /hpf (0-5)
[2020-11-13] MEDS: SUCRALFATE 1 GM/10 ML UDC PO SCH ×3 (12:25→21:08)
--- NOTE | 2020-11-13 15:38 | Palliative Care Consultation ---
Date of Consultation November 13, 2020 Assessment & Plan (1) Anxiety: Per her family, this is a chronic problem for her which is definitely made worse by her current circumstances. Continue prn lorazepam. (2) Abdominal pain: With gastritis on steroid therapy. She is on a PPI. (3) Palliative care encounter: I met with Mckenna, her , two daughters at bedside. We reviewed her current status and their initial response was "What do we do to make her better and build her up". We discussed her inability to tolerated dialysis and inability to adequately diurese with her renal failure. She is tearful and saying that she does not want to . "I'm afraid to ". We discussed this further and she tells me that she is afraid of whether she would go to [facility] and what that would be like. Her family offered reassurance and reminded her that she has strong joanna and knows that she would go to [facility]. We talked about what was most important to her at this time and her family tells me that s he wants to be at home. I also talked to her about her code status and the likelihood that resuscitation would be successful is virtually nil. Her family tells me that they do not want her to suffer but all are overwhelmed with this information. They will discuss as a family and palliative care will follow. Mckenna's daughters approached me in the hallway and asked if it was time for hospice for her. I explained that hospice would provide support for her to be at home with her family and manage her symptoms of anxiety, pain and dyspnea. We discussed hospice benefit. They also asked about prognosis which I explained would likely be days to weeks without dialysis. They would prefer to have her at home with hospice and will talk more as a family. We will discuss further tomorrow. (4) Chronic kidney disease, stage V: (5) Acute on chronic systolic CHF (congestive heart failure): (6) Ischemic cardiomyopathy: (7) Atrial fibrillation: (8) COPD (chronic obstructive pulmonary disease): COPD type: unspecified COPD Qualified Code(s): J44.9 - Chronic obstructive pulmonary disease, unspecified (9) Pulmonary hypertension: History of Present Illness Reason for Consultation: goals of care Requesting Physician: Dr Del Real Attending Physician: Kassi Del Real MD History of Present Illness 80 yo lady with ischemic cardiomyopathy, and Stage V CKD. She does have IgA glomerulonephritis and had been on steroids but developed epigastric pain. She also has atrial fibrillation with biventricular pacemaker, mechanical aortic valve, COPD and pulmonary hypertension. She was admitted for diuresis and has been hypotensive. Her most recent GFR is 12.2 with Creatinine of 3.39. She is not thought to be a candidate for dialysis. She is very anxious and complains of epigastric pain and urinary urgency. Bladder scan x 2 reveals less than 100cc urine in her bladder. Allergies Allergy/AdvReac Type Severity Reaction Status Date / Time Sulfa (Sulfonamide Allergy Unknown Unknown Verified 11/12/20 21:03 Antibiotics) rxn to Bactrim trimethoprim Allergy Unknown Unknown Verified 11/12/20 21:03 rxn to Bactrim Home Medications Medication Instructions Recorded Confirmed Type diltiazem HCl 360 mg 360 mg PO DAILY cap 11/27/18 11/12/20 History capsule,extended release 24 hr levothyroxine 75 mcg tablet 75 mcg PO DAILY #90 tab 11/27/18 11/12/20 History metoprolol tartrate 50 mg tablet 25 mg PO BID tab 11/27/18 11/12/20 History nitroglycerin 0.4 mg sublingual 0.4 mg SL Q5M PRN tab 11/27/18 11/12/20 History tablet albuterol sulfate See Rx Instructions INHALATION Q4H 04/26/19 11/12/20 Rx PRN #360 vial albuterol sulfate 90 mcg/actuation 2 puff INH QID PRN #18 gm 04/26/19 11/12/20 Rx aerosol inhaler (Ventolin HFA) ferrous sulfate 325 mg (65 mg 325 mg PO DAILY #0 tab 09/27/20 11/12/20 Rx iron) tablet insulin NPH isoph U-100 human 100 10 unit SC QAM #10 ml 09/27/20 11/12/20 Rx unit/mL subcutaneous suspension (Novolin N NPH U-100 Insulin isophane) pantoprazole 40 mg tablet,delayed 40 mg PO QAM #30 tab 09/27/20 11/12/20 Rx release sertraline 25 mg tablet (Zoloft) 25 mg PO DAILY #90 tab 10/03/20 11/12/20 Rx darbepoetin ramon in polysorbat 60 60 mcg IV .COMPLEX #4 ml 10/20/20 11/12/20 Rx mcg/mL in polysorbate injection (Aranesp) atorvastatin 40 mg tablet 40 mg PO QAM #90 tab 11/01/20 11/12/20 Rx calcitriol 0.25 mcg capsule 0.25 mcg PO QAM #90 cap 11/01/20 11/12/20 Rx hydralazine 25 mg tablet 25 mg PO TID 90 Days #270 tab 11/01/20 11/12/20 Rx ergocalciferol (vitamin D2) 1,250 1,250 mcg PO .weekly #14 cap 11/08/20 11/12/20 Rx mcg (50,000 unit) capsule furosemide 40 mg tablet 40 mg PO BID #180 tab 11/08/20 11/12/20 Rx lorazepam 0.5 mg tablet (Ativan) 0.5 mg PO Q8H PRN #60 tab 11/08/20 11/12/20 Rx prednisone 20 mg tablet 10 mg PO DAILY #90 tab 11/08/20 11/12/20 Rx warfarin 1 mg tablet (Jantoven) 1 mg PO UD 11/12/20 11/12/20 History Patient History Medical History Acute on chronic clinical systolic heart failure Anemia Atrial fibrillation Biventricular cardiac pacemaker in situ CAD (coronary artery disease) Chronic systolic CHF (congestive heart failure) COPD (chronic obstructive pulmonary disease) Hypertension Hypothyroidism IgA nephropathy Ischemic cardiomyopathy Leukocytoclastic vasculitis Pulmonary hypertension Stage 3b chronic kidney disease Stage III chronic kidney disease Surgical History History of aortic valve repair History of coronary artery bypass graft Family History Other Heart disease Social History Smoking Status: Never smoker Second Hand Exposure: No; Hx Alcohol Use: No Hx Substance Use: No Preferred Language: Faroese Communication Ability: Effective Tile Applicator Required: No Beliefs That Will Affect Care: None marital status: Current Living Situation: Spouse current occupational status: retired How many Children do You have: 2 Feels Safe at Home: Yes Assistive Devices: Oxygen - Continuous Review of Systems Review of Systems: [place] Symptom Assessment Scale Pain 1/3 Dyspnea 1/3 Anxiety 2/3 Fatigue 2/3 Drowsiness 0/3 Palliative Performance Score 30% Physical Exam Constitutional: + ill appearing; + uncomfortable Respiratory: + uses accessory muscles Cardiovascular: Rate/Rhythm: regular rate and regular rhythm Extremities: + edema Gastrointestinal (Abdomen): nontender, nonpalpable bladder Neurologic: awake; not confused Psychiatric: Affect: + anxious affect Mood: + anxious mood Results & Data ([facility]) Vital Signs (Past 12 Hours) Vital Signs Temp Pulse Pulse Pulse Resp BP BP 11/13/20 11:20 70 103/64 11/13/20 11:05 70 98/58 L 94/58 L 11/13/20 11:00 97.5 F L 70 18 82/44 L 58/36 L 11/13/20 07:55 71 178/83 H 11/13/20 07:00 97.9 F 70 20 91/48 L 11/13/20 06:20 70 11/13/20 04:15 71 11/13/20 03:42 70 16 91/57 L Pulse Ox 11/13/20 11:20 11/13/20 11:05 11/13/20 11:00 92 11/13/20 07:55 11/13/20 07:00 98 11/13/20 06:20 11/13/20 04:15 11/13/20 03:42 95 PG Care Time/CCT Total # of Minutes Spent Total Time Spent: 105 Total Time Spent with Patient: Total time spent is greater than 50% in coordination of care (as documented) at patient's floor/unit and/or counseling patient: goals of care, prognosis, hospice, family education and support, symptom management Coding Level of Care Code 46964 Initial Inpt Care Lvl 3 Diagnoses Anxiety F41.9 Abdominal pain R10.9 Palliative care encounter Z51.5 Chronic kidney disease, stage V N18.5 Acute on chronic systolic CHF (congestive heart failure) I50.23 Ischemic cardiomyopathy I25.5 Atrial fibrillation I48.91 COPD (chronic obstructive pulmonary disease) J44.9 COPD type: unspecified COPD Pulmonary hypertension I27.20
[2020-11-13] MEDS ORDERED: oxyCODONE HCL IR 5 MG TAB (IMMEDIATE RELEASE) PO PRN (16:35)
[2020-11-13] MEDS ORDERED: oxyCODONE HCL IR 5 MG TAB (IMMEDIATE RELEASE) ONE (16:37)
[2020-11-13] MEDS: BUMETANIDE 1 MG TAB PO SCH (16:40)
--- NOTE | 2020-11-13 17:17 | CT Scan Report ---
CT SCAN OF THE ABDOMEN AND PELVIS WITHOUT IV CONTRAST CLINICAL HISTORY: Epigastric abdominal pain. COMPARISON STUDY: Abdominal radiograph dated 09/13/2020. Chest CT dated 03/23/2015. TECHNIQUE: CT scan of the abdomen and pelvis is performed from the lung bases to the proximal femora. Images are reviewed in the axial, sagittal, and coronal planes. IV contrast was not administered for this examination. Note that the examination was performed in suboptimal fashion without oral and IV contrast. A dose lowering technique was utilized adhering to the principles of ALARA. CT DOSE: 318.68 mGy.cm FINDINGS: Lung bases: The patient is status post midline sternotomy and aortic valve surgery. Pacemaker leads a re noted. The heart is enlarged and without pericardial effusion. The coronary arteries are densely c alcified. There is diminished attenuation of the cardiac blood flow as compared to the myocardium sug gesting anemia. There are small to moderate pleural effusions with bibasilar consolidation. Liver: The unenhanced liver is normal in size, contour, and attenuation. Question mild intrahepatic b iliary ductal dilatation versus periportal edema. Gallbladder: The gallbladder is distended, the gallbladder wall appears thickened and edematous. Ther e is mild surrounding inflammation. Spleen: Normal in size and attenuation. Pancreas: The unenhanced pancreas is moderately atrophic and grossly unremarkable. Adrenal glands: Unremarkable. Kidneys: The unenhanced kidneys are atrophic and without hydronephrosis. There are no renal calculi i dentified. Left renal cysts measure up to 2.1 cm. Abdominal vasculature: The abdominal aorta is normal in course and caliber noting advanced atheroscle rotic calcification. Bowel: There is mild to moderate colonic diverticulosis without CT evidence of acute diverticulitis. Postoperative change is noted involving the right colon. No bowel obstruction is identified. Peritoneum: There is trace upper abdominal ascites and a small volume of free fluid in the pelvis. No intraperitoneal free air is identified. Lymphadenopathy: None. Pelvic viscera: The bladder, uterus, and adnexa are normal as visualized. Skeletal structures: The skeletal structures are osteopenic. Mild lumbosacral spondylosis is observed . No lytic or blastic lesions are seen. Soft tissues: There is anasarca of the body wall. IMPRESSION: 1. The gallbladder is distended with wall thickening and edema. There is also mild pericholecystic st randing. Correlate with clinical and laboratory findings for evidence of acute cholecystitis. Right u pper quadrant ultrasound could be considered for further assessment. 2. Cardiomegaly and cardiac pacemaker. 3. There are small to moderate pleural effusions, a small volume of abdominopelvic ascites, and body wall edema indicating fluid overload. 4. There is no bowel obstruction. 5. Additional findings as above. ACT 112: Negative or not required by law. Electronically signed by: Deep Espinoza M.D. 11/13/2020 5:16 PM
--- NOTE | 2020-11-13 17:31 | XCELERA ---
[id number] Positive
--- NOTE | 2020-11-13 17:39 | Electrocardiogram Report ---
Test Reason : Blood Pressure : / mmHG Vent. Rate : 079 BPM Atrial Rate : 071 BPM P-R Int : 000 ms QRS Dur : 184 ms QT Int : 474 ms P-R-T Axes : 000 208 030 degrees QTc Int : 543 ms Suspect unspecified pacemaker failure Ventricular-paced rhythm atrial flutter Abnormal ECG When compared with ECG of 07-SEP-2020 00:15, Premature ventricular complexes are now Present Vent. rate has increased BY 8 BPM Confirmed by Eric Johnson ([id number]) on 11/13/2020 5:39:21 PM Referred By: REFERRED SELF Confirmed By:Erik Johnson
[2020-11-13] MEDS ORDERED: PIPERACILL/TAZOBAC CONSULT ACTIVE PRN (17:48)
[2020-11-13] MEDS: PIPERACILLIN/TAZOBACTAM 3.375 GM in DEXTROSE 5% 100 ML IV STA ×2 (18:29→18:59)
[2020-11-13] MEDS: PANTOprazole 40 MG TAB PO SCH (21:09)
[2020-11-14] MEDS: PIPERACILLIN/TAZOBACTAM 3.375 GM in DEXTROSE 5% 100 ML IV SCH ×2 (02:33→13:33)
[2020-11-14] MEDS: LEVOTHYROXINE SODIUM 75 MCG TABLET PO SCH (05:40)
[2020-11-14] MEDS: HYDROCORTISONE SOD 100 MG in SYRINGE 0 ML IV SCH ×2 (05:42→13:24)
[2020-11-14] MEDS: INSULIN ASPART 100 UNITS/ML 3 ML PEN SC SCH ×2 (05:46→12:15)
--- NOTE | 2020-11-14 07:14 | Ultrasound Report ---
ULTRASOUND RIGHT UPPER QUADRANT ABDOMEN CLINICAL HISTORY: Abnormal CT. Concern for cholecystitis. COMPARISON STUDY: Abdominal CT dated 11/13/2020. TECHNIQUE: Real-time, grayscale, and color flow sonography of the right upper quadrant of the abdomen was performed. Images are reviewed in the transverse and longitudinal planes. FINDINGS: Liver: The liver is normal in size and heterogeneous in echotexture. Nodularity of the hepatic surfac e contour suggests changes of cirrhosis. There is mild intrahepatic biliary ductal dilatation. The ma in portal vein is patent. Gallbladder: The gallbladder is distended. The gallbladder wall is thickened, measuring up to 3 mm. N o shadowing gallstones are identified. Trace pericholecystic fluid is noted. A sonographic Christensen's s ign could not be assessed as the patient received analgesia. The common bile duct measures up to 0.9 cm in diameter. Pancreas: Visualized portions of the pancreatic head and body are normal in appearance. The pancreati c duct is prominent measuring up to 3 mm. The splenic vein is patent. Right kidney: Survey images of the right kidney show cortical atrophy and increased echotexture sugge sting medical renal disease. There is no hydronephrosis. Ascites: There is trace perihepatic ascites. IMPRESSION: 1. The gallbladder is distended and there is nonspecific gallbladder wall thickening. No shadowing ga llstones are identified. This could be related to adjacent hepatocellular disease and fluid overload. Acalculous cholecystitis is not excluded and clinical correlation will be essential. If there strong clinical concern for cholecystitis a nuclear hepatobiliary scan should be considered. 2. There is trace pericholecystic fluid as well as trace perihepatic ascites. 3. Heterogeneous liver. Nodularity of the surface contour suggests changes of cirrhosis. 4. There is evidence of medical renal disease. ACT 112: Negative or not required by law. Electronically signed by: Deep Espinoza M.D. 11/14/2020 7:13 AM
[2020-11-14 08:02] LABS: Hematocrit (blood only) 27.8 % (37-47); Hemoglobin 8.5 g/dL (12.0-16.0); Immature Granulocytes # (auto) 0.01 K/uL (0.00-0.02); Immature Granulocytes % (auto) 0.1 %; Lymphocytes # (auto) 0.77 K/uL (1.2-3.4); Lymphocytes % (auto) 11.4 %; Mean Corpuscular Hemoglobin 29.3 pg (25-34); Mean Corpuscular Hgb Conc 30.6 g/dL (32-36); Mean Corpuscular Volume 95.9 fL (80-100); Mean Platelet Volume 11.4 fL (7.4-10.4); Monocytes # (auto) 0.31 K/uL (0.11-0.59); Monocytes % (auto) 4.6 %; Neutrophils # (auto) 5.67 K/uL (1.4-6.5); Neutrophils % (auto) 83.9 %; Platelet Count 221 K/uL (130-400); RDW Coefficient of Variation 16.9 % (11.5-14.5); RDW Standard Deviation 59.6 fL (36.4-46.3); White Blood Count 6.76 K/uL (4.8-10.8)
[2020-11-14 08:21] LABS: INR 4.1 (0.9-1.1); Partial Thromboplastin Ratio 1.7; Partial Thromboplastin Time 44.4 Seconds (21.0-31.0); Prothrombin Time 37.1 Seconds (9.0-12.0)
[2020-11-14 08:38] LABS: Albumin Level 2.3 gm/dl (3.4-5.0); BUN Creatinine Ratio 25.2 (10-20); Calcium 7.2 mg/dl (8.5-10.1); Creatinine Clr Calc Pharmacy 9.6 ml/min; Est GFR (African American) 11.2 ml/min; Est GFR (Non-African American) 9.7 ml/min; Magnesium 2.2 mg/dl (1.8-2.4); Potassium 5.2 mmol/L (3.5-5.1)
[2020-11-14 08:42] LABS: Albumin Globulin Ratio 0.9 (0.9-2); Bilirubin,Total 0.3 mg/dl (0.2-1); Ferritin 302.1 ng/ml (8-388); Globulin 2.7 gm/dl (2.5-4.0)
[2020-11-14] MEDS ORDERED: BUMETANIDE 1 MG TAB PO SCH (09:00)
--- NOTE | 2020-11-14 09:06 | Nephrology Progress Note ---
Date of Service November 14, 2020 Assessment & Plan (1) Chronic kidney disease, stage V: Plan: * Stage V CKD - baseline Cr 3.4 w/ EGFR 12 cc/min * IgA nephropathy - h/o leukocytoclastic vasculitis, serologic evaluation negative, renal biopsy not performed due to multiple bilateral renal cysts * Progressive proteinuria. Steroid therapy has been complicated by gastritis, steroid induced DM and lumbar compression fracture * 09/25 Renal US: 9.7 cm kidneys with multiple bilateral renal cysts, no hydronephrosis * 09/25 Renal artery doppler: technically difficult study. Nondiagnostic for JULIAN * Will order urinalysis, UPCR, 24 hour Clcr and total protein * Primary service has started stress dose steroids IV * Patient is oliguric despite diuretic therapy. Cr has risen to 4.1 and patient has progressive azotemia * Poor dialysis candidate: 09/24/20 Nephrology note indicates h/o fall w/ subdural hematoma (2018), requires raised toilet due to proximal muscle weakness, requires walker for ambulation, requires chronic O2 due to advanced COPD, low serum albumin with 3rd spacing volume * Possible acalculous cholecystitis - await surgical input * Palliative care has met with family. They are considering home with hospice. Await further input (2) Abdominal pain: Plan: * Probable steroid induced gastritis and acalculous cholecystitis * Await surgical evaluation * LFT's and lipase wnl at time of admission * Continue Protonix to 40 mg po BID * Note: INR remains elevated at 4.1 this am (3) Anemia: Plan: * Iron saturation 14% w/ ferritin 176 * Will order IV iron * SQ Procrit administered 11/13/20 (4) Ischemic cardiomyopathy: Plan: * Troponin remains relatively stable at 0.03 * 11/13/20 Echocardiogram: mechanical AV, mod-severe MR, mod TR, RVSP 50 - 60 mmHg * Peripheral edema in part related to high RV pressure * Continue Bumex 1 mg po BID. Monitor I&O's, kidney function. Await surgical and palliative care input (5) Congenital hypoplasia of lung: (6) COPD (chronic obstructive pulmonary disease): Admission and Anticipated Discharge Date Admission Date: November 12, 2020 Subjective Mrs. Wells was examined in her hospital room this morning. Over night her oxygen requirements have increased. She is now on oxygen face mask at 6 L/min. She complains of bilateral epigastric discomfort. Review of Systems Constitutional: + weakness; no fever Eyes: no worsening vision and no problem reported Ear, Nose, Mouth, Throat: no problem reported Respiratory: + dyspnea; no cough Cardiovascular: + chest pain and + edema; no palpitations Gastrointestinal: + abdominal pain and + nausea; no vomiting and no diarrhea/loose stools Genitourinary: no dysuria and no hematuria Musculoskeletal: no back pain Integumentary: no rash Neurologic: no falls, no dizziness and no confusion Physical Exam Constitutional: + thin and + frail appearing (anxious) Eyes: PERRL, conjunctivae normal, anicteric sclerae ENMT: external ear and nose normal, oropharynx normal Neck: trachea midline, no thyromegaly Respiratory: normal respiratory effort and able to speak in complete sentences; no respiratory distress and does not use accessory muscles Cardiovascular: Rate/Rhythm: regular rate and regular rhythm Extremities: + edema (3+ dependent edema) Gastrointestinal (Abdomen): Inspection/Auscultation: normal bowel sounds Percussion/Palpation: + abdomen tender (mildly tender LUQ) and abdomen soft; no guarding Skin: + turgor decreased Neurologic: awake; not confused Results & Data ([facility]) Vital Signs (Past 12 Hours) Vital Signs Temp Pulse Pulse Resp BP Pulse Ox 11/14/20 07:12 36.7 C 70 18 133/60 92 11/14/20 04:08 36.7 C 70 18 126/64 92 11/14/20 02:23 70 11/14/20 01:31 70 12 90 11/13/20 23:46 36.6 C 73 18 105/51 L 90 Laboratory Results Laboratory Tests 11/13/20 11/13/20 11/14/20 11:24 11:24 07:28 WBC 6.76 Hgb 8.5 L Hct 27.8 L Plt Count 221 INR Sodium Potassium Chloride Carbon Dioxide BUN Creatinine Glucose Calcium Transferrin % Sat Ferritin Total Bilirubin AST ALT Alkaline Phosphatase Albumin Urine Color Yellow Urine Appearance Clear Urine pH 5.0 Ur Specific [place] 1.015 Urine Protein 3+ H Urine Glucose (UA) Negative Urine Ketones Negative Urine Blood Negative Urine Nitrite Negative Urine Bilirubin Negative Ur Leukocyte Esterase Negative Urine RBC 0-4 Urine Bacteria 1+ H Protein/Creatinin Ratio 2.5 H 11/14/20 11/14/20 07:28 07:28 WBC Hgb Hct Plt Count INR 4.1 H Sodium 129 L Potassium 5.2 H D Chloride 94 L Carbon Dioxide 27 BUN 103 H Creatinine 4.10 H D Glucose 135 H Calcium 7.2 L Transferrin % Sat 14 L Ferritin 302.1 Total Bilirubin 0.3 AST 35 ALT 42 Alkaline Phosphatase 75 Albumin 2.3 L Urine Color Urine Appearance Urine pH Ur Specific [place] Urine Protein Urine Glucose (UA) Urine Ketones Urine Blood Urine Nitrite Urine Bilirubin Ur Leukocyte Esterase Urine RBC Urine Bacteria Protein/Creatinin Ratio 11/13/20 Echocardiogram: mechanical AV, mod-severe MR, mod TR, RVSP 50 - 60 mmHg 11/13/20 GB US: distended GB w/ thickened wall and trace pericholecystic fluid PG Care Time/CCT Total # of Minutes Spent Total Time Spent with Patient: Total time spent is greater than 50% in coordination of care (as documented) at patient's floor/unit and/or counseling patient: Coding Diagnoses Chronic kidney disease, stage V N18.5 Abdominal pain R10.9 Anemia D64.9 Anemia type: unspecified type Ischemic cardiomyopathy I25.5 Congenital hypoplasia of lung Q33.6 COPD (chronic obstructive pulmonary disease) J44.9 COPD type: unspecified COPD (1) Anemia Anemia type: unspecified type Qualified Code(s): D64.9 - Anemia, unspecified (2) COPD (chronic obstructive pulmonary disease) COPD type: unspecified COPD Qualified Code(s): J44.9 - Chronic obstructive pulmonary disease, unspecified
[2020-11-14] MEDS: ONDANSETRON INJ 2 MG/ML 2 ML VIAL IV PRN (09:09)
[2020-11-14] MEDS: INSULIN HUMAN NPH SC SCH (09:11)
[2020-11-14] MEDS ORDERED: HYDROmorphone INJ 0.5 MG/0.5 ML SYR IV PRN (09:35)
[2020-11-14] MEDS ORDERED: IRON SUCROSE 200 MG in 0.9 % SODIUM CHLORIDE 100 ML IV SCH (10:00)
[2020-11-14] MEDS: PANTOprazole 40 MG TAB PO SCH (10:15)
[2020-11-14] MEDS: METOPROLOL TARTRATE 25 MG TAB PO SCH (10:15)
[2020-11-14] MEDS: SERTRALINE HCL 50 MG TABLET PO SCH (10:15)
[2020-11-14] MEDS: BUMETANIDE 1 MG TAB PO SCH (10:54)
[2020-11-14] MEDS: CALCITRIOL 0.25 MCG CAPSULE PO SCH (10:54)
[2020-11-14] MEDS: ATORVASTATIN 40 MG TAB PO SCH (10:55)
[2020-11-14] MEDS: SUCRALFATE 1 GM/10 ML UDC PO SCH ×2 (11:33→12:21)
[2020-11-14] MEDS: FERROUS SULFATE 325 MG TAB PO SCH (12:21)
--- NOTE | 2020-11-14 12:39 | Palliative Care Progress Note ---
Date of Service November 14, 2020 Assessment & Plan (1) Anxiety: Plan: Per her family, this is a chronic problem for her which is definitely made worse by her current circumstances. Patients anxiety exacerbated when her family arrived. She expressed that she was ready to , but scared of the process. Continue Lorazepam PRN. Now on Comfort Measures. (2) Abdominal pain: Plan: With gastritis on steroid therapy. She is on a PPI. (3) Palliative care encounter: Plan: Patient with worsening abdominal and chest pain today. Her nausea and anxiety worsened today as well. A HIDA scan was ordered, but was later canceled when family transitioned to comfort measures. Surgery did evaluate the patient today and determined that this was a fluid overload issue and was not considered a candidate for cholecystectomy with her current condition. Lengthy conversation held at the bedside with both daughters and the patients . They were all in agreement to transition to a more comfort focused approach in her care. The patient is incredibly uncomfortable and the discussion was held to start a Dilaudid infusion, along with scheduled Zofran and PRN Ativan. All blood draws, vitals, cardiac monitoring, medications not focused on comfort discontinued. Support offered to the family.The patient has been having increased fears about [place] but could not describe anything specifically causing her emotional pain. I had asked NANCY Gannon to contact the back hand to provide some bedside clergy support, which was performed and appreciated by the patient and family. Appreciate TCM help. Likely life expectancy hours to a few days. Palliative Medicine will follow to ensure patient is comfortable and symptoms well managed. (4) Chronic kidney disease, stage V: Plan: Creatinine worsening today, now 4.1. Family has decided to forgo aggressive treatment and focus on comfort measures only. (5) Acute on chronic systolic CHF (congestive heart failure): (6) Ischemic cardiomyopathy: (7) Nausea: Plan: Persistent nausea. Will schedule Zofran IV Q6 until more comfortable. Admission and Anticipated Discharge Date Admission Date: November 12, 2020 Subjective Patient having worsening abdominal pain and chest pain. Patient having increased nausea as well. She expressed she is fearful of , this was discussed in detail See A/P for further details. Review of Systems Review of Systems: [place] Symptom Assessment Scale Pain 3/3 Dyspnea 2/3 Anxiety 3/3 Fatigue 2/3 Palliative Performance Score 20% Physical Exam Constitutional: + ill appearing; + uncomfortable Respiratory: + uses accessory muscles Cardiovascular: Rate/Rhythm: regular rate and regular rhythm Extremities: + edema Neurologic: awake; not confused Psychiatric: Affect: + anxious affect Mood: + anxious mood Results & Data ([facility]) Vital Signs (Past 12 Hours) Vital Signs Temp Pulse Pulse Resp BP Pulse Ox 11/14/20 11:11 36.4 C L 70 20 138/78 94 11/14/20 10:52 70 18 133/73 93 11/14/20 10:17 37 C 70 20 139/57 L 92 11/14/20 09:59 70 11/14/20 07:12 36.7 C 70 18 133/60 92 11/14/20 04:08 36.7 C 70 18 126/64 92 11/14/20 02:23 70 11/14/20 01:31 70 12 90 PG Care Time/CCT Total # of Minutes Spent Total Time Spent with Patient: Total time spent is greater than 50% in coordination of care (as documented) at patient's floor/unit and/or counseling patient: 45 minutes with > 50% of that time spent assessing the patient, discussing goals of care, providing symptom management, and collaborating with IDT. Coding Level of Care Code 14122 Prolonged Care (int'l) Diagnoses Anxiety F41.9 Abdominal pain R10.9 Palliative care encounter Z51.5 Chronic kidney disease, stage V N18.5 Acute on chronic systolic CHF (congestive heart failure) I50.23 Ischemic cardiomyopathy I25.5 Nausea R11.0 Time Spent (min) 45
--- NOTE | 2020-11-14 12:52 | Surgery Consultation ---
Date of Consultation November 14, 2020 Assessment & Plan (1) Abdominal pain: This is an 80y F with a PMH of CKD, afib, hypothyroid, h/o mechanical aortic valve replacement, CAD, COPD, pulmonary HTN, who presented to the [facility] on 11/12/20 with chest pain and worsening renal failure. On arrival it appears patient had some complaints of abdominal discomfort prompting a CT a/p to be performed that revealed "the gallbladder is distended with wall thickening and edema. There is also mild pericholecystic stranding. In addition to small to moderate pleural effusions, a small volume of abdominopelvic ascites, and body wall edema indicating fluid overload." A RUQ was obtained thereafter showing "The gallbladder is distended and there is nonspecific gallbladder wall thickening. No shadowing gallstones are identified. This could be related to adjacent hepatocellular disease and fluid overload. There is trace pericholecystic fluid as well as trace perihepatic ascites." -Today labs show WBC 6.7. LFT's are within normal limits. INR: 4.1. K: 5.2, Cr:4.1 Patient currently denying abdominal complaints upon our interview. There is no convincing evidence of cholecystitis based on imaging. She is fluid overloaded and this could account for the results on her CT and RUQ US. Regardless if it was she is not a candidate for laparoscopic cholecystectomy in her condition and multiple medical issues. It appears per nephrology patient is a poor candidate for dialysis. Palliative care is following along helping guide decisions about goals of care and potential of hospice. We are okay with advancing diet as tolerates. No plans for surgical intervention. Please call with any questions/concerns. as above. doubt cholecystitis. suspect fluid overload as cause of her pericholecystic fluid. no RUQ ttp. pt not a surgical candidate anyway but do not suspect her gallbladder is causing any issue currently. History of Present Illness Attending Physician: Kassi Del Real MD History of Present Illness This is an 80y F with a PMH of CKD, afib, hypothyroid, h/o mechanical aortic valve replacement, CAD, COPD, pulmonary HTN, who presented to the [facility] on 11/12/20 with chest pain and worsening renal failure. On arrival it appears patient had some complaints of abdominal discomfort prompting a CT a/p to be performed that revealed "the gallbladder is distended with wall thickening and edema. There is also mild pericholecystic stranding. In addition to small to moderate pleural effusions, a small volume of abdominopelvic ascites, and body wall edema indicating fluid overload." A RUQ was obtained thereafter showing "The gallbladder is distended and there is nonspecific gallbladder wall thickening. No shadowing gallstones are identified. This could be related to adjacent hepatocellular disease and fluid overload. There is trace pericholecystic fluid as well as trace perihepatic ascites." Patient is currently wearing oxymask. Today patient currently denies any abdominal pain on our interview. Allergies Allergy/AdvReac Type Severity Reaction Status Date / Time Sulfa (Sulfonamide Allergy Unknown Unknown Verified 11/12/20 21:03 Antibiotics) rxn to Bactrim trimethoprim Allergy Unknown Unknown Verified 11/12/20 21:03 rxn to Bactrim Home Medications Medication Instructions Recorded Confirmed Type diltiazem HCl 360 mg 360 mg PO DAILY cap 11/27/18 11/12/20 History capsule,extended release 24 hr levothyroxine 75 mcg tablet 75 mcg PO DAILY #90 tab 11/27/18 11/12/20 History metoprolol tartrate 50 mg tablet 25 mg PO BID tab 11/27/18 11/12/20 History nitroglycerin 0.4 mg sublingual 0.4 mg SL Q5M PRN tab 11/27/18 11/12/20 History tablet albuterol sulfate See Rx Instructions INHALATION Q4H 04/26/19 11/12/20 Rx PRN #360 vial albuterol sulfate 90 mcg/actuation 2 puff INH QID PRN #18 gm 04/26/19 11/12/20 Rx aerosol inhaler (Ventolin HFA) ferrous sulfate 325 mg (65 mg 325 mg PO DAILY #0 tab 09/27/20 11/12/20 Rx iron) tablet insulin NPH isoph U-100 human 100 10 unit SC QAM #10 ml 09/27/20 11/12/20 Rx unit/mL subcutaneous suspension (Novolin N NPH U-100 Insulin isophane) pantoprazole 40 mg tablet,delayed 40 mg PO QAM #30 tab 09/27/20 11/12/20 Rx release sertraline 25 mg tablet (Zoloft) 25 mg PO DAILY #90 tab 10/03/20 11/12/20 Rx darbepoetin ramon in polysorbat 60 60 mcg IV .COMPLEX #4 ml 10/20/20 11/12/20 Rx mcg/mL in polysorbate injection (Aranesp) atorvastatin 40 mg tablet 40 mg PO QAM #90 tab 11/01/20 11/12/20 Rx calcitriol 0.25 mcg capsule 0.25 mcg PO QAM #90 cap 11/01/20 11/12/20 Rx hydralazine 25 mg tablet 25 mg PO TID 90 Days #270 tab 11/01/20 11/12/20 Rx ergocalciferol (vitamin D2) 1,250 1,250 mcg PO .weekly #14 cap 11/08/20 11/12/20 Rx mcg (50,000 unit) capsule furosemide 40 mg tablet 40 mg PO BID #180 tab 11/08/20 11/12/20 Rx lorazepam 0.5 mg tablet (Ativan) 0.5 mg PO Q8H PRN #60 tab 11/08/20 11/12/20 Rx prednisone 20 mg tablet 10 mg PO DAILY #90 tab 11/08/20 11/12/20 Rx warfarin 1 mg tablet (Jantoven) 1 mg PO UD 11/12/20 11/12/20 History Patient History Medical History Acute on chronic clinical systolic heart failure Anemia Atrial fibrillation Biventricular cardiac pacemaker in situ CAD (coronary artery disease) Chronic systolic CHF (congestive heart failure) COPD (chronic obstructive pulmonary disease) Hypertension Hypothyroidism IgA nephropathy Ischemic cardiomyopathy Leukocytoclastic vasculitis Pulmonary hypertension Stage 3b chronic kidney disease Stage III chronic kidney disease Surgical History History of aortic valve repair History of coronary artery bypass graft Family History Other Heart disease Social History Smoking Status: Never smoker Second Hand Exposure: No; Hx Alcohol Use: No Hx Substance Use: No Preferred Language: Swazi Communication Ability: Effective Ham Curer Required: No Beliefs That Will Affect Care: None marital status: Current Living Situation: Spouse current occupational status: retired How many Children do You have: 2 Feels Safe at Home: Yes Assistive Devices: Oxygen - Continuous Review of Systems Cardiovascular: + chest pain (prior to admission) Gastrointestinal: + abdominal pain (denies much abdominal pain today); no vomiting Physical Exam Physical Exam: awake, no acute distress Respiratory: on 6L oxymask Gastrointestinal (Abdomen): Percussion/Palpation: abdomen soft; abdomen nontender (no complaints of tenderness with palpation) Results & Data ([facility]) Vital Signs (Past 12 Hours) Vital Signs Temp Pulse Pulse Resp BP Pulse Ox 11/14/20 11:11 36.4 C L 70 20 138/78 94 11/14/20 10:52 70 18 133/73 93 11/14/20 10:17 37 C 70 20 139/57 L 92 11/14/20 09:59 70 11/14/20 07:12 36.7 C 70 18 133/60 92 11/14/20 04:08 36.7 C 70 18 126/64 92 11/14/20 02:23 70 11/14/20 01:31 [address] SCAN OF THE ABDOMEN AND PELVIS WITHOUT IV CONTRAST CLINICAL HISTORY: Epigastric abdominal pain. COMPARISON STUDY: Abdominal radiograph dated 09/13/2020. Chest CT dated 03/23/2015. TECHNIQUE: CT scan of the abdomen and pelvis is performed from the lung bases to the proximal femora. Images are reviewed in the axial, sagittal, and coronal planes. IV contrast was not administered for this examination. Note that the examination was performed in suboptimal fashion without oral and IV contrast. A dose lowering technique was utilized adhering to the principles of ALARA. CT DOSE: 318.68 mGy.cm FINDINGS: Lung bases: The patient is status post midline sternotomy and aortic valve surgery. Pacemaker leads are noted. The heart is enlarged and without pericardial effusion. The coronary arteries are densely calcified. There is diminished attenuation of the cardiac blood flow as compared to the myocardium suggesting anemia. There are small to moderate pleural effusions with bibasilar consolidation. Liver: The unenhanced liver is normal in size, contour, and attenuation. Question mild intrahepatic biliary ductal dilatation versus periportal edema. Gallbladder: The gallbladder is distended, the gallbladder wall appears thickened and edematous. There is mild surrounding inflammation. Spleen: Normal in size and attenuation. Pancreas: The unenhanced pancreas is moderately atrophic and grossly unremarkable. Adrenal glands: Unremarkable. Kidneys: The unenhanced kidneys are atrophic and without hydronephrosis. There are no renal calculi identified. Left renal cysts measure up to 2.1 cm. Abdominal vasculature: The abdominal aorta is normal in course and caliber noting advanced atherosclerotic calcification. Bowel: There is mild to moderate colonic diverticulosis without CT evidence of acute diverticulitis. Postoperative change is noted involving the right colon. No bowel obstruction is identified. Peritoneum: There is trace upper abdominal ascites and a small volume of free fluid in the pelvis. No intraperitoneal free air is identified. Lymphadenopathy: None. Pelvic viscera: The bladder, uterus, and adnexa are normal as visualized. Skeletal structures: The skeletal structures are osteopenic. Mild lumbosacral spondylosis is observed. No lytic or blastic lesions are seen. Soft tissues: There is anasarca of the body wall. IMPRESSION: 1. The gallbladder is distended with wall thickening and edema. There is also mild pericholecystic stranding. Correlate with clinical and laboratory findings for evidence of acute cholecystitis. Right upper quadrant ultrasound could be considered for further assessment. 2. Cardiomegaly and cardiac pacemaker. 3. There are small to moderate pleural effusions, a small volume of abdominopelvic ascites, and body wall edema indicating fluid overload. 4. There is no bowel obstruction. 5. Additional findings as above. ACT 112: Negative or not required by law. Electronically signed by: Deep Espinoza M.D. 11/13/2020 5:16 PM ULTRASOUND RIGHT UPPER QUADRANT ABDOMEN CLINICAL HISTORY: Abnormal CT. Concern for cholecystitis. COMPARISON STUDY: Abdominal CT dated 11/13/2020. TECHNIQUE: Real-time, grayscale, and color flow sonography of the right upper quadrant of the abdomen was performed. Images are reviewed in the transverse and longitudinal planes. FINDINGS: Liver: The liver is normal in size and heterogeneous in echotexture. Nodularity of the hepatic surface contour suggests changes of cirrhosis. There is mild intrahepatic biliary ductal dilatation. The main portal vein is patent. Gallbladder: The gallbladder is distended. The gallbladder wall is thickened, measuring up to 3 mm. No shadowing gallstones are identified. Trace pericholecystic fluid is noted. A sonographic Christensen's sign could not be assessed as the patient received analgesia. The common bile duct measures up to 0.9 cm in diameter. Pancreas: Visualized portions of the pancreatic head and body are normal in appearance. The pancreatic duct is prominent measuring up to 3 mm. The splenic vein is patent. Right kidney: Survey images of the right kidney show cortical atrophy and increased echotexture suggesting medical renal disease. There is no hydronephrosis. Ascites: There is trace perihepatic ascites. IMPRESSION: 1. The gallbladder is distended and there is nonspecific gallbladder wall thickening. No shadowing gallstones are identified. This could be related to adjacent hepatocellular disease and fluid overload. Acalculous cholecystitis is not excluded and clinical correlation will be essential. If there strong clin ical concern for cholecystitis a nuclear hepatobiliary scan should be considered. 2. There is trace pericholecystic fluid as well as trace perihepatic ascites. 3. Heterogeneous liver. Nodularity of the surface contour suggests changes of cirrhosis. 4. There is evidence of medical renal disease. ACT 112: Negative or not required by law. Electronically signed by: Deep Espinoza M.D. 11/14/2020 7:13 AM PG Care Time/CCT Total # of Minutes Spent Total Time Spent with Patient: Total time spent is greater than 50% in coordination of care (as documented) at patient's floor/unit and/or counseling patient: Coding Level of Care Code 30586 Initial Inpt Care Lvl 3 Diagnoses Abdominal pain R10.9
[2020-11-14] MEDS ORDERED: PROCHLORPERAZINE 5 MG in SYRINGE 4 ML IV PRN (13:29)
[2020-11-14] MEDS ORDERED: STAT IV Infusion **Titration per Protocol STA (14:46)
[2020-11-14] MEDS ORDERED: LORazepam 0.5 MG/1 ML VIAL IV PRN (14:52)
[2020-11-14] MEDS ORDERED: HYDROmorphone/NSS 100 MG/100 ML BAG IV SCH (15:00)
--- NOTE | 2020-11-14 15:26 | Electrocardiogram Report ---
Test Reason : Blood Pressure : / mmHG Vent. Rate : 070 BPM Atrial Rate : 058 BPM P-R Int : 000 ms QRS Dur : 184 ms QT Int : 482 ms P-R-T Axes : 000 202 018 degrees QTc Int : 520 ms Ventricular-paced rhythm Abnormal ECG When compared with ECG of 12-NOV-2020 20:56, Vent. rate has decreased BY 9 BPM Confirmed by Erci Johnson ([id number]) on 11/14/2020 3:25:52 PM Referred By: REFERRED SELF Confirmed By:Erik Johnson
--- NOTE | 2020-11-14 16:25 | Hospitalist Progress Note ---
Date of Service November 14, 2020 Assessment & Plan (1) Acute cholecystitis: Plan: Presents with epigastric abdominal pain that is constant x2 months. LFTs and lipase negative. Thought initially to be steroid induced gastritis versus peptic ulcer disease, but too frail to undergo anesthesia for EGD CT abdomen/pelvis performed without contrast shows most likely acute cholecystitis on 11/13 RUQ ultrasound with distended GB and some fluid but could be from volume overlo ad LFTs and lipase remain normal Pain ongoing Surgery not convinced this is acute chriss and regardless, did not think pt would survive surgery Family and pt decidede since kidneys continue to fail and in so much misery and did not desire transfer to outside hospital, want to transition to comfort measures only at this point dc antibiotics -started IV dilaudid gtt antiemetics prn dc carafate and all po meds dc IV steroids diet as tolerated no lab draws Greatly appreciate Palliative Medicine involvement Appreciate Surgery opinion Expect patient to pass away within 7 days (2) Acute on chronic systolic CHF (congestive heart failure): Plan: With worsening pulmonary edema and significant anasarca Received Lasix 40 mg IV x1 upon admission Nephrology changed from Lasix to Bumex 1 mg p.o. twice daily for better control absorption and renal function worsening, is oliguric, and continues with significant anasarca, pulm edema, worsening hypoxia -echocardiogram-with moderate to severe mitral regurgitation, elevated right- sided pressures, with transaortic velocity elevated/abnormal gradient for prosthetic aortic valve, preserved EF Transitioned to REPORTING DEVELOPER (3) Chronic kidney disease, stage V: Plan: Acute kidney failure in the setting of CKD stage V, in the setting of IgA nephropathy on chronic steroids since 09/06/2020 Creatinine up from baseline 2.9 to 3.4 on admission, now worsening further and oliguric, not responding to diuretics Appreciate nephrology consultation- feels that hemodialysis will most likely shorten her life rather than prolong it and feels that palliative consultation would be helpful to discuss goals of care -REPORTING DEVELOPER as above (4) Atrial fibrillation: Plan: Permanent, rate controlled With pacemaker in place Holding Coumadin for supratherapeutic INR of 5.0 dc dilt and metoprolol for REPORTING DEVELOPER dc coumadin (5) Elevated troponin: Plan: Troponin mildly elevated and trended back downward ECG is ventricular paced rhythm, atrial flutter Echocardiogram without wall motion abnormalities No chest pain, but likely this is myocardial demand ischemia in the setting of acute cholecystitis and renal failure (6) CAD (coronary artery disease): Plan: With a history of three-vessel CABG dc atorvastatin, metoprolol for REPORTING DEVELOPER (7) Ischemic cardiomyopathy: Plan: EF is now normalized but has been low in the past As above (8) Hypertension: Plan: With hypotension earlier dc hydralazine, diltiazem ,and metoprolol (9) Hypoxia: Plan: Likely secondary to worsening CHF and renal failure Supplemental O2 to keep pulse ox greater than 92% REPORTING DEVELOPER (10) IgA nephropathy: Plan: See above (11) Hypothyroidism: Plan: dc levothyroxine 75 mcg daily TSH normal in 09/2020 (12) Anemia: Plan: Hemoglobin low at 8.2, normocytic Stable from previous No bleeding or reports of melena or hematochezia Likely anemia of chronic renal disease dc ferrous sulfate for REPORTING DEVELOPER (13) Anxiety: Plan: Continue lorazepam as needed (14) DVT prophylaxis: Plan: dc all prophylaxis for REPORTING DEVELOPER Disposition-continued stay but downgrade to med/surg on REPORTING DEVELOPER Admission and Anticipated Discharge Date Admission Date: November 12, 2020 Subjective Pt was having ongoing upper abdominal pain that was more severe today, worsening nausea. In discussion with Palliative medicine and myself with family, decision made to pursue REPORTING DEVELOPER. I saw pt shortly after starting Dilaudid gtt and was resting comfortably. Discussed her care with family at bedside. They are saddened but seem relieved that her pain is finally improved with dilaudid drip. I also discussed her care with Nephrology today. Tele paced rhythm Review of Systems Review of Systems: All systems reviewed & are unremarkable except as noted in HPI & below Physical Exam Constitutional: WD/WN, vitals as above Neck: trachea midline, no thyromegaly Respiratory: normal respiratory effort Cardiovascular: Extremities: + edema (3+ pitting edema in all extremities throughout) Chest (Breasts): Chest: normal inspection of chest Musculoskeletal: Extremities: no cyanosis and no clubbing Skin: no rashes, warm and dry Results & Data Results & Data ([facility]) Vital Signs (Past 12 Hours) Vital Signs Temp Pulse Pulse Resp BP Pulse Ox 11/14/20 11:11 36.4 C L 70 20 138/78 94 11/14/20 10:52 70 18 133/73 93 11/14/20 10:17 37 C 70 20 139/57 L 92 11/14/20 09:59 70 11/14/20 07:12 36.7 C 70 18 133/60 92 Laboratory Results 11/14/20 11/14/20 11/14/20 Range/Units 12:14 07:28 07:28 WBC (4.8-10.8) K/uL RBC (4.2-5.4) M/uL Hgb (12.0-16.0) g/dL Hct (37-47) % MCV (80-100) fL MCH (25-34) pg MCHC (32-36) g/dL RDW Std Deviation (36.4-46.3) fL RDW Coeff of Radha (11.5-14.5) % Plt Count (130-400) K/uL MPV (7.4-10.4) fL Immature Gran % (Auto) % Neut % (Auto) % Lymph % (Auto) % Andrews % (Auto) % Eos % (Auto) % Baso % (Auto) % Neut # (Auto) (1.4-6.5) K/uL Lymph # (Auto) (1.2-3.4) K/uL Andrews # (Auto) (0.11-0.59) K/uL Eos # (Auto) (0-0.5) K/uL Baso # (Auto) (0-0.2) K/uL Immature Gran # (Auto) (0.00-0.02) K/uL PT 37.1 H (9.0-12.0) Seconds INR 4.1 H (0.9-1.1) APTT 44.4 H (21.0-31.0) Seconds PTT Ratio 1.7 Sodium 129 L (136-145) mmol/L Potassium 5.2 H D (3.5-5.1) mmol/L Chloride 94 L (98-107) mmol/L Carbon Dioxide 27 (21-32) mmol/L Anion Gap 8.0 (3-11) BUN 103 H (7-18) mg/dl Creatinine 4.10 H D (0.6-1.2) mg/dl Est Cr Clr Drug Dosing 9.6 ml/min Est GFR ( Amer) 11.2 ml/min Est GFR (Non-Af Amer) 9.7 ml/min BUN/Creatinine Ratio 25.2 H (10-20) Glucose 135 H (70-99) mg/dl POC Glucose 145 H (70-99) mg/dl Calcium 7.2 L (8.5-10.1) mg/dl Magnesium 2.2 (1.8-2.4) mg/dl Iron 35 (35-150) mcg/dl TIBC 221 L (250-450) mcg/dl Transferrin 176 L (200-360) mg/dl Transferrin % Sat 14 L (15-50) % Ferritin 302.1 (8-388) ng/ml Total Bilirubin 0.3 (0.2-1) mg/dl AST 35 (15-37) U/L ALT 42 (12-78) U/L Alkaline Phosphatase 75 (45-117) U/L Troponin I (0-0.045) ng/ml Total Protein 5.0 L (6.4-8.2) gm/dl Albumin 2.3 L (3.4-5.0) gm/dl Globulin 2.7 (2.5-4.0) gm/dl Albumin/Globulin Ratio 0.9 (0.9-2) 11/14/20 11/14/20 11/14/20 Range/Units 07:28 05:37 00:06 WBC 6.76 (4.8-10.8) K/uL RBC 2.90 L (4.2-5.4) M/uL Hgb 8.5 L (12.0-16.0) g/dL Hct 27.8 L (37-47) % MCV 95.9 (80-100) fL MCH 29.3 (25-34) pg MCHC 30.6 L (32-36) g/dL RDW Std Deviation 59.6 H (36.4-46.3) fL RDW Coeff of Radha 16.9 H (11.5-14.5) % Plt Count 221 (130-400) K/uL MPV 11.4 H (7.4-10.4) fL Immature Gran % (Auto) 0.1 % Neut % (Auto) 83.9 % Lymph % (Auto) 11.4 % Andrews % (Auto) 4.6 % Eos % (Auto) 0.0 % Baso % (Auto) 0.0 % Neut # (Auto) 5.67 (1.4-6.5) K/uL Lymph # (Auto) 0.77 L (1.2-3.4) K/uL Andrews # (Auto) 0.31 (0.11-0.59) K/uL Eos # (Auto) 0.00 (0-0.5) K/uL Baso # (Auto) 0.00 (0-0.2) K/uL Immature Gran # (Auto) 0.01 (0.00-0.02) K/uL PT (9.0-12.0) Seconds INR (0.9-1.1) APTT (21.0-31.0) Seconds PTT Ratio Sodium (136-145) mmol/L Potassium (3.5-5.1) mmol/L Chloride (98-107) mmol/L Carbon Dioxide (21-32) mmol/L Anion Gap (3-11) BUN (7-18) mg/dl Creatinine (0.6-1.2) mg/dl Est Cr Clr Drug Dosing ml/min Est GFR ( Amer) ml/min Est GFR (Non-Af Amer) ml/min BUN/Creatinine Ratio (10-20) Glucose (70-99) mg/dl POC Glucose 130 H 154 H (70-99) mg/dl Calcium (8.5-10.1) mg/dl Magnesium (1.8-2.4) mg/dl Iron (35-150) mcg/dl TIBC (250-450) mcg/dl Transferrin (200-360) mg/dl Transferrin % Sat (15-50) % Ferritin (8-388) ng/ml Total Bilirubin (0.2-1) mg/dl AST (15-37) U/L ALT (12-78) U/L Alkaline Phosphatase (45-117) U/L Troponin I (0-0.045) ng/ml Total Protein (6.4-8.2) gm/dl Albumin (3.4-5.0) gm/dl Globulin (2.5-4.0) gm/dl Albumin/Globulin Ratio (0.9-2) 11/13/20 11/13/20 Range/Units 20:35 16:28 WBC (4.8-10.8) K/uL RBC (4.2-5.4) M/uL Hgb (12.0-16.0) g/dL Hct (37-47) % MCV (80-100) fL MCH (25-34) pg MCHC (32-36) g/dL RDW Std Deviation (36.4-46.3) fL RDW Coeff of Radha (11.5-14.5) % Plt Count (130-400) K/uL MPV (7.4-10.4) fL Immature Gran % (Auto) % Neut % (Auto) % Lymph % (Auto) % Andrews % (Auto) % Eos % (Auto) % Baso % (Auto) % Neut # (Auto) (1.4-6.5) K/uL Lymph # (Auto) (1.2-3.4) K/uL Andrews # (Auto) (0.11-0.59) K/uL Eos # (Auto) (0-0.5) K/uL Baso # (Auto) (0-0.2) K/uL Immature Gran # (Auto) (0.00-0.02) K/uL PT (9.0-12.0) Seconds INR (0.9-1.1) APTT (21.0-31.0) Seconds PTT Ratio Sodium (136-145) mmol/L Potassium (3.5-5.1) mmol/L Chloride (98-107) mmol/L Carbon Dioxide (21-32) mmol/L Anion Gap (3-11) BUN (7-18) mg/dl Creatinine (0.6-1.2) mg/dl Est Cr Clr Drug Dosing ml/min Est GFR ( Amer) ml/min Est GFR (Non-Af Amer) ml/min BUN/Creatinine Ratio (10-20) Glucose (70-99) mg/dl POC Glucose 148 H (70-99) mg/dl Calcium (8.5-10.1) mg/dl Magnesium (1.8-2.4) mg/dl Iron (35-150) mcg/dl TIBC (250-450) mcg/dl Transferrin (200-360) mg/dl Transferrin % Sat (15-50) % Ferritin (8-388) ng/ml Total Bilirubin (0.2-1) mg/dl AST (15-37) U/L ALT (12-78) U/L Alkaline Phosphatase (45-117) U/L Troponin I 0.035 (0-0.045) ng/ml Total Protein (6.4-8.2) gm/dl Albumin (3.4-5.0) gm/dl Globulin (2.5-4.0) gm/dl Albumin/Globulin Ratio (0.9-2) Diagnostic Findings Abdomen/Pelvis CT 11/13/20 16:43 CT SCAN OF THE ABDOMEN AND PELVIS WITHOUT IV CONTRAST CLINICAL HISTORY: Epigastric abdominal pain. COMPARISON STUDY: Abdominal radiograph dated 09/13/2020. Chest CT dated 03/23/2015. TECHNIQUE: CT scan of the abdomen and pelvis is performed from the lung bases to the proximal femora. Images are reviewed in the axial, sagittal, and coronal planes. IV contrast was not administered for this examination. Note that the examination was performed in suboptimal fashion without oral and IV contrast. A dose lowering technique was utilized adhering to the principles of ALARA. CT DOSE: 318.68 mGy.cm FINDINGS: Lung bases: The patient is status post midline sternotomy and aortic valve surgery. Pacemaker leads are noted. The heart is enlarged and without pericardial effusion. The coronary arteries are densely calcified. There is diminished attenuation of the cardiac blood flow as compared to the myocardium suggesting anemia. There are small to moderate pleural effusions with bibasilar consolidation. Liver: The unenhanced liver is normal in size, contour, and attenuation. Question mild intrahepatic biliary ductal dilatation versus periportal edema. Gallbladder: The gallbladder is distended, the gallbladder wall appears thickened and edematous. There is mild surrounding inflammation. Spleen: Normal in size and attenuation. Pancreas: The unenhanced pancreas is moderately atrophic and grossly unremarkable. Adrenal glands: Unremarkable. Kidneys: The unenhanced kidneys are atrophic and without hydronephrosis. There are no renal calculi identified. Left renal cysts measure up to 2.1 cm. Abdominal vasculature: The abdominal aorta is normal in course and caliber noting advanced atherosclerotic calcification. Bowel: There is mild to moderate colonic diverticulosis without CT evidence of acute diverticulitis. Postoperative change is noted involving the right colon. No bowel obstruction is identified. Peritoneum: There is trace upper abdominal ascites and a small volume of free fluid in the pelvis. No intraperitoneal free air is identified. Lymphadenopathy: None. Pelvic viscera: The bladder, uterus, and adnexa are normal as visualized. Skeletal structures: The skeletal structures are osteopenic. Mild lumbosacral spondylosis is observed. No lytic or blastic lesions are seen. Soft tissues: There is anasarca of the body wall. IMPRESSION: 1. The gallbladder is distended with wall thickening and edema. There is also mild pericholecystic stranding. Correlate with clinical and laboratory findings for evidence of acute cholecystitis. Right upper quadrant ultrasound could be considered for further assessment. 2. Cardiomegaly and cardiac pacemaker. 3. There are small to moderate pleural effusions, a small volume of abdominopelvic ascites, and body wall edema indicating fluid overload. 4. There is no bowel obstruction. 5. Additional findings as above. ACT 112: Negative or not required by law. Electronically signed by: Deep Espinoza M.D. 11/13/2020 5:16 PM Gallbladder Ultrasound 11/13/20 17:55 ULTRASOUND RIGHT UPPER QUADRANT ABDOMEN CLINICAL HISTORY: Abnormal CT. Concern for cholecystitis. COMPARISON STUDY: Abdominal CT dated 11/13/2020. TECHNIQUE: Real-time, grayscale, and color flow sonography of the right upper quadrant of the abdomen was performed. Images are reviewed in the transverse and longitudinal planes. FINDINGS: Liver: The liver is normal in size and heterogeneous in echotexture. Nodularity of the hepatic surface contour suggests changes of cirrhosis. There is mild intrahepatic biliary ductal dilatation. The main portal vein is patent. Gallbladder: The gallbladder is distended. The gallbladder wall is thickened, measuring up to 3 mm. No shadowing gallstones are identified. Trace pericholecystic fluid is noted. A sonographic Christensen's sign could not be assessed as the patient received analgesia. The common bile duct measures up to 0.9 cm in diameter. Pancreas: Visualized portions of the pancreatic head and body are normal in appearance. The pancreatic duct is prominent measuring up to 3 mm. The splenic vein is patent. Right kidney: Survey images of the right kidney show cortical atrophy and increased echotexture suggesting medical renal disease. There is no hydronephros is. Ascites: There is trace perihepatic ascites. IMPRESSION: 1. The gallbladder is distended and there is nonspecific gallbladder wall thickening. No shadowing gallstones are identified. This could be related to adjacent hepatocellular disease and fluid overload. Acalculous cholecystitis is not excluded and clinical correlation will be essential. If there strong clinical concern for cholecystitis a nuclear hepatobiliary scan should be considered. 2. There is trace pericholecystic fluid as well as trace perihepatic ascites. 3. Heterogeneous liver. Nodularity of the surface contour suggests changes of cirrhosis. 4. There is evidence of medical renal disease. ACT 112: Negative or not required by law. Electronically signed by: Deep Espinoza M.D. 11/14/2020 7:13 AM PG Care Time/CCT Total # of Minutes Spent Total Time Spent with Patient: Total time spent is greater than 50% in coordination of care (as documented) at patient's floor/unit and/or counseling patient: Coding Level of Care Code 88197 Subseq Hosp Care Lvl 2 Diagnoses Acute cholecystitis K81.0 Acute on chronic systolic CHF (congestive heart failure) I50.23 Chronic kidney disease, stage V N18.5 Atrial fibrillation I48.91 Elevated troponin R77.8 CAD (coronary artery disease) I25.10 Coronary Disease-Associated Artery/Lesion type: [place] artery [place] vs. transplanted heart: [place] heart Associated angina: without angina Ischemic cardiomyopathy I25.5 Hypertension I10 Hypertension type: unspecified Hypoxia R09.02 IgA nephropathy N02.8 Hypothyroidism E03.9 Anemia D64.9 Anemia type: unspecified type Anxiety F41.9 DVT prophylaxis Z29.9 (1) CAD (coronary artery disease) Coronary Disease-Associated Artery/Lesion type: [place] artery [place] vs. transplanted heart: [place] heart Associated angina: without angina Qualified Code(s): I25.10 - Atherosclerotic heart disease of [place] coronary artery without angina pectoris (2) Hypertension Hypertension type: unspecified Qualified Code(s): I10 - Essential (primary) hypertension (3) Anemia Anemia type: unspecified type Qualified Code(s): D64.9 - Anemia, unspecified
[2020-11-14] MEDS: ONDANSETRON INJ 2 MG/ML 2 ML VIAL IV SCH (18:15)
[2020-11-14] MEDS ORDERED: ATROPINE SULFATE 1% OP SOLN 5 ML BTL PO PRN (20:15)
[2020-11-14] MEDS: ATROPINE SULFATE 1% OP SOLN 5 ML BTL SL PRN (20:24)
[2020-11-15] MEDS: ONDANSETRON INJ 2 MG/ML 2 ML VIAL IV SCH ×3 (02:45→06:39)
[2020-11-15] MEDS: ATROPINE SULFATE 1% OP SOLN 5 ML BTL SL PRN (05:21)
[2020-11-15] MEDS ORDERED: ERGOCALCIFEROL 50,000 UNITS 1250 MCG CAP PO SCH (09:00)
--- NOTE | 2020-11-15 12:02 | Death Pronouncement Note ---
Date of Service November 15, 2020 Pronouncement Note Admission Date Admission Date: November 12, 2020 Date and Time of Date of : 11/15/20 Time of : 10:30 PCOD Preliminary cause of : Acute kidney injury superimposed on chronic kidney disease Contributing Factors (1) Anxiety: (2) Abdominal pain: (3) Palliative care encounter: (4) Chronic kidney disease, stage V: (5) Acute on chronic systolic CHF (congestive heart failure): (6) Ischemic cardiomyopathy: (7) Nausea: Hospital Course Hospital Course: see discharge summary Summary Additional details: see discharge summary Additional Data Confirmation of : no pulse (pronounced by Dr. Andria Chopra) Attending physician: Kassi Del Real MD Coding Level of Care Code None Diagnoses Anxiety F41.9 Abdominal pain R10.9 Palliative care encounter Z51.5 Chronic kidney disease, stage V N18.5 Acute on chronic systolic CHF (congestive heart failure) I50.23 Ischemic cardiomyopathy I25.5 Nausea R11.0
--- NOTE | 2020-11-15 12:03 | Discharge Summary ---
Date of Service November 15, 2020 Admission HPI Per Admitting Provider The patient is an 80-year-old female with a past medical history including stage IIIb chronic kidney disease, situational anxiety, atrial fibrillation, hypothyroidism, chronic systolic CHF, biventricular cardiac pacemaker, nephrotic range proteinuria, IgA glomerulonephritis, mechanical aortic valve replacement, COPD, CAD, IgA nephropathy, pulmonary hypertension, hypertension and congenital hypoplasia of lung. Arrangements have been made for the patient to be transferred from [facility] emergency department to [facility] for admission for further assessment of her chest discomfort and general malaise. She most recently been admitted to [facility] from September 06-September 27 for IgA glomerulonephritis. Work-up in the emergency department here showed the following abnormal laboratories: Hemoglobin 8.5, hematocrit 28.2, INR 5.2, magnesium 1.7, albumin 2.2, creatinine 3.44, BUN 98, troponin 0.035. Principal Diagnosis Acute kidney injury in the setting of chronic kidney disease stage V Abdominal pain, nausea Discharge Exam Patient had ceased to breathe, pronounced by Dr. Andria Chopra. Discharge Data Allergies Allergy/AdvReac Type Severity Reaction Status Date / Time Sulfa (Sulfonamide Allergy Unknown Unknown Verified 11/12/20 21:03 Antibiotics) rxn to Bactrim trimethoprim Allergy Unknown Unknown Verified 11/12/20 21:03 rxn to Bactrim Consultations 11/12/20 22:32 ED Decision to Admit Stat 11/13/20 00:20 Consult Nephrology Routine 11/13/20 11:25 Consult Palliative Care Routine 11/13/20 17:55 Consult General Surgery Routine Ordered Studies 11/13/20 16:43 CT abd pelvis wo con Urgent 11/13/20 17:55 US gallbladder Urgent Hospital Course (1) Chronic kidney disease, stage V: (1) Acute cholecystitis: Plan: Presents with epigastric abdominal pain that is constant x2 months. LFTs and lipase negative. Thought initially to be steroid induced gastritis versus peptic ulcer disease, but too frail to undergo anesthesia for EGD CT abdomen/pelvis performed without contrast shows most likely acute cholecystitis on 11/13 RUQ ultrasound with distended GB and some fluid but could be from volume overload LFTs and lipase remain normal Pain ongoing Surgery not convinced this is acute chriss and regardless, did not think pt would survive surgery Family and pt decided since kidneys continue to fail and in so much misery and did not desire transfer to outside hospital, she was then transitioned to comfort measures only -started IV dilaudid gtt and patient peacefully at 10:30 AM on 11/15 Greatly appreciate Palliative Medicine involvement (2) Acute on chronic systolic CHF (congestive heart failure): Plan: With worsening pulmonary edema and significant anasarca Received Lasix 40 mg IV x1 upon admission Nephrology changed from Lasix to Bumex 1 mg p.o. twice daily for better control absorption and renal function worsening, is oliguric, and continues with significant anasarca, pulm edema, worsening hypoxia -echocardiogram-with moderate to severe mitral regurgitation, elevated right- sided pressures, with transaortic velocity elevated/abnormal gradient for prosthetic aortic valve, preserved EF Transitioned to BOILER ENGINEER (3) Chronic kidney disease, stage V: Plan: Acute kidney failure in the setting of CKD stage V, in the setting of IgA nephropathy on chronic steroids since 09/06/2020 Creatinine up from baseline 2.9 to 3.4 on admission, now worsening further and oliguric, not responding to diuretics Appreciate nephrology consultation- feels that hemodialysis will most likely shorten her life rather than prolong it and feels that palliative consultation would be helpful to discuss goals of care -BOILER ENGINEER as above (4) Atrial fibrillation: Plan: Permanent, rate controlled With pacemaker in place Held Coumadin for supratherapeutic INR of 5.0 dc dilt and metoprolol for BOILER ENGINEER dc coumadin (5) Elevated troponin: Plan: Troponin mildly elevated and trended back downward ECG is ventricular paced rhythm, atrial flutter Echocardiogram without wall motion abnormalities No chest pain, but likely this is myocardial demand ischemia in the setting of acute cholecystitis and renal failure (6) CAD (coronary artery disease): Plan: With a history of three-vessel CABG dc atorvastatin, metoprolol for BOILER ENGINEER (7) Ischemic cardiomyopathy: Plan: EF is now normalized but has been low in the past As above (8) Hypertension: Plan: With hypotension earlier dc hydralazine, diltiazem ,and metoprolol (9) Hypoxia: Plan: Likely secondary to worsening CHF and renal failure Supplemental O2 to keep pulse ox greater than 92% BOILER ENGINEER (10) IgA nephropathy: Plan: See above (11) Hypothyroidism: Plan: dc levothyroxine 75 mcg daily TSH normal in 09/2020 (12) Anemia: Plan: Hemoglobin low at 8.2, normocytic Stable from previous No bleeding or reports of melena or hematochezia Likely anemia of chronic renal disease dc ferrous sulfate for BOILER ENGINEER (13) Anxiety: Plan: Continue lorazepam as needed (14) DVT prophylaxis: Plan: dc all prophylaxis for BOILER ENGINEER (2) Anxiety: (3) Abdominal pain: (4) Palliative care encounter: (5) Acute on chronic systolic CHF (congestive heart failure): (6) Ischemic cardiomyopathy: (7) Nausea: Total Time Total Time Spent Total Time Spent (In Minutes): 25 minutes Discharge Plan Discharge Items Patient Disposition: Coding Level of Care Code D/C DAY MANAGEMENT <30 MINS Diagnoses Anxiety F41.9 Abdominal pain R10.9 Palliative care encounter Z51.5 Chronic kidney disease, stage V N18.5 Acute on chronic systolic CHF (congestive heart failure) I50.23 Ischemic cardiomyopathy I25.5 Nausea R11.0
--- NOTE | 2020-11-15 12:04 | Palliative Care Progress Note ---
Date of Service November 15, 2020 Assessment & Plan (1) Abdominal pain: Plan: controlled with hydromorphone infusion (2) Anxiety: Plan: Appears comfortable (3) Palliative care encounter: Plan: I met with family at bedside and reassured them that she appears comfortable. Answered their questions about symptom management. They asked about prognosis. During the discussion, Mckenna was noted to have prolonged apnea greater than 90 seconds. No palpable carotid pulse, no heart sounds on auscultation. She at 1030 am. Talked with family and provided support. RN and Dr. Del Real notified. (4) Chronic kidney disease, stage V: (5) Acute on chronic systolic CHF (congestive heart failure): (6) Ischemic cardiomyopathy: Admission and Anticipated Discharge Date Admission Date: November 12, 2020 Subjective Transitioned to comfort measures yesterday. On hydromorphone infusion, currently running at 1.2mg per hour. No grimacing or signs of discomfort with care per RN. Mckenna is not responsive to voice, touch or pain. Review of Systems Review of Systems: Unobtainable due to reduced consciousness [place] Symptom Assessment Scale Pain AD 0/3 Dyspnea by observation Drowsiness 3/3 Palliative Performance Score 10% Physical Exam Constitutional: + ill appearing; no acute distress ENMT: Mouth: + dry oral mucous membranes Respiratory: no respiratory distress and no labored breathing apnea, mild audible tracheal secretions Cardiovascular: Rate/Rhythm: regular rhythm and + tachycardic Extremities: + edema Gastrointestinal (Abdomen): Percussion/Palpation: abdomen soft; abdomen nontender Skin: mottled Neurologic: + obtunded PG Care Time/CCT Total # of Minutes Spent Total Time Spent: 40 Total Time Spent with Patient: Total time spent is greater than 50% in coordination of care (as documented) at patient's floor/unit and/or counseling patient: symptom management, prognosis, family education and support Coding Level of Care Code 96227 Subseq Hosp Care Lvl 3 Diagnoses Abdominal pain R10.9 Anxiety F41.9 Palliative care encounter Z51.5 Chronic kidney disease, stage V N18.5 Acute on chronic systolic CHF (congestive heart failure) I50.23 Ischemic cardiomyopathy I25.5
== END 2020-11-15 10:30 | disposition expired | DRG 682 ==
LOC: ED 20:49 → 2W 23:00 → SUATTDRO 23:00 → 2W 23:49 → 3N 11-15 03:27